=== PATIENT | female | born 2005 | race Caucasian/White ===

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

== ENCOUNTER 2024-01-14 20:02 | Emergency (ER) | payer OTHER, SELFPAY ==
[2024-01-14 20:04] VITALS: BP 143/96; PULSE 101; RESP 18; TEMP 36.8; O2SAT 100; BMI 18.8
--- NOTE | 2024-01-14 20:22 | ED_ITS ---
<Statement entered by Dl Schofield MD - 01/14/24 23:23> I was consulted by the DEBORAH, and we discussed the complexity of the problems being addressed. I approved the treatment and management plan for this patient's care in the emergency department, thus performing a substantive portion of the medical decision making. Patient's workup was largely nonactionable, formal chest x-ray read shows no acute findings however I disagree with this and think that there is an opacity in the right lower lobe for which she will be appropriately treated for pneumonia given her duration of symptoms with atypical coverage. Dl Schofield MD Discharge Plan Disposition Patient Disposition: Home, Self-Care Condition: Good Prescriptions Prescriptions: New doxycycline hyclate 100 mg capsule 100 mg PO BID 10 Days Qty: 20 0RF prednisone 50 mg tablet 50 mg PO DAILY 5 Days Qty: 5 0RF zcmhpdnxujpcmpr-ddgpdyxqo-UZ [Bromfed DM] 2-30-10 mg/5 mL syrup 5 ml PO Q4H PRN (Reason: cold symptoms) Qty: 118 0RF albuterol sulfate 90 mcg/actuation HFA aerosol inhaler 1 inh inhalation Q4H PRN (Reason: shortness of breath or wheezing) Qty: 6.7 0RF No Action amoxicillin 500 mg tablet 500 mg PO TID 10 Days Qty: 30 0RF methylprednisolone 4 mg Tablets,Dose Pack 4 mg PO DIRECTED 6 Days Qty: 21 0RF Rx Instructions: Take 1 pack as directed for 6 days cfobmbpwyjpvtbp-hfwhxvhxz-PC [Bromfed DM] 2-30-10 mg/5 mL Syrup 5 ml PO Q6H PRN (Reason: Cough) Qty: 240 0RF Referrals Follow up/Referrals: Carleen Xiong MD [Primary Care Provider] - See instructions Activity Restrictions/Add. Instructions Additional Instructions/Restrictions: Follow-up with your PCP in 1 week to assess your progress. Return to ER for any worsening signs or symptoms as needed. Clinical Impressions Clinical Impression: Community acquired pneumonia Qualifiers: Laterality: right Lung location: lower lobe of lung Qualified Code(s): J18.9 - Pneumonia, unspecified organism Instructions Patient Instructions: DI for Pneumonia -- Adult Discharge ED Provider: Dl Schofield General Adult [facility] General Chief complaint: Upper Respiratory Infection Stated complaint: Cough Time Seen by Provider: 01/14/24 20:22 History of Present Illness HPI narrative: Patient presents for 1 month of cough. Patient was seen in the [facility] at the mid December for an upper respiratory tract infection. She had a COVID swab that was negative but did lose sense of taste and smell. She got better from most constitutional symptoms but has had a productive cough since that time. She denies chest pain fever chills hemoptysis hematochezia melena nausea vomiting diarrhea. Related Data Previous Rx's Medication Instructions Recorded amoxicillin 500 mg tablet 500 mg PO TID 10 days #30 tabs 12/26/23 wdrhxcuoiexydbi-ayfenysizebavfz-RV 5 ml PO Q6H PRN Cough #240 mL 12/26/23 2 mg-30 mg-10 mg/5 mL oral syrup (Bromfed DM) methylprednisolone 4 mg tablets in 4 mg PO DIRECTED 6 days #21 tabs 12/26/23 a dose pack albuterol sulfate 90 mcg/actuation 1 inh inhalation Q4H PRN shortness 01/14/24 aerosol inhaler of breath or wheezing #6.7 grams toijgsunbuctbgn-onfquctpkybmftc-TM 5 ml PO Q4H PRN cold symptoms #118 01/14/24 2 mg-30 mg-10 mg/5 mL oral syrup mL (Bromfed DM) doxycycline hyclate 100 mg capsule 100 mg PO BID 10 days #20 caps 01/14/24 prednisone 50 mg tablet 50 mg PO DAILY 5 days #5 tabs 01/14/24 Allergies Allergy/AdvReac Type Severity Reaction Status Date / Time No Known Allergies Allergy Verified 12/26/23 11:07 [facility] Disclaimer: The information contained in this section may have been updated after the patient was seen, as this information can be updated by other users. Medical History (Updated 01/14/24 @ 21:50 by MARIYA Morton) Depression Anxiety History of gastroesophageal reflux (GERD) Migraine Social History (Updated 12/27/23 @ 09:48 by Benny Daniel APRN) Smoking Status: Never smoker alcohol intake: never current occupational status: employed Travel in the last 8 weeks: None ROS Obtained: Yes Systems reviewed as appropriate & no additional complaints except as documented Physical Exam General General appearance: alert and in no apparent distress Respiratory Respiratory exam: Present normal lung sounds bilaterally; Absent respiratory distress, wheezes or stridor Cardiovascular Cardiovascular exam: Present regular rate and normal rhythm Neurological Exam Neurological exam: Present alert and oriented X3 Medical Decision Making Medical Records Medical records reviewed: Yes I reviewed the patient's medical records. Danny Inquiry Pt receiving controlled substance: No Vital Signs: 01/14/24 20:04 01/14/24 20:55 01/14/24 20:55 Temperature 98.3 F Temperature Source Oral Pulse Rate 86 81 Pulse Rate [Left Brachial] 101 H Respiratory Rate 18 Blood Pressure Blood Pressure [Left Arm] 143/96 H Blood Pressure Mean [Left Arm] 111 02 Sat by Pulse Oximetry 100 Oxygen Delivery Method 01/14/24 21:00 01/14/24 22:01 Temperature 98.3 F Temperature Source Oral Pulse Rate 84 81 Pulse Rate [Left Brachial] Respiratory Rate 20 18 Blood Pressure 142/92 H 133/86 Blood Pressure [Left Arm] Blood Pressure Mean [Left Arm] 02 Sat by Pulse Oximetry 100 Oxygen Delivery Method Room Air Lab Data Lab results reviewed: Yes I reviewed the patient's lab results. Lab Results 01/14/24 20:25: VBG pH 7.32, VBG pCO2 52.1 H, VBG pO2 35.0, VBG HCO3 26.2, VBG Total CO2 27.8 H, VBG O2 Saturation 63.9, VBG Base Excess 0.1, VBG Lactic Acid 2.5 H 01/14/24 20:40: WBC 8.0, RBC 4.55, Hgb 13.7, Hct 40.0, MCV 87.9, MCH 30.2, MCHC 34.3, RDW 13.3, Plt Count 320, MPV 7.3 L, Neut % (Auto) 71.6, Lymph % (Auto) 22.4, Woodruff % (Auto) 4.0, Eos % (Auto) 1.1, Baso % (Auto) 1.0, Neut # (Auto) 5.7, Lymph # (Auto) 1.8, Woodruff # (Auto) 0.3, Eos # (Auto) 0.1, Baso # (Auto) 0.1, Sodium 140, Potassium 3.7, Chloride 104, Carbon Dioxide 29, Anion Gap 10.7, BUN 5 L, Creatinine 0.70, Estimated Creat Clear 111, Estimated GFR 108, Est GFR ( Amer) 130, Glucose 126 H, Calcium 9.6, Magnesium 1.9, Troponin I < 0.01, Serum HCG, Qual Negative 01/14/24 20:40 01/14/24 20:40 Orders (Tests/Meds): ED MEDICATIONS Discontinued Medications Generic Name Dose Route Start Last Admin Trade Name Joselyn PRN Reason Stop Dose Admin Acetaminophen 1,000 mg 01/14/24 20:23 01/14/24 20:57 Acetaminophen 1,000mg/100ml Vial IV 01/14/24 20:24 1,000 mg ONCE ONE Administration Albuterol/Ipratropium 3 ml 01/14/24 20:23 01/14/24 20:55 Ipratropium/Albuterol 3 Ml Neb IH 01/14/24 20:24 3 ml ONCE ONE Administration Dexamethasone Sodium Phosphate 10 mg 01/14/24 20:23 01/14/24 20:57 Dexamethasone 4mg/Ml 5ml Mdv IV 01/14/24 20:24 10 mg ONCE ONE Administration Doxycycline Hyclate 100 mg 01/14/24 21:50 Doxycycline Hycl 100 Mg Tablet PO 01/14/24 21:51 ONCE ONE Lactated Ringer's 1,000 mls @ 999 mls/hr 01/14/24 20:23 01/14/24 20:57 Lactated Ringer's 1000 Ml Bag IV 01/14/24 21:23 999 mls/hr .Q1H1M ONE Administration Ketorolac Tromethamine 15 mg 01/14/24 20:23 01/14/24 20:57 Ketorolac 30mg/Ml Vial IV 01/14/24 20:24 15 mg ONCE ONE Administration ORDERS Category Date Time Status XR chest 2V Stat Exams 01/14/24 20:44 Completed BMP [Basic Metabolic Panel] Stat Lab 01/14/24 20:40 Completed CBC w/Auto Diff [Complete Blood Count Auto Diff] Stat Lab 01/14/24 20:40 Completed Full Resp Panel w/COVID ([facility]) Routine Lab 01/14/24 20:57 Ordered HCG Qualitative, Serum Stat Lab 01/14/24 20:40 Completed Magnesium Stat Lab 01/14/24 20:40 Completed Trop I [Troponin I] Stat Lab 01/14/24 20:40 Completed Troponin I Q3H Lab 01/14/24 23:30 Ordered Troponin I Q3H Lab 01/15/24 02:30 Ordered VBG [Venous Blood Gas] Stat RT 01/14/24 20:25 Completed Medical Decision Narrative: In summary patient is a 1-year-old female who presents to the emergency department for evaluation of persistent cough. Patient is initially normotensive tachycardic upon arrival, afebrile. Zickel exam is unremarkable and nonfocal including normal breath sounds without any adventitious sounds normal heart sounds.. Differential diagnosis includes postviral cough versus atypical pneumonia versus bronchitis etc. Initial workup will be conducted with hematologic labs plain film chest x-ray respiratory swab. Initial interventions include Toradol Tylenol Decadron DuoNeb. Initial workup reviewed by me shows that her hematologic labs are nonactionable and her plain film chest x-ray suggestive of right lower lobe pneumonia. Upon repeat evaluation patient does report improvement in her constitutional symptoms. Given this appropriate for discharge with a prescription for doxycycline with first dose given here, steroids and inhaler and Bromfed Critical Care Critical Care Time Critical Care Time: No
--- NOTE | 2024-01-14 20:44 | XR_ITS ---
PROCEDURE INFORMATION: Exam: XR Chest Exam date and time: 01/14/2024 8:56 PM Age: 18 years old Clinical indication: Cough; Additional info: Cough shortness of breath TECHNIQUE: Imaging protocol: Radiologic exam of the chest. Views: 2 views. COMPARISON: No relevant prior studies available. FINDINGS: Lungs: Unremarkable. No consolidation. Pleural spaces: Unremarkable. No pleural effusion. No pneumothorax. Heart/Mediastinum: Unremarkable. No cardiomegaly. Bones/joints: Unremarkable. IMPRESSION: No acute findings.
[2024-01-14 20:49] LABS: Basophils # 0.1 K/mm3 (0-0.2); Eosinophils # 0.1 K/mm3 (0.0-0.4); Eosinophils % 1.1 % (0.1-12.0); Hemoglobin 13.7 g/dL (12.2-16.2); Lymphocytes # 1.8 K/mm3 (0.7-4.5); Lymphocytes % 22.4 % (10-50); Mean Corpuscular HGB Conc 34.3 g/dL (31.8-35.4); Mean Corpuscular Hemoglobin 30.2 pg (27.0-31.2); Mean Corpuscular Volume 87.9 fl (81-99); Mean Platelet Volume 7.3 fl (7.4-10.4); Monocytes # 0.3 K/mm3 (0.1-1.0); Neutrophils # 5.7 K/mm3 (1.8-7.8); Neutrophils % 71.6 % (37.0-80.0); Platelet Count 320 K/mm3 (142-424); Red Blood Count 4.55 M/mm3 (4.20-5.40); Red Cell Distribution Width 13.3 % (11.5-17.5)
[2024-01-14 20:52] LABS: Chloride 104 mmol/L (98-107); Potassium 3.7 mmoL/L (3.5-5.1); Sodium 140 mmol/L (136-145)
[2024-01-14 20:55] VITALS: PULSE 81; PULSE 86
[2024-01-14 20:55] LABS: Anion Gap 10.7 mEq/L (5-15); Blood Urea Nitrogen 5 mg/dl (7-17); Carbon Dioxide 29 mmol/L (22.0-30.0); Creatinine Clearance Estimated 111 mL/min (50-200); Estimated Glomerular Filt Rate 108 ml/min (>60); GFR (African American) 130 ML/MIN (>60); Magnesium 1.9 mg/dl (1.6-2.3)
[2024-01-14] MEDS: IPRATROPIUM/ALBUTEROL 3 ML NEB IH (20:55)
[2024-01-14 20:56] LABS: Calcium 9.6 mg/dl (8.4-10.2); Glucose 126 mg/dl (74-100)
[2024-01-14 20:57] LABS: HCG Qualitative, Serum Negative (Negative)
[2024-01-14] MEDS: ACETAMINOPHEN 1,000MG/100ML VIAL 1000 MG IV (20:57)
[2024-01-14] MEDS: LACTATED RINGERS 1000ML 1,000 ML 999 ML IV (20:57)
[2024-01-14] MEDS: KETOROLAC 30MG/ML VIAL 15 MG IV (20:57)
[2024-01-14] MEDS: DEXAMETHASONE 4MG/ML 5ML MDV 10 MG IV (20:57)
[2024-01-14 21:00] VITALS: BP 142/92; PULSE 84; RESP 20; O2SAT 100
[2024-01-14 21:08] LABS: VBG Base Excess 0.1 mmol/L (-2.4-2.3); VBG HCO3 26.2 mmol/L (23-30); VBG Oxygen Saturation 63.9 % (50-70); VBG PH 7.32 mmol/L (7.31-7.41); VBG Total CO2 27.8 mmol/L (23-27)
[2024-01-14 21:08] LABS: Troponin I < 0.01 ng/ml (0.00-0.034)
[2024-01-14 21:11] LABS: Lactate Venous 2.5 mmol/L (0.4-2.0); VBG PCO2 52.1 mmol/L (35-51)
--- NOTE | 2024-01-14 21:22 | PC.NURSE ---
Attending JOÃO notified of lactic 2.5 on VBG
[2024-01-14 21:30] VITALS: BP 131/80; PULSE 95; RESP 18; O2SAT 99
[2024-01-14 22:00] VITALS: BP 133/86; PULSE 83; RESP 16; O2SAT 99
[2024-01-14 22:01] VITALS: BP 133/86; PULSE 81; RESP 18; TEMP 36.8; O2SAT 99
[2024-01-14] MEDS: DOXYCYCLINE HYCL 100 MG TABLET PO (22:06)
[2024-01-14 22:18] LABS: Adenovirus,PCR Not Detected (NotDetected); Bordetella Pertussis Not Detected (NotDetected); Chlamydophila Pneumoniae, PCR Not Detected (NotDetected); Coronavirus 19, PCR Not Detected (NotDetected); Coronavirus 229E Not Detected (NotDetected); Coronavirus NL63 Not Detected (NotDetected); Coronavirus OC43 Not Detected (NotDetected); Coronovirus HKU1,PCR Not Detected (NotDetected); Human Metapneumovirus Not Detected (NotDetected); Influenza A, PCR Not Detected (NotDetected); Influenza AH1, 2009 Not Detected (NotDetected); Influenza AH1, PCR Not Detected (NotDetected); Influenza AH3,PCR Not Detected (NotDetected); Influenza B, PCR Not Detected (NotDetected); Mycoplasma Pneumoniae, PCR Not Detected (NotDetected); Parainfluenza 1, PCR Not Detected (NotDetected); Parainfluenza 2, PCR Not Detected (NotDetected); Parainfluenza 3, PCR Not Detected (NotDetected); Parainfluenza 4, PCR Not Detected (NotDetected); Respiratory Syncytial Virus Not Detected (NotDetected); Rhinovirus/Enterovirus Not Detected (NotDetected)
== END 2024-01-14 22:13 | disposition home or self-care (01) ==
PROVIDERS: Physician Assistant; Emergency Provider Emergency Medicine; PCP Family Medicine
DX: J18.9 Pneumonia, unspecified organism (principal); R05.8 Other specified cough
CPT/HCPCS: 71046; 80048; 82803; 83735; 84484; 84703; 85025; 87581; 87632; 87635; 87798; 96361; 96374; 96375; 99284; J0131; J1885; J7120; J7620

== ENCOUNTER 2024-01-15 12:53 | Emergency (ER) | payer OTHER, SELFPAY ==
--- NOTE | 2024-01-15 13:31 | PC.NURSE ---
INFORMED MD ABOUT PT COMPLAINTS OF INTERMITTENT GENERALIZED NUMBNESS AND TINGLING SINCE 9AM THIS MORNING.
[2024-01-15 13:57] VITALS: BP 122/92; PULSE 98; RESP 14; TEMP 37; O2SAT 100; BMI 18.8
--- NOTE | 2024-01-15 14:15 | ED_ITS ---
<Statement entered by Dl Schofield MD - 01/16/24 00:16> I was consulted by the DEBORAH, and we discussed the complexity of the problems being addressed. I approved the treatment and management plan for this patient's care in the emergency department, thus performing a substantive portion of the medical decision making. Dl Schofield MD Discharge Plan Disposition Patient Disposition: Home, Self-Care Condition: Good Prescriptions Prescriptions: No Action amoxicillin 500 mg tablet 500 mg PO TID 10 Days Qty: 30 0RF methylprednisolone 4 mg Tablets,Dose Pack 4 mg PO DIRECTED 6 Days Qty: 21 0RF Rx Instructions: Take 1 pack as directed for 6 days vqxzzyuzguamlgq-cltwvahwi-VI [Bromfed DM] 2-30-10 mg/5 mL Syrup 5 ml PO Q6H PRN (Reason: Cough) Qty: 240 0RF doxycycline hyclate 100 mg capsule 100 mg PO BID 10 Days Qty: 20 0RF prednisone 50 mg tablet 50 mg PO DAILY 5 Days Qty: 5 0RF fkdqknzrfyhmvuf-yjakqjtly-UT [Bromfed DM] 2-30-10 mg/5 mL syrup 5 ml PO Q4H PRN (Reason: cold symptoms) Qty: 118 0RF albuterol sulfate 90 mcg/actuation HFA aerosol inhaler 1 inh inhalation Q4H PRN (Reason: shortness of breath or wheezing) Qty: 6.7 0RF Referrals Follow up/Referrals: Carleen Xiong MD [Primary Care Provider] - See instructions Activity Restrictions/Add. Instructions Additional Instructions/Restrictions: Follow-up with your PCP within 1 week. Return to ER for any worsening signs or symptoms as needed Clinical Impressions Clinical Impression: Paresthesia, Hyperthyroidism Discharge ED Provider: Dl Schofield General Adult HPI <MARIYA Morton - Last Filed: 01/15/24 18:18> General Chief complaint: Neuro Symptoms/Deficit Stated complaint: body numbness/tingling, cough, back pain Time Seen by Provider: 01/15/24 14:10 Mode of Arrival: Ambulatory Source of Information: Patient Limitations: No Limitations Description of Symptoms (Recalled from ER Triage Doc. by RN): pt c/o generalized numbness and tingling. pt reports that it is worse in her BLE. pt states her vision seems slightly fuzzy, however, she states it just seems to take her a little longer for her eyes to focus. pt states she woke up feeling this way at approximately 0900. pt reports her BLE feel heavy and at one point this am she felt as if her legs weren't there. pts NIH is 0 pt reports being seen her last night and dx with PNA. pt reports she has not started any of her medication yet. History of Present Illness HPI narrative: Patient presents for body wide paresthesias, bilateral lower extremity heaviness difficulty focusing. Patient was seen yesterday and treated for right lower lobe pneumonia with antibiotics and steroids. Patient had prescriptions called in which she has not started yet. Patient denies chest pain fever chills hemoptysis hematochezia melena nausea vomiting diarrhea. Related Data Previous Rx's Medication Instructions Recorded amoxicillin 500 mg tablet 500 mg PO TID 10 days #30 tabs 12/26/23 eshprpinjwfbmej-tsvpptwjhfidyiu-TR 5 ml PO Q6H PRN Cough #240 mL 12/26/23 2 mg-30 mg-10 mg/5 mL oral syrup (Bromfed DM) methylprednisolone 4 mg tablets in 4 mg PO DIRECTED 6 days #21 tabs 12/26/23 a dose pack albuterol sulfate 90 mcg/actuation 1 inh inhalation Q4H PRN shortness 01/14/24 aerosol inhaler of breath or wheezing #6.7 grams ctkghptapixalbh-qnrqbufeeakqfgj-WB 5 ml PO Q4H PRN cold symptoms #118 01/14/24 2 mg-30 mg-10 mg/5 mL oral syrup mL (Bromfed DM) doxycycline hyclate 100 mg capsule 100 mg PO BID 10 days #20 caps 01/14/24 prednisone 50 mg tablet 50 mg PO DAILY 5 days #5 tabs 01/14/24 Allergies Allergy/AdvReac Type Severity Reaction Status Date / Time No Known Allergies Allergy Verified 12/26/23 11:07 [facility] <MARIYA Morton - Last Filed: 01/15/24 18:18> [facility] Disclaimer: The information contained in this section may have been updated after the patient was seen, as this information can be updated by other users. Medical History (Updated 01/15/24 @ 18:18 by MARIYA Morton) Depression Anxiety History of gastroesophageal reflux (GERD) Migraine Social History (Updated 12/27/23 @ 09:48 by Benny Daniel APRN) Smoking Status: Never smoker alcohol intake: never current occupational status: employed Travel in the last 8 weeks: None <MARIYA Morton - Last Filed: 01/15/24 18:18> ROS Obtained: Yes Systems reviewed as appropriate & no additional complaints except as documented Physical Exam <MARIYA Morton - Last Filed: 01/15/24 18:18> General General appearance: alert and in no apparent distress Head Head exam: atraumatic and normal inspection Eye Eye exam: Present normal appearance, PERRL and EOMI ENT ENT exam: Present normal exam, normal oropharynx and mucous membranes moist Neck Neck exam: Present normal inspection and full ROM; Absent meningismus or lymphadenopathy Chest Chest inspection: Present normal inspection and symmetric chest wall rise Respiratory Respiratory exam: Present normal lung sounds bilaterally; Absent respiratory distress, wheezes, stridor or accessory muscle use Cardiovascular Cardiovascular exam: Present regular rate, normal rhythm and normal heart sounds Abdominal Exam Abdominal exam: Present soft and normal bowel sounds; Absent tenderness Extremities Exam Extremities exam: Present normal inspection and full ROM Back Exam Back exam: Present normal inspection and full ROM Neurological Exam Neurological exam: Present alert, oriented X3, CN II-XII intact, normal gait and reflexes normal; Absent motor sensory deficit Psychiatric Psychiatric exam: Present normal affect and normal mood Skin Skin exam: Present warm, dry and normal color Medical Decision Making <MARIYA Morton - Last Filed: 01/15/24 18:18> Medical Records Medical records reviewed: Yes I reviewed the patient's medical records. Danny Inquiry Pt receiving controlled substance: No Vital Signs: 01/15/24 13:57 01/15/24 18:36 Temperature 98.6 F 98.5 F Temperature Source Oral Oral Pulse Rate 71 Pulse Rate [Left] 98 H Respiratory Rate 14 16 Blood Pressure 135/71 Blood Pressure [Right Arm] 122/92 H Blood Pressure Mean [Right Arm] 102 Blood Pressure Source [Right Arm] Automatic Cuff Blood Pressure Position [Right Arm] Sitting 02 Sat by Pulse Oximetry 100 Oxygen Delivery Method Room Air Room Air Lab Data Lab results reviewed: Yes I reviewed the patient's lab results. Lab Results 01/15/24 13:49: WBC 11.4 D, RBC 4.69, Hgb 14.4, Hct 41.9, MCV 89.4, MCH 30.7, MCHC 34.4, RDW 13.1, Plt Count 368, MPV 7.8, Neut % (Auto) 88.3 H, Lymph % (Auto) 6.2 L, Calloway % (Auto) 5.3, Eos % (Auto) 0.0 L, Baso % (Auto) 0.2, Neut # (Auto) 10.1 H, Lymph # (Auto) 0.7, Calloway # (Auto) 0.6, Eos # (Auto) 0.0, Baso # (Auto) 0.0, Total Counted 100, Neutrophils % (Manual) 91 H, Lymphocytes % (Manual) 8 L, Monocytes % (Manual) 1 L, Platelet Estimate Normal, RBC Morphology Normal, Sodium 139, Potassium 4.4, Chloride 103, Carbon Dioxide 28, Anion Gap 12.4, BUN 6 L, Creatinine 0.70, Estimated Creat Clear 111, Estimated GFR 108, Est GFR ( Amer) 130, Glucose 125 H, Calcium 10.1, Magnesium 2.0, TSH 0.30 L, Thyroxine (T4) 7.2 01/15/24 13:49 01/15/24 13:49 Orders (Tests/Meds): ED MEDICATIONS Discontinued Medications Generic Name Dose Route Start Last Admin Trade Name Joselyn PRN Reason Stop Dose Admin Acetaminophen 1,000 mg 01/15/24 14:15 01/15/24 14:31 Acetaminophen 1,000mg/100ml Vial IV 01/15/24 14:16 1,000 mg ONCE ONE Administration Diphenhydramine HCl 50 mg 01/15/24 15:39 01/15/24 15:50 Diphenhydramine 25mg Capsule PO 01/15/24 15:40 50 mg ONCE ONE Administration Lactated Ringer's 1,000 mls @ 999 mls/hr 01/15/24 14:15 01/15/24 14:30 Lactated Ringer's 1000 Ml Bag IV 01/15/24 15:15 999 mls/hr .Q1H1M ONE Administration Ketorolac Tromethamine 15 mg 01/15/24 14:15 01/15/24 14:31 Ketorolac 30mg/Ml Vial IV 01/15/24 14:16 15 mg ONCE ONE Administration ORDERS Category Date Time Status CT head/brain wo con Stat Cat Scan 01/15/24 16:04 Completed BMP [Basic Metabolic Panel] Stat Lab 01/15/24 13:49 Completed CBC w/Auto Diff [Complete Blood Count Auto Diff] Stat Lab 01/15/24 13:49 Completed Magnesium Stat Lab 01/15/24 13:49 Completed T4 (Thyroxine) Stat Lab 01/15/24 13:49 Completed TSH [Thyroid Stimulating Hormone] Stat Lab 01/15/24 13:49 Completed Triiodothyronine (T3) Total Stat Lab 01/15/24 13:49 Received Medical Decision Narrative: In summary patient is a 18-year-old female who presents to the emergency department for evaluation of paresthesia leg heaviness blurry vision. Patient is hemodynamically stable upon arrival, afebrile. Physical exam is unremarkable and nonfocal including Glascow coma score 15 with no focal neurologic deficits. Differential diagnosis includes electrolyte abnormalities, hypoglycemia, adverse medication reaction etc. Initial workup will be conducted with hematologic labs. Initial interventions include Toradol Tylenol crystalloid bolus. Initial workup reviewed by me and she has hyperthyroidism subclinically. Blood work and the remainder of her hematologic labs are nonactionable. CT scan of the head via my informal evaluation does not show any acute processes.. Upon repeat evaluation patient still has global paresthesias but no focal neurologic deficits. Given this Dr. Schofield and I had an interactive discussion with the patient regarding her workup and at this point no serious or life-threatening condition has been found likely reflects sequela of medication received. Patient is to follow-up closely with her PCP or return to ER for any worsening signs or symptoms. Patient verbalized understanding and agreement. <Dl Schofield MD - Last Filed: 01/16/24 00:12> Vital Signs: 01/15/24 13:57 01/15/24 18:36 Temperature 98.6 F 98.5 F Temperature Source Oral Oral Pulse Rate 71 Pulse Rate [Left] 98 H Respiratory Rate 14 16 Blood Pressure 135/71 Blood Pressure [Right Arm] 122/92 H Blood Pressure Mean [Right Arm] 102 Blood Pressure Source [Right Arm] Automatic Cuff Blood Pressure Position [Right Arm] Sitting 02 Sat by Pulse Oximetry 100 Oxygen Delivery Method Room Air Room Air Lab Data Lab Results 01/15/24 13:49: WBC 11.4 D, RBC 4.69, Hgb 14.4, Hct 41.9, MCV 89.4, MCH 30.7, MCHC 34.4, RDW 13.1, Plt Count 368, MPV 7.8, Neut % (Auto) 88.3 H, Lymph % (Auto) 6.2 L, Calloway % (Auto) 5.3, Eos % (Auto) 0.0 L, Baso % (Auto) 0.2, Neut # (Auto) 10.1 H, Lymph # (Auto) 0.7, Calloway # (Auto) 0.6, Eos # (Auto) 0.0, Baso # (Auto) 0.0, Total Counted 100, Neutrophils % (Manual) 91 H, Lymphocytes % (Manual) 8 L, Monocytes % (Manual) 1 L, Platelet Estimate Normal, RBC Morphology Normal, Sodium 139, Potassium 4.4, Chloride 103, Carbon Dioxide 28, Anion Gap 12.4, BUN 6 L, Creatinine 0.70, Estimated Creat Clear 111, Estimated GFR 108, Est GFR ( Amer) 130, Glucose 125 H, Calcium 10.1, Magnesium 2.0, TSH 0.30 L, Thyroxine (T4) 7.2 Orders (Tests/Meds): ED MEDICATIONS Discontinued Medications Generic Name Dose Route Start Last Admin Trade Name Freq PRN Reason Stop Dose Admin Acetaminophen 1,000 mg 01/15/24 14:15 01/15/24 14:31 Acetaminophen 1,000mg/100ml Vial IV 01/15/24 14:16 1,000 mg ONCE ONE Administration Diphenhydramine HCl 50 mg 01/15/24 15:39 01/15/24 15:50 Diphenhydramine 25mg Capsule PO 01/15/24 15:40 50 mg ONCE ONE Administration Lactated Ringer's 1,000 mls @ 999 mls/hr 01/15/24 14:15 01/15/24 14:30 Lactated Ringer's 1000 Ml Bag IV 01/15/24 15:15 999 mls/hr .Q1H1M ONE Administration Ketorolac Tromethamine 15 mg 01/15/24 14:15 01/15/24 14:31 Ketorolac 30mg/Ml Vial IV 01/15/24 14:16 15 mg ONCE ONE Administration ORDERS Category Date Time Status CT head/brain wo con Stat Cat Scan 01/15/24 16:04 Completed BMP [Basic Metabolic Panel] Stat Lab 01/15/24 13:49 Completed CBC w/Auto Diff [Complete Blood Count Auto Diff] Stat Lab 01/15/24 13:49 Completed Magnesium Stat Lab 01/15/24 13:49 Completed T4 (Thyroxine) Stat Lab 01/15/24 13:49 Completed TSH [Thyroid Stimulating Hormone] Stat Lab 01/15/24 13:49 Completed Triiodothyronine (T3) Total Stat Lab 01/15/24 13:49 Received Medical Decision Narrative: In summary patient is a 18-year-old female who presents to the emergency department for evaluation of paresthesia leg heaviness blurry vision. Patient is hemodynamically stable upon arrival, afebrile. Physical exam is unremarkable and nonfocal including Glascow coma score 15 with no focal neurologic deficits. Differential diagnosis includes electrolyte abnormalities, hypoglycemia, adverse medication reaction etc. Initial workup will be conducted with hematologic labs. Initial interventions include Toradol Tylenol crystalloid bolus. Initial workup reviewed by me and she has hyperthyroidism subclinically. Blood work and the remainder of her hematologic labs are nonactionable. CT scan of the head via my informal evaluation does not show any acute processes.. Upon repeat evaluation patient still has global paresthesias but no focal neurologic deficits. Given this Dr. Schofield and I had an interactive discussion with the patient regarding her workup and at this point no serious or life-threatening condition has been found likely reflects sequela of medication received. Patient is to follow-up closely with her PCP or return to ER for any worsening signs or symptoms. Patient verbalized understanding and agreement. Critical Care <MARIYA Morton - Last Filed: 01/15/24 18:18> Critical Care Time Critical Care Time: No
[2024-01-15 14:23] LABS: Chloride 103 mmol/L (98-107)
[2024-01-15 14:24] LABS: Potassium 4.4 mmoL/L (3.5-5.1); Sodium 139 mmol/L (136-145)
[2024-01-15 14:26] LABS: Blood Urea Nitrogen 6 mg/dl (7-17); Creatinine Clearance Estimated 111 mL/min (50-200); Estimated Glomerular Filt Rate 108 ml/min (>60); GFR (African American) 130 ML/MIN (>60)
[2024-01-15 14:27] LABS: Anion Gap 12.4 mEq/L (5-15); Calcium 10.1 mg/dl (8.4-10.2); Carbon Dioxide 28 mmol/L (22.0-30.0); Glucose 125 mg/dl (74-100)
[2024-01-15] MEDS: LACTATED RINGERS 1000ML 1,000 ML 999 ML IV (14:30)
[2024-01-15 14:31] LABS: Basophils % 0.2 % (0.1-2.0); Hematocrit 41.9 % (37.0-47.0); Hemoglobin 14.4 g/dL (12.2-16.2); Lymphocytes # 0.7 K/mm3 (0.7-4.5); Lymphocytes % 6.2 % (10-50); Mean Corpuscular HGB Conc 34.4 g/dL (31.8-35.4); Mean Corpuscular Hemoglobin 30.7 pg (27.0-31.2); Mean Corpuscular Volume 89.4 fl (81-99); Mean Platelet Volume 7.8 fl (7.4-10.4); Monocytes # 0.6 K/mm3 (0.1-1.0); Monocytes % 5.3 % (1.7-9.3); Neutrophils # 10.1 K/mm3 (1.8-7.8); Neutrophils % 88.3 % (37.0-80.0); Platelet Count 368 K/mm3 (142-424); Red Blood Count 4.69 M/mm3 (4.20-5.40); Red Cell Distribution Width 13.1 % (11.5-17.5); White Blood Count 11.4 K/mm3 (4.5-13.0)
[2024-01-15] MEDS: ACETAMINOPHEN 1,000MG/100ML VIAL 1000 MG IV (14:31)
[2024-01-15] MEDS: KETOROLAC 30MG/ML VIAL 15 MG IV (14:31)
[2024-01-15 14:36] LABS: MANUAL DIFFERENTIAL MANUAL DIFFERENTIAL (MANUAL DIFF)
[2024-01-15 14:55] LABS: Lymphocytes % 8 % (10-50); Monocytes % 1 % (2-9); Neutrophils % 91 % (42-76); Platelet Estimate Normal; RBC Morphology Normal; Total Cells Counted 100
[2024-01-15] MEDS: diphenhydrAMINE 25MG CAPSULE 50 MG PO (15:50)
--- NOTE | 2024-01-15 16:04 | CT_ITS ---
PROCEDURE INFORMATION: Exam: CT Head Without Contrast Exam date and time: 01/15/2024 4:34 PM Age: 18 years old Clinical indication: Other: Global paresthesia TECHNIQUE: Imaging protocol: Computed tomography of the head without contrast. Radiation optimization: All CT scans at this facility use at least one of these dose optimization techniques: automated exposure control; mA and/or kV adjustment per patient size (includes targeted exams where dose is matched to clinical indication); or iterative reconstruction. COMPARISON: No relevant prior studies available. FINDINGS: Brain: Normal. No hemorrhage. Unremarkable white matter. No mass effect. Cerebral ventricles: No ventriculomegaly. Paranasal sinuses: Visualized sinuses are unremarkable. No fluid levels. Mastoid air cells: Visualized mastoid air cells are well aerated. Bones: Unremarkable. No acute fracture. Soft tissues: Unremarkable. IMPRESSION: No acute intracranial abnormality.
[2024-01-15 16:41] LABS: T4 (Thyroxine) 7.2 ug/dl (5.53-11.0)
--- NOTE | 2024-01-15 17:42 | PC.NURSE ---
called interventional radiology tech to check status of ct scan, states that [facility] did not pick it up but we are sending it to [facility] now
[2024-01-15 18:36] VITALS: BP 135/71; PULSE 71; RESP 16; TEMP 36.9; O2SAT 97
[2024-01-17 08:19] LABS: Triiodothyronine (T3) Total 73 ng/dL (71-180)
== END 2024-01-15 18:39 | disposition home or self-care (01) ==
PROVIDERS: Physician Assistant; Emergency Provider Emergency Medicine; PCP Family Medicine
DX: E05.90 Thyrotoxicosis, unspecified without thyrotoxic crisis or storm (principal); R20.2 Paresthesia of skin
CPT/HCPCS: 70450; 80048; 83735; 84436; 84443; 84480; 85007; 85025; 85027; 96361; 96374; 96375; 99284; J0131; J1885; J7120

== ENCOUNTER 2024-02-07 13:47 | Outpatient (CLI) | payer OTHER, SELFPAY ==
--- NOTE | 2024-02-07 13:53 | US_ITS ---
FINAL REPORT TECHNIQUE: Limited sonographic images of the thyroid were obtained. CLINICAL HISTORY: HYPERTHYROIDISM/ FINDINGS: The right lobe of the thyroid measures 5.1 x 1.1 x 1.6 cm. There are tiny cystic structures measuring less than 3 mm. The left lobe of the thyroid measures 4.7 x 1.1 x 1.4 cm. No mass or nodule is identified. The isthmus measures 2 mm. No mass or nodule is identified. IMPRESSION: Tiny cystic structures in the right lobe of the thyroid consistent with TI-RADS category 1. No follow-up is recommended. Reviewed, Interpreted and Dictated by Anthony Schultz MD Transcribed by Lay Wakefield Authenticated and [facility]
--- NOTE | 2024-02-07 13:54 | US_ITS ---
PROCEDURE: US PELVIC CLINICAL INDICATION: HEAVY MENSTRUAL BLEEDING COMPARISON: No exams were available for comparison FINDINGS: Transabdominal sonographic images of the pelvis were obtained. UTERUS: 7.6 cm x 5.5 cmx 3.9 cm anteverted with a combined endometrial thickness of 6mm. On the transverse view, the uterus appears to have an arcuate appearance. LEFT OVARY: 2.9 cmx1.6 cmx1.9cm with a volume of 4.6ml. There are several small follicles within the left ovary. RIGHT OVARY: 3.5 cmx 2.5 cmx2.3cm with a volume of 10.8ml. There are multiple small follicles in the right ovary. Both ovaries are seen and appear normal. Doppler flow to both ovaries are seen. There is no fluid in the cul-de-sac. IMPRESSION: 1. Anteverted uterus normal in shape and size. The endometrium is normal. 2. On the transverse view, the uterus has an arcuate appearance. MRI might better delineate the uterine shape and architecture. 3. Both ovaries are seen and contain several follicles. Polycystic ovaries cannot be ruled out based on this ultrasound. 4. No fluid in the cul-de-sac. Dictated by: Colt Diggs MD 02/08/2024 11:01 Colt Diggs MD in [place] 02/08/2024 11:01
== END 2024-02-07 23:59 | disposition home or self-care (01) ==
LOC: RAD 13:47
PROVIDERS: PCP Nurse Practitioner; Visit Provider Nurse Practitioner
DX: N92.0 Excessive and frequent menstruation with regular cycle (principal); E05.90 Thyrotoxicosis, unspecified without thyrotoxic crisis or storm
CPT/HCPCS: 76536; 76856

== ENCOUNTER 2024-03-17 18:19 | Emergency (ER) | payer OTHER, SELFPAY ==
[2024-03-17 19:45] VITALS: BP 133/89; PULSE 75; RESP 20; TEMP 36.6; O2SAT 98; BMI 18.9
[2024-03-17 20:02] LABS: UTC Pregnancy Test, Urine Negative (Negative)
--- NOTE | 2024-03-17 20:12 | EXP.UTC ---
Discharge Plan Disposition Patient Disposition: Home, Self-Care Condition: Good Prescriptions Prescriptions: New ondansetron 4 mg tablet,disintegrating 4 mg PO Q8H PRN (Reason: nausea and vomiting) Qty: 10 0RF No Action levonorgestrel-ethinyl estrad [Falmina (28)] 0.1-20 mg-mcg tablet 1 tab PO DAILY Referrals Follow up/Referrals: Valerie Pepper APRN [Primary Care Provider] - See instructions Activity Restrictions/Add. Instructions Additional Instructions/Restrictions: Drink extra fluids with and between meals. If you have difficulty drinking, try very small amounts of water or suck on ice chips. ? Avoid fruit juices, as these do not replace minerals and can actually increase diarrhea. ? Children and adults can use sports drinks to replenish electrolytes. Younger children and infants should use products formulated for children, like oral rehydration solutions. ? Eat food in small amounts and let your stomach recover. ? Get lots of rest. You may feel tired or weak. ? No greasy or fried foods for the next 24-48 hours BRAT diet Bananas Rice Apples and Turner ? Make sure to drink plenty of liquids ? Return if needed ? Straight to ER if any life threatening symptoms ? Zofran as prescribed ? You was given an outpatient order for diarrhea panel, please collect specimen and bring back to outpatient lab then call back to the [facility] or follow up with family doctor for results ? Follow up with family doctor in the next 48-72 hours if no improvement or any worsening of symptoms Clinical Impressions Clinical Impression: Nausea vomiting and diarrhea Stand Alone Forms Stand Alone Forms: Work/School Release Instructions Patient Instructions: Nausea and Vomiting-Adult, Diarrhea Print Language Print Language: Cymraes Discharge ED Provider: Yanet Gibbs [facility] [place] HPI General Stated complaint: vomiting,stuffy nose,diarrhea Mode of Arrival: Ambulatory Source of Information: Patient Limitations: No Limitations Time Seen by Provider: 03/17/24 20:12 Description of Symptoms (Recalled from Triage Doc. by RN): PATIENT C/O VOMITING AND HEADACHE HEENT Symptoms (Recalled from RN notes): Yes Resp Symptoms (Recalled from RN notes): No Skin Symptoms (Recalled from RN notes): No MS Symptoms (Recalled from RN notes): No Functional Status (Recalled from RN notes): WNL History of Present Illness Provider Complaint: Patient states that after lunch today she started having vomiting and diarrhea States she has had diarrhea on and off for a couple days but worse after lunch today so this evening she came in to get checked thinks she may have a stomach bug Related Data Home Medications ?Medication ?Instructions ?Recorded ?Confirmed levonorgestrel-ethinyl estradiol 1 tab PO DAILY 03/17/24 03/17/24 0.1 mg-20 mcg tablet (Falmina (28)) Previous Rx's ?Medication ?Instructions ?Recorded ondansetron 4 mg disintegrating 4 mg PO Q8H PRN nausea and 03/17/24 tablet vomiting #10 tabs Allergies Allergy/AdvReac Type Severity Reaction Status Date / Time No Known Allergies Allergy Verified 02/25/24 14:06 Worker's Comp Is this a Worker's Comp case?: No [facility] Disclaimer: The information contained in this section may have been updated after the patient was seen, as this information can be updated by other users. Medical History (Updated 03/17/24 @ 20:17 by Yanet Gibbs APRN) PCOS (polycystic ovarian syndrome) Depression Anxiety History of gastroesophageal reflux (GERD) Migraine Surgical History (Updated 02/25/24 @ 14:12 by Heena Matute MA) No significant past surgical history Social History Smoking Status: Never smoker alcohol intake: never current occupational status: employed Travel in the last 8 weeks: None ROS Obtained: Yes All systems reviewed & no additional complaints except as documented and Yes Systems reviewed as appropriate & no additional complaints except as documented Constitutional Constitutional: Reports system reviewed and no additional complaints, except as documented, Reports as per HPI, Denies fever(s) and Reports headache(s) ENT Ears, Nose, Mouth, and Throat: Reports system reviewed and no additional complaints, except as documented, Reports as per HPI, Reports headache(s), Reports nasal congestion and Reports nasal discharge Cardiovascular Cardiovascular: Reports system reviewed and no additional complaints, except as documented and Reports as per HPI Respiratory Respiratory: Reports system reviewed and no additional complaints, except as documented and Reports as per HPI Gastrointestinal Gastrointestingal: Reports system reviewed and no additional complaints, except as documented, as per HPI, diarrhea, nausea and vomiting Neurologic Neurologic: Reports headache(s) Physical Exam General General appearance: alert and in no apparent distress ENT ENT exam: Present mucous membranes moist Respiratory Respiratory exam: Present normal lung sounds bilaterally; Absent respiratory distress or wheezes Cardiovascular Cardiovascular exam: Present regular rate, normal rhythm and normal heart sounds Abdominal Exam Abdominal exam: Present soft and normal bowel sounds; Absent distention or tenderness Neurological Exam Neurological exam: Present alert, oriented X3 and normal gait Medical Decision Making Danny Inquiry Pt receiving controlled substance: No Danny was queried for this patient: No Vital Signs: 03/17/24 19:45 Temperature 97.9 F Temperature Source Oral Pulse Rate [Left Brachial] 75 Respiratory Rate 20 Blood Pressure [Left Arm] 133/89 Blood Pressure Mean [Left Arm] 103 Blood Pressure Source [Left Arm] Automatic Cuff Blood Pressure Position [Left Arm] Sitting 02 Sat by Pulse Oximetry 98 Oxygen Delivery Method Room Air Lab Data Lab results reviewed: Yes I reviewed the patient's lab results. Lab Results 03/17/24 20:00: [facility] Clinic Negative
[2024-03-17 20:19] VITALS: BP 133/89; PULSE 75; RESP 20; TEMP 36.6; O2SAT 98
== END 2024-03-17 20:28 | disposition home or self-care (01) ==
PROVIDERS: Emergency Provider Nurse Practitioner; PCP Nurse Practitioner
DX: R11.2 Nausea with vomiting, unspecified (principal); R19.7 Diarrhea, unspecified
CPT/HCPCS: 81025; 99212; 99214; G0463

== ENCOUNTER 2024-03-25 18:43 | Emergency (ER) | payer OTHER, SELFPAY ==
[2024-03-25 19:34] LABS: UTC Strep Screen (Rapid) Negative (Negative)
[2024-03-25 19:38] VITALS: BP 143/95; PULSE 77; RESP 18; TEMP 37.1; O2SAT 100; BMI 19.5
--- NOTE | 2024-03-25 19:45 | ED_ITS ---
Discharge Plan Disposition Patient Disposition: Home, Self-Care Condition: Good Prescriptions Prescriptions: New azithromycin [Zithromax] 250 mg tablet 250 mg PO UD DOSE PK Qty: 6 0RF Rx Instructions: Take two (2) tablets today, then one (1) tablet days #2 thru #5 methylprednisolone 4 mg Tablets,Dose Pack 4 mg PO DIRECTED 6 Days Qty: 21 0RF Rx Instructions: Take 1 pack as directed for 6 days uucwwzjdpbqfegi-[id number]-XQ [Bromfed DM] 2-30-10 mg/5 mL Syrup 5 ml PO Q6H PRN (Reason: Cough) Qty: 240 0RF No Action levonorgestrel-ethinyl estrad [Falmina (28)] 0.1-20 mg-mcg tablet 1 tab PO DAILY ondansetron 4 mg tablet,disintegrating 4 mg PO Q8H PRN (Reason: nausea and vomiting) Qty: 10 0RF Referrals Follow up/Referrals: Maddie Kelly MD [Primary Care Provider] - See instructions Activity Restrictions/Add. Instructions Additional Instructions/Restrictions: Drink plenty of fluids. Take tylenol or ibuprofen for pain or fever. Take the medications as directed. Follow up with your regular doctor. GO TO THE ER FOR ANY WORSENING SYMPTOMS Clinical Impressions Clinical Impression: Acute bronchitis, Sinusitis, Acute viral syndrome Stand Alone Forms Stand Alone Forms: Work/School Release Print Language Print Language: Malagasy Discharge ED Provider: Benny Daniel [facility] [place] H[place] General Stated complaint: congestion,SOA,sore throat,headache Mode of Arrival: Ambulatory Source of Information: Patient Limitations: No Limitations Time Seen by Provider: 03/25/24 19:31 Description of Symptoms (Recalled from Triage Doc. by RN): Reports headache, eye pain, sob and sore throat. HEENT Symptoms (Recalled from RN notes): Yes Resp Symptoms (Recalled from RN notes): No Skin Symptoms (Recalled from RN notes): No MS Symptoms (Recalled from RN notes): No Functional Status (Recalled from RN notes): wnl Related Data Home Medications ?Medication ?Instructions ?Recorded ?Confirmed levonorgestrel-ethinyl estradiol 1 tab PO DAILY 03/17/24 03/17/24 0.1 mg-20 mcg tablet (Falmina (28)) Previous Rx's ?Medication ?Instructions ?Recorded ondansetron 4 mg disintegrating 4 mg PO Q8H PRN nausea and 03/17/24 tablet vomiting #10 tabs azithromycin 250 mg tablet 250 mg PO UD DOSE PK #6 tabs 03/25/24 (Zithromax) pushzlpckyxgehv-yxpdlrjzkcecpuw-AH 5 ml PO Q6H PRN Cough #240 mL 03/25/24 2 mg-30 mg-10 mg/5 mL oral syrup (Bromfed DM) methylprednisolone 4 mg tablets in 4 mg PO DIRECTED 6 days #21 tabs 03/25/24 a dose pack Allergies Allergy/AdvReac Type Severity Reaction Status Date / Time No Known Allergies Allergy Verified 02/25/24 14:06 Worker's Comp Is this a Worker's Comp case?: No [facility] Disclaimer: The information contained in this section may have been updated after the patient was seen, as this information can be updated by other users. Medical History (Updated 03/25/24 @ 20:07 by Benny Daniel APRN) PCOS (polycystic ovarian syndrome) Depression Anxiety History of gastroesophageal reflux (GERD) Migraine Surgical History (Updated 02/25/24 @ 14:12 by Heena Matute MA) No significant past surgical history Social History Smoking Status: Never smoker alcohol intake: never current occupational status: employed Travel in the last 8 weeks: None ROS Obtained: Yes All systems reviewed & no additional complaints except as documented Constitutional Constitutional: Reports chills and Reports fever(s) Eyes Eyes: Denies eye discharge ENT Ears, Nose, Mouth, and Throat: Reports as per HPI Cardiovascular Cardiovascular: Denies chest pain Respiratory Respiratory: Denies chest congestion and Reports cough Gastrointestinal Gastrointestingal: Reports nausea; Denies abdominal pain, constipation, cr amping, diarrhea or vomiting Musculoskeletal Musculoskeletal: Denies arthralgias Integumentary/Breasts Skin/Breast: Denies rash Neurologic Neurologic: Denies paresthesias Physical Exam General General appearance: alert and in no apparent distress Head Head exam: atraumatic, normocephalic and normal inspection Eye Eye exam: Present normal appearance, PERRL and EOMI ENT ENT exam: Present mucous membranes moist and normal external ear exam Expanded ENT Exam TM/Canal exam: Bilateral TM: erythema and bulging Nose exam: Absent sinus tenderness Mouth exam: Present normal external inspection; Absent drooling Teeth exam: Present normal inspection Throat exam: Present tonsillar erythema, tonsillomegaly and tonsillar exudate Neck Neck exam: Present normal inspection, full ROM and trachea midline; Absent tenderness, meningismus or lymphadenopathy Chest Chest inspection: Present normal inspection and symmetric chest wall rise; Absent tenderness Respiratory Respiratory exam: Present normal lung sounds bilaterally; Absent respiratory distress, wheezes, stridor or accessory muscle use Cardiovascular Cardiovascular exam: Present regular rate and normal rhythm; Absent systolic murmur or diastolic murmur Abdominal Exam Abdominal exam: Present soft and normal bowel sounds; Absent distention, tenderness, guarding, rebound or rigidity Extremities Exam Extremities exam: Present normal inspection and normal capillary refill; Absent calf tenderness Back Exam Back exam: Present normal inspection and full ROM; Absent tenderness, CVA tenderness (R) or CVA tenderness (L) Neurological Exam Neurological exam: Present alert, oriented X3 and CN II-XII intact Psychiatric Psychiatric exam: Present normal affect and normal mood Skin Skin exam: Present warm, dry, intact and normal color Medical Decision Making Medical Records Medical records reviewed: No I reviewed the patient's medical records. Screening: Per USPSTF and CDC recommendations, given the prevalence of disease in our region, it is our hospital?s policy to screen for HIV and viral Hepatitis for all patients aged 18 and over and those with ongoing risk factors. Danny Inquiry Pt receiving controlled substance: No Vital Signs: 03/25/24 19:38 Temperature 98.7 F Temperature Source Oral Pulse Rate [Radial] 77 Respiratory Rate 18 Blood Pressure [Right Arm] 143/95 H Blood Pressure Mean [Right Arm] 111 Blood Pressure Source [Right Arm] Automatic Cuff Blood Pressure Position [Right Arm] Sitting 02 Sat by Pulse Oximetry 100 Oxygen Delivery Method Room Air Lab Data Lab results reviewed: Yes I reviewed the patient's lab results. Lab Results 03/25/24 19:33: Strep Scn Rapid Clinic Negative Orders (Tests/Meds): ORDERS Category Date Time Status Strep Screen Confirmation Stat Micro 03/25/24 19:33 Received
[2024-03-25 20:12] VITALS: BP 143/95; PULSE 77; RESP 18; TEMP 37.1; O2SAT 100
== END 2024-03-25 20:13 | disposition home or self-care (01) ==
PROVIDERS: Emergency Provider Nurse Practitioner Family; PCP Family Medicine
DX: J20.9 Acute bronchitis, unspecified (principal); J01.90 Acute sinusitis, unspecified; R51.9 Headache, unspecified; R07.0 Pain in throat; B34.9 Viral infection, unspecified
CPT/HCPCS: 87635; 87880; 99212; 99214; G0463

== ENCOUNTER 2024-04-27 17:06 | Emergency (ER) | payer OTHER, SELFPAY ==
--- NOTE | 2024-04-27 17:22 | ED_ITS ---
Discharge Plan Disposition Patient Disposition: Home, Self-Care Condition: Good Prescriptions Prescriptions: New azithromycin [Zithromax] 250 mg tablet 250 mg PO UD DOSE PK Qty: 6 0RF Rx Instructions: Take two (2) tablets today, then one (1) tablet days #2 thru #5 methylprednisolone 4 mg Tablets,Dose Pack 4 mg PO DIRECTED 6 Days Qty: 21 0RF Rx Instructions: Take 1 pack as directed for 6 days oglvfttwwwyyttw-ywgmyidxl-XS [Bromfed DM] 2-30-10 mg/5 mL Syrup 5 ml PO Q6H PRN (Reason: Cough) Qty: 240 0RF No Action levonorgestrel-ethinyl estrad [Falmina (28)] 0.1-20 mg-mcg tablet 1 tab PO DAILY ondansetron 4 mg tablet,disintegrating 4 mg PO Q8H PRN (Reason: nausea and vomiting) Qty: 10 0RF azithromycin [Zithromax] 250 mg tablet 250 mg PO UD DOSE PK Qty: 6 0RF Rx Instructions: Take two (2) tablets today, then one (1) tablet days #2 thru #5 methylprednisolone 4 mg Tablets,Dose Pack 4 mg PO DIRECTED 6 Days Qty: 21 0RF Rx Instructions: Take 1 pack as directed for 6 days ntahjxgyzkrdusx-vjfyztymc-HV [Bromfed DM] 2-30-10 mg/5 mL Syrup 5 ml PO Q6H PRN (Reason: Cough) Qty: 240 0RF Referrals Follow up/Referrals: Maddie Kelly MD [Primary Care Provider] - See instructions Activity Restrictions/Add. Instructions Additional Instructions/Restrictions: Drink plenty of fluids. Take tylenol or ibuprofen for pain or fever. Take the medications as directed. Follow up with your regular doctor. GO TO THE ER FOR ANY WORSENING SYMPTOMS Clinical Impressions Clinical Impression: Acute bronchitis, Acute viral syndrome Stand Alone Forms Stand Alone Forms: Work/School Release Instructions Patient Instructions: Acute Bronchitis, DI for Acute Bronchitis Print Language Print Language: Occitan Discharge ED Provider: Benny Daniel [facility] – [place] HPI General Stated complaint: cough,burning chest,sore throat,burning in abdomin Time Seen by Provider: 04/27/24 17:22 History of Present Illness Provider Complaint: She states that for the past 3 days she has had chest congestion, productive cough, and chest burning when she coughs. She also states that she has a history of hyperthyroidism and she feels like she has in the past when her thyroid hormones were very high. Related Data Home Medications ?Medication ?Instructions ?Recorded ?Confirmed levonorgestrel-ethinyl estradiol 1 tab PO DAILY 03/17/24 03/17/24 0.1 mg-20 mcg tablet (Falmina (28)) Previous Rx's ?Medication ?Instructions ?Recorded ondansetron 4 mg disintegrating 4 mg PO Q8H PRN nausea and 03/17/24 tablet vomiting #10 tabs azithromycin 250 mg tablet 250 mg PO UD DOSE PK #6 tabs 03/25/24 (Zithromax) mnvevlpjuoariku-jwttytxfocwaziv-SG 5 ml PO Q6H PRN Cough #240 mL 03/25/24 2 mg-30 mg-10 mg/5 mL oral syrup (Bromfed DM) methylprednisolone 4 mg tablets in 4 mg PO DIRECTED 6 days #21 tabs 03/25/24 a dose pack azithromycin 250 mg tablet 250 mg PO UD DOSE PK #6 tabs 04/27/24 (Zithromax) rlpavmjklkrjysh-pvjyyfcblmyjrgi-BY 5 ml PO Q6H PRN Cough #240 mL 04/27/24 2 mg-30 mg-10 mg/5 mL oral syrup (Bromfed DM) methylprednisolone 4 mg tablets in 4 mg PO DIRECTED 6 days #21 tabs 04/27/24 a dose pack Allergies Allergy/AdvReac Type Severity Reaction Status Date / Time No Known Allergies Allergy Verified 02/25/24 14:06 [facility] Disclaimer: The information contained in this section may have been updated after the patient was seen, as this information can be updated by other users. Medical History (Updated 04/27/24 @ 18:19 by Benny Daniel APRN) PCOS (polycystic ovarian syndrome) Depression Anxiety History of gastroesophageal reflux (GERD) Migraine Surgical History (Updated 02/25/24 @ 14:12 by Heena Matute MA) No significant past surgical history Social History Smoking Status: Never smoker alcohol intake: never current occupational status: employed Travel in the last 8 weeks: None ROS Obtained: Yes All systems reviewed & no additional complaints except as documented Constitutional Constitutional: Denies chills and Denies fever(s) Eyes Eyes: Denies eye discharge ENT Ears, Nose, Mouth, and Throat: Denies dizziness, Denies otalgia and Denies sore throat Cardiovascular Cardiovascular: Denies chest pain Respiratory Respiratory: Denies shortness of breath, Reports chest congestion, Reports cough, Denies stridor and Denies wheezing Gastrointestinal Gastrointestingal: Denies nausea or vomiting Musculoskeletal Musculoskeletal: Reports system reviewed and no additional complaints, except as documented and Denies arthralgias Integumentary/Breasts Skin/Breast: Denies rash Neurologic Neurologic: Denies dizziness and Denies paresthesias Allergic/Immunologic Allergic/Immunologic: Denies wheezing Physical Exam General General appearance: alert and in no apparent distress Head Head exam: atraumatic, normocephalic and normal inspection Eye Eye exam: Present normal appearance, PERRL and EOMI ENT ENT exam: Present normal exam, normal oropharynx, mucous membranes moist, TM's normal bilaterally and normal external ear exam Neck Neck exam: Present normal inspection, full ROM and trachea midline; Absent meningismus or lymphadenopathy Chest Chest inspection: Present normal inspection and symmetric chest wall rise; Absent tenderness Respiratory Respiratory exam: Present normal lung sounds bilaterally; Absent respiratory distress Cardiovascular Cardiovascular exam: Present regular rate and normal rhythm; Absent JVD Abdominal Exam Abdominal exam: Present soft and normal bowel sounds; Absent distention, tenderness or guarding Extremities Exam Extremities exam: Present normal inspection, full ROM and normal capillary refill; Absent calf tenderness Back Exam Back exam: Present normal inspection; Absent tenderness Neurological Exam Neurological exam: Present alert and oriented X3 Psychiatric Psychiatric exam: Present normal affect and normal mood Skin Skin exam: Present warm, dry, intact and normal color Lymphatic Lymphatic Findings: no adenopathy Medical Decision Making Medical Records Medical records reviewed: No I reviewed the patient's medical records. Screening: Per USPSTF and CDC recommendations, given the prevalence of disease in our region, it is our hospital?s policy to screen for HIV and viral Hepatitis for all patients aged 18 and over and those with ongoing risk factors. Danny Inquiry Pt receiving controlled substance: No Lab Data Lab results reviewed: Yes I reviewed the patient's lab results. 04/27/24 17:40
[2024-04-27 17:23] VITALS: BP 130/91; PULSE 93; RESP 20; TEMP 36.8; O2SAT 99; BMI 18.8
[2024-04-27 18:09] LABS: Basophils % 0.7 % (0.1-2.0); Eosinophils # 0.1 K/mm3 (0.0-0.4); Eosinophils % 1.4 % (0.1-12.0); Hematocrit 38.3 % (37.0-47.0); Hemoglobin 13.6 g/dL (12.2-16.2); Lymphocytes # 1.5 K/mm3 (0.7-4.5); Lymphocytes % 25.4 % (10-50); Mean Corpuscular HGB Conc 35.4 g/dL (31.8-35.4); Mean Corpuscular Hemoglobin 29.6 pg (27.0-31.2); Mean Corpuscular Volume 83.8 fl (81-99); Monocytes # 0.4 K/mm3 (0.1-1.0); Monocytes % 6.1 % (1.7-9.3); Neutrophils # 3.8 K/mm3 (1.8-7.8); Neutrophils % 66.4 % (37.0-80.0); Platelet Count 268 K/mm3 (142-424); Red Blood Count 4.57 M/mm3 (4.20-5.40); Red Cell Distribution Width 13.3 % (11.5-17.5); White Blood Count 5.8 K/mm3 (4.5-13.0)
[2024-04-27 18:49] LABS: Thyroid Stimulating Hormone 0.55 uIU/mL (0.465-4.68)
[2024-04-27 19:02] VITALS: BP 130/91; PULSE 93; RESP 20; TEMP 36.8
[2024-04-27 19:27] LABS: Coronavirus 19, PCR Not Detected (NotDetected); Influenza A, PCR Not Detected (NotDetected); Influenza B, PCR Not Detected (NotDetected)
== END 2024-04-27 19:04 | disposition home or self-care (01) ==
PROVIDERS: Emergency Provider Nurse Practitioner Family; PCP Family Medicine
DX: J20.9 Acute bronchitis, unspecified (principal); B34.9 Viral infection, unspecified; R05.9 Cough, unspecified; R07.0 Pain in throat; R09.89 Other specified symptoms and signs involving the circulatory and respiratory systems
CPT/HCPCS: 84439; 84443; 85025; 87636; 99212; G0381

== ENCOUNTER 2024-04-28 18:10 | Emergency (ER) | payer OTHER, SELFPAY ==
[2024-04-28 18:42] VITALS: BP 141/93; PULSE 77; RESP 18; TEMP 36.9; O2SAT 100; BMI 18.8
[2024-04-28 19:30] VITALS: BP 115/75; PULSE 88; O2SAT 100
--- NOTE | 2024-04-28 19:33 | ED_ITS ---
Discharge Plan Disposition Patient Disposition: Home, Self-Care Chief Complaint: Headache Prescriptions Prescriptions: No Action levonorgestrel-ethinyl estrad [Falmina (28)] 0.1-20 mg-mcg tablet 1 tab PO DAILY ondansetron 4 mg tablet,disintegrating 4 mg PO Q8H PRN (Reason: nausea and vomiting) Qty: 10 0RF azithromycin [Zithromax] 250 mg tablet 250 mg PO UD DOSE PK Qty: 6 0RF Rx Instructions: Take two (2) tablets today, then one (1) tablet days #2 thru #5 methylprednisolone 4 mg Tablets,Dose Pack 4 mg PO DIRECTED 6 Days Qty: 21 0RF Rx Instructions: Take 1 pack as directed for 6 days gsesbuccjdxqwkh-ghzfpigtu-PN [Bromfed DM] 2-30-10 mg/5 mL Syrup 5 ml PO Q6H PRN (Reason: Cough) Qty: 240 0RF azithromycin [Zithromax] 250 mg tablet 250 mg PO UD DOSE PK Qty: 6 0RF Rx Instructions: Take two (2) tablets today, then one (1) tablet days #2 thru #5 methylprednisolone 4 mg Tablets,Dose Pack 4 mg PO DIRECTED 6 Days Qty: 21 0RF Rx Instructions: Take 1 pack as directed for 6 days bblsegxubshfzvg-xwczrqsee-AP [Bromfed DM] 2-30-10 mg/5 mL Syrup 5 ml PO Q6H PRN (Reason: Cough) Qty: 240 0RF Referrals Follow up/Referrals: Maddie Kelly MD [Primary Care Provider] - See instructions Activity Restrictions/Add. Instructions Additional Instructions/Restrictions: Call your family doctor to establish care for this visit to the emergency department and schedule follow-up within 48 hours to ensure improvement. If you have any worsening of your condition or any other concerning signs or symptoms, return to the emergency department or your primary care doctor for further evaluation. Clinical Impressions Clinical Impression: Migraine Qualifiers: Migraine type: unspecified Status migrainosus presence: with status migrainosus Intractability: not intractable Qualified Code(s): G43.901 - Migraine, unspecified, not intractable, with status migrainosus Print Language Print Language: Togolese Discharge ED Provider: Austen Pulido General Adult [facility] General Chief complaint: Headache Stated complaint: burning feeling, body feels heavy, dizzy Time Seen by Provider: 04/28/24 18:41 Mode of Arrival: Ambulatory Source of Information: Patient Limitations: No Limitations Description of Symptoms (Recalled from ER Triage Doc. by RN): pt states about an hour ago she was driving when she suddenly became very hot and dizzy. pt also c/o her limbs feeling heavy, her hearing is off, N/V, and a migraine. pt states she has a hx of migraines. pt states that the LIMA is 7/10 and a dull aching pain. pt reports she feels like she is on fire from the inside out. pt reports being dx with bronchitis last night in the [facility]. History of Present Illness HPI narrative: Please note that above description of symptoms, in this electronic medical record under categorization of recalled from ER triage doctor by RN are reflective of an initial nursing assessment, however, is not reflective of my full history and physical exam that was personally taken and clarified. Consequentially, this preceding description of symptoms, which may include the patient's categorized chief complaint in the EMR, do not reflect my personal clinical impression, and the ultimate description of history of present illness and patient stated complaints should be deferred to this section of the note. Unless stated otherwise or congruent with this section of the note, additional signs, symptoms, or incongruence should be interpreted as inaccurate with my clinical impression. Related Data Home Medications ?Medication ?Instructions ?Recorded ?Confirmed levonorgestrel-ethinyl estradiol 1 tab PO DAILY 03/17/24 03/17/24 0.1 mg-20 mcg tablet (Falmina (28)) Previous Rx's ?Medication ?Instructions ?Recorded ondansetron 4 mg disintegrating 4 mg PO Q8H PRN nausea and 03/17/24 tablet vomiting #10 tabs azithromycin 250 mg tablet 250 mg PO UD DOSE PK #6 tabs 03/25/24 (Zithromax) ppjqcgoytgrsqep-vqakvzsmysejpsy-PM 5 ml PO Q6H PRN Cough #240 mL 03/25/24 2 mg-30 mg-10 mg/5 mL oral syrup (Bromfed DM) methylprednisolone 4 mg tablets in 4 mg PO DIRECTED 6 days #21 tabs 03/25/24 a dose pack azithromycin 250 mg tablet 250 mg PO UD DOSE PK #6 tabs 04/27/24 (Zithromax) slcmmszmhyumfjt-pwilgepurwrhosq-BZ 5 ml PO Q6H PRN Cough #240 mL 04/27/24 2 mg-30 mg-10 mg/5 mL oral syrup (Bromfed DM) methylprednisolone 4 mg tablets in 4 mg PO DIRECTED 6 days #21 tabs 04/27/24 a dose pack Allergies Allergy/AdvReac Type Severity Reaction Status Date / Time No Known Allergies Allergy Verified 04/28/24 18:53 PFSH PFS Disclaimer: The information contained in this section may have been updated after the patient was seen, as this information can be updated by other users. Medical History (Updated 04/28/24 @ 21:05 by Austen Pulido MD) PCOS (polycystic ovarian syndrome) Depression Anxiety History of gastroesophageal reflux (GERD) Migraine Surgical History (Updated 02/25/24 @ 14:12 by Heena Matute MA) No significant past surgical history Social History Smoking Status: Never smoker alcohol intake: never current occupational status: employed Travel in the last 8 weeks: None ROS Obtained: Yes All systems reviewed & no additional complaints except as documented Physical Exam General General appearance: alert and anxious Head Head exam: atraumatic and normocephalic Eye Eye exam: Present normal appearance, PERRL and EOMI Neck Neck exam: Present normal inspection, full ROM and trachea midline Respiratory Respiratory exam: Absent respiratory distress, wheezes, stridor, accessory muscle use or prolonged expiratory phase Cardiovascular Cardiovascular exam: Present other (Pulses equal symmetric in upper and lower extremities) Abdominal Exam Abdominal exam: Present soft; Absent distention, tenderness or pulsatile mass Extremities Exam Extremities exam: Absent edema Neurological Exam Neurological exam: Present alert, oriented X3 and CN II-XII intact; Absent motor sensory deficit Skin Skin exam: Present warm and dry; Absent diaphoresis or erythema Medical Decision Making Medical Records Medical records reviewed: Yes I reviewed the patient's medical records. Screening: Per USPSTF and CDC recommendations, given the prevalence of disease in our region, it is our hospital?s policy to screen for HIV and viral Hepatitis for all patients aged 18 and over and those with ongoing risk factors. Danny Inquiry Pt receiving controlled substance: No Danny was queried for this patient: No Vital Signs: 04/28/24 18:42 04/28/24 19:30 04/28/24 20:00 Temperature 98.5 F Temperature Source Oral Pulse Rate 88 74 Pulse Rate [Left] 77 Respiratory Rate 18 16 Blood Pressure 115/75 112/77 Blood Pressure [Right Arm] 141/93 H Blood Pressure Mean 88 87 Blood Pressure Mean [Right Arm] 109 Blood Pressure Source [Right Arm] Automatic Cuff Blood Pressure Position [Right Arm] Sitting 02 Sat by Pulse Oximetry 100 100 Oxygen Delivery Method Room Air Room Air 04/28/24 20:30 Temperature Temperature Source Pulse Rate 68 Pulse Rate [Left] Respiratory Rate 16 Blood Pressure 101/64 L Blood Pressure [Right Arm] Blood Pressure Mean 76 Blood Pressure Mean [Right Arm] Blood Pressure Source [Right Arm] Blood Pressure Position [Right Arm] 02 Sat by Pulse Oximetry Oxygen Delivery Method Lab Data Lab Results 04/28/24 18:45: WBC 5.1, RBC 4.74, Hgb 13.8, Hct 40.4, MCV 85.2, MCH 29.1, MCHC 34.2, RDW 13.1, Plt Count 268, MPV 7.3 L, Neut % (Auto) 61.4, Lymph % (Auto) 28.2, [place] % (Auto) 6.0, Eos % (Auto) 3.3, Baso % (Auto) 1.1, Neut # (Auto) 3.1, Lymph # (Auto) 1.4, [place] # (Auto) 0.3, Eos # (Auto) 0.2, Baso # (Auto) 0.1, Sodium 139, Potassium 3.5, Chloride 107, Carbon Dioxide 27, Anion Gap 8.5, BUN 5 L, Creatinine 0.80, Estimated Creat Clear 97, Estimated GFR 92, Est GFR ( Amer) 112, Glucose 81, Calcium 8.9, Total Bilirubin 0.5, AST 30, ALT 21, Alkaline Phosphatase 55, Total Protein 7.2, Albumin 4.3, Globulin 2.9, Albumin/Globulin Ratio 1.5, HCG, Quant < 2 04/28/24 18:45 04/28/24 18:45 Orders (Tests/Meds): ED MEDICATIONS Discontinued Medications Generic Name Dose Route Start Last Admin Trade Name Freq PRN Reason Stop Dose Admin Acetaminophen 1,000 mg 04/28/24 19:35 04/28/24 19:43 Acetaminophen 500mg Tab PO 04/28/24 19:36 1,000 mg ONCE ONE Administration Diphenhydramine HCl 25 mg 04/28/24 19:35 04/28/24 19:42 Diphenhydramine 50mg/Ml Vial IV 04/28/24 19:36 25 mg ONCE ONE Administration Ketorolac Tromethamine 15 mg 04/28/24 19:35 04/28/24 19:43 Ketorolac 30mg/Ml Vial IV 04/28/24 19:36 15 mg ONCE ONE Administration Prochlorperazine Edisylate 10 mg 04/28/24 19:35 04/28/24 19:42 Prochlorperazine 10mg/2ml Vial IV 04/28/24 19:36 10 mg ONCE ONE Administration ORDERS Category Date Time Status CBC w/Auto Diff [Complete Blood Count Auto Diff] Stat Lab 04/28/24 18:45 Completed CMP [Comprehensive Metabolic Panel] Stat Lab 04/28/24 18:45 Completed HCG,Quantitative Stat Lab 04/28/24 18:45 Completed HIV (1&2) Antibody Rapid Stat Lab 04/28/24 18:45 Received Hep C Ab with Reflex to RNA Stat Lab 04/28/24 18:45 Received Medical Decision Narrative: 18-year-old female history of anxiety, migraines presenting with what sounds like anxiety/panic attack. Patient states that she was driving. Out of nowhere, she felt lightheaded, nauseated, generally unwell. States that she did not have any chest pain shortness of breath, syncope, or any other concerns. She states that all of her bones feel really heavy. Also states that all of the sounds around her run together like on TV. She is also stating that she has hyperalgesia and that she feels that touch sensation is more intense. All of this in the setting of having a migraine. Patient states this feels different than her migraines and her panic attacks, but may be a combination of both. I feel this is likely the case. The symptoms are still present on arrival. History obtained the patient. Patient is neurologically intact including cranial nerve, cerebellar, motor and sensory. Cardiopulmonary exam within normal limits and normal. Abdomen soft, nontender, nondistended. Patient placed on electronic device monitor initial blood pressure 143/93, pulse rate 77, oxygen saturation 100% on continuous pulse oximetry. Differential includes panic attack, anxiety, arrhythmia, metabolic abnormality, , among others. Patient was given migraine cocktail. Independent interpretation of workup demonstrates nonactionable CBC or chemistry. Negative . On reevaluation, patient states she feeling much better. I feel this is likely overlap of migraine headache and panic attack. Because patient at baseline without signs or symptoms of clinical decompensation, deemed appropriate for discharge. Results were relayed to patient who voiced understanding and were agreeable to outpatient management and follow up. I discussed my clinical impression with patient and answered all questions. At this time, the evidence for any other entities in the differential is insufficient to warrant any further testing or ED observation. This was explained as well. Advisory was given that persistent or worsening symptoms require further evaluation. I confirmed the understanding of this discussion. Gate Manager disclaimer Much of this encounter note is an electronic lithographic stripper spoken language to printed text. Electronic lithographic stripper of the spoken language may permit errors. Although I have reviewed the note, some errors may still exist. Critical Care Critical Care Time Critical Care Time: No
[2024-04-28] MEDS: PROCHLORPERAZINE 10MG/2ML VIAL 10 MG IV (19:42)
[2024-04-28] MEDS: diphenhydrAMINE 50MG/ML VIAL 25 MG IV (19:42)
[2024-04-28] MEDS: ACETAMINOPHEN 500MG TAB 1000 MG PO (19:43)
[2024-04-28] MEDS: KETOROLAC 30MG/ML VIAL 15 MG IV (19:43)
[2024-04-28 19:51] LABS: Basophils # 0.1 K/mm3 (0-0.2); Basophils % 1.1 % (0.1-2.0); Eosinophils # 0.2 K/mm3 (0.0-0.4); Eosinophils % 3.3 % (0.1-12.0); Hematocrit 40.4 % (37.0-47.0); Hemoglobin 13.8 g/dL (12.2-16.2); Lymphocytes # 1.4 K/mm3 (0.7-4.5); Lymphocytes % 28.2 % (10-50); Mean Corpuscular HGB Conc 34.2 g/dL (31.8-35.4); Mean Corpuscular Hemoglobin 29.1 pg (27.0-31.2); Mean Corpuscular Volume 85.2 fl (81-99); Mean Platelet Volume 7.3 fl (7.4-10.4); Monocytes # 0.3 K/mm3 (0.1-1.0); Neutrophils # 3.1 K/mm3 (1.8-7.8); Neutrophils % 61.4 % (37.0-80.0); Platelet Count 268 K/mm3 (142-424); Red Blood Count 4.74 M/mm3 (4.20-5.40); Red Cell Distribution Width 13.1 % (11.5-17.5); White Blood Count 5.1 K/mm3 (4.5-13.0)
[2024-04-28 20:00] VITALS: BP 112/77; PULSE 74; RESP 16
[2024-04-28 20:02] LABS: Alanine Aminotransferase 21 U/L (12-78); Albumin Level 4.3 g/dl (3.5-5.0); Albumin/Globulin Ratio 1.5 (1.1-1.8); Alkaline Phosphatase 55 U/L (38-126); Anion Gap 8.5 mEq/L (5-15); Aspartate Amino Transferase 30 U/L (14-36); Bilirubin,Total 0.5 mg/dl (0.2-1.3); Blood Urea Nitrogen 5 mg/dl (7-17); Calcium 8.9 mg/dl (8.4-10.2); Carbon Dioxide 27 mmol/L (22.0-30.0); Chloride 107 mmol/L (98-107); Creatinine Clearance Estimated 97 mL/min (50-200); Estimated Glomerular Filt Rate 92 ml/min (>60); GFR (African American) 112 ML/MIN (>60); Globulin 2.9 g/dL (1.3-3.2); Glucose 81 mg/dl (74-100); Potassium 3.5 mmoL/L (3.5-5.1); Sodium 139 mmol/L (136-145); Total Protein,Serum 7.2 g/dl (6.3-8.2)
[2024-04-28 20:25] LABS: HCG,Quantitative < 2 mIU/ml (0-5.42)
[2024-04-28 20:30] VITALS: BP 101/64; PULSE 68; RESP 16
[2024-04-28 21:05] VITALS: BP 110/74; PULSE 72; RESP 16; TEMP 36.6; O2SAT 99
[2024-04-28 21:05] LABS: HIV (1&2) Antibody Rapid NONREACTIVE (NONREACTIVE)
[2024-04-30 09:20] LABS: HCV Ab Non Reactive (Non Reactive)
== END 2024-04-28 21:12 | disposition home or self-care (01) ==
PROVIDERS: Emergency Provider Emergency Medicine; PCP Family Medicine
DX: G43.909 Migraine, unspecified, not intractable, without status migrainosus (principal); R42 Dizziness and giddiness; R11.2 Nausea with vomiting, unspecified; R23.2 Flushing; R29.898 Other symptoms and signs involving the musculoskeletal system
CPT/HCPCS: 80053; 84702; 85025; 86803; 87389; 96374; 96375; 99283; J0780; J1200; J1885

== ENCOUNTER 2024-05-03 12:54 | Emergency (ER) | payer OTHER, SELFPAY ==
[2024-05-03 13:50] VITALS: BP 129/90; PULSE 79; RESP 20; TEMP 36.8; O2SAT 98; BMI 19.5
--- NOTE | 2024-05-03 14:30 | ED_ITS ---
Discharge Plan Disposition Patient Disposition: Home, Self-Care Condition: Good Prescriptions Prescriptions: New guaifenesin [Mucinex] 600 mg tablet extended release 12hr 600 - 1,200 mg PO BID PRN (Reason: cough) Qty: 20 0RF No Action levonorgestrel-ethinyl estrad [Falmina (28)] 0.1-20 mg-mcg tablet 1 tab PO DAILY vbuwtzfuymqaldr-sczwqelmp-RD 2-30-10 mg/5 mL syrup 5 ml PO Q6HP PRN (Reason: Cough) Patient Comments: TAKE 5 ML BY MOUTH EVERY 6 HOURS NEEDED FOR COUGH escitalopram oxalate 10 mg tablet 10 mg PO DAILY Referrals Follow up/Referrals: Warner Vasquez [Primary Care Provider] - See instructions Activity Restrictions/Add. Instructions Additional Instructions/Restrictions: *Monitor Temp, Over the counter Motrin or Tylenol as directed/as needed Tylenol every 4 hours and Motrin every 6 hours (as long as your family doctor has told you that you can take it) for fever or pain. and straight to ER if unable to lower temp less than 101.0 after medication given *Warm salt water gargles may help to soothe the throat *Throat Lozenges? *Warm fluids like tea with honey may help to soothe the throat? *Sleep elevated *Humidifier/Vaporizer Your throat swab was sent for culture. Those results are typically sent to your primary care. Be sure to follow up in 2-3 days with your family doctor/primary care physician if no improvement so they can review those result and treat if necessary. If you don?t have a primary care doctor, I recommend you get one but in the mean time, you will have to return to a walk in clinic Follow up IMMEDIATELY for new or worsening symptoms or no Noticeable improvement over the next 48-72 hours. 911 for difficulty breathing or swallowing You were tested for today for ?Upper Respirator Panel with COVID19 your test result should be back in the next 24hours, you may check your results on the [facility] Clinical Impressions Clinical Impression: Viral upper respiratory infection Instructions Patient Instructions: Sore Throat, Cough, DI for Nasal Congestion Print Language Print Language: Beninese Discharge ED Provider: Yanet Gibbs [facility] HPI General Stated complaint: cough Mode of Arrival: Ambulatory Source of Information: Patient Limitations: No Limitations Time Seen by Provider: 05/03/24 14:30 Description of Symptoms (Recalled from Triage Doc. by RN): PATIENT C/O SORE THROAT, CHEST CONGESTION, MUSCLE PAIN AND CONGESTION X 1 WEEK HEENT Symptoms (Recalled from RN notes): Yes Resp Symptoms (Recalled from RN notes): Yes Skin Symptoms (Recalled from RN notes): No MS Symptoms (Recalled from RN notes): No Functional Status (Recalled from RN notes): WNL History of Present Illness Provider Complaint: Patient states that she has been sick for over a week States that she has been having cough, chest congestion, sore throat and was dx with Bronchitis States she has finished medication but no relief States she is now having sinus pain and pressure, still having cough and chest congestion and sore from coughing so much Related Data Home Medications ?Medication ?Instructions ?Recorded ?Confirmed wreuscqnptvcwat-tmiwuxxfanjdahi-OI 5 ml PO Q6HP PRN Cough 05/03/24 05/03/24 2 mg-30 mg-10 mg/5 mL oral syrup escitalopram oxalate 10 mg tablet 10 mg PO DAILY 05/03/24 05/03/24 levonorgestrel-ethinyl estradiol 1 tab PO DAILY 05/03/24 05/03/24 0.1 mg-20 mcg tablet (Falmina (28)) Previous Rx's ?Medication ?Instructions ?Recorded guaifenesin 600 mg tablet, 600 - 1,200 mg (1 - 2 x 600 mg) PO 05/03/24 extended release 12 hr (Mucinex) BID PRN cough #20 tabs Allergies Allergy/AdvReac Type Severity Reaction Status Date / Time No Known Allergies Allergy Verified 04/28/24 18:53 Worker's Comp Is this a Worker's Comp case?: No [facility] Disclaimer: The information contained in this section may have been updated after the patient was seen, as this information can be updated by other users. Medical History (Updated 05/03/24 @ 15:02 by Yanet Gibbs APRN) PCOS (polycystic ovarian syndrome) Depression Anxiety History of gastroesophageal reflux (GERD) Migraine Surgical History (Updated 02/25/24 @ 14:12 by Heena Matute MA) No significant past surgical history Social History Smoking Status: Never smoker alcohol intake: never current occupational status: employed Travel in the last 8 weeks: None ROS Obtained: Yes All systems reviewed & no additional complaints except as documented and Yes Systems reviewed as appropriate & no additional complaints except as documented Constitutional Constitutional: Reports system reviewed and no additional complaints, except as documented, Reports as per HPI, Reports body ache and Reports headache(s) ENT Ears, Nose, Mouth, and Throat: Reports system reviewed and no additional complaints, except as documented, Reports as per HPI, Reports headache(s), Reports sinus pain, Reports sinus pressure and Reports sore throat Cardiovascular Cardiovascular: Reports system reviewed and no additional complaints, except as documented and Reports as per HPI Respiratory Respiratory: Reports system reviewed and no additional complaints, except as documented, Reports as per HPI, Denies shortness of breath, Reports chest congestion and Reports cough Gastrointestinal Gastrointestingal: Reports system reviewed and no additional complaints, except as documented and as per HPI Neurologic Neurologic: Reports headache(s) Physical Exam General General appearance: alert and in no apparent distress ENT ENT exam: Present mucous membranes moist Expanded ENT Exam Nose exam: Present sinus tenderness Throat exam: Present other (pharyngeal erythema noted with PND) Respiratory Respiratory exam: Present normal lung sounds bilaterally; Absent respiratory distress or wheezes Cardiovascular Cardiovascular exam: Present regular rate, normal rhythm and normal heart sounds Abdominal Exam Abdominal exam: Present soft and normal bowel sounds; Absent distention or tend erness Neurological Exam Neurological exam: Present alert, oriented X3 and normal gait Medical Decision Making Medical Records Screening: Per USPSTF and CDC recommendations, given the prevalence of disease in our region, it is our hospital?s policy to screen for HIV and viral Hepatitis for all patients aged 18 and over and those with ongoing risk factors. Danny Inquiry Pt receiving controlled substance: No Danny was queried for this patient: No Vital Signs: 05/03/24 13:50 Temperature 98.2 F Temperature Source Oral Pulse Rate [Left Brachial] 79 Respiratory Rate 20 Blood Pressure [Left Arm] 129/90 Blood Pressure Mean [Left Arm] 103 Blood Pressure Source [Left Arm] Automatic Cuff Blood Pressure Position [Left Arm] Sitting 02 Sat by Pulse Oximetry 98 Oxygen Delivery Method Room Air Lab Data Lab results reviewed: Yes I reviewed the patient's lab results. Medical Decision Narrative: Discussed CXR and patient declined Patient reports that sinus pain and pressure has got worse since she was seen 1 week ago will do URP
[2024-05-03 14:57] LABS: UTC Strep Screen (Rapid) Negative (Negative)
[2024-05-03 15:04] VITALS: BP 129/90; PULSE 79; RESP 20; TEMP 36.8; O2SAT 98
[2024-05-03 15:12] LABS: Adenovirus,PCR Not Detected (NotDetected); Bordetella Pertussis Not Detected (NotDetected); Chlamydophila Pneumoniae, PCR Not Detected (NotDetected); Coronavirus 19, PCR Not Detected (NotDetected); Coronavirus 229E Not Detected (NotDetected); Coronavirus NL63 Not Detected (NotDetected); Coronavirus OC43 Not Detected (NotDetected); Coronovirus HKU1,PCR Not Detected (NotDetected); Human Metapneumovirus Not Detected (NotDetected); Influenza A, PCR Not Detected (NotDetected); Influenza AH1, 2009 Not Detected (NotDetected); Influenza AH1, PCR Not Detected (NotDetected); Influenza AH3,PCR Not Detected (NotDetected); Influenza B, PCR Not Detected (NotDetected); Mycoplasma Pneumoniae, PCR Not Detected (NotDetected); Parainfluenza 1, PCR Not Detected (NotDetected); Parainfluenza 2, PCR Not Detected (NotDetected); Parainfluenza 3, PCR Not Detected (NotDetected); Parainfluenza 4, PCR Not Detected (NotDetected); Respiratory Syncytial Virus Not Detected (NotDetected); Rhinovirus/Enterovirus Not Detected (NotDetected)
== END 2024-05-03 15:08 | disposition home or self-care (01) ==
PROVIDERS: Emergency Provider Nurse Practitioner; PCP Pediatrics
DX: J06.9 Acute upper respiratory infection, unspecified (principal); J02.9 Acute pharyngitis, unspecified; R09.89 Other specified symptoms and signs involving the circulatory and respiratory systems; M79.10 Myalgia, unspecified site; R09.81 Nasal congestion; R05.9 Cough, unspecified
CPT/HCPCS: 87265; 87486; 87581; 87632; 87635; 87880; 99212; G0381

== ENCOUNTER 2024-05-29 12:02 | Emergency (ER) | payer OTHER, SELFPAY ==
[2024-05-29 12:10] VITALS: BP 139/90; PULSE 92; RESP 18; TEMP 36.8; O2SAT 99; BMI 18.8
[2024-05-29 12:35] LABS: UTC Pregnancy Test, Urine Positive (Negative)
--- NOTE | 2024-05-29 12:48 | EXP.UTC ---
Discharge Plan Disposition Patient Disposition: Home, Self-Care Condition: Good Prescriptions Prescriptions: New PNV 119-iron fum-folic acid 29 mg iron- 1 mg tablet 1 tab PO DAILY 30 Days Qty: 30 11RF promethazine 25 mg tablet 25 mg PO TID PRN (Reason: nausea and vomiting) Qty: 20 0RF Referrals Follow up/Referrals: Warner Vasquez [Primary Care Provider] - See instructions Activity Restrictions/Add. Instructions Additional Instructions/Restrictions: Drink plenty of fluids. Don't take ibuprofen. Take the vitamins as directed. The promethazine is for if you have severe nausea. It will make you drowsy, so don't drive or operate heavy machinery after taking it. Follow up with your regular doctor. Follow up with your hogshead dumper. GO TO THE ER FOR ANY WORSENING SYMPTOMS Clinical Impressions Clinical Impression: Instructions Patient Instructions: Diet Print Language Print Language: Spanish Discharge ED Provider: Benny Daniel [facility] [place] [place] General Stated complaint: blood test Mode of Arrival: Ambulatory Source of Information: Patient Limitations: No Limitations Time Seen by Provider: 05/29/24 12:48 Description of Symptoms (Recalled from Triage Doc. by RN): PATIENT REQUESTING TEST HEENT Symptoms (Recalled from RN notes): No Resp Symptoms (Recalled from RN notes): No Skin Symptoms (Recalled from RN notes): No MS Symptoms (Recalled from RN notes): No Functional Status (Recalled from RN notes): WNL Related Data Previous Rx's ?Medication ?Instructions ?Recorded vitamins no.119-iron 1 tab PO DAILY 30 days #30 tabs 05/29/24 fumarate 29 mg-folic acid 1 mg tablet promethazine 25 mg tablet 25 mg PO TID PRN nausea and 05/29/24 vomiting #20 tabs Allergies Allergy/AdvReac Type Severity Reaction Status Date / Time No Known Allergies Allergy Verified 05/14/24 14:42 Worker's Comp Is this a Worker's Comp case?: No [facility] Disclaimer: The information contained in this section may have been updated after the patient was seen, as this information can be updated by other users. Medical History (Updated 05/29/24 @ 13:01 by Benny Daniel APRN) Abnormal uterine bleeding PCOS (polycystic ovarian syndrome) Depression Anxiety History of gastroesophageal reflux (GERD) Migraine Surgical History No significant past surgical history Social History Smoking Status: Never smoker alcohol intake: never current occupational status: employed ROS Obtained: Yes All systems reviewed & no additional complaints except as documented Constitutional Constitutional: Denies chills and Denies fever(s) Eyes Eyes: Denies eye discharge ENT Ears, Nose, Mouth, and Throat: Denies dizziness, Denies otalgia and Denies sore throat Cardiovascular Cardiovascular: Denies chest pain Respiratory Respiratory: Denies shortness of breath, Denies chest congestion, Denies cough, Denies stridor and Denies wheezing Gastrointestinal Gastrointestingal: Denies nausea or vomiting Musculoskeletal Musculoskeletal: Reports system reviewed and no additional complaints, except as documented and Denies arthralgias Integumentary/Breasts Skin/Breast: Denies rash Neurologic Neurologic: Denies dizziness and Denies paresthesias Allergic/Immunologic Allergic/Immunologic: Denies wheezing Physical Exam General General appearance: alert and in no apparent distress Head Head exam: atraumatic, normocephalic and normal inspection Eye Eye exam: Present normal appearance, PERRL and EOMI ENT ENT exam: Present normal exam, normal oropharynx, mucous membranes moist, TM's normal bilaterally and normal external ear exam Neck Neck exam: Present normal inspection, full ROM and trachea midline; Absent meningismus or lymphadenopathy Chest Chest inspection: Present normal inspection and symmetric chest wall rise; Absent tenderness Respiratory Respiratory exam: Present normal lung sounds bilaterally; Absent respiratory distress Cardiovascular Cardiovascular exam: Present regular rate and normal rhythm; Absent JVD Abdominal Exam Abdominal exam: Present soft and normal bowel sounds; Absent distention, tenderness or guarding Extremities Exam Extremities exam: Present normal inspection, full ROM and normal capillary refill; Absent calf tenderness Back Exam Back exam: Present normal inspection; Absent tenderness Neurological Exam Neurological exam: Present alert and oriented X3 Psychiatric Psychiatric exam: Present normal affect and normal mood Skin Skin exam: Present warm, dry, intact and normal color Lymphatic Lymphatic Findings: no adenopathy Medical Decision Making Medical Records Medical records reviewed: No I reviewed the patient's medical records. Screening: Per USPSTF and CDC recommendations, given the prevalence of disease in our region, it is our hospital?s policy to screen for HIV and viral Hepatitis for all patients aged 18 and over and those with ongoing risk factors. Danny Inquiry Pt receiving controlled substance: No Vital Signs: 05/29/24 12:10 Temperature 98.2 F Temperature Source Oral Pulse Rate [Left Brachial] 92 H Respiratory Rate 18 Blood Pressure [Left Arm] 139/90 Blood Pressure Mean [Left Arm] 106 Blood Pressure Source [Left Arm] Automatic Cuff Blood Pressure Position [Left Arm] Sitting 02 Sat by Pulse Oximetry 99 Oxygen Delivery Method Room Air Lab Data Lab results reviewed: Yes I reviewed the patient's lab results. Lab Results 05/29/24 12:22: [facility] Clinic Positive
[2024-05-29 13:16] VITALS: BP 139/90; PULSE 92; RESP 18; TEMP 36.8; O2SAT 99
[2024-05-29 14:27] LABS: HCG,Quantitative 24 mIU/ml (0-5.42)
== END 2024-05-29 13:24 | disposition home or self-care (01) ==
PROVIDERS: Emergency Provider Nurse Practitioner Family; PCP Pediatrics
DX: Z34.90 Encounter for supervision of normal pregnancy, unspecified, unspecified trimester (principal)
CPT/HCPCS: 81025; 84702; 99213; G0381

== ENCOUNTER 2024-06-02 10:44 | Outpatient (CLI) | payer OTHER, SELFPAY ==
[2024-06-02 12:14] LABS: HCG,Quantitative 359 mIU/ml (0-5.42)
[2024-06-03 13:13] LABS: Progesterone 14.4 ng/mL (.)
== END 2024-06-02 23:59 | disposition home or self-care (01) ==
LOC: LAB 10:45
PROVIDERS: PCP Family Medicine; Visit Provider Obstetrics & Gynecology
DX: Z34.90 Encounter for supervision of normal pregnancy, unspecified, unspecified trimester (principal)
CPT/HCPCS: 36415; 84144; 84702

== ENCOUNTER 2024-06-06 14:55 | Emergency (ER) | payer OTHER, SELFPAY ==
[2024-06-06 14:56] VITALS: BP 158/88; PULSE 115; RESP 18; TEMP 36.4; O2SAT 100; BMI 18.8
--- NOTE | 2024-06-06 15:10 | PC.NURSE ---
Dr. Watson and this RN at bedside for exam and u/s
--- NOTE | 2024-06-06 15:16 | US_ITS ---
PROCEDURE INFORMATION: Exam: US , Transvaginal Exam date and time: 06/06/2024 4:21 PM Age: 19 years old Clinical indication: complicated by abdominal or pelvic pain; Lower; First trimester (<14 weeks 0 days); Gestational age or lmp: 4w5d; ; Additional info: Abd cramping, +preg; Confrimaton and location? TECHNIQUE: Imaging protocol: Real-time transvaginal obstetrical ultrasound of the maternal pelvis with image documentation. Transvaginal imaging was used for better evaluation of the fetus, adnexa, and/or cervix. COMPARISON: US PELVIC 02/07/2024 2:04 PM FINDINGS: Gestation: There is a tiny intrauterine gestational sac without pole identified. BIOMETRY: Gestational age (AUA): 4 w 5 d Estimated due date (AUA): 02/08/2025 Mean sac diameter: 0.26 cm. MATERNAL: Right ovary/adnexa: Right ovary measures 3.27 cm x 2.87 cm x 1.38 cm. Right ovarian volume is 6.78 mL. Left ovary/adnexa: Left ovary measures 1.83 cm x 1.74 cm x 4.99 cm. Left ovarian volume is 8.32 mL. There is a left ovarian corpus luteum measuring 1.5 cm. There is normal arterial and venous flow to the right ovary. There is normal arterial and venous flow to the left ovary. IMPRESSION: Tiny intrauterine gestational sac correlating with a four week five day gestation. No pole identified possibly related to early stage gestation.
--- NOTE | 2024-06-06 15:18 | HMH.EDGENADL ---
Discharge Plan Disposition Patient Disposition: Home, Self-Care Prescriptions Prescriptions: New progesterone micronized 200 mg capsule 200 mg vaginal HS 14 Days Qty: 14 0RF No Action PNV 119-iron fum-folic acid 29 mg iron- 1 mg tablet 1 tab PO DAILY 30 Days Qty: 30 11RF promethazine 25 mg tablet 25 mg PO TID PRN (Reason: nausea and vomiting) Qty: 20 0RF Referrals Follow up/Referrals: Selina Yoder, [Staff Physician] - See instructions Maddie Kelly MD [Primary Care Provider] - See instructions Activity Restrictions/Add. Instructions Additional Instructions/Restrictions: Right now you have a of unknown location there was a small cystic structure in your uterus which may be indicative of an early intrauterine around 4 weeks. No evidence of an emergent medical condition. However we cannot rule out ectopic at the moment. Please call Dr. Yoder's office and tell them that she would like to see you on Sunday. In the meantime please take your vaginal progesterone as prescribed. Clinical Impressions Clinical Impression: Abdominal cramping complicating , , location unknown Print Language Print Language: Monegasque Discharge ED Provider: Gregory Quintana General Adult HPI General Chief complaint: OB/Uterine Contractions Stated complaint: avinash 8 weeks , abd pain Time Seen by Provider: 06/06/24 15:05 Mode of Arrival: Ambulatory Source of Information: Patient Limitations: No Limitations Description of Symptoms (Recalled from ER Triage Doc. by RN): Patient reports being approx 8 weeks . States that she began to have severe cramping last night. Reports that it is now just a crampy feeling. Denies any bleeding or spotting. History of Present Illness HPI narrative: Patient is a 19-year-old female 8 weeks by dates presenting today with abdominal cramping for the last 24 to 48 hours. No vaginal bleeding. She has had 2 miscarriages in the past both in the first trimester in the past. She has been diagnosed with PCOS. Denies any loss of fluid she currently is having constant cramping. Denies any hematuria or urinary symptoms but has had mild increase in vaginal discharge. Also has been constipated. No history of ectopic . Related Data Previous Rx's ?Medication ?Instructions ?Recorded vitamins no.119-iron 1 tab PO DAILY 30 days #30 tabs 11/21/24 fumarate 29 mg-folic acid 1 mg tablet promethazine 25 mg tablet 25 mg PO TID PRN nausea and 05/29/24 vomiting #20 tabs progesterone micronized 200 mg 200 mg vaginal HS 14 days #14 caps 06/06/24 capsule Allergies Allergy/AdvReac Type Severity Reaction Status Date / Time No Known Allergies Allergy Verified 05/14/24 14:42 [facility] Disclaimer: The information contained in this section may have been updated after the patient was seen, as this information can be updated by other users. Medical History (Updated 06/06/24 @ 15:18 by Estevan Watson MD) Abnormal uterine bleeding PCOS (polycystic ovarian syndrome) Depression Anxiety History of gastroesophageal reflux (GERD) Migraine Surgical History No significant past surgical history Social History (Updated 05/29/24 @ 21:10 by Benny Daniel APRN) Smoking Status: Never smoker alcohol intake: never current occupational status: employed ROS Obtained: Yes All systems reviewed & no additional complaints except as documented Physical Exam General General appearance: alert and in no apparent distress Respiratory Respiratory exam: Present normal lung sounds bilaterally Cardiovascular Cardiovascular exam: Present tachycardia Abdominal Exam Abdominal exam: Present soft and tenderness (With the palpation tenderness palpation in the lower quadrants and suprapubic region) Neurological Exam Neurological exam: Present alert and oriented X3 Medical Decision Making Medical Records Screening: Per USPSTF and CDC recommendations, given the prevalence of disease in our region, it is our hospital?s policy to screen for HIV and viral Hepatitis for all patients aged 18 and over and those with ongoing risk factors. Danny Inquiry Pt receiving controlled substance: No Vital Signs: 06/06/24 14:56 06/06/24 17:08 Temperature 97.6 F 97.6 F Temperature Source Oral Oral Pulse Rate 92 H Pulse Rate [Radial] 115 H Respiratory Rate 18 19 Blood Pressure 143/93 H Blood Pressure [Right Arm] 158/88 H Blood Pressure Mean [Right Arm] 111 Blood Pressure Source Automatic Cuff Blood Pressure Source [Right Arm] Automatic Cuff Blood Pressure Position [Right Arm] Sitting 02 Sat by Pulse Oximetry 100 Oxygen Delivery Method Room Air Room Air Lab Data Lab results reviewed: Yes I reviewed the patient's lab results. Lab Results 06/06/24 15:03: Urine Color Yellow, Urine Appearance Clear, Urine pH 7.0, Ur Specific Terrell 1.015, Urine Protein Negative, Urine Glucose (UA) Negative, Urine Ketones Negative, Urine Blood Negative, Urine Nitrate Negative, Urine Bilirubin Negative, Urine Urobilinogen 1.0, Ur Leukocyte Esterase 1+ A, Urine RBC 5-10, Urine WBC 20-50, Ur Squamous Epith Cells 50-100, Urine Bacteria 3+ 06/06/24 15:05: WBC 7.1, RBC 5.13, Hgb 15.1, Hct 43.9, MCV 85.6, MCH 29.3, MCHC 34.3, RDW 13.8, Plt Count 332, MPV 7.0 L, Neut % (Auto) 70.1, Lymph % (Auto) 22.3, Prowers % (Auto) 6.1, Eos % (Auto) 0.6, Baso % (Auto) 0.9, Neut # (Auto) 5.0, Lymph # (Auto) 1.6, Prowers # (Auto) 0.4, Eos # (Auto) 0.1, Baso # (Auto) 0.1, Sodium 138, Potassium 3.6, Chloride 106, Carbon Dioxide 23, Anion Gap 12.6, BUN 5 L, Creatinine 0.60, Estimated Creat Clear 129, Estimated GFR 127, Est GFR ( Amer) 154, Glucose 85, Calcium 9.3, Total Bilirubin 0.6, AST 32, ALT 20, Alkaline Phosphatase 71, Total Protein 8.0, Albumin 4.8, Globulin 3.2, Albumin/Globulin Ratio 1.5, HCG, Quant 2134 H 06/06/24 15:25: Blood Type A Negative, Antibody Screen Negative 06/06/24 15:05 06/06/24 15:05 Orders (Tests/Meds): ED MEDICATIONS Generic Name Dose Route Start Last Admin Trade Name Freq PRN Reason Stop Dose Admin Sodium Chloride 10 ml 06/06/24 16:56 Sodium Chloride 0.9% 10ml Flush Syringe IV 07/06/24 16:55 NEEDED PRN Maintain IV Site Discontinued Medications Generic Name Dose Route Start Last Admin Trade Name Freq PRN Reason Stop Dose Admin Lactated Ringer's 1,000 mls @ 999 mls/hr 06/06/24 15:30 06/06/24 15:26 Lactated Ringer's 1000 Ml Bag IV 06/06/24 16:30 999 mls/hr .Q1H1M RICO Administration ORDERS Category Date Time Status Type and Screen Stat BBK 06/06/24 15:25 Completed POCUS Point of Care (ER Only) Stat Exams 06/06/24 15:10 Completed Beta HCG, Quant [HCG,Quantitative] Stat Lab 06/06/24 15:05 Completed CBC w/Auto Diff [Complete Blood Count Auto Diff] Stat Lab 06/06/24 15:05 Completed CMP [Comprehensive Metabolic Panel] Stat Lab 06/06/24 15:05 Completed Progesterone Stat Lab 06/06/24 15:05 Received UA [Urinalysis and Microscopic] Stat Lab 06/06/24 15:03 Completed Urine Culture Stat Micro 06/06/24 15:03 Received US OB transvaginal Stat Ultrasound 06/06/24 15:16 Completed Medical Decision Narrative: 19-year-old female with positive test G3, P0 at 8 weeks by dates presents today with above history and physical. She also states that she has negative Rh and has had to receive RhoGAM in the past. No trauma no vaginal bleeding that she is aware of. Bedside ultrasound could not confirm IUP ectopic remains on the differential in addition to abnormal etc. Abdominal exam is relatively benign but she is mildly tachycardic. Will obtain blood work including quantitative beta-hCG and formal transvaginal ultrasound for further evaluation and management. Reassessment 5:10 PM clinically patient appears very well serial abdominal exams are benign and heart rate has improved. Numerous squames on her urinalysis which likely is contaminated. She has no signs or symptoms of urinary tract infection. Will not treat for asymptomatic bacteria or urinary tract infection at this point. She has close outpatient follow-up with [facility]. She had a quantitative beta-hCG of 2100 which is appropriately rising may be inside account representative of a normal intrauterine transvaginal ultrasound however shows a small sac in the uterus that if gestational sac would be measuring about 4 weeks which is different than what her dates are. Additionally there is no yolk sac or gestational sac. There is a small amount of free fluid around the right ovary but no other evidence of ectopic . At this point's of unknown location cannot definitively rule out ectopic and cannot definitively rule in intrauterine either. I spoke with Dr. Yoder and explained these things to her and she agrees with this plan. She will follow-up close outpatient to get a beta-hCG as well as a repeat ultrasound. Patient is aware of this plan and agreeable. I did send a progesterone level per Dr. Yoder's request and prescribed vaginal progesterone capsules for her to take nightly until she is seen by Dr. Yoder. Return precautions including severe abdominal pain vaginal bleeding syncope etc. were explained to the patient and she was discharged in stable condition. There is no evidence of bleeding I discussed whether not we should give RhoGAM and Dr. Yoder and I agreed not to give RhoGAM at the moment. Procedures Miscellaneous Procedure Procedure Performed: Limited OB ultrasound Indication: Abdominal cramping in the setting of positive test Identified structures: Uterus bilateral adnexa and pouch of Rick Findings: Uterus: No definitive IUP Right adnexa: No free fluid Left adnexa: No free fluid Cul de sac: No free fluid Impression: Cannot rule in definitive IUP no definitive evidence of intra-abdominal free fluid Images were saved to permanent archive The study was technically adequate CPT Transabdominal: 15627-23 This study was performed by me, and I personally interpreted all images/videos. Based on my clinical judgement, these images were adequate and did not necessitate further imaging. Critical Care Critical Care Time Critical Care Time: No
[2024-06-06] MEDS: LACTATED RINGERS 1000ML 1,000 ML 999 ML IV (15:26)
[2024-06-06 15:34] LABS: Microscopic, Urine URINE MICROSCOPIC (MICROSCOPIC)
[2024-06-06 15:35] LABS: Basophils # 0.1 K/mm3 (0-0.2); Basophils % 0.9 % (0.1-2.0); Eosinophils # 0.1 K/mm3 (0.0-0.4); Eosinophils % 0.6 % (0.1-12.0); Hematocrit 43.9 % (37.0-47.0); Hemoglobin 15.1 g/dL (12.2-16.2); Lymphocytes # 1.6 K/mm3 (0.7-4.5); Lymphocytes % 22.3 % (10-50); Mean Corpuscular HGB Conc 34.3 g/dL (31.8-35.4); Mean Corpuscular Hemoglobin 29.3 pg (27.0-31.2); Mean Corpuscular Volume 85.6 fl (81-99); Monocytes # 0.4 K/mm3 (0.1-1.0); Monocytes % 6.1 % (1.7-9.3); Neutrophils % 70.1 % (37.0-80.0); Platelet Count 332 K/mm3 (142-424); Red Blood Count 5.13 M/mm3 (4.20-5.40); Red Cell Distribution Width 13.8 % (11.5-17.5); White Blood Count 7.1 K/mm3 (4.5-13.0)
[2024-06-06 15:37] LABS: Albumin Level 4.8 g/dl (3.5-5.0); Chloride 106 mmol/L (98-107); Sodium 138 mmol/L (136-145)
[2024-06-06 15:38] LABS: Potassium 3.6 mmoL/L (3.5-5.1)
[2024-06-06 15:38] LABS: Appearance,Urine CLEAR (Clear); Bilirubin,Urine Negative (Negative); Blood, Urine Negative (Negative); Color,Urine YELLOW (Yellow); Glucose,Urine (UA) Negative (Negative); Ketones,Urine Negative (Negative); Leukocyte Esterase,Urine 1+ (Negative); Nitrate,Urine Negative (Negative); Protein,Urine Negative (Negative); Specific Gravity, Urine 1.015 (1.005-1.030)
[2024-06-06 15:40] LABS: Alanine Aminotransferase 20 U/L (12-78); Albumin/Globulin Ratio 1.5 (1.1-1.8); Alkaline Phosphatase 71 U/L (38-126); Anion Gap 12.6 mEq/L (5-15); Aspartate Amino Transferase 32 U/L (14-36); Bilirubin,Total 0.6 mg/dl (0.2-1.3); Blood Urea Nitrogen 5 mg/dl (7-17); Carbon Dioxide 23 mmol/L (22.0-30.0); Creatinine Clearance Estimated 129 mL/min (50-200); Estimated Glomerular Filt Rate 127 ml/min (>60); GFR (African American) 154 ML/MIN (>60); Globulin 3.2 g/dL (1.3-3.2)
[2024-06-06 15:41] LABS: Calcium 9.3 mg/dl (8.4-10.2); Glucose 85 mg/dl (74-100)
[2024-06-06 15:50] LABS: Bacteria,Urine 3+ /lpf; Squamous Epithelial Cell,Urine 50-100 #/hpf (0-5); WBC,Urine 20-50 #/hpf (0-3)
[2024-06-06 15:57] LABS: HCG,Quantitative 2134 mIU/ml (0-5.42)
[2024-06-06 17:08] VITALS: BP 143/93; PULSE 92; RESP 19; TEMP 36.4; O2SAT 100
== END 2024-06-06 17:25 | disposition home or self-care (01) ==
PROVIDERS: Student in an Organized Health Care Education/Training Program; Emergency Provider Student in an Organized Health Care Education/Training Program; PCP Family Medicine
DX: O36.80X0 Pregnancy with inconclusive fetal viability, not applicable or unspecified (principal); O26.899 Other specified pregnancy related conditions, unspecified trimester; K59.00 Constipation, unspecified; R10.9 Unspecified abdominal pain; Z3A.08 8 weeks gestation of pregnancy
CPT/HCPCS: 76817; 80053; 81001; 84144; 84702; 85025; 86850; 87086; 96360; 99283; J7120

== ENCOUNTER 2024-06-10 09:25 | Outpatient (CLI) | payer OTHER, SELFPAY ==
[2024-06-10 11:16] LABS: HCG,Quantitative 8245 mIU/ml (0-5.42)
== END 2024-06-10 23:59 | disposition home or self-care (01) ==
PROVIDERS: PCP Family Medicine; Visit Provider Obstetrics & Gynecology
DX: Z34.90 Encounter for supervision of normal pregnancy, unspecified, unspecified trimester (principal)
CPT/HCPCS: 36415; 84702; 87086

== ENCOUNTER 2024-06-12 17:29 | Emergency (ER) | payer OTHER, SELFPAY ==
[2024-06-12 17:30] VITALS: BP 130/86; PULSE 104; RESP 20; TEMP 36.7; O2SAT 99; BMI 18.8
--- NOTE | 2024-06-12 18:03 | ED_ITS ---
<Statement entered by Estevan Watson MD - 06/12/24 23:13> I was consulted by the DEBORAH, and we discussed the complexity of the problems being addressed. I approved the treatment and management plan for this patient's care in the emergency department, thus performing a substantive portion of the medical decision making. Estevan Watson MD, RAH, FACEP Discharge Plan Disposition Patient Disposition: Home, Self-Care Condition: Good Prescriptions Prescriptions: New cephalexin 500 mg capsule 500 mg PO BID 7 Days Qty: 14 0RF No Action PNV 119-iron fum-folic acid 29 mg iron- 1 mg tablet 1 tab PO DAILY 30 Days Qty: 30 11RF promethazine 25 mg tablet 25 mg PO TID PRN (Reason: nausea and vomiting) Qty: 20 0RF progesterone micronized 200 mg capsule 200 mg vaginal HS 14 Days Qty: 14 0RF Referrals Follow up/Referrals: Maddie Kelly MD [Primary Care Provider] - See instructions Activity Restrictions/Add. Instructions Additional Instructions/Restrictions: As we discussed you need to follow-up within 48 hours with your PERSONAL COUNSELOR. I have sent a prescription for Keflex to your pharmacy. Return for any worsening signs or symptoms as needed. Clinical Impressions Clinical Impression: Vaginal bleeding during Urinary tract infection Qualifiers: Hematuria presence: without hematuria Print Language Print Language: Sinhala Discharge ED Provider: Estevan Watson General Adult HPI General Chief complaint: Vaginal Bleeding Stated complaint: 5 wks , spotting- bright red Time Seen by Provider: 06/12/24 18:02 History of Present Illness HPI narrative: Patient presents for evaluation of abdominal cramping and spotting. Patient is approximately 5 weeks . She was evaluated this weekend for cramping but there was an intrauterine noted but no heartbeat was found no definitive yolk sac was seen. Patient has been cramping for the last 24 hours and today noted spotting with wiping. She denies any fever chills hemoptysis hematochezia melena nausea vomit diarrhea. Patient is Rh- and has not yet received RhoGAM. Related Data Previous Rx's ?Medication ?Instructions ?Recorded vitamins no.119-iron 1 tab PO DAILY 30 days #30 tabs 05/29/24 fumarate 29 mg-folic acid 1 mg tablet promethazine 25 mg tablet 25 mg PO TID PRN nausea and 05/29/24 vomiting #20 tabs progesterone micronized 200 mg 200 mg vaginal HS 14 days #14 caps 06/06/24 capsule cephalexin 500 mg capsule 500 mg PO BID 7 days #14 caps 06/12/24 Allergies Allergy/AdvReac Type Severity Reaction Status Date / Time No Known Allergies Allergy Verified 06/10/24 08:29 [facility] Disclaimer: The information contained in this section may have been updated after the patient was seen, as this information can be updated by other users. Medical History Abnormal uterine bleeding PCOS (polycystic ovarian syndrome) Depression Anxiety History of gastroesophageal reflux (GERD) Migraine Surgical History No significant past surgical history Social History Smoking Status: Current every day smoker alcohol intake: never current occupational status: employed Travel in the last 8 weeks: None ROS Obtained: Yes Systems reviewed as appropriate & no additional complaints except as documented Physical Exam General General appearance: alert and in no apparent distress Respiratory Respiratory exam: Present normal lung sounds bilaterally Cardiovascular Cardiovascular exam: Present regular rate Neurological Exam Neurological exam: Present alert Medical Decision Making Medical Records Medical records reviewed: Yes I reviewed the patient's medical records. Screening: Per USPSTF and CDC recommendations, given the prevalence of disease in our region, it is our hospital?s policy to screen for HIV and viral Hepatitis for all patients aged 18 and over and those with ongoing risk factors. Danny Inquiry Pt receiving controlled substance: No Vital Signs: 06/12/24 17:30 Temperature 98.0 F Temperature Source Oral Pulse Rate [Left Radial] 104 H Respiratory Rate 20 Blood Pressure [Right Arm] 130/86 Blood Pressure Mean [Right Arm] 100 02 Sat by Pulse Oximetry 99 Oxygen Delivery Method Room Air Lab Data Lab results reviewed: Yes I reviewed the patient's lab results. Lab Results 06/12/24 18:50: Urine Color Yellow, Urine Appearance Clear, Urine pH 6.0, Ur Specific Tillar 1.010, Urine Protein Negative, Urine Glucose (UA) Negative, Urine Ketones Negative, Urine Blood 3+ A, Urine Nitrate Negative, Urine Bilirubin Negative, Urine Urobilinogen 0.2, Ur Leukocyte Esterase Trace, Urine RBC 10-20, Urine WBC 3-5, Ur Squamous Epith Cells 5-10, Urine Bacteria Trace, Urine Mucus Trace Orders (Tests/Meds): ED MEDICATIONS Discontinued Medications Generic Name Dose Route Start Last Admin Trade Name Joselyn PRN Reason Stop Dose Admin Rho Immune Globulin 300 mcg 06/12/24 18:50 06/12/24 19:39 Rho(D) Immune Globulin 1,500 Unit (300mcg) Syringe IM 06/12/24 18:51 300 mcg ONCE ONE Administration ORDERS Category Date Time Status HCG,Quantitative Stat Lab 06/12/24 19:21 Received UA [Urinalysis and Microscopic] Stat Lab 06/12/24 18:50 Completed US OB transvaginal Stat Ultrasound 06/12/24 18:22 Taken Medical Decision Narrative: In summary patient is a 19-year-old female who is 5 weeks and who presents to the emergency department for evaluation of abdominal cramping and sp otting. Patient is hemodynamically stable upon arrival, febrile. Physical exam is remarkable for mild abdominal discomfort in the suprapubic area without rebound or guarding or rigidity. Normal bowel sounds.. Differential diagnosis includes threatened versus UTI etc. Initial workup will be conducted with quantitative hCG urinalysis transvaginal ultrasound. Initial interventions were considered but are deferred until workup is complete. Initial workup reviewed by me as patient has questionable urinary tract infection given the bacteria and her transvaginal ultrasound shows a intrauterine with yolk sac and gestational sac clearly.. Given this patient is appropriate for discharge with follow-up with her PERSONAL COUNSELOR within 48 hours, prescription for Keflex with first dose given here. Critical Care Critical Care Time Critical Care Time: No
--- NOTE | 2024-06-12 18:22 | US_ITS ---
PROCEDURE INFORMATION: Exam: US , Transvaginal and US Duplex Artery and Vein, Ovaries, Complete Exam date and time: 06/12/2024 8:04 PM Age: 19 years old Clinical indication: complicated by abdominal or pelvic pain; Other: Cramping and bleeding; Gestational age or lmp: 5w5d; ; Additional info: Abdominal cramping and spotting. LABS AND CLINICAL REPORTS: Last menstrual period start date: 04/07/2024 Gestational age (Established): 9 w 3 d Estimated due date (Established): 01/12/2025 TECHNIQUE: Imaging protocol: Real-time transvaginal obstetrical ultrasound of the maternal pelvis and a first trimester with image documentation. Transvaginal imaging was used for better evaluation of the fetus, adnexa, and/or cervix. Real-time duplex ultrasound scan of the arterial and venous flow of the ovaries with B-mode, color Doppler flow and spectral waveform analysis, Complete Duplex. Duplex exam was performed to evaluate for torsion and other vascular conditions. COMPARISON: US OB TRANSVAGINAL 06/06/2024 4:21 PM FINDINGS: GESTATION: Gestation: Single intrauterine gestational sac containing yolk sac without visualization of pole. Embryonic/ heart rate: NA Extra-embryonic membranes/Placenta: Not evaluated due to early gestation. Amniotic fluid: Not evaluated due to early gestation. BIOMETRY: Gestational age (AUA): 5 w 5 d Estimated due date (AUA): 02/07/2025 Mean sac diameter: 1.06 cm. MATERNAL: Right ovary/adnexa: Right ovary measures 3.84 cm x 1.37 cm x 1.42 cm. Right ovarian volume is 3.91 mL. Left ovary/adnexa: Left ovary measures 4.54 cm x 1.3 cm x 2.12 cm. Left ovarian volume is 6.55 mL. Intraperitoneal space: No free fluid in the pelvis. IMPRESSION: 1. Single early intrauterine gestation containing yolk sac without pole as described. 2. Recommend short interval followup in 11-14 days. COMMENT: Recommendations For Followup If No Viable Intrauterine : Gestational Sac With Yolk Sac: Followup sonogram after 11 days. NO embryo WITH heartbeat on follow up sonogram is suggestive failed .
[2024-06-12] MEDS: RHO(D) IMMUNE GLOBULIN 1,500 UNIT (300MCG) SYRINGE 300 MCG IM (19:39)
--- NOTE | 2024-06-12 20:08 | PC.NURSE ---
RAD taking pt for US at this time
[2024-06-12 20:14] LABS: Microscopic, Urine URINE MICROSCOPIC (MICROSCOPIC)
--- NOTE | 2024-06-12 20:15 | PC.NURSE ---
pt to radiology
[2024-06-12 20:39] LABS: Appearance,Urine CLEAR (Clear); Bilirubin,Urine Negative (Negative); Blood, Urine 3+ (Negative); Color,Urine YELLOW (Yellow); Glucose,Urine (UA) Negative (Negative); Ketones,Urine Negative (Negative); Leukocyte Esterase,Urine TRACE (Negative); Nitrate,Urine Negative (Negative); Protein,Urine Negative (Negative); Urobilinogen,Urine 0.2 EU/dl (0.2)
--- NOTE | 2024-06-12 21:05 | PC.NURSE ---
lab called per HCG results still not received
[2024-06-12 21:07] LABS: Bacteria,Urine Trace /lpf; Mucus,Urine Trace /lpf
[2024-06-12 21:30] VITALS: BP 126/87; PULSE 90; RESP 20; TEMP 37.1; O2SAT 97
[2024-06-12 21:32] LABS: HCG,Quantitative 12894 mIU/ml (0-5.42)
== END 2024-06-12 21:34 | disposition home or self-care (01) ==
PROVIDERS: Physician Assistant; Emergency Provider Student in an Organized Health Care Education/Training Program; PCP Family Medicine
DX: O46.90 Antepartum hemorrhage, unspecified, unspecified trimester (principal); N39.0 Urinary tract infection, site not specified
CPT/HCPCS: 76817; 81001; 84702; 96372; 99283; J2790

== ENCOUNTER 2024-06-17 10:33 | Outpatient (CLI) | payer OTHER, SELFPAY ==
--- NOTE | 2024-06-17 10:33 | US_ITS ---
PROCEDURE: US OB <= 14 WEEKS FETUS CLINICAL INDICATION: Viability and confirmation of COMPARISON: No exams were available for comparison FINDINGS: Transvaginal sonographic images of the pelvis were obtained. Her last menstrual period is unknown. An intrauterine gestational sac is present with a pole with a crown-rump length of 0.46cm This correlates to a gestational age of 6weeks 2days. EHTEL will be 02/08/2025 heart tones are present with an FHR of 115bpm. Yolk sac is noted. The yolk sac measures 3.4mm. The right ovary is seen and appears normal. The left ovary is seen and appears normal. There is no fluid in the cul-de-sac. IMPRESSION: 1. Viable fetus within the uterine cavity currently 6 weeks 2 days based on this ultrasound. There is a small subchorionic hemorrhage. 2. ETHEL will be 02/08/2025 based on this ultrasound. 3. Both ovaries are seen and appear normal. 4. No fluid in the cul-de-sac. Dictated by: Colt Diggs MD 06/17/2024 11:37 Colt Diggs MD in OV 06/17/2024 11:37
== END 2024-06-17 23:59 | disposition home or self-care (01) ==
LOC: RAD 10:33
PROVIDERS: PCP Family Medicine; Visit Provider Obstetrics & Gynecology
DX: O36.80X0 Pregnancy with inconclusive fetal viability, not applicable or unspecified (principal)
CPT/HCPCS: 76801

== ENCOUNTER 2024-07-01 16:03 | Emergency (ER) | payer OTHER, SELFPAY ==
[2024-07-01 16:29] VITALS: BP 131/96; PULSE 89; RESP 16; TEMP 36.6; O2SAT 99; BMI 19.3
[2024-07-01 16:30] VITALS: BP 135/84; PULSE 87; O2SAT 100
[2024-07-01 16:32] LABS: Microscopic, Urine URINE MICROSCOPIC (MICROSCOPIC)
[2024-07-01 16:35] LABS: White Blood Count 9.5 K/mm3 (4.5-13.0)
[2024-07-01 16:36] LABS: Hematocrit 39.3 % (37.0-47.0); Hemoglobin 13.8 g/dL (12.2-16.2); Mean Corpuscular HGB Conc 35.1 g/dL (31.8-35.4); Mean Corpuscular Hemoglobin 29.3 pg (27.0-31.2); Mean Corpuscular Volume 83.4 fl (81-99); Mean Platelet Volume 9.3 fl (7.4-10.4); Neutrophils % 79.8 % (37.0-80.0); Platelet Count 286 K/mm3 (142-424); Red Blood Count 4.71 M/mm3 (4.20-5.40); Red Cell Distribution Width 12.8 % (11.5-17.5)
[2024-07-01 16:37] LABS: Basophils % 0.3 % (0.1-2.0); Eosinophils % 0.1 % (0.1-12.0); Lymphocytes # 1.4 K/mm3 (0.7-4.5); Lymphocytes % 14.2 % (10-50); Monocytes # 0.5 K/mm3 (0.1-1.0); Monocytes % 5.4 % (1.7-9.3); Neutrophils # 7.6 K/mm3 (1.8-7.8)
[2024-07-01 16:47] LABS: Bacteria,Urine 1+ /lpf; RBC,Urine Occasional #/hpf (0-3)
[2024-07-01 16:53] LABS: Alanine Aminotransferase 17 U/L (12-78); Albumin Level 4.4 g/dl (3.5-5.0); Albumin/Globulin Ratio 1.6 (1.1-1.8); Aspartate Amino Transferase 26 U/L (14-36); Blood Urea Nitrogen 4 mg/dl (7-17); Carbon Dioxide 23 mmol/L (22.0-30.0); Chloride 102 mmol/L (98-107); Creatinine Clearance Estimated 132 mL/min (50-200); Estimated Glomerular Filt Rate 127 ml/min (>60); GFR (African American) 154 ML/MIN (>60); Globulin 2.7 g/dL (1.3-3.2); Sodium 136 mmol/L (136-145); Total Protein,Serum 7.1 g/dl (6.3-8.2)
[2024-07-01 16:55] LABS: Alkaline Phosphatase 58 U/L (38-126); Bilirubin,Total 0.5 mg/dl (0.2-1.3); Calcium 9.4 mg/dl (8.4-10.2); Glucose 88 mg/dl (74-100)
[2024-07-01 17:00] VITALS: BP 124/83; PULSE 72; O2SAT 96
--- NOTE | 2024-07-01 17:03 | ED_ITS ---
Discharge Plan Disposition Patient Disposition: Home, Self-Care Condition: Good Prescriptions Prescriptions: New cefdinir 300 mg capsule 300 mg PO BID 5 Days Qty: 10 0RF No Action PNV 119-iron fum-folic acid 29 mg iron- 1 mg tablet 1 tab PO DAILY 30 Days Qty: 30 11RF promethazine 25 mg tablet 25 mg PO TID PRN (Reason: nausea and vomiting) Qty: 20 0RF progesterone micronized 200 mg capsule 200 mg vaginal HS 14 Days Qty: 14 0RF cephalexin 500 mg capsule 500 mg PO BID 7 Days Qty: 14 0RF Referrals Follow up/Referrals: Maddie Kelly MD [Primary Care Provider] - See instructions Activity Restrictions/Add. Instructions Additional Instructions/Restrictions: You were evaluated in the emergency department today. At this time, ultrasound and labs are reassuring, but heavy bleeding can be a sign of early miscarriage. I recommend pelvic rest, including avoiding tampons, douching, or any vaginal penetration until you have seen gynecology. Make sure you stay hydrated. Return to the emergency department for new or worsening symptoms such as sudden severe pain, significant worsening of bleeding, or other concerns. 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 Take Tylenol at home as needed for pain. Clinical Impressions Clinical Impression: Asymptomatic bacteriuria, Vaginal bleeding during Stand Alone Forms Stand Alone Forms: Work/School Release Instructions Patient Instructions: DI for Vaginal Bleeding During Print Language Print Language: Setswana Discharge ED Provider: Anita Katz General Adult HPI General Chief complaint: OB/Uterine Contractions Stated complaint: cramping, bleeding 8 weeks 2 days preg Time Seen by Provider: 07/01/24 16:24 Mode of Arrival: Ambulatory Source of Information: Patient Limitations: No Limitations Description of Symptoms (Recalled from ER Triage Doc. by RN): pt states she is 8w 2d . She states she has been dx by Dr. Hermosillo with a subchorionic hemorhage, with this she has minimal vaginal spotting. pt states she woke up with am with vaginal pressure, slightly heavier bright red vaginal bleeding leaving drops in the toilet, lower abd cramping (6/10), and shakiness. pt reports she has a hx of PCOS and is Rh negative. this is the pts 3rd , no living children. she reports the previous pregnancies were early on spontaneous miscarriages. No surgical intervention required. History of Present Illness HPI narrative: This patient is a 19-year-old with 2 prior miscarriages presenting to the emergency department for evaluation with concern for increase in vaginal bleeding and cramping. She notes that she was seen here in the emergency department for cramping and spotting in the setting of 06/12/2024 and since then has had intermittent cramping and spotting, which was not outside of what she expected given that she was diagnosed with a subchorionic hemorrhage. For the last couple days, bleeding is been heavier, more bright red, and she has passed some clots. She notes that she is having cramping now that feels like a normal period. Of note, blood type is Rh- and she did receive RhoGAM about 3 weeks ago when she was here. No other concerns noted at this time. Related Data Previous Rx's ?Medication ?Instructions ?Recorded vitamins no.119-iron 1 tab PO DAILY 30 days #30 tabs 05/29/24 fumarate 29 mg-folic acid 1 mg tablet promethazine 25 mg tablet 25 mg PO TID PRN nausea and 05/29/24 vomiting #20 tabs progesterone micronized 200 mg 200 mg vaginal HS 14 days #14 caps 06/06/24 capsule cephalexin 500 mg capsule 500 mg PO BID 7 days #14 caps 06/12/24 cefdinir 300 mg capsule 300 mg PO BID 5 days #10 caps 07/01/24 Allergies Allergy/AdvReac Type Severity Reaction Status Date / Time No Known Allergies Allergy Verified 06/10/24 08:29 [facility] Disclaimer: The information contained in this section may have been updated after the patient was seen, as this information can be updated by other users. Medical History Abnormal uterine bleeding PCOS (polycystic ovarian syndrome) Depression Anxiety History of gastroesophageal reflux (GERD) Migraine Surgical History No significant past surgical history Social History Smoking Status: Never smoker alcohol intake: never current occupational status: employed Travel in the last 8 weeks: None Have you lived/traveled outside US in past 30 days?: No Contact w/someone who lives/traveled outside US past 30 days?: No Exposure to someone with infectious disease in past 14 days?: No Do you have a fever (greater than 100.4 F or 38 C)?: No Have you tested positive for COVID-19: No Exposed to someone with COVID-19 in past 14 days?: No Do you have a sore throat?: No Do you have a cough?: No Do you have any weakness?: No Do you have any diarrhea?: No Are you experiencing any unusual bleeding?: Yes Do you have any muscle aches/pain?: No Do you have any abdominal pain?: No Are you experiencing loss of taste or smell?: No ROS Obtained: Yes All systems reviewed & no additional complaints except as documented Physical Exam General General appearance: alert and in no apparent distress Head Head exam: atraumatic and normocephalic Eye Eye exam: Present normal appearance, PERRL and EOMI ENT ENT exam: Present normal exam, normal oropharynx, mucous membranes moist and normal external ear exam Neck Neck exam: Present normal inspection, full ROM and trachea midline; Absent tenderness Chest Chest inspection: Present normal inspection and symmetric chest wall rise; Absent tenderness Respiratory Respiratory exam: Present normal lung sounds bilaterally; Absent respiratory distress, wheezes, stridor or accessory muscle use Cardiovascular Cardiovascular exam: Present regular rate and normal rhythm Abdominal Exam Abdominal exam: Present soft; Absent distention, tenderness or guarding Extremities Exam Extremities exam: Present normal inspection, full ROM and normal capillary refill; Absent tenderness or edema Back Exam Back exam: Present normal inspection and full ROM; Absent tenderness Neurological Exam Neurological exam: Present alert, oriented X3, CN II-XII intact and normal gait; Absent motor sensory deficit Psychiatric Psychiatric exam: Present normal affect and normal mood Skin Skin exam: Present warm and dry Medical Decision Making Medical Records Medical records reviewed: Yes I reviewed the patient's medical records. Screening: Per USPSTF and CDC recommendations, given the prevalence of disease in our region, it is our hospital?s policy to screen for HIV and viral Hepatitis for all patients aged 18 and over and those with ongoing risk factors. Danny Inquiry Pt receiving controlled substance: No Vital Signs: 07/01/24 16:29 07/01/24 16:30 07/01/24 17:00 Temperature 97.9 F Temperature Source Oral Pulse Rate 87 72 Pulse Rate [Left] 89 Respiratory Rate 16 Blood Pressure 135/84 124/83 Blood Pressure [Right Arm] 131/96 H Blood Pressure Mean [Right Arm] 107 Blood Pressure Source [Right Arm] Automatic Cuff Blood Pressure Position [Right Arm] Sitting 02 Sat by Pulse Oximetry 99 100 96 Oxygen Delivery Method Room Air Room Air Room Air 07/01/24 17:31 07/01/24 17:42 Temperature 98 F Temperature Source Pulse Rate 72 72 Pulse Rate [Left] Respiratory Rate 16 Blood Pressure 113/76 113/76 Blood Pressure [Right Arm] Blood Pressure Mean [Right Arm] Blood Pressure Source [Right Arm] Blood Pressure Position [Right Arm] 02 Sat by Pulse Oximetry 100 Oxygen Delivery Method Room Air Lab Data Lab results reviewed: Yes I reviewed the patient's lab results. Lab Results 07/01/24 16:20: Urine Color Yellow, Urine Appearance Clear, Urine pH 6.0, Ur Specific [place] >= 1.030, Urine Protein Negative, Urine Glucose (UA) Negative, Urine Ketones Negative, Urine Blood 1+ A, Urine Nitrate Negative, Urine Bilirubin Negative, Urine Urobilinogen 0.2, Ur Leukocyte Esterase Negative, Urine RBC Occasional, Urine WBC 5-10, Ur Squamous Epith Cells 3-5, Urine Bacteria 1+ 07/01/24 16:27: WBC 9.5, RBC 4.71, Hgb 13.8, Hct 39.3, MCV 83.4, MCH 29.3, MCHC 35.1, RDW 12.8, Plt Count 286, MPV 9.3, Neut % (Auto) 79.8, Lymph % (Auto) 14.2, [place] % (Auto) 5.4, Eos % (Auto) 0.1, Baso % (Auto) 0.3, Neut # (Auto) 7.6, Lymph # (Auto) 1.4, [place] # (Auto) 0.5, Eos # (Auto) 0.0, Baso # (Auto) 0.0, Sodium 136, Chloride 102, Carbon Dioxide 23, BUN 4 L, Creatinine 0.60, Estimated Creat Clear 132, Estimated GFR 127, Est GFR ( Amer) 154, Glucose 88, Calcium 9.4, Total Bilirubin 0.5, AST 26, ALT 17, Alkaline Phosphatase 58, Total Protein 7.1, Albumin 4.4, Globulin 2.7, Albumin/Globulin Ratio 1.6 07/01/24 16:27 07/01/24 16:27 Orders (Tests/Meds): ED MEDICATIONS Discontinued Medications Generic Name Dose Route Start Last Admin Trade Name Joselyn PRN Reason Stop Dose Admin Cefdinir 300 mg 07/01/24 17:31 07/01/24 17:40 Cefdinir 300mg Capsule PO 07/01/24 17:32 300 mg ONCE ONE Administration Rho Immune Globulin 300 mcg 07/01/24 16:25 07/01/24 17:29 Rho(D) Immune Globulin 1,500 Unit (300mcg) Syringe IM 07/01/24 16:26 300 mcg ONCE ONE Administration ORDERS Category Date Time Status POCUS Point of Care (ER Only) Stat Exams 07/01/24 16:43 Ordered CBC w/Auto Diff [Complete Blood Count Auto Diff] Stat Lab 07/01/24 16:27 Completed CMP [Comprehensive Metabolic Panel] Stat Lab 07/01/24 16:27 Results HCG,Quantitative Stat Lab 07/01/24 16:27 Results UA [Urinalysis and Microscopic] Stat Lab 07/01/24 16:20 Completed Medical Decision Narrative: In summary, this patient is a 19-year-old presenting to the Emergency Department for evaluation of pelvic cramping and vaginal bleeding in the setting of . Differential diagnoses considered include but are not limited to , missed , spontaneous , subchorionic hemorrhage, cervical insufficiency. Ruling out the most morbid conditions drove assessment. 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 I reviewed patient's past medical records and noted prior ED evaluation 06/12/2024 with ultrasound confirming IUP and no ectopic . I also reviewed prior OB note. She plans for follow-up 07/07/2024.. I reviewed medical records and noted that the blood type is Rh-. On exam, the patient is lying in bed in no acute distress with normal vitals and a benign abdominal exam. She is in no significant pain. She received RhoGAM about 3 weeks ago, and given that it has been 3 weeks with an increase in bleeding and cramping concerning for a possible threatened miscarriage, I did administer another dose per up-to-date recommendations. Labs included CBC, CMP, urinalysis. She does have bacteria in her urine again concerning for asymptomatic bacteriuria, so I did treat with cefdinir. CBC and CMP are reassuring. I did do a bedside pelvic ultrasound which demonstrates a viable intrauterine with a heart rate of 167 bpm. On reassessment, patient is resting comfortably. At this time, feel that she is appropriate for discharge home with instructions for supportive management, pelvic rest, and close follow-up with OB. All questions were answered at time of discharge and she was given prescription for cefdinir for bacteria in urine. Strict return precautions were given prior to discharge. Procedures Limited Ultrasound Findings:: Limited OB ultrasound Indication: Vaginal bleeding in the setting of Identified structures: [-Uterus -Left adnexa -Right adnexa -Pouch of Rick] Findings: Uterus: Definitive IUP FHR: 167 Right adnexa: Normal Left adnexa: Normal Cul de sac: Free fluid absent Impression: -IUP: Present - heart rate: 167 -Ectopic : Absent -Free fluid: Absent Images were saved to permanent archive The study was technically adequate CPT Transabdominal: 45557-47 This study was performed by me, and I personally interpreted all images/videos. Based on my clinical judgement, these images were adequate and did not necessitate further imaging. Critical Care Critical Care Time Critical Care Time: No
[2024-07-01 17:08] LABS: Potassium 3.5 mmoL/L (3.5-5.1)
[2024-07-01 17:10] LABS: Appearance,Urine CLEAR (Clear); Bilirubin,Urine Negative (Negative); Blood, Urine 1+ (Negative); Color,Urine YELLOW (Yellow); Glucose,Urine (UA) Negative (Negative); Ketones,Urine Negative (Negative); Leukocyte Esterase,Urine Negative (Negative); Nitrate,Urine Negative (Negative); Protein,Urine Negative (Negative); Specific Gravity, Urine >= 1.030 (1.005-1.030); Urobilinogen,Urine 0.2 EU/dl (0.2)
[2024-07-01 17:22] LABS: Anion Gap 14.5 mEq/L (5-15)
[2024-07-01] MEDS: RHO(D) IMMUNE GLOBULIN 1,500 UNIT (300MCG) SYRINGE 300 MCG IM (17:29)
[2024-07-01 17:31] VITALS: BP 113/76; PULSE 72; O2SAT 100
[2024-07-01] MEDS: CEFDINIR 300MG CAPSULE 300 MG PO (17:40)
[2024-07-01 17:42] VITALS: BP 113/76; PULSE 72; RESP 16; TEMP 36.6
[2024-07-01 19:09] LABS: HCG,Quantitative 113450 mIU/ml (0-5.42)
[2024-07-04 21:14] LABS: Neisseria gonorrhoeae, NAA Negative (Negative)
== END 2024-07-01 17:49 | disposition home or self-care (01) ==
PROVIDERS: Emergency Provider Emergency Medicine; PCP Family Medicine
DX: O46.90 Antepartum hemorrhage, unspecified, unspecified trimester (principal); R82.71 Bacteriuria
CPT/HCPCS: 80053; 81001; 84702; 85025; 87491; 87591; 96374; 99283; J2790

== ENCOUNTER 2024-07-04 14:16 | Emergency (ER) | payer OTHER, SELFPAY ==
[2024-07-04 14:17] VITALS: BP 120/86; PULSE 88; RESP 16; TEMP 36.8; O2SAT 100; BMI 19.3
[2024-07-04 15:33] LABS: Albumin Level 4.7 g/dl (3.5-5.0); Chloride 99 mmol/L (98-107); Sodium 132 mmol/L (136-145)
[2024-07-04] MEDS: ONDANSETRON 4MG/2ML VIAL 4 MG IV (15:33)
[2024-07-04] MEDS: FAMOTIDINE 20MG/2ML VIAL 20 MG IV (15:33)
[2024-07-04] MEDS: LACTATED RINGERS 1000ML 1,000 ML 999 ML IV (15:34)
[2024-07-04 15:35] LABS: Basophils % 0.3 % (0.1-2.0); Hematocrit 41.6 % (37.0-47.0); Hemoglobin 15.1 g/dL (12.2-16.2); Lymphocytes # 0.8 K/mm3 (0.7-4.5); Lymphocytes % 6.8 % (10-50); Mean Corpuscular HGB Conc 36.3 g/dL (31.8-35.4); Mean Corpuscular Hemoglobin 30.4 pg (27.0-31.2); Mean Corpuscular Volume 83.9 fl (81-99); Mean Platelet Volume 9.7 fl (7.4-10.4); Monocytes # 0.4 K/mm3 (0.1-1.0); Monocytes % 3.1 % (1.7-9.3); Neutrophils # 10.6 K/mm3 (1.8-7.8); Neutrophils % 89.5 % (37.0-80.0); Platelet Count 293 K/mm3 (142-424); Red Blood Count 4.96 M/mm3 (4.20-5.40); Red Cell Distribution Width 12.7 % (11.5-17.5); White Blood Count 11.8 K/mm3 (4.5-13.0)
[2024-07-04 15:36] LABS: Alanine Aminotransferase 21 U/L (12-78); Albumin/Globulin Ratio 1.6 (1.1-1.8); Alkaline Phosphatase 60 U/L (38-126); Aspartate Amino Transferase 37 U/L (14-36); Blood Urea Nitrogen 9 mg/dl (7-17); Carbon Dioxide 21 mmol/L (22.0-30.0); Creatinine Clearance Estimated 113 mL/min (50-200); Estimated Glomerular Filt Rate 107 ml/min (>60); GFR (African American) 129 ML/MIN (>60); Globulin 2.9 g/dL (1.3-3.2); Total Protein,Serum 7.6 g/dl (6.3-8.2)
[2024-07-04 15:37] LABS: Calcium 9.7 mg/dl (8.4-10.2); Glucose 75 mg/dl (74-100)
[2024-07-04 15:38] LABS: MANUAL DIFFERENTIAL MANUAL DIFFERENTIAL (MANUAL DIFF)
--- NOTE | 2024-07-04 15:52 | HMH.EDGENADL ---
Discharge Plan Disposition Patient Disposition: Home, Self-Care Condition: Good Prescriptions Prescriptions: New ondansetron 4 mg tablet,disintegrating 4 mg PO Q8H PRN (Reason: nausea and vomiting) 4 Days Qty: 12 0RF No Action PNV 119-iron fum-folic acid 29 mg iron- 1 mg tablet 1 tab PO DAILY 30 Days Qty: 30 11RF promethazine 25 mg tablet 25 mg PO TID PRN (Reason: nausea and vomiting) Qty: 20 0RF progesterone micronized 200 mg capsule 200 mg vaginal HS 14 Days Qty: 14 0RF cephalexin 500 mg capsule 500 mg PO BID 7 Days Qty: 14 0RF cefdinir 300 mg capsule 300 mg PO BID 5 Days Qty: 10 0RF Referrals Follow up/Referrals: Maddie Kelly MD [Primary Care Provider] - See instructions Activity Restrictions/Add. Instructions Additional Instructions/Restrictions: You were evaluated in the emergency department today. 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 Return to the emergency department for new or worsening symptoms. Clinical Impressions Clinical Impression: Nausea and vomiting during Stand Alone Forms Stand Alone Forms: Work/School Release Instructions Patient Instructions: DI for Hyperemesis Gravidarum, DI for -- Discomforts and Remedies, DI for Nausea -- Adult Print Language Print Language: Latvian Discharge ED Provider: Anita Katz General Adult HPI General Chief complaint: Nausea/Vomiting/Diarrhea Stated complaint: 8 wks. antepartum, vomiting, poss dehydration Time Seen by Provider: 07/04/24 15:01 Mode of Arrival: Ambulatory Source of Information: Patient Limitations: No Limitations Description of Symptoms (Recalled from ER Triage Doc. by RN): pt presents to ED with c/o nausea, vomitting. symptoms began . pt is 8 weeks . 3 pregnancies, two miscarriages. History of Present Illness HPI narrative: This patient is a 19-year-old with 2 prior miscarriages who is currently 8 weeks presenting to the emergency department for evaluation with concern for intractable nausea and vomiting. She is not been able to keep down Phenergan that she was prescribed at home for nausea and vomiting. She also has not been able to keep down her vitamins. This is been going on for several days. She states she cannot even keep down water. She denies any other concerns. Related Data Previous Rx's ?Medication ?Instructions ?Recorded vitamins no.119-iron 1 tab PO DAILY 30 days #30 tabs 05/29/24 fumarate 29 mg-folic acid 1 mg tablet promethazine 25 mg tablet 25 mg PO TID PRN nausea and 05/29/24 vomiting #20 tabs progesterone micronized 200 mg 200 mg vaginal HS 14 days #14 caps 06/06/24 capsule cephalexin 500 mg capsule 500 mg PO BID 7 days #14 caps 06/12/24 cefdinir 300 mg capsule 300 mg PO BID 5 days #10 caps 07/01/24 ondansetron 4 mg disintegrating 4 mg PO Q8H PRN nausea and 07/04/24 tablet vomiting 4 days #12 tabs Allergies Allergy/AdvReac Type Severity Reaction Status Date / Time No Known Allergies Allergy Verified 06/10/24 08:29 [facility] Disclaimer: The information contained in this section may have been updated after the patient was seen, as this information can be updated by other users. Medical History Abnormal uterine bleeding PCOS (polycystic ovarian syndrome) Depression Anxiety History of gastroesophageal reflux (GERD) Migraine Surgical History No significant past surgical history Social History Smoking Status: Never smoker alcohol intake: never current occupational status: employed Travel in the last 8 weeks: None Have you lived/traveled outside US in past 30 days?: No Contact w/someone who lives/traveled outside US past 30 days?: No Exposure to someone with infectious disease in past 14 days?: No Do you have a fever (greater than 100.4 F or 38 C)?: No Have you tested positive for COVID-19: No Exposed to someone with COVID-19 in past 14 days?: No Do you have a sore throat?: No Do you have a cough?: No Do you have any weakness?: No Do you have any diarrhea?: No Are you experiencing any unusual bleeding?: No Do you have any muscle aches/pain?: No Do you have any abdominal pain?: No Are you experiencing loss of taste or smell?: No ROS Obtained: Yes All systems reviewed & no additional complaints except as documented Physical Exam General General appearance: alert and in no apparent distress Head Head exam: atraumatic and normocephalic Eye Eye exam: Present normal appearance, PERRL and EOMI ENT ENT exam: Present normal exam, normal oropharynx, mucous membranes moist and normal external ear exam Neck Neck exam: Present normal inspection, full ROM and trachea midline; Absent tenderness Chest Chest inspection: Present normal inspection and symmetric chest wall rise; Absent tenderness Respiratory Respiratory exam: Present normal lung sounds bilaterally; Absent respiratory distress, wheezes, stridor or accessory muscle use Cardiovascular Cardiovascular exam: Present regular rate and normal rhythm Abdominal Exam Abdominal exam: Present soft; Absent distention, tenderness or guarding Extremities Exam Extremities exam: Present normal inspection, full ROM and normal capillary refill; Absent tenderness or edema Back Exam Back exam: Present normal inspection and full ROM; Absent tenderness Neurological Exam Neurological exam: Present alert, oriented X3, CN II-XII intact and normal gait; Absent motor sensory deficit Psychiatric Psychiatric exam: Present normal affect and normal mood Skin Skin exam: Present warm and dry Medical Decision Making Medical Records Medical records reviewed: Yes I reviewed the patient's medical records. Screening: Per USPSTF and CDC recommendations, given the prevalence of disease in our region, it is our hospital?s policy to screen for HIV and viral Hepatitis for all patients aged 18 and over and those with ongoing risk factors. Danny Inquiry Pt receiving controlled substance: No Vital Signs: 07/04/24 14:17 07/04/24 17:53 Temperature 98.2 F 98.2 F Temperature Source Oral Oral Pulse Rate 84 Pulse Rate [Left Radial] 88 Respiratory Rate 16 18 Blood Pressure 106/76 L Blood Pressure [Right Arm] 120/86 Blood Pressure Mean [Right Arm] 97 02 Sat by Pulse Oximetry 100 Oxygen Delivery Method Room Air Room Air Lab Data Lab results reviewed: Yes I reviewed the patient's lab results. Lab Results 07/04/24 15:18: WBC 11.8, RBC 4.96, Hgb 15.1, Hct 41.6, MCV 83.9, MCH 30.4, MCHC 36.3 H, RDW 12.7, Plt Count 293, MPV 9.7, Neut % (Auto) 89.5 H, Lymph % (Auto) 6.8 L, [place] % (Auto) 3.1, Eos % (Auto) 0.0 L, Baso % (Auto) 0.3, Neut # (Auto) 10.6 H, Lymph # (Auto) 0.8, [place] # (Auto) 0.4, Eos # (Auto) 0.0, Baso # (Auto) 0.0, Total Counted 100, Neutrophils % (Manual) 89 H, Lymphocytes % (Manual) 6 L, Monocytes % (Manual) 5, Platelet Estimate Normal, RBC Morphology Normal, Sodium 132 L, Potassium 4.0, Chloride 99, Carbon Dioxide 21 L, Anion Gap 16.0 H, BUN 9 D, Creatinine 0.70, Estimated Creat Clear 113, Estimated GFR 107, Est GFR ( Amer) 129, Glucose 75, Calcium 9.7, Total Bilirubin 1.0, AST 37 H D, ALT 21, Alkaline Phosphatase 60, Total Protein 7.6, Albumin 4.7, Globulin 2.9, Albumin/Globulin Ratio 1.6 07/04/24 17:00: Urine Color Yellow, Urine Appearance Sl cloudy, Urine pH 5.5, Ur Specific [place] >= 1.030, Urine Protein Negative, Urine Glucose (UA) Negative, Urine Ketones 3+, Urine Blood Trace-i, Urine Nitrate Negative, Urine Bilirubin Negative, Urine Urobilinogen 1.0, Ur Leukocyte Esterase 1+ A, Urine RBC 5-10, Urine WBC 20-50, Ur Squamous Epith Cells 10-20, Urine Bacteria 3+ 07/04/24 15:18 07/04/24 15:18 Orders (Tests/Meds): ED MEDICATIONS Discontinued Medications Generic Name Dose Route Start Last Admin Trade Name Freq PRN Reason Stop Dose Admin Famotidine 20 mg 07/04/24 15:23 07/04/24 15:33 Famotidine 20mg/2ml Vial IV 07/04/24 15:24 20 mg ONCE ONE Administration Lactated Ringer's 1,000 mls @ 999 mls/hr 07/04/24 15:22 07/04/24 15:34 Lactated Ringer's 1000 Ml Bag IV 07/04/24 16:22 999 mls/hr .Q1H1M ONE Administration Ondansetron HCl 4 mg 07/04/24 15:22 07/04/24 15:33 Ondansetron 4mg/2ml Vial IV 07/04/24 15:23 4 mg ONCE ONE Administration Sodium Chloride 8 ml 07/04/24 15:23 Sodium Chloride 0.9% 10ml Vial IV 08/03/24 15:22 NEEDED PRN dilute pepcid ORDERS Category Date Time Status Complete Blood Count Auto Diff Stat Lab 07/04/24 15:18 Completed Comprehensive Metabolic Panel Stat Lab 07/04/24 15:18 Completed UA [Urinalysis and Microscopic] Stat Lab 07/04/24 17:00 Completed Urine Culture Stat Micro 07/04/24 17:00 Received Medical Decision Narrative: In summary, this patient is a 19-year-old presenting to the Emergency Department for evaluation of nausea and vomiting in the setting of . Differential diagnoses considered include but are not limited to hyperemesis gravidarum, dehydration, electrolyte derangements. Ruling out the most morbid conditions drove assessment. 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 I reviewed patient's past medical records and noted prior ED evaluation 06/12/2024 with ultrasound confirming IUP and no ectopic . I also evaluated the patient here 07/01/24 for vaginal bleeding in the setting of with reassuring workup at that time. She plans for follow-up 07/07/2024.. I reviewed medical records and noted that the blood type is Rh-. On exam, the patient is sitting upright in no acute distress. She is nontoxic-appearing with benign abdominal exam. Vitals are reassuring on cardiac telemetry. Workup included CBC, CMP, urinalysis. Patient was given a bolus of IV fluids as well as IV Zofran and Pepcid. Will assess for symptomatic improvement and ability to tolerate oral intake. On reassessment, the patient is resting comfortably and is able to tolerate oral intake. Labs are reassuring with the exception of very mildly elevated AST, mild hyponatremia in the setting of volume depletion, mildly low CO2 and mildly elevated anion gap.. Urine is grossly contaminated with skin cells. She is still on antibiotics for asymptomatic bacteriuria. Overall at this time I feel the patient is appropriate for discharge home with prescription for Zofran ODT and instructions for oral hydration and close follow-up with primary care and gynecology. Strict return precautions were given Critical Care Critical Care Time Critical Care Time: No
[2024-07-04 17:07] LABS: Microscopic, Urine URINE MICROSCOPIC (MICROSCOPIC)
[2024-07-04 17:11] LABS: Lymphocytes % 6 % (10-50); Monocytes % 5 % (2-9); Neutrophils % 89 % (42-76); Platelet Estimate Normal; RBC Morphology Normal; Total Cells Counted 100
[2024-07-04 17:31] LABS: Appearance,Urine SL CLOUDY (Clear); Bilirubin,Urine Negative (Negative); Blood, Urine TRACE-I (Negative); Color,Urine YELLOW (Yellow); Glucose,Urine (UA) Negative (Negative); Ketones,Urine 3+ (Negative); Leukocyte Esterase,Urine 1+ (Negative); Nitrate,Urine Negative (Negative); PH,Urine 5.5 (5.0-8.5); Protein,Urine Negative (Negative); Specific Gravity, Urine >= 1.030 (1.005-1.030)
[2024-07-04 17:47] LABS: Bacteria,Urine 3+ /lpf; WBC,Urine 20-50 #/hpf (0-3)
[2024-07-04 17:53] VITALS: BP 106/76; PULSE 84; RESP 18; TEMP 36.8; O2SAT 96
== END 2024-07-04 17:54 | disposition home or self-care (01) ==
PROVIDERS: Emergency Provider Emergency Medicine; PCP Family Medicine
DX: O21.9 Vomiting of pregnancy, unspecified (principal); Z3A.08 8 weeks gestation of pregnancy
CPT/HCPCS: 80053; 81001; 85007; 85025; 85027; 87086; 96361; 96374; 96375; 99283; J2405; J7120; S0028

== ENCOUNTER 2024-07-07 16:22 | Outpatient (CLI) | payer OTHER, SELFPAY ==
[2024-07-09 04:13] LABS: Neisseria gonorrhoeae, NAA Negative (Negative)
== END 2024-07-07 23:59 | disposition home or self-care (01) ==
LOC: LAB.DROPOF 16:23
PROVIDERS: PCP Obstetrics & Gynecology; Visit Provider Obstetrics & Gynecology
DX: Z34.81 Encounter for supervision of other normal pregnancy, first trimester (principal); Z3A.09 9 weeks gestation of pregnancy
CPT/HCPCS: 87086; 87491; 87591

== ENCOUNTER 2024-07-22 14:52 | Outpatient (CLI) | payer OTHER, SELFPAY ==
[2024-07-22 15:36] LABS: Basophils % 0.4 % (0.1-2.0); Eosinophils % 0.4 % (0.1-12.0); Hematocrit 41.3 % (37.0-47.0); Hemoglobin 14.9 g/dL (12.2-16.2); Lymphocytes # 1.4 K/mm3 (0.7-4.5); Lymphocytes % 18.5 % (10-50); Mean Corpuscular HGB Conc 36.1 g/dL (31.8-35.4); Mean Corpuscular Hemoglobin 30.8 pg (27.0-31.2); Mean Corpuscular Volume 85.3 fl (81-99); Mean Platelet Volume 9.5 fl (7.4-10.4); Monocytes # 0.5 K/mm3 (0.1-1.0); Monocytes % 6.5 % (1.7-9.3); Neutrophils # 5.7 K/mm3 (1.8-7.8); Neutrophils % 73.9 % (37.0-80.0); Platelet Count 311 K/mm3 (142-424); Red Blood Count 4.84 M/mm3 (4.20-5.40); Red Cell Distribution Width 13.2 % (11.5-17.5); White Blood Count 7.8 K/mm3 (4.5-13.0)
[2024-07-22 17:01] LABS: HIV Combo NEGATIVE (Negative)
[2024-07-23 05:12] LABS: Hepatitis B Surface Antigen Negative (Negative)
[2024-07-23 06:32] LABS: Rubella Antibodies, IgG 1.75 index (Immune >0.99)
[2024-07-24 06:56] LABS: RPR W/RFX Titers Nonreactive (Nonreactive)
== END 2024-07-22 23:59 | disposition home or self-care (01) ==
LOC: LAB 14:54
PROVIDERS: PCP Family Medicine; Visit Provider Obstetrics & Gynecology
DX: Z34.81 Encounter for supervision of other normal pregnancy, first trimester (principal)
CPT/HCPCS: 36415; 85025; 86592; 86762; 86850; 86870; 87340; 87389

== ENCOUNTER 2024-08-18 21:00 | Emergency (ER) | payer OTHER, SELFPAY ==
[2024-08-18 21:12] VITALS: BP 139/98; PULSE 97; RESP 18; TEMP 36.7; O2SAT 100; BMI 18.0
[2024-08-18 21:49] LABS: Microscopic, Urine URINE MICROSCOPIC (MICROSCOPIC)
[2024-08-18 21:51] LABS: Basophils % 0.2 % (0.1-2.0); Eosinophils % 0.2 % (0.1-12.0); Hematocrit 39.3 % (37.0-47.0); Lymphocytes # 1.4 K/mm3 (0.7-4.5); Lymphocytes % 16.5 % (10-50); Mean Corpuscular HGB Conc 35.6 g/dL (31.8-35.4); Mean Corpuscular Hemoglobin 30.8 pg (27.0-31.2); Mean Corpuscular Volume 86.6 fl (81-99); Mean Platelet Volume 10.1 fl (7.4-10.4); Monocytes # 0.6 K/mm3 (0.1-1.0); Monocytes % 6.5 % (1.7-9.3); Neutrophils # 6.6 K/mm3 (1.8-7.8); Neutrophils % 76.4 % (37.0-80.0); Platelet Count 265 K/mm3 (142-424); Red Blood Count 4.54 M/mm3 (4.20-5.40); Red Cell Distribution Width 13.1 % (11.5-17.5); White Blood Count 8.6 K/mm3 (4.5-13.0)
[2024-08-18 22:00] VITALS: BP 114/72; PULSE 72; O2SAT 99
[2024-08-18 22:04] LABS: Chloride 101 mmol/L (98-107); Potassium 3.5 mmoL/L (3.5-5.1); Sodium 135 mmol/L (136-145)
[2024-08-18 22:07] LABS: Anion Gap 14.5 mEq/L (5-15); Blood Urea Nitrogen 5 mg/dl (7-17); Calcium 9.2 mg/dl (8.4-10.2); Carbon Dioxide 23 mmol/L (22.0-30.0); Creatinine Clearance Estimated 123 mL/min (50-200); Estimated Glomerular Filt Rate 127 ml/min (>60); GFR (African American) 154 ML/MIN (>60); Glucose 87 mg/dl (74-100)
[2024-08-18 22:21] LABS: Appearance,Urine CLEAR (Clear); Bilirubin,Urine Negative (Negative); Blood, Urine Negative (Negative); Color,Urine YELLOW (Yellow); Glucose,Urine (UA) Negative (Negative); Ketones,Urine Negative (Negative); Leukocyte Esterase,Urine Negative (Negative); Nitrate,Urine Negative (Negative); Protein,Urine Negative (Negative); Urobilinogen,Urine 0.2 EU/dl (0.2)
[2024-08-18 22:30] VITALS: BP 118/74; PULSE 87; O2SAT 95
--- NOTE | 2024-08-18 22:45 | PC.NURSE ---
called extractor plant operator to page surgery for consent to ultrasound on this pt.
--- NOTE | 2024-08-18 22:47 | US_ITS ---
PROCEDURE INFORMATION: Exam: US Abdomen, Limited; Right Upper Quadrant Exam date and time: 08/18/2024 11:17 PM Age: 19 years old Clinical indication: Abdominal pain; Epigastric; ; Additional info: 15 weeks , epigastric ruq pain TECHNIQUE: Imaging protocol: Real time ultrasound of the abdomen with image documentation. Limited exam focused on the right upper quadrant. COMPARISON: No relevant prior studies available. FINDINGS: Liver: Normal echotexture. No significant intrahepatic biliary ductal dilation. Gallbladder: Contracted gallbladder with small dependent echogenic foci. Apparent increased wall thickness without pericholecystic fluid. Biliary ducts: The common duct measures approximately 2.3 mm. Pancreas: Obscured by bowel gas. Right kidney: Measures 9.4 cm and demonstrates normal echotexture, normal renal cortical thickness without nephrolithiasis or hydronephrosis. Other findings: No evidence of ascites. IMPRESSION: 1. Contracted gallbladder with gallstones without evidence of acute cholecystitis. 2. Unremarkable liver. 3. Normal RIGHT kidney without hydronephrosis.
--- NOTE | 2024-08-18 22:47 | PC.NURSE ---
ultrasound called in
--- NOTE | 2024-08-18 22:47 | PC.NURSE ---
Called lab to switch the BMP to a CMP per Dr. Schofield
[2024-08-18 22:53] LABS: Bacteria,Urine Trace /lpf
[2024-08-18 22:53] LABS: Albumin Level 4.7 g/dl (3.5-5.0); Chloride 102 mmol/L (98-107)
[2024-08-18 22:54] LABS: Potassium 3.5 mmoL/L (3.5-5.1); Sodium 135 mmol/L (136-145)
[2024-08-18 22:56] LABS: Alanine Aminotransferase 23 U/L (12-78); Anion Gap 16.5 mEq/L (5-15); Aspartate Amino Transferase 38 U/L (14-36); Blood Urea Nitrogen 5 mg/dl (7-17); Carbon Dioxide 20 mmol/L (22.0-30.0); Creatinine Clearance Estimated 123 mL/min (50-200); Estimated Glomerular Filt Rate 127 ml/min (>60); GFR (African American) 154 ML/MIN (>60)
[2024-08-18 22:57] LABS: Albumin/Globulin Ratio 1.5 (1.1-1.8); Alkaline Phosphatase 52 U/L (38-126); Bilirubin,Total 0.4 mg/dl (0.2-1.3); Calcium 9.1 mg/dl (8.4-10.2); Globulin 3.2 g/dL (1.3-3.2); Glucose 86 mg/dl (74-100); Lipase 115 U/L (23-300); Total Protein,Serum 7.9 g/dl (6.3-8.2)
--- NOTE | 2024-08-18 22:59 | HMH.EDGENADL ---
Discharge Plan Disposition Chief Complaint: Abdominal Pain Prescriptions Prescriptions: No Action ondansetron 4 mg tablet,disintegrating 4 mg PO Q8H PRN (Reason: nausea and vomiting) Qty: 30 0RF doxylamine-pyridoxine (vit B6) [Diclegis] 10-10 mg tablet,delayed release (DR/EC) 1 tab PO BID Qty: 60 0RF PNV 119-iron fum-folic acid 29 mg iron- 1 mg tablet 1 tab PO DAILY 30 Days Qty: 30 11RF progesterone micronized 200 mg capsule 200 mg vaginal HS 14 Days Qty: 14 0RF Referrals Follow up/Referrals: Maddie Kelly MD [Primary Care Provider] - See instructions Clinical Impressions Clinical Impression: Epigastric abdominal pain during Instructions Patient Instructions: DI for Acute Abdominal Pain Print Language Print Language: [place] Discharge ED Provider: Dl Schofield General Adult HPI General Chief complaint: Abdominal Pain Stated complaint: 15 wks , abd pain, SOA Time Seen by Provider: 08/18/24 22:23 Mode of Arrival: Ambulatory Source of Information: Patient Limitations: No Limitations Description of Symptoms (Recalled from ER Triage Doc. by RN): Pt states she is 15 weeks , and has two episodes of passing clots but no other vaginal bleeding. Pt is now having sharp pains to her mid abdomen History of Present Illness HPI narrative: Patient is a 19-year-old female EGA 15 and 1 who presents emergency department for evaluation of abdominal pain. History obtained by patient at bedside. Over the course of the evening she has had periumbilical and epigastric abdominal pain that has become concerning to her. She has a history of constipation however has taken some laxatives with some effect. No blood in her stool. No right lower quadrant abdominal pain. Due to persistent symptoms she presents here for continued evaluation. Related Data Previous Rx's ?Medication ?Instructions ?Recorded vitamins no.119-iron 1 tab PO DAILY 30 days #30 tabs 05/29/24 fumarate 29 mg-folic acid 1 mg tablet progesterone micronized 200 mg 200 mg vaginal HS 14 days #14 caps 06/06/24 capsule ondansetron 4 mg disintegrating 4 mg PO Q8H PRN nausea and 07/24/24 tablet vomiting #30 tabs doxylamine 10 mg-pyridoxine (vit 1 tab PO BID #60 tabs 07/25/24 B6) 10 mg tablet,delayed release (Diclegis) Allergies Allergy/AdvReac Type Severity Reaction Status Date / Time No Known Allergies Allergy Verified 08/07/24 10:56 [facility] Disclaimer: The information contained in this section may have been updated after the patient was seen, as this information can be updated by other users. Medical History Screening for genetic disease carrier status [employer] carrier screen 07/24/24 negative for 4 conditions tested - CF, Fragile X, SMA and DMD Abnormal uterine bleeding PCOS (polycystic ovarian syndrome) Depression Anxiety History of gastroesophageal reflux (GERD) Migraine Surgical History No significant past surgical history Social History Smoking Status: Never smoker alcohol intake: never current occupational status: employed Travel in the last 8 weeks: None Have you lived/traveled outside US in past 30 days?: No Contact w/someone who lives/traveled outside US past 30 days?: No Exposure to someone with infectious disease in past 14 days?: No Do you have a fever (greater than 100.4 F or 38 C)?: No Have you tested positive for COVID-19: No Exposed to someone with COVID-19 in past 14 days?: No Do you have a sore throat?: No Do you have a cough?: No Do you have any weakness?: No Do you have any diarrhea?: No Are you experiencing any unusual bleeding?: No Do you have any muscle aches/pain?: No Do you have any abdominal pain?: Yes Are you experiencing loss of taste or smell?: No ROS Obtained: Yes Systems reviewed as appropriate & no additional complaints except as documented Physical Exam General General appearance: alert and in no apparent distress Head Head exam: atraumatic and normocephalic Eye Eye exam: Present PERRL ENT ENT exam: Present mucous membranes moist Neck Neck exam: Present normal inspection Chest Chest inspection: Present normal inspection and symmetric chest wall rise Respiratory Respiratory exam: Present normal lung sounds bilaterally; Absent respiratory distress Cardiovascular Cardiovascular exam: Present regular rate and normal rhythm Abdominal Exam Abdominal exam: Present soft and tenderness (Mild, epigastric and right upper quadrant. No tenderness in the bilateral lower quadrants.); Absent rebound or rigidity Extremities Exam Extremities exam: Present normal inspection Neurological Exam Neurological exam: Present alert Psychiatric Psychiatric exam: Present normal affect Skin Skin exam: Present warm and dry Medical Decision Making Medical Records Screening: Per USPSTF and CDC recommendations, given the prevalence of disease in our region, it is our hospital?s policy to screen for HIV and viral Hepatitis for all patients aged 18 and over and those with ongoing risk factors. Danny Inquiry Pt receiving controlled substance: No Vital Signs: 08/18/24 21:12 08/18/24 22:00 08/18/24 22:30 Temperature 98.0 F Temperature Source Oral Pulse Rate 72 87 Pulse Rate [Right] 97 H Respiratory Rate 18 Blood Pressure 114/72 118/74 Blood Pressure [Right Arm] 139/98 H Blood Pressure Mean [Right Arm] 111 Blood Pressure Source [Right Arm] Automatic Cuff 02 Sat by Pulse Oximetry 100 99 95 Oxygen Delivery Method Room Air Room Air Lab Data Lab Results 08/18/24 21:30: WBC 8.6, RBC 4.54, Hgb 14.0, Hct 39.3, MCV 86.6, MCH 30.8, MCHC 35.6 H, RDW 13.1, Plt Count 265, MPV 10.1, Neut % (Auto) 76.4, Lymph % (Auto) 16.5, [place] % (Auto) 6.5, Eos % (Auto) 0.2, Baso % (Auto) 0.2, Neut # (Auto) 6.6, Lymph # (Auto) 1.4, [place] # (Auto) 0.6, Eos # (Auto) 0.0, Baso # (Auto) 0.0, Sodium 135 L 08/18/24 21:30: Sodium 135 L, Potassium 3.5 08/18/24 21:30: Potassium 3.5, Chloride 101 08/18/24 21:30: Chloride 102, Carbon Dioxide 23 08/18/24 21:30: Carbon Dioxide 20 L, Anion Gap 14.5 08/18/24 21:30: Anion Gap 16.5 H, BUN 5 L 08/18/24 21:30: BUN 5 L, Creatinine 0.60 08/18/24 21:30: Creatinine 0.60, Estimated Creat Clear 123 08/18/24 21:30: Estimated Creat Clear 123, Estimated GFR 127 08/18/24 21:30: Estimated GFR 127, Est GFR ( Amer) 154 08/18/24 21:30: Est GFR ( Amer) 154, Glucose 87 08/18/24 21:30: Glucose 86, Calcium 9.2 08/18/24 21:30: Calcium 9.1, Total Bilirubin 0.4, AST 38 H, ALT 23, Alkaline Phosphatase 52, Total Protein 7.9, Albumin 4.7, Globulin 3.2, Albumin/Globulin Ratio 1.5, Lipase 115 08/18/24 21:44: Urine Color Yellow, Urine Appearance Clear, Urine pH 6.0, Ur Specific [place] 1.010, Urine Protein Negative, Urine Glucose (UA) Negative, Urine Ketones Negative, Urine Blood Negative, Urine Nitrate Negative, Urine Bilirubin Negative, Urine Urobilinogen 0.2, Ur Leukocyte Esterase Negative, Urine RBC None, Urine WBC 3-5, Ur Squamous Epith Cells 3-5, Urine Bacteria Trace 08/18/24 21:30 08/18/24 21:30 Orders (Tests/Meds): ORDERS Category Date Time Status POCUS Point of Care (ER Only) Stat Exams 08/18/24 22:29 Ordered US RUQ [US abdomen limited] Stat Exams 08/18/24 22:47 Ordered BMP [Basic Metabolic Panel] Stat Lab 08/18/24 21:30 Completed CBC w/Auto Diff [Complete Blood Count Auto Diff] Stat Lab 08/18/24 21:30 Completed CMP [Comprehensive Metabolic Panel] Stat Lab 08/18/24 21:30 Completed Lipase Stat Lab 08/18/24 21:30 Completed Urinalysis-Acute [Urinalysis and Microscopic] Stat Lab 08/18/24 21:44 Completed Medical Decision Narrative: In summary patient is 19-year-old female with past medical history described above who presents emergency department for evaluation of abdominal pain. Patient is hemodynamically stable nontoxic-appearing upon arrival, afebrile. Differential diagnosis includes pancreatitis, hepatobiliary pathology, referred pain from urinary tract infection or referred pain from physiologic , among others. Patient has documented intrauterine previously and has no vaginal bleeding therefore formal imaging is not necessary at this time. Workup will be conducted with hematologic labs, urinalysis. Initial inventions include Tylenol. [id number] ultrasound at bedside shows viable intrauterine and borderline thickened gallbladder for which I discussed the case with Dr. Ruelas guardikendall management and given that it will change management consultant formal ultrasound will be ordered at this time. CBC and CMP nonactionable, no significant elevation in lipase. Urinalysis interpreted by me and not consistent with infection. Formal right upper quadrant ultrasound pending at time of transition of care to the oncoming physician, Dr. Gaona. Critical Care Critical Care Time Critical Care Time: No
[2024-08-18 23:00] VITALS: BP 113/71; PULSE 75; O2SAT 99
[2024-08-18] MEDS: ACETAMINOPHEN 325MG TAB 650 MG PO (23:11)
--- NOTE | 2024-08-18 23:26 | PC.NURSE ---
PT TO US VIA WHEELCHAIR AT THIS TIME
--- NOTE | 2024-08-18 23:46 | PC.NURSE ---
PT BACK FROM US VIA WHEELCHAIR,, PLACED BACK ON MONITOR, CALL LIGHT WITHIN REACH
[2024-08-19 00:43] VITALS: BP 113/71; PULSE 69; RESP 18; TEMP 36.1; O2SAT 98
== END 2024-08-19 00:44 | disposition home or self-care (01) ==
PROVIDERS: Emergency Provider Emergency Medicine; PCP Family Medicine
DX: O26.899 Other specified pregnancy related conditions, unspecified trimester (principal); R10.13 Epigastric pain; Z3A.15 15 weeks gestation of pregnancy
CPT/HCPCS: 76705; 80048; 80053; 81001; 83690; 85025; 99283

== ENCOUNTER 2024-08-23 16:16 | Emergency (ER) | payer OTHER, SELFPAY ==
[2024-08-23 16:22] VITALS: BP 138/95; PULSE 119; RESP 18; TEMP 36.4; O2SAT 98; BMI 18.0
[2024-08-23 16:45] VITALS: BP 118/87; PULSE 90; O2SAT 100
--- NOTE | 2024-08-23 16:47 | PC.NURSE ---
pt c/o RUQ and epigasteric pain that is 4/10 and sharp in nature. pt reports this has been ongoing over a week. pt is 16wks , a pt of . This is the pts 3rd , no living children. pt has struggled with HG this entire . pt c/o N/V without relief from zofran/phenergran. per pts records she was dx with cholelithiasis here on 08/18. was consulted with the hope her symptoms could be managed and surgical intervention could wait until after .
[2024-08-23 17:01] VITALS: BP 139/89; PULSE 87; O2SAT 99
[2024-08-23 17:16] LABS: Basophils % 0.2 % (0.1-2.0); Hematocrit 37.8 % (37.0-47.0); Hemoglobin 13.8 g/dL (12.2-16.2); Lymphocytes # 0.9 K/mm3 (0.7-4.5); Lymphocytes % 10.4 % (10-50); Mean Corpuscular HGB Conc 36.5 g/dL (31.8-35.4); Mean Corpuscular Hemoglobin 31.4 pg (27.0-31.2); Mean Corpuscular Volume 85.9 fl (81-99); Mean Platelet Volume 9.6 fl (7.4-10.4); Monocytes # 0.4 K/mm3 (0.1-1.0); Monocytes % 3.9 % (1.7-9.3); Neutrophils # 7.7 K/mm3 (1.8-7.8); Neutrophils % 85.2 % (37.0-80.0); Platelet Count 256 K/mm3 (142-424); Red Cell Distribution Width 13.2 % (11.5-17.5)
[2024-08-23] MEDS: LACTATED RINGERS 1000ML 1,000 ML 999 ML IV (17:16)
--- NOTE | 2024-08-23 17:32 | PC.NURSE ---
pt is crying complaining of chest burning in the center. Pt asking for her fluids to be stopped due to she thinks this is the cause of the burning, fluids stopped and Teresa PA aware
[2024-08-23 17:35] LABS: Alanine Aminotransferase 25 U/L (12-78); Albumin Level 4.6 g/dl (3.5-5.0); Albumin/Globulin Ratio 1.6 (1.1-1.8); Alkaline Phosphatase 56 U/L (38-126); Anion Gap 17.7 mEq/L (5-15); Aspartate Amino Transferase 27 U/L (14-36); Bilirubin,Total 0.9 mg/dl (0.2-1.3); Blood Urea Nitrogen 5 mg/dl (7-17); Calcium 9.4 mg/dl (8.4-10.2); Carbon Dioxide 23 mmol/L (22.0-30.0); Chloride 98 mmol/L (98-107); Creatinine Clearance Estimated 123 mL/min (50-200); Estimated Glomerular Filt Rate 127 ml/min (>60); GFR (African American) 154 ML/MIN (>60); Globulin 2.9 g/dL (1.3-3.2); Glucose 82 mg/dl (74-100); Potassium 3.7 mmoL/L (3.5-5.1); Sodium 135 mmol/L (136-145); Total Protein,Serum 7.5 g/dl (6.3-8.2)
[2024-08-23] MEDS: ALUMINUM/MAGNESIUM/SIMETHICONE 30ML UDC 30 ML PO (17:37)
[2024-08-23] MEDS: ONDANSETRON 4MG ODT 4 MG SL (17:39)
[2024-08-23 17:50] LABS: Microscopic, Urine URINE MICROSCOPIC (MICROSCOPIC)
[2024-08-23 17:51] LABS: Appearance,Urine CLEAR (Clear); Blood, Urine 2+ (Negative); Color,Urine YELLOW (Yellow); Glucose,Urine (UA) Negative (Negative); Ketones,Urine 3+ (Negative); Leukocyte Esterase,Urine 2+ (Negative); Nitrate,Urine Negative (Negative); Protein,Urine Negative (Negative)
[2024-08-23 17:54] LABS: Bilirubin,Urine 1+ (Negative)
--- NOTE | 2024-08-23 18:03 | ED_ITS ---
<Statement entered by Alix Arora MD - 08/23/24 22:12> I was consulted by the DEBORAH, and we discussed the complexity of problems being addressed. I approved the treatment and management plan for this patient's care in the emergency department, thus performing a substantive portion of the medical decision making. Alix Arora MD Discharge Plan Disposition Patient Disposition: Home, Self-Care Condition: Good Prescriptions Prescriptions: New pantoprazole [Protonix] 40 mg tablet,delayed release (DR/EC) 40 mg PO DAILY Qty: 30 0RF No Action ondansetron 4 mg tablet,disintegrating 4 mg PO Q8H PRN (Reason: nausea and vomiting) Qty: 30 0RF doxylamine-pyridoxine (vit B6) [Diclegis] 10-10 mg tablet,delayed release (DR/EC) 1 tab PO BID Qty: 60 0RF PNV 119-iron fum-folic acid 29 mg iron- 1 mg tablet 1 tab PO DAILY 30 Days Qty: 30 11RF progesterone micronized 200 mg capsule 200 mg vaginal HS 14 Days Qty: 14 0RF Referrals Follow up/Referrals: Maddie Kelly MD [Primary Care Provider] - See instructions Chey Bingham DO [Staff Physician] - See instructions Activity Restrictions/Add. Instructions Additional Instructions/Restrictions: Increase fluid intake. Take your medications as prescribed. Please follow-up with OB next week. If your condition worsens, please go to ED Clinical Impressions Clinical Impression: Nausea & vomiting Qualifiers: Vomiting type: unspecified Qualified Code(s): R11.2 - Nausea with vomiting, unspecified Abdominal pain Qualifiers: Abdominal location: left upper quadrant Qualified Code(s): R10.12 - Left upper quadrant pain Instructions Patient Instructions: DI for Diarrhea and Traveler's Diarrhea -- Adult, DI for Diarrhea and Traveler's Diarrhea -- Child, DI for Nausea -- Adult, DI for Nausea -- Child Print Language Print Language: [place] Discharge ED Provider: Alix Arora General Adult HPI General Chief complaint: Nausea/Vomiting/Diarrhea Stated complaint: vomiting,poor appitite Time Seen by Provider: 08/23/24 16:45 Mode of Arrival: Ambulatory Source of Information: Patient Limitations: No Limitations Description of Symptoms (Recalled from ER Triage Doc. by RN): Patient presents ambulatory to triage with her significant other. States that she is 16 weeks . States she was recently diagnosed with a gallstone. States she has been having nausea and vomiting for the last three days. States she is unable to eat. States she called her OB who instructed her to come to the ED. States she has an appointment on the . Patient states she had hyperemesis prior to the diagnosis. No other complications with this so far. Denies fevers. Denies diarrhea. History of Present Illness HPI narrative: Patient is a 19-year-old female who presents to the ED for complaints of epigastric abdominal pain, right upper quadrant abdominal pain, nausea, vomiting. Patient is currently 16 weeks , is established with OB, denies any complications of . Patient states she was recently diagnosed with cholelithiasis and her symptoms are persistent, patient states she is currently unable to keep food or fluids down. Patient follows with OB at [facility]. Related Data Previous Rx's ?Medication ?Instructions ?Recorded vitamins no.119-iron 1 tab PO DAILY 30 days #30 tabs 05/29/24 fumarate 29 mg-folic acid 1 mg tablet progesterone micronized 200 mg 200 mg vaginal HS 14 days #14 caps 06/06/24 capsule ondansetron 4 mg disintegrating 4 mg PO Q8H PRN nausea and 07/24/24 tablet vomiting #30 tabs doxylamine 10 mg-pyridoxine (vit 1 tab PO BID #60 tabs 07/25/24 B6) 10 mg tablet,delayed release (Diclegis) pantoprazole 40 mg tablet,delayed 40 mg PO DAILY #30 tabs 08/23/24 release (Protonix) Allergies Allergy/AdvReac Type Severity Reaction Status Date / Time No Known Allergies Allergy Verified 08/23/24 17:12 [facility] Disclaimer: The information contained in this section may have been updated after the patient was seen, as this information can be updated by other users. Medical History Screening for genetic disease carrier status Horizon carrier screen 07/24/24 negative for 4 conditions tested - CF, Fragile X, SMA and DMD Abnormal uterine bleeding PCOS (polycystic ovarian syndrome) Depression Anxiety History of gastroesophageal reflux (GERD) Migraine Surgical History No significant past surgical history Social History Smoking Status: Never smoker alcohol intake: never current occupational status: employed Travel in the last 8 weeks: None Have you lived/traveled outside US in past 30 days?: No Contact w/someone who lives/traveled outside US past 30 days?: No Exposure to someone with infectious disease in past 14 days?: No Do you have a fever (greater than 100.4 F or 38 C)?: No Have you tested positive for COVID-19: No Exposed to someone with COVID-19 in past 14 days?: No Do you have a sore throat?: No Do you have a cough?: No Do you have any weakness?: Yes Do you have any diarrhea?: No Are you experiencing any unusual bleeding?: No Do you have any muscle aches/pain?: No Do you have any abdominal pain?: No Are you experiencing loss of taste or smell?: No ROS Obtained: Yes Systems reviewed as appropriate & no additional complaints except as documented Physical Exam General General appearance: alert and in no apparent distress Head Head exam: atraumatic and normocephalic Eye Eye exam: Present normal appearance and PERRL ENT ENT exam: Present normal exam Neck Neck exam: Present normal inspection Chest Chest inspection: Present normal inspection and symmetric chest wall rise; Absent tenderness Respiratory Respiratory exam: Present normal lung sounds bilaterally Cardiovascular Cardiovascular exam: Present regular rate Abdominal Exam Abdominal exam: Present soft, tenderness (Epigastric and right upper quadrant) and normal bowel sounds Extremities Exam Extremities exam: Present normal inspection and full ROM Back Exam Back exam: Present normal inspection and full ROM Neurological Exam Neurological exam: Present alert and oriented X3 Psychiatric Psychiatric exam: Present normal affect and normal mood Skin Skin exam: Present warm and dry Medical Decision Making Medical Records Screening: Per USPSTF and CDC recommendations, given the prevalence of disease in our region, it is our hospital?s policy to screen for HIV and viral Hepatitis for all patients aged 18 and over and those with ongoing risk factors. Danny Inquiry Pt receiving controlled substance: No Danny was queried for this patient: No Vital Signs: 08/23/24 16:22 08/23/24 16:45 08/23/24 17:01 Temperature 97.6 F Temperature Source Oral Pulse Rate 90 87 Pulse Rate [Radial] 119 H Respiratory Rate 18 Blood Pressure 118/87 139/89 Blood Pressure [R ARm] 138/95 H Blood Pressure Mean [R ARm] 109 Blood Pressure Source [R ARm] Automatic Cuff 02 Sat by Pulse Oximetry 98 100 99 Oxygen Delivery Method Room Air Room Air Room Air 08/23/24 18:30 08/23/24 19:00 08/23/24 19:50 Temperature 98 F Temperature Source Pulse Rate 70 66 86 Pulse Rate [Radial] Respiratory Rate 18 Blood Pressure 116/76 112/75 122/84 Blood Pressure [R ARm] Blood Pressure Mean [R ARm] Blood Pressure Source [R ARm] 02 Sat by Pulse Oximetry 100 100 Oxygen Delivery Method Room Air Room Air Room Air Lab Data Lab Results 08/23/24 17:05: WBC 9.0, RBC 4.40, Hgb 13.8, Hct 37.8, MCV 85.9, MCH 31.4 H, M CHC 36.5 H, RDW 13.2, Plt Count 256, MPV 9.6, Neut % (Auto) 85.2 H, Lymph % (Auto) 10.4, [place] % (Auto) 3.9, Eos % (Auto) 0.0 L, Baso % (Auto) 0.2, Neut # (Auto) 7.7, Lymph # (Auto) 0.9, [place] # (Auto) 0.4, Eos # (Auto) 0.0, Baso # (Auto) 0.0, Sodium 135 L, Potassium 3.7, Chloride 98, Carbon Dioxide 23, Anion Gap 17.7 H, BUN 5 L, Creatinine 0.60, Estimated Creat Clear 123, Estimated GFR 127, Est GFR ( Amer) 154, Glucose 82, Calcium 9.4, Total Bilirubin 0.9, AST 27, ALT 25, Alkaline Phosphatase 56, Total Protein 7.5, Albumin 4.6, Globulin 2.9, Albumin/Globulin Ratio 1.6 08/23/24 17:45: Urine Color Yellow, Urine Appearance Clear, Urine pH 6.0, Ur Specific [place] 1.020, Urine Protein Negative, Urine Glucose (UA) Negative, Urine Ketones 3+, Urine Blood 2+ A, Urine Nitrate Negative, Urine Bilirubin 1+ A , Urine Urobilinogen 1.0, Ur Leukocyte Esterase 2+ A, Urine RBC 5-10, Urine WBC 10-20, Ur Squamous Epith Cells 10-20, Urine Bacteria 1+, Urine Mucus Trace 08/23/24 17:05 08/23/24 17:05 Orders (Tests/Meds): ED MEDICATIONS Discontinued Medications Generic Name Dose Route Start Last Admin Trade Name Freq PRN Reason Stop Dose Admin Al Hydrox/Mg Hydrox/Simethicone 30 ml 08/23/24 17:32 08/23/24 17:37 Aluminum/Magnesium/Simethicone 30ml Udc PO 08/23/24 17:33 30 ml ONCE ONE Administration Lactated Ringer's 500 mls @ 999 mls/hr 08/23/24 16:51 08/23/24 17:14 Lactated Ringer's 1000 Ml Bag IV 08/23/24 17:21 Not Given .Q31M ONE Lactated Ringer's 1,000 mls @ 999 mls/hr 08/23/24 17:14 08/23/24 17:16 Lactated Ringer's 1000 Ml Bag IV 08/23/24 18:14 999 mls/hr .Q1H1M ONE Administration Ondansetron HCl 4 mg 08/23/24 17:38 08/23/24 17:39 Ondansetron 4mg Odt SL 08/23/24 17:39 4 mg ONCE ONE Administration Pantoprazole Sodium 40 mg 08/23/24 18:38 08/23/24 18:43 Pantoprazole 40mg Vial IV 08/23/24 18:39 40 mg ONCE ONE Administration Promethazine HCl 12.5 mg 08/23/24 18:38 08/23/24 18:43 Promethazine Hcl 25mg/Ml 1ml Vial IV 08/23/24 18:39 12.5 mg ONCE ONE Administration Sodium Chloride 25 ml 08/23/24 18:38 08/23/24 18:43 Sodium Chloride 0.9% 25ml Bag IV 08/23/24 18:39 25 ml ONCE ONE Administration Sodium Chloride 10 ml 08/23/24 18:38 Sodium Chloride 0.9% 10ml Vial IV 09/22/24 18:37 NEEDED PRN dilute protonix ORDERS Category Date Time Status CBC w/Auto Diff [Complete Blood Count Auto Diff] Stat Lab 08/23/24 17:05 Completed CMP [Comprehensive Metabolic Panel] Stat Lab 08/23/24 17:05 Completed Urinalysis and Microscopic Stat Lab 08/23/24 17:45 Completed Urine Culture Stat Micro 08/23/24 17:45 Received Medical Decision Narrative: In summary, patient is a 19-year-old female PMHx recent diagnosis of cholelithiasis and is currently 16 weeks who presents to the ED for epigastric and right upper quadrant, abdominal pain, nausea and vomiting. Patient states she has been taking Zofran and Phenergan at home. Patient states she is unable to keep anything down. Reports that her pain is the same type of pain as when she was originally diagnosed with cholelithiasis. Patient states she is already established with OB, has already had her initial ultrasound, denies any complications from . Upon initial exam, patient is alert, oriented and cooperative. Patient is hemodynamically stable. Physical exam remarkable for tenderness in the right upper quadrant, abdomen is soft. Patient denies fever, chills, body aches, headache, visual disturbances, shortness of breath, dysuria, vaginal bleeding. Differential diagnosis includes gastritis, cholelithiasis, viral illness, infectious process, among others. Initial workup will be conducted with hematologic labs, imaging. Initial inventions include IV fluids and Zofran. Records reviewed, abdominal ultrasound from 08/18/2024 remarkable for contracted gallbladder with gallstones without evidence of acute cholecystitis, unremarkable liver enzymes. Initial workup reviewed by me. Hematologic labs remarkable for CBC unremarkable for any leukocytosis, stable H&H. CMP remarkable for sodium 135, appears to be baseline. Normal AST and ALT. Upon repeat evaluation, patient had an acceptable resolution of symptoms. They were ambulatory in the ED. Able to tolerate p.o. Patient is appropriate for discharge at this time. I had a discussion with OB on-call, she recommends starting patient on Protonix, advises that she would like to see the patient in the office next week, if patient gets worse she needs to go to ED for cholecystectomy. I discussed medications with patient, we discussed following up with OB next week, advised her to follow-up with ED. Critical Care Critical Care Time Critical Care Time: No
[2024-08-23 18:14] LABS: Bacteria,Urine 1+ /lpf; Mucus,Urine Trace /lpf
[2024-08-23 18:30] VITALS: BP 116/76; PULSE 70; O2SAT 100
--- NOTE | 2024-08-23 18:31 | PC.NURSE ---
pt was given a cup of ice no other needs at this time and i re hooked pt back up to vitals machine
[2024-08-23] MEDS: PROMETHAZINE HCL 25MG/ML 1ML VIAL 12.5 MG IV (18:43)
[2024-08-23] MEDS: PANTOPRAZOLE 40MG VIAL 40 MG IV (18:43)
[2024-08-23] MEDS: SODIUM CHLORIDE 0.9% 25ML BAG 25 ML IV (18:43)
[2024-08-23 19:00] VITALS: BP 112/75; PULSE 66; O2SAT 100
--- NOTE | 2024-08-23 19:20 | PC.NURSE ---
Placed pressure infuser on IV.
[2024-08-23 19:50] VITALS: BP 122/84; PULSE 86; RESP 18; TEMP 36.6; O2SAT 99
== END 2024-08-23 19:51 | disposition home or self-care (01) ==
PROVIDERS: Nurse Practitioner; Emergency Provider Student in an Organized Health Care Education/Training Program; PCP Family Medicine
DX: R10.11 Right upper quadrant pain (principal); R10.13 Epigastric pain; R11.2 Nausea with vomiting, unspecified; R63.8 Other symptoms and signs concerning food and fluid intake
CPT/HCPCS: 80053; 81001; 85025; 87086; 96361; 96374; 96375; 99283; J2550; J7120; Q0162

== ENCOUNTER 2024-09-24 13:09 | Outpatient (CLI) | payer OTHER, SELFPAY ==
--- NOTE | 2024-09-24 13:09 | US_ITS ---
PROCEDURE: US OB /MATERNAL DETAIL CLINICAL INDICATION: 20 week Anatomy Scan-US OB Complete COMPARISON: US US OB <= 14 WEEKS FETUS from 06/17/2024 FINDINGS: Transabdominal sonographic images of the pelvis were obtained. From her established due date she is 20 weeks 3 days. Single viable intrauterine gestation. Breech position. Placenta: Anteriorplacenta grade 1. There is some increased vascularity anterior to the placenta and suggest follow-up on this at her next exam. There is an average amount of fluid. The cervix appears satisfactory. Closed and measuring 1.97 cm-2.52 cm in length transabdominally. Transvaginally the cervix measures 3.13-3.48 cm Complete survey performed and was unremarkable on the submitted images as in PACS. No discrete anomalies identified on survey imaging by technologist. Active fetus. Three-vessel cord with satisfactory umbilical cord insertion. 4- chamber heart noted. S[place], aortic arch, LVOT, RVOT, three-vessel view appear normal. Survey of brain & ventricles Unremarkable. Cerebellum, thalamus, choroid plexus, cisterna magna appear normal. Face and neck survey unremarkable. Profile, nasion, lips and nose appeared normal. Diaphragm and chest views unremarkable. Abdomen: Both kidneys noted and unremarkable. Stomach and bladder noted and satisfactory. Spine: Not visualized today due to position. Both arms and legs noted. Amniotic Fluid: Adequate. MVP 4.15 cm Measurements: Average ultrasound age 20weeks 1day. Estimated due date by ultrasound age 0802/10/2025. Estimated weight 337g BPD = 19weeks 6days HC = 20weeks 0 days AC = 20weeks 4days FL = 20weeks 0 days Growth Percentile= 31 Heart Rate = 140bpm Cerebellum = 19weeks 1day Humerus = 20weeks 2days HC/AC is 1.14 FL/BPD is 0.69 FL/AC is 0.21 IMPRESSION: 1. Viable fetus in the breech presentation with an anterior placenta grade 1. 2. The fluid is within normal limits with an MVP 4.15 cm. 3. The cervix appeared shorter on transabdominal ultrasound but is normal in length when seen transvaginally. 4. Anatomical scan appears normal. 5. The spine was not visualized today due to position and suggest the patient return in 2-3 weeks for repeat views. 6. Suggest follow-up on the increased vascularity anterior to the placenta as well. 7. biometry is consistent with the dates. Dictated by: Colt Diggs MD 09/24/2024 14:46 Colt Diggs MD in [place] 09/24/2024 14:49
== END 2024-09-24 23:59 | disposition home or self-care (01) ==
LOC: RAD 13:09
PROVIDERS: PCP Family Medicine; Visit Provider Obstetrics & Gynecology
DX: Z36.3 Encounter for antenatal screening for malformations (principal); E05.90 Thyrotoxicosis, unspecified without thyrotoxic crisis or storm; Z3A.20 20 weeks gestation of pregnancy
CPT/HCPCS: 76811

== ENCOUNTER 2024-10-16 12:44 | Outpatient (CLI) | payer OTHER, SELFPAY ==
--- NOTE | 2024-10-16 12:57 | US_ITS ---
PROCEDURE: US OB FOLLOW UP CLINICAL INDICATION: repeat anatomy, spinal views/vascularity COMPARISON: US US ABDOMEN LIMITED from 08/18/2024 US US OB /MATERNAL DETAIL from 09/24/2024 FINDINGS: Transabdominal sonographic images of the pelvis were obtained. The following parameters are obtained: From her established due date she is 23weeks 4days Viable fetus in the breech presentation with an anterior placenta grade 1. There continues to be a vascular area anterior and underlying the placenta. The cervix measures 2.77 cm heart rate: 136bpm bpm. BPD: 22weeks 6days HC: 23week 0 days s AC: 23weeks 4days FL: 23weeks 4days HC/AC: 1.11 FL/BPD: 0.76 FL/AC: 0.22 Growth percentile: 36 Amniotic fluid: MVP 6.83 cm No obvious anomalies evident. profile seen, stomach, bladder, kidneys, three-vessel cord, four chamber heart appear normal. spine: Cervical, thoracic and lower spine appear normal. IMPRESSION: 1. Viable fetus in the breech presentation with an anterior placenta grade 1. There continues to be a vascular area anterior and underlying the placenta. Suggest a maternal medicine consult to look at this. 2. The fluid is within normal limits with an MVP 6.83 cm. 3. There has been good interval growth with the fetus currently 36 percentile. 4. Good views of spine were seen today and appear normal. 5. The rest of the limited anatomical scan appears normal. Dictated by: Colt Diggs MD 10/16/2024 14:17 Colt Diggs MD in [place] 10/16/2024 14:17
== END 2024-10-16 23:59 | disposition home or self-care (01) ==
LOC: RAD 12:44
PROVIDERS: PCP Family Medicine; Visit Provider Obstetrics & Gynecology
DX: Z36.3 Encounter for antenatal screening for malformations (principal); Z3A.23 23 weeks gestation of pregnancy
CPT/HCPCS: 76816

== ENCOUNTER 2024-11-03 10:56 | Outpatient (CLI) | payer OTHER, SELFPAY ==
[2024-11-03 11:02] VITALS: BMI 18.4
[2024-11-03 11:13] LABS: Microscopic, Urine URINE MICROSCOPIC (MICROSCOPIC)
[2024-11-03 11:25] VITALS: BP 128/78; PULSE 88; RESP 17; TEMP 36.6; O2SAT 100; BMI 18.4
[2024-11-03 11:34] LABS: Appearance,Urine CLEAR (Clear); Bilirubin,Urine Negative (Negative); Blood, Urine Negative (Negative); Color,Urine YELLOW (Yellow); Glucose,Urine (UA) Negative (Negative); Ketones,Urine Negative (Negative); Leukocyte Esterase,Urine 2+ (Negative); Nitrate,Urine Negative (Negative); Protein,Urine Negative (Negative); Specific Gravity, Urine 1.015 (1.005-1.030)
--- NOTE | 2024-11-03 12:06 | US_ITS ---
PROCEDURE: US OB TRANSVAGINAL CLINICAL INDICATION: spotting, IUP @ 26 07/15 COMPARISON: US US OB TRANSVAGINAL from 06/06/2024 US US OB TRANSVAGINAL from 06/12/2024 US US OB <= 14 WEEKS FETUS from 06/17/2024 US US OB /MATERNAL DETAIL from 09/24/2024 US US OB FOLLOW UP from 10/16/2024 FINDINGS: Transabdominal sonographic images of the uterus were obtained. From her established due date she is 26weeks 1day. The following parameters are obtained: Viable Fetus in the cephalic presentation with an anterior placenta grade 1. At the fundus of the uterus posterior to the placenta there appears to be an area of fluid. It is not clear whether this is a placental Castañeda or an abruption. There is no flow in this area. It appears to be fluid-filled and not a clot. Possible placental Castañeda. The cervix measures 2.4 cm transvaginally. There is no funneling. Measurements: heart Rate = 146bpm Limited anatomical scan appears normal. Amniotic fluid: Appears normal, MVP 4.52 cm No obvious anomalies evident.Kidneys, profile, bladder, stomach, four-chamber heart, three-vessel cord appear normal. IMPRESSION: 1. Viable fetus in the cephalic presentation with an anterior placenta grade 1. Posterior to the placenta there is a fluid-filled area without flow that could be a placental Castañeda. It seems to be on the marginal edge of the anterior placenta at the fundus. 2. The fluid is within normal limits with an MVP 4.52 cm. 3. The cervix is measured transvaginally and measures 2.4 cm in length. There is no funneling. 4. Limited anatomical scan appears normal. Dictated by: Colt Diggs MD 11/03/2024 14:11 Colt Diggs MD in [place] 11/03/2024 14:11
[2024-11-03 12:10] LABS: Bacteria,Urine Trace /lpf; Squamous Epithelial Cell,Urine 20-50 #/hpf (0-5)
[2024-11-03] MEDS: BETAMETHASONE ACET/PHOS 6MG/ML 5ML MDV 12 MG IM (13:01)
[2024-11-03] MEDS: LACTATED RINGERS 1000ML 1,000 ML 999 ML IV (13:01)
--- NOTE | 2024-11-03 13:45 | EXP.ACUTE.PN ---
Subjective *Date: 11/03/24 *Time: 13:45 Interval history: She is a 19-year-old 1 para 0 at 26 weeks gestational age. She has been having some abdominal cramping that goes into her back and for the last 4 days had some vaginal spotting. On arrival here she was found to have her cervix 50% and 2 cm dilated. Ultrasound shows a slightly shortened cervix at 2.3 cm transvaginally. No contractions on the monitor. Medical Exam Vital signs and Labs for Last 24 Hours: Vital Signs Temp Pulse Resp BP Pulse Ox O2 Del Method 11/03/24 11:25 97.9 F 88 17 128/78 100 Room Air Intake and Output 11/03/24 11/03/24 11/03/24 03:59 11:59 19:59 Other: Weight 118 lb Laboratory Results - last 24 hr 11/03/24 11:02: Urine Color Yellow, Urine Appearance Clear, Urine pH 7.0, Ur Specific [place] 1.015, Urine Protein Negative, Urine Glucose (UA) Negative, Urine Ketones Negative, Urine Blood Negative, Urine Nitrate Negative, Urine Bilirubin Negative, Urine Urobilinogen 1.0, Ur Leukocyte Esterase 2+ A, Urine RBC None, Urine WBC 5-10, Ur Squamous Epith Cells 20-50, Urine Bacteria Trace I & O for Labs for Last 24 Hours: Intake & Output 11/01/24 11/02/24 11/03/24 11/04/24 11:59 11:59 11:59 11:59 Weight 118 lb Head: Present atraumatic and normocephalic Neck: Present normal inspection Respiratory: Present normal respiratory effort; Absent accessory muscle use Assessment and Plan *Assessment and plan (1) labor in second trimester without delivery: Status: Acute Category: Medical Code(s): O60.02 - labor without delivery, second trimester Plan 1. She was given a fluid bolus and she feels a little better. Vaginal examination revealed her cervix to be 2 cm dilated and 50% effaced. 2. Ultrasound showed a slightly foreshortened cervix measuring 2.3 cm transvaginally. 3. She did receive her first dose of steroids and will receive a second dose tomorrow. 4. She will go home on bedrest and now that she knows what contractions feel like she will return if she has any further episodes of regular contractions.
== END 2024-11-03 14:42 | disposition home or self-care (01) ==
LOC: OBOUT 10:57 → OB 10:57
PROVIDERS: Nurse Practitioner Obstetrics & Gynecology; PCP Family Medicine; Visit Provider Obstetrics & Gynecology
DX: O26.852 Spotting complicating pregnancy, second trimester (principal); Z3A.26 26 weeks gestation of pregnancy; O60.02 Preterm labor without delivery, second trimester
CPT/HCPCS: 76817; 81001; 87086; G0463; J0702; J7120

== ENCOUNTER 2024-11-04 12:28 | Outpatient (CLI) | payer OTHER, SELFPAY ==
[2024-11-04 13:00] VITALS: BP 117/76; PULSE 85; RESP 18; TEMP 37.2; O2SAT 99; BMI 18.5
[2024-11-04] MEDS: BETAMETHASONE ACET/PHOS 6MG/ML 5ML MDV 12 MG IM (13:27)
[2024-11-04 14:07] VITALS: BMI 18.5
[2024-11-04 14:30] LABS: Fetal Fibronectin (Rapid) Positive (Negative)
== END 2024-11-04 15:00 | disposition home or self-care (01) ==
LOC: OBOUT 12:29 → OB 12:30
PROVIDERS: PCP Family Medicine; Visit Provider Nurse Practitioner Obstetrics & Gynecology
DX: O60.02 Preterm labor without delivery, second trimester (principal); Z3A.26 26 weeks gestation of pregnancy
CPT/HCPCS: 82731; G0463; J0702

== ENCOUNTER 2024-11-04 22:06 | Observation (INO) | payer OTHER, SELFPAY ==
[2024-11-04 20:54] VITALS: BP 157/89; PULSE 120; RESP 18; O2SAT 100; BMI 19.0
[2024-11-04 23:01] LABS: Basophils % 0.1 % (0.1-2.0); Hematocrit 36.8 % (37.0-47.0); Hemoglobin 12.8 g/dL (12.2-16.2); Lymphocytes # 0.5 K/mm3 (0.7-4.5); Lymphocytes % 3.2 % (10-50); Mean Corpuscular HGB Conc 34.8 g/dL (31.8-35.4); Mean Corpuscular Hemoglobin 31.4 pg (27.0-31.2); Mean Corpuscular Volume 90.2 fl (81-99); Mean Platelet Volume 9.6 fl (7.4-10.4); Monocytes # 0.4 K/mm3 (0.1-1.0); Monocytes % 2.1 % (1.7-9.3); Neutrophils # 15.3 K/mm3 (1.8-7.8); Neutrophils % 93.9 % (37.0-80.0); Nucleated Red Blood Cells # 0 10^3/uL; Nucleated Red Blood Cells % 0 %; Platelet Count 263 K/mm3 (142-424); Red Blood Count 4.08 M/mm3 (4.20-5.40); Red Cell Distribution Width 12.5 % (11.5-17.5); Red Cell Distribution Width-SD 41.1 fL; White Blood Count 16.3 K/mm3 (4.5-13.0)
[2024-11-04 23:03] LABS: MANUAL DIFFERENTIAL MANUAL DIFFERENTIAL (MANUAL DIFF)
[2024-11-04 23:11] LABS: Alanine Aminotransferase 27 U/L (12-78); Albumin Level 4.3 g/dl (3.5-5.0); Albumin/Globulin Ratio 1.3 (1.1-1.8); Alkaline Phosphatase 80 U/L (38-126); Anion Gap 13.5 mEq/L (5-15); Aspartate Amino Transferase 31 U/L (14-36); Bilirubin,Total 0.5 mg/dl (0.2-1.3); Calcium 9.4 mg/dl (8.4-10.2); Carbon Dioxide 21 mmol/L (22.0-30.0); Chloride 104 mmol/L (98-107); Creatinine Clearance Estimated 190 mL/min (50-200); Estimated Glomerular Filt Rate 203 ml/min (>60); GFR (African American) 246 ML/MIN (>60); Globulin 3.3 g/dL (1.3-3.2); Glucose 168 mg/dl (74-100); Potassium 3.5 mmoL/L (3.5-5.1); Sodium 135 mmol/L (136-145); Total Protein,Serum 7.6 g/dl (6.3-8.2)
[2024-11-04 23:17] LABS: Blood Urea Nitrogen < 2 mg/dl (7-17)
[2024-11-04 23:21] LABS: Lymphocytes % 4 % (10-50); Monocytes % 3 % (2-9); Neutrophils % 93 % (42-76); Total Cells Counted 100
[2024-11-04] MEDS: MVI, ADULT NO.1 WITH VIT K 10 ML, THIAMINE HCL 100 MG, MAGNESIUM SULFATE 2 GM in LACTAT... 250 ML IV (23:55)
[2024-11-04] MEDS: CYCLOBENZAPRINE 10MG TABLET 5 MG PO (23:57)
[2024-11-05] MEDS: LACTATED RINGERS 1000ML 1,000 ML 75 ML IV (04:54)
--- NOTE | 2024-11-05 09:28 | EXP.HPDC ---
General Admission date:: 11/04/24 Discharge date: 11/05/24 *Admission Date: 11/04/24 *Chief complaint: contractions *History of present illness: Ms Roxanne Ng is a 19 yo at 26w3d who presented to [facility] L[facility]D with complaint of increased contractions. She went to L&D on 11/03/24 for abdominal cramping that went into her back x 4 days and some vaginal spotting. On 11/03 her cervix was 50% and 2 cm dilated. Ultrasound demonstrated a slightly shortened cervix at 2.3 cm transvaginally. No contractions on the monitor. She was given first dose of Celestone. She returned on 11/04 for second dose of Celestone and FFN. FFN was positive. No contractions on the monitor. She then returned last night for increased contractions and was monitored overnight. No contractions on the monitor. [facility] Disclaimer: The information contained in this section may have been updated after the patient was seen, as this information can be updated by other users. Medical History (Updated 11/05/24 @ 09:27 by Chey Bingham DO) uterine contractions in second trimester, antepartum Rh negative state in antepartum period Screening for genetic disease carrier status Abnormal uterine bleeding PCOS (polycystic ovarian syndrome) Depression Anxiety History of gastroesophageal reflux (GERD) Migraine Surgical History S/P laparoscopic cholecystectomy No significant past surgical history Family History Other No significant family history Social History Smoking Status: Never smoker alcohol intake: never current occupational status: unemployed Travel in the last 8 weeks?: None Have you lived/traveled outside US in past 30 days?: No Contact w/someone who lives/traveled outside US past 30 days?: No Exposure to someone with infectious disease in past 14 days?: No Do you have a fever (greater than 100.4 F or 38 C)?: No Have you tested positive for COVID-19?: No Exposed to someone with COVID-19 in past 14 days?: No Do you have a sore throat?: No Do you have a cough?: No Do you have any weakness?: No Do you have any diarrhea?: No Are you experiencing any unusual bleeding?: No Do you have any muscle aches/pain?: No Do you have any abdominal pain?: No Are you experiencing loss of taste or smell?: No Other Medical History Have you received the Flu Vaccine for this season: No Have you received the Pneumonia Vaccine: No Review of Systems Review of Systems Review of systems:: pertinent systems reviewed and negative unless documented below *Genitourinary Comments: + contractions/cramping Exam Data for Last 24 hours Vital signs and Labs for Last 24 Hours: Pulse Resp BP Pulse Ox O2 Del Method 120 H 18 157/89 H 100 Room Air 11/04/24 20:54 11/04/24 20:54 11/04/24 20:54 11/04/24 20:54 11/04/24 20:54 Laboratory Results - last 24 hr 11/04/24 22:51: WBC 16.3 H, RBC 4.08 L, Hgb 12.8, Hct 36.8 L, MCV 90.2, MCH 31.4 H, MCHC 34.8, RDW 12.5, Plt Count 263, MPV 9.6, Neut % (Auto) 93.9 H, Lymph % (Auto) 3.2 L, [place] % (Auto) 2.1, Eos % (Auto) 0.0 L, Baso % (Auto) 0.1, Neut # (Auto) 15.3 H, Lymph # (Auto) 0.5 L, [place] # (Auto) 0.4, Eos # (Auto) 0.0, Baso # (Auto) 0.0, Total Counted 100, Neutrophils % (Manual) 93 H, Lymphocytes % (Manual) 4 L, Monocytes % (Manual) 3, Sodium 135 L, Potassium 3.5, Chloride 104, Carbon Dioxide 21 L, Anion Gap 13.5, BUN < 2 L, Creatinine 0.40 L, Estimated Creat Clear 190, Estimated GFR 203, Est GFR ( Amer) 246, Glucose 168 H, Calcium 9.4, Total Bilirubin 0.5, AST 31, ALT 27, Alkaline Phosphatase 80, Total Protein 7.6, Albumin 4.3, Globulin 3.3 H, Albumin/Globulin Ratio 1.3 I & O for Last 24 hours: Intake & Output 04/27/11/03/24 11/04/24 11/05/24 23:59 23:59 23:59 23:59 Weight 118 lb Constitutional Constitutional: no acute distress and cooperative *Routine HEENT Exam Head: Present normocephalic and atraumatic Eye: Absent conjunctivae pink ENT: Present mucous membranes moist *Routine Neck Exam Neck: Present full ROM *Routine Respiratory Exam Respiratory: Present CTA bilaterally and normal respiratory effort *Routine Cardiovascular Exam Cardiovascular: Present RRR *Routine Abdominal Exam Abdominal: Present soft (Gravid); Absent tenderness *Routine Rectal Exam Rectal:: deferred *Routine Genitalia Exam Genitalia:: deferred *Routine Extremities Exam Extremities: Present full ROM; Absent edema or calf tenderness *Routine Neurological Exam Neurological: Present alert, moving all extremities and normal speech Meds Home Medications and Allergies Home Medications ?Medication ?Instructions ?Recorded ?Confirmed ?Type vitamins no.119-iron 1 tab PO DAILY 30 days #30 tabs 05/29/24 10/22/24 Rx fumarate 29 mg-folic acid 1 mg tablet doxylamine 10 mg-pyridoxine (vit 1 tab PO BID #60 tabs 07/25/24 10/22/24 Rx B6) 10 mg tablet,delayed release (Diclegis) pantoprazole 40 mg tablet,delayed 40 mg PO DAILY #30 tabs 08/23/24 10/22/24 Rx release (Protonix) cyclobenzaprine 5 mg tablet mg PO 09/03/24 10/22/24 History ondansetron 4 mg disintegrating 4 mg PO Q8H PRN nausea and 09/24/24 10/22/24 Rx tablet vomiting #30 tabs progesterone micronized 200 mg 200 mg vaginal HS #30 caps 11/05/24 Rx capsule (Prometrium) New Prescriptions to Start Prescriptions: progesterone micronized [Prometrium] Chey Bingham Allergies Allergy/AdvReac Type Severity Reaction Status Date / Time No Known Allergies Allergy Verified 10/22/24 13:07 Hospital Course Hospital Course Hospital Course: Ms Roxanne Ng is a 19 yo at 26w3d who presented to [facility] L[facility]D with complaint of increased contractions. She went to L&D on 11/03/24 for abdominal cramping that went into her back x 4 days and some vaginal spotting. On 11/03 her cervix was 50% and 2 cm dilated. Ultrasound demonstrated a slightly shortened cervix at 2.3 cm transvaginally. No contractions on the monitor. She was given first dose of Celestone. She returned on 11/04 for second dose of Celestone and FFN. FFN was positive. No contractions on the monitor. She then returned last night for increased contractions and was monitored overnight. No contractions on the monitor. She was discharged home with prescription for vaginal prometrium and instructions to follow-up in the office in 2 days. She has an appointment with [facility] 11/12/24. Discussed labor precautions. Results Data Completed and Pending Labs on day of discharge: Labs from last 24 hours 11/04/24 22:51 WBC 16.3 H RBC 4.08 L Hgb 12.8 Hct 36.8 L MCV 90.2 MCH 31.4 H MCHC 34.8 RDW 12.5 Plt Count 263 MPV 9.6 Neut % (Auto) 93.9 H Lymph % (Auto) 3.2 L [place] % (Auto) 2.1 Eos % (Auto) 0.0 L Baso % (Auto) 0.1 Neut # (Auto) 15.3 H Lymph # (Auto) 0.5 L [place] # (Auto) 0.4 Eos # (Auto) 0.0 Baso # (Auto) 0.0 Total Counted 100 Neutrophils % (Manual) 93 H Lymphocytes % (Manual) 4 L Monocytes % (Manual) 3 Sodium 135 L Potassium 3.5 Chloride 104 Carbon Dioxide 21 L Anion Gap 13.5 BUN < 2 L Creatinine 0.40 L Estimated Creat Clear 190 Estimated GFR 203 Est GFR ( Amer) 246 Glucose 168 H Calcium 9.4 Total Bilirubin 0.5 AST 31 ALT 27 Alkaline Phosphatase 80 Total Protein 7.6 Albumin 4.3 Globulin 3.3 H Albumin/Globulin Ratio 1.3 Discharge Plan Disposition Patient Disposition: Home, Self-Care Condition: Good Follow up Plan Follow up with: Chey Bingham DO [Staff Physician] - 11/07/24 9:45 am Prescriptions/Medication Reconciliation: Continued doxylamine-pyridoxine (vit B6) [Diclegis] 10-10 mg tablet,delayed release (DR/EC) 1 tab PO BID Qty: 60 0RF cyclobenzaprine 5 mg tablet PO ondansetron 4 mg tablet,disintegrating 4 mg PO Q8H PRN (Reason: nausea and vomiting) Qty: 30 2RF PNV 119-iron fum-folic acid 29 mg iron- 1 mg tablet 1 tab PO DAILY 30 Days Qty: 30 11RF pantoprazole [Protonix] 40 mg tablet,delayed release (DR/EC) 40 mg PO DAILY Qty: 30 0RF progesterone micronized [Prometrium] 200 mg capsule 200 mg vaginal HS Qty: 30 1RF Rx Instructions: insert vaginally every night at bedtime Problem Reconciliation Problems Reviewed?: Yes Patient Discharge Instructions ACTIVITY: Limited activity DIET: continue same diet and regular diet Patient Instructions: [facility] Labor, Antepartum Care Print Language: Bahraini Providers Primary Care Provider: Maddie Kelly Admit Provider: Selina Yoder Attending Provider: Chey Bingham
== END 2024-11-05 09:55 | disposition home or self-care (01) ==
LOC: OBOUT 22:07 → OB 22:07
PROVIDERS: Admitting Provider Obstetrics & Gynecology; PCP Family Medicine; Visit Provider Obstetrics & Gynecology
DX: O26.852 Spotting complicating pregnancy, second trimester (principal); Z3A.26 26 weeks gestation of pregnancy
CPT/HCPCS: 80053; 85007; 85025; G0378; J3411; J7120

== ENCOUNTER 2024-11-15 19:37 | Outpatient (CLI) | payer OTHER, SELFPAY ==
[2024-11-15 19:45] VITALS: BMI 19.0
[2024-11-15 19:59] VITALS: BP 128/84; PULSE 104; RESP 18; TEMP 36.4; O2SAT 100; BMI 19.0
[2024-11-15 20:04] LABS: Microscopic, Urine URINE MICROSCOPIC (MICROSCOPIC)
[2024-11-15 20:06] LABS: Bilirubin,Urine Negative (Negative); Blood, Urine Negative (Negative); Color,Urine YELLOW (Yellow); Glucose,Urine (UA) Negative (Negative); Ketones,Urine Negative (Negative); Leukocyte Esterase,Urine 3+ (Negative); Nitrate,Urine Negative (Negative); Protein,Urine Negative (Negative); Specific Gravity, Urine <= 1.005 (1.005-1.030); Urobilinogen,Urine 0.2 EU/dl (0.2)
[2024-11-15 20:09] LABS: Appearance,Urine Slightly Cloudy (Clear)
[2024-11-15 20:19] LABS: Bacteria,Urine 1+ /lpf
== END 2024-11-15 22:20 | disposition home or self-care (01) ==
LOC: OBOUT 19:39 → OB 19:40
PROVIDERS: PCP Family Medicine; Visit Provider Obstetrics & Gynecology
DX: O26.892 Other specified pregnancy related conditions, second trimester (principal); M54.9 Dorsalgia, unspecified; Z3A.27 27 weeks gestation of pregnancy; O23.42 Unspecified infection of urinary tract in pregnancy, second trimester; N39.0 Urinary tract infection, site not specified
CPT/HCPCS: 81001; 87086; G0463

== ENCOUNTER 2024-11-19 09:18 | Outpatient (CLI) | payer OTHER, SELFPAY ==
[2024-11-19 11:01] LABS: Glucose 1 Hour 112 mg/dL (74-100)
[2024-11-19 11:32] LABS: Thyroid Stimulating Hormone 1.57 uIU/mL (0.465-4.68)
[2024-11-19 11:42] LABS: Basophils % 0.4 % (0.1-2.0); Eosinophils % 0.2 % (0.1-12.0); Hematocrit 35.4 % (37.0-47.0); Immature Granulocytes # 0.06 10^3uL; Immature Granulocytes % 0.5 %; Lymphocytes # 1.5 K/mm3 (0.7-4.5); Mean Corpuscular HGB Conc 33.9 g/dL (31.8-35.4); Mean Corpuscular Hemoglobin 30.7 pg (27.0-31.2); Mean Corpuscular Volume 90.5 fl (81-99); Mean Platelet Volume 9.7 fl (7.4-10.4); Monocytes # 0.5 K/mm3 (0.1-1.0); Monocytes % 4.7 % (1.7-9.3); Neutrophils # 8.8 K/mm3 (1.8-7.8); Neutrophils % 80.2 % (37.0-80.0); Nucleated Red Blood Cells # 0 10^3/uL; Nucleated Red Blood Cells % 0 %; Platelet Count 293 K/mm3 (142-424); Red Blood Count 3.91 M/mm3 (4.20-5.40); Red Cell Distribution Width 12.5 % (11.5-17.5); Red Cell Distribution Width-SD 40.9 fL; White Blood Count 10.9 K/mm3 (4.5-13.0)
[2024-11-19] MEDS: RHO(D) IMMUNE GLOBULIN 1,500 UNIT (300MCG) SYRINGE 300 MCG IM (11:44)
[2024-11-19 11:45] VITALS: BP 137/83; PULSE 96; RESP 18; O2SAT 99
[2024-11-19 16:27] LABS: RPR W/RFX Titers Nonreactive (Nonreactive)
== END 2024-11-19 11:45 | disposition home or self-care (01) ==
LOC: INF 09:18
PROVIDERS: PCP Family Medicine; Visit Provider Obstetrics & Gynecology
DX: O26.899 Other specified pregnancy related conditions, unspecified trimester (principal); Z67.91 Unspecified blood type, Rh negative
CPT/HCPCS: 36415; 82947; 84443; 85025; 86592; 96372; J2790

== ENCOUNTER 2024-12-02 14:48 | Outpatient (CLI) | payer OTHER, SELFPAY ==
[2024-12-02 15:00] VITALS: BP 132/92; PULSE 100; RESP 20; TEMP 36.9; O2SAT 100; BMI 19.3
[2024-12-05 13:25] LABS: Atopobium vaginae High - 2 Score (.); BVAB2 High - 2 Score (.); Candida albicans NAA Negative (Negative); Candida glabrata Negative (Negative); Chlamydia Trachomatis NAA Negative (Negative); HSV 1 NAA Negative (Negative); HSV 2 NAA Negative (Negative); Megasphaera 1 High - 2 Score (.); Neisseria gonorrhoeae NAA Negative (Negative); Trich vag NAA Negative (Negative)
== END 2024-12-02 17:04 | disposition home or self-care (01) ==
LOC: OBOUT 14:50 → OB 14:51
PROVIDERS: PCP Family Medicine; Visit Provider Obstetrics & Gynecology
DX: O26.893 Other specified pregnancy related conditions, third trimester (principal); O47.02 False labor before 37 completed weeks of gestation, second trimester; Z3A.29 29 weeks gestation of pregnancy; Z67.91 Unspecified blood type, Rh negative
CPT/HCPCS: 59025; 87491; 87529; 87591; 87661; 87798; 87801; G0463

== ENCOUNTER 2024-12-05 11:59 | Outpatient (CLI) | payer OTHER, SELFPAY ==
[2024-12-05 12:10] VITALS: BP 106/78; PULSE 92; RESP 16; TEMP 36.6; O2SAT 98; BMI 19.3
[2024-12-05 15:37] LABS: Microscopic, Urine URINE MICROSCOPIC (MICROSCOPIC)
[2024-12-05 15:40] LABS: Appearance,Urine CLOUDY (Clear); Bilirubin,Urine Negative (Negative); Blood, Urine Negative (Negative); Color,Urine YELLOW (Yellow); Glucose,Urine (UA) Negative (Negative); Ketones,Urine TRACE (Negative); Leukocyte Esterase,Urine 3+ (Negative); Nitrate,Urine Negative (Negative); Protein,Urine Negative (Negative)
[2024-12-05 15:56] LABS: Bacteria,Urine 2+ /lpf; Mucus,Urine Trace /lpf
== END 2024-12-05 12:53 | disposition home or self-care (01) ==
LOC: OBOUT 12:01 → OB 12:02
PROVIDERS: PCP Family Medicine; Visit Provider Obstetrics & Gynecology
DX: O26.893 Other specified pregnancy related conditions, third trimester (principal); O47.02 False labor before 37 completed weeks of gestation, second trimester; O23.43 Unspecified infection of urinary tract in pregnancy, third trimester; N39.0 Urinary tract infection, site not specified; Z3A.29 29 weeks gestation of pregnancy; Z67.91 Unspecified blood type, Rh negative
CPT/HCPCS: 59025; 81001; 87086; G0463

== ENCOUNTER 2024-12-19 12:42 | Outpatient (CLI) | payer OTHER, SELFPAY ==
--- OUTSIDE RECORDS SUMMARY | 2024-12-19 12:46 | XMS_ITS | Clinical Summary ---
Author Organization [facility] Address [address] [place] [address] Care Team Providers Care [employer] Supervisor Name Role Phone Jasmeet Kelly MD Primary Care Provider [phone] Allergies No known active allergies Medications Doxylamine-Pyr idoxine 10-10 MG tablet delayed-releas e Take by mouth. Activ e ondansetron (Zofran) 4 MG tablet Take 1 tablet (4 mg) by mouth every 8 hours as needed for nausea or vomiting. Active pantoprazole (Protonix) 40 MG EC tablet Take 1 tablet (40 mg) by mouth daily before breakfast. Do not crush, chew, or split. Active IRON-FOLIC ACID PO Take by mouth. Activ e acetaminophen (Tylenol) 325 MG tablet Take 2 tablets (650 mg) by mouth every 4 (four) hours as needed for pain or fever. Under [place] law, monthly prescriptions (30 days) can be refilled at 25 days and three-month prescriptions (90 days) at 80 days. Please contact the insurance company with questions if refills are denied. 100 tablet 5 Active cyclobenzaprin e (Flexeril) 5 MG tablet Take 1 tablet (5 mg) by mouth 3 (three) times a day as needed for muscle spasms. 30 tablet 5 Active naloxone (Narcan) 0.4 MG/ML injection Infuse 1 mL (0.4 mg) into a venous catheter as needed for respiratory depression. 1 mL 5 Active oxyCODONE (Roxicodone) 5 MG immediate release tablet Take 1 tablet (5 mg) by mouth every 4 (four) hours as needed for severe pain. 9 tablet Active Active Problems Estimated Date of Delivery Comme nts Yes 02/08/2025 Based on Patient Reported No known active problems Resolved Problems Problem Noted Date Diagnosed Date Resolved Date Cholelithiasis affecting pre gnancy in second trimester, antepartum 08/28/2024 08/29/2024 Social History Tobacco Use Types Packs/Day Years Used Date Smoking Tobacco: Never Assessed CAGE ASSESSMENT Answer Date Recorded Cage unable to access Not on file 08/28/2024 Cage max number of drinks Not on file 2024 Cage Beverages a week Not on file 08/28/2024 Have you ever felt you should CUT down on your d rinking? 0 08/28/2024 Have you been ANNOYED by people criticizing your drinking? 0 08/28/2024 Have you felt GUILTY about your drinking? 0 08/28/2024 Have you had a drink first t renu in the morning ([employer]) to steady your nerves or to get rid of a hangover? 0 08/28/2024 CAGE Questionnaire Score 0 025 Estimated Date of Delivery Comme nts Yes 02/08/2025 Based on Patient Reported Sex and Gender Information Value Date Recorded Sex Assigned at Not on file Legal Sex Female 8:53 AM EST Gender Identity Not on file Sexual Orientation Not on file Last Filed Vital Signs Vital Sign Reading Time Taken Comments Blood Pressure 114/76 08/29/2024 8:48 AM EST Pulse 61 08/29/2024 8:48 AM EST Temperature 36.5 C (97.7 F) 08/29/2024 8:48 AM EST Respiratory Rate 14 08/29/2024 8:48 AM EST Oxygen Saturation 98% 08/29/2024 8:48 AM EST Inhaled Oxygen Concentration - - Weight - - Height - - Body Mass Index - - Plan of Treatment Health Maintenance Due Date Last Done Comments [facility]-Depression Screening 2004 [facility]-HIV Screening 2004 [facility]-Hepatitis C Screening 2004 [facility]-Infant/Child/Adol SDOH Screenings 2004 HPV Vaccines (2 - 2-dose series) 07/09/2019 01/06/2019 [facility]- SDOH Screenings 2022 [facility]-Adult SDOH Screenings 2022 [id number] Vaccine (2 - season) 2024 02/19/2023 [facility]-Influenza Vaccine (Season Ended) 2025 05/26/2020 [facility]-DTaP,Tdap,and Td Vaccines (8 - Td or Tdap) 03/12/2034 03/12/2024, 09/10/2015, 06/01/2008, Additional history exists [facility]-Zoster Vaccines (1 of 2) 2054 06/01/2008, 09/08/2005 [facility]-Hepatitis B Vaccines Completed 005, 2004, 2004 [facility]-HIB Vaccines Completed 07/11/2005, 11/2004, 01/05/2005, Additional history exists [facility]-Hepatitis A Vaccines Completed 06/01/2008, 09/2005 [facility]-IPV Vaccines Completed 06/01/2008, 09/2005, 01/05/2005, Additional history exists [facility]-Varicella Vaccines Completed 06/01/2008, 2005 [facility]-Pneumococcal Vaccine: Pediatrics (0 to 5 Years) and At-Risk Patients (6 to 49 Years) Aged Out No longer eligible based on patient's age to complete this topic [facility]-RSV Vaccine: 60+ Years or (No Doses Required) Completed [facility]-Rotavirus Vaccines Aged Out No lo nger eligible based on patient's age to complete this topic Insurance Advance Directives * Full Code (Latest Code Status on File) Date Activated Date Inactivated Comments 08/28/2024 12:47 AM 08/29/2024 1:39 PM Question Answer Comments Patient has decision-making capacity? Yes Care Teams [employer] Supervisor Relationship Specialty Start Date End Date Jasmeet Kelly MD [address] [place] [address] [address] ERIKA Adame [id number] PCP - General 08/27/24
--- OUTSIDE RECORDS SUMMARY | 2024-12-19 12:46 | XMS_ITS | Clinical Summary ---
Author Organization [facility] Address [address] [place] [address] Phone Care Team Providers Care Oxygen Therapy Technician Name Role Phone Carleen Xiong MD Primary Care Provider [phone] Chey Landry MARKETING PROJECT COORDINATOR Unavailable [phone] Allergies Active Allergy Reactions Criticality Noted Date Comments Lactalbumin Hives High 05/16/2017 Medications SUMAtriptan (IMITREX) 50 mg Oral TabletIndications :Tired,Other migraine without status migrainosus, not intractable Take 1 Tablet by mouth as needed. 6 Tablet 5 3 Active omeprazole (PRILOSEC) 40 mg Oral Capsule, Delayed Release(E.C.)Brandi cations:Gastroeso phageal reflux disease with esophagitis, unspecified whether hemorrhage Take 1 Capsule by mouth daily. 90 Capsule 1 4 Active polyethylene glycol (GLYCOLAX) 17 gram/dose Oral PowderIndications :Constipation, unspecified constipation type Take 17 g by mouth daily. 510 g 2 4 Active escitalopram oxalate (LEXAPRO) 10 mg Oral TabletIndications :Generalized anxiety disorder,Mild episode of recurrent major depressive disorder Take 1 Tablet by mouth daily. 90 Tablet 1 4 Active Active Problems Problem Noted Date Diagnosed Date Allergic conjunctivitis and rhinitis, bilateral 02/25/2022 Patellar instability of left knee 01/19/2021 Knee strain, left, initial encounter 01/19/2021 Patellofemoral pain syndrome of left knee 2018 PTSD (post-traumatic stress disorder) 09/19/2016 Overview (09/19/2016): Dx at [facility] 09/18/16, treated Zoloft. Generalized anxiety disorder 09/19/2016 Overview (09/19/2016): Dx at [facility] 09/18/16, treated Zoloft. Mild single current episode of major depressive disorder 09/19/2016 Overview (09/19/2016): Dx at [facility] 09/18/16, treated Zoloft. Immunizations Immunization Administration Dates Next Due DTaP 06/01/2008, 6,04/12/2005,2004,2004 HPV 9 Valent 01/06/2019,10/12/2017 Hepatitis A, Unspecified Formulation 06/01/2008, 04/10/2006 Hepatitis B, Unspecified Formulation 01/05/2005, 2004,2004 HiB, Unspecified Formulation 07/11/2005, 04/12/2005,01/05/2005,2004 IPV 06/01/2008, 6,01/05/2005,2004 Influenza Vaccine Quadrivalent PF 05/26/2020 MMR 06/01/2008,09/08/2005 Meningococcal Conjugate 08/03/2020,09/10/2015 Tdap 09/10/2015 Varicella 06/01/2008,09/08/2005 Medical History Medical History Date Comments Anxiety Generalized anxiety disorder 09/19/2016 Dx at [facility] 09/18/16, treated Zoloft. Mild single current episode of major depressive disorder 09/19/2016 Dx at [facility] 09/18/16, crystal ated Zoloft. PTSD (post-traumatic stress disorder) 09/19/2016 Dx at [facility] 09/18/16, treated Zoloft. Family History Medical History Relation Name Comments Diabetes Brother Prostate Cancer Maternal Grandfather Breast Cancer Maternal Grandmother Diabetes Mother Migraines Mother Relation Name Status Comments Brother Maternal Grandfather Maternal Grandmother Mother Social History Tobacco Use Types Packs/Day Years Used Date Smoking Tobacco: Never Passive Smoke Exposure: Never Smokeless Tobacco: Never Tobacco Cessation:Counseling Given: Not Answered Alcohol Use Standard Drinks/Week Comments No 0 (1 standard drink = 0.6 oz pur e alcohol) Overall Financial Resource Strain (CARDIA) Answe r Date Recorded How hard is it for you to pa y for the very basics like food, housing, medical care, and heating? Not hard at all 06/30/2021 [facility] Occupat ional Health - Occupational Stress Questionnaire Answer Date Recorded Do you feel stress - tense, restless, nervous, or anxious, or unable to sleep at night because your mind is troubled all the time - these days? Not at all 06/30/2021 Exercise Vital Sign Answer Date Recorde d On average, how many days pe r week do you engage in moderate to strenuous exercise (like a brisk walk)? 7 days 06/30/2021 On average, how many minutes do you engage in exercise at this level? 30 min 06/30/2021 Hunger Vital Sign Answer Date Recorded Within the past 12 months, y ou worried that your food would run out before you got the money to buy more. Never true 06/30/20 21 Within the past 12 months, t he food you bought just didn't last and you didn't have money to get more. Never true 06/30/2021 PRAPARE - Transportation Answer Date Re corded In the past 12 months, has l ack of transportation kept you from medical appointments or from getting medications? No 06/09 In the past 12 months, has l ack of transportation kept you from meetings, work, or from getting things needed for daily living? No 06/30/2021 Comments No Sex and Gender Information Value Date Recorded Sex Assigned at Not on file Legal Sex Female 1:55 PM EST Gender Identity Not on file Sexual Orientation Not on file Obstetrics History Para Term AB IAB SAB Ectopic Multiple Livin g Live Births 0 0 0 0 0 0 0 0 0 0 0 Last Filed Vital Signs Vital Sign Reading Time Taken Comments Blood Pressure 154/78 05/25/2023 12:45 PM EST Pulse 100 05/25/2023 1:47 PM EST Temperature 36.7 C (98 F) 05/25/2023 1:00 PM EST Respiratory Rate 18 05/25/2023 12:38 PM EST Oxygen Saturation 98% 05/25/2023 12:38 PM EST Inhaled Oxygen Concentration - - Weight 54.4 kg (120 lb) 05/25/2023 12:38 PM EST Height 170.2 cm (5' 7 ) 05/25/2023 12:38 PM EST Body Mass Index 18.79 05/25/2023 12:38 PM EST Plan of Treatment Health Maintenance Due Date Last Done Comments Meningococcal B Vaccine (1 of 2 - Standard) 2020 COVID-19 Vaccine (2 - season) 2024 02/19/2023 Annual Wellness Exam 04/13/2024 04/13/2023 Influenza Vaccine (Season Ended) 2025 05/26/2020, 08/06/2017 (Declined), 03/30/2016 (Declined), Additional history exists DTaP/TDaP/Td (8 - Td or Tdap) 03/12/2034 03/12/2024, 09/10/2015, 06/01/2008, Additional history exists Hepatitis B Vaccine Completed 01/05/2005, 2004, 2004 HPV Completed 01/06/2019, 10/12/2017 Chlamydia Screening Discontinued 01/18/2023, 6 Pneumococcal Vaccine 0-49 Aged Out No longer eligible based on patient's age to complete this topic Goals Goal Patient Goal Type Associated Problems Recent Progress Patient-Stated? Author Maintain a healthy diet, exercise regularly and maintain an ideal body weight General No Yanet Salgado, RACHEL Procedures Procedure Name Priority Date/Time Associated Diagnosis Comments CHLAMYDIA/GC BY TMA Routine 01/18/2023 1:37 PM EDT Well female exam with routine gynecological exam from Last 3 Months or Most Recently Relevant to Health Maintenance Results * CHLAMYDIA/GC BY TMA (01/18/2023 1:37 PM EDT) Chlamydia trachomatis Not Detected Not Detected 01/19/2023 5:31 AM EDT PREFERRED LAB [place], [facility] Neisseria gonorrhoeae Not Detected Not Detected 01/19/2023 5:31 AM EDT [employer] Swab ENDOCERVICAL STRUCTURE / Unknown 01/18/2023 1:37 PM EDT 01/18/2023 1:37 PM EDT Narrative [employer] - 01/19/2023 5:31 AM EDT Testing methodology is breakdown mill operator mediated amplification (TMA) using the Aptima Combo 2 assay from [facility]. A negative result does not completely rule out a Chlamydia trachomatis or Neisseria gonorrhoeae infection due to potential inhibitors or levels present below the limit of detection by this assay. Results are dependent on proper collection and transport of specimen. This test is indicated for medical purposes only and should not be used for legal or forensic purposes. The performance characteristics of this assay were validated by the testing laboratory. This assay is FDA cleared to test the following specimens: clinician-collected endocervical, vaginal, male urethral swab specimens, rectal swabs, and throat/pharyngeal swabs; patient collected vaginal specimens within a clinic setting; Thin Prep Specimens in PreservCyt Solution; and first-stream, unpreserved male and female urine specimens. Detailed methodology is available upon request. us Digna Camarena MD MICROBIOLOGY - GENERAL OR DERABLES Final Result [employer] [address] [facility] , [address] [place] [id number] from Last 3 Months or Most Recently Relevant to Health Maintenance Insurance [facility] [id number] [place] [id number] [place] [id number] [facility] CHOICE PLUS [id number] * Guarantor: [employer] Account Type Relation to Patient Date of Phone Billing Address [employer] [facility] [address] Care Teams Oxygen Therapy Technician Relationship Specialty Start Date End Date Carleen Xiong MD [address] [place] [id number] PCP - General Family Medicine 09/10/15 Chey Landry APRN [address] [facility] [place] [id number] Nurse Practitioner 02/01/16
[2024-12-19 13:04] VITALS: BP 135/89; PULSE 82; RESP 17; TEMP 36.6; O2SAT 98; BMI 19.7
[2024-12-19] MEDS: ACETAMINOPHEN 325MG TAB 650 MG PO (13:29)
[2024-12-19] MEDS: FAMOTIDINE 20MG/2ML VIAL 20 MG IV (13:29)
[2024-12-19] MEDS: LACTATED RINGERS 1000ML 1,000 ML 999 ML IV (13:30)
[2024-12-19 15:45] LABS: Microscopic, Urine URINE MICROSCOPIC (MICROSCOPIC)
[2024-12-19 15:49] LABS: Appearance,Urine CLOUDY (Clear); Bilirubin,Urine Negative (Negative); Blood, Urine Negative (Negative); Color,Urine YELLOW (Yellow); Glucose,Urine (UA) Negative (Negative); Ketones,Urine Negative (Negative); Leukocyte Esterase,Urine 1+ (Negative); Nitrate,Urine Negative (Negative); Protein,Urine Negative (Negative); Specific Gravity, Urine <= 1.005 (1.005-1.030); Urobilinogen,Urine 0.2 EU/dl (0.2)
[2024-12-19 15:59] LABS: Bacteria,Urine 1+ /lpf
== END 2024-12-19 15:58 | disposition home or self-care (01) ==
LOC: OBOUT 12:44 → OB 12:45
PROVIDERS: PCP Family Medicine; Visit Provider Obstetrics & Gynecology
DX: O36.5930 Maternal care for other known or suspected poor fetal growth, third trimester, not applicable or unspecified (principal); Z3A.32 32 weeks gestation of pregnancy
CPT/HCPCS: 59025; 81001; 87086; 96360; G0463; J7120

== ENCOUNTER 2024-12-25 21:38 | Inpatient (IN) | payer OTHER, SELFPAY ==
--- OUTSIDE RECORDS SUMMARY | 2024-12-25 20:26 | XMS_ITS | Clinical Summary ---
Author Organization [facility] Address [address] [place] [address] Care Team Providers Care Shaker Out Name Role Phone Jasmeet Kelly MD Primary Care Provider [phone] Allergies No known active allergies Medications Doxylamine-Pyr [...] as needed for pain or fever. Under [place] law, monthly prescriptions (30 days) can be [...] drink first t renu in the morning ([employer]) to steady your nerves or to get [...] SDOH Screenings 2022 [facility]-Adult SDOH Screenings 2022 [id number] Vaccine (2 - season) 2024 02/19/2023 [facility]-Influenza [...] patient's age to complete [place] [id number] Advance Directives * Full Code (Latest Code Status on File) Date Activated Date Inactivated Comments 08/28/2024 12:47 AM 08/29/2024 1:39 PM Question Answer Comments Patient has decision-making capacity? Yes Care Teams Shaker Out Relationship Specialty Start Date End Date Jasmeet Kelly MD [address] [place] [address] [address] [place] [id number] PCP - General 08/27/24
[2024-12-25 20:32] VITALS: BMI 19.5
[2024-12-25 20:38] VITALS: BP 138/96; PULSE 70; RESP 18; TEMP 36.6; O2SAT 100; BMI 19.4
[2024-12-25 20:39] LABS: Microscopic, Urine URINE MICROSCOPIC (MICROSCOPIC)
[2024-12-25 20:42] LABS: Bilirubin,Urine Negative (Negative); Blood, Urine Negative (Negative); Color,Urine YELLOW (Yellow); Glucose,Urine (UA) Negative (Negative); Ketones,Urine Negative (Negative); Leukocyte Esterase,Urine 1+ (Negative); Nitrate,Urine Negative (Negative); Protein,Urine Negative (Negative)
[2024-12-25 20:48] LABS: Appearance,Urine Slightly Cloudy (Clear)
[2024-12-25 20:50] LABS: Fetal Membrane Rupture (Rapid) Positive (Negative)
[2024-12-25 21:05] LABS: Bacteria,Urine 2+ /lpf; Squamous Epithelial Cell,Urine 20-50 #/hpf (0-5); WBC,Urine 20-50 #/hpf (0-3)
--- NOTE | 2024-12-25 21:07 | PC.NURSE ---
Laboratory Results 12/25/24 20:30 Urine Color Yellow Urine Appearance Slightly cloudy Urine pH 6.0 Ur Specific [place] 1.010 Urine Protein Negative Urine Glucose (UA) Negative Urine Ketones Negative Urine Blood Negative Urine Nitrate Negative Urine Bilirubin Negative Urine Urobilinogen 1.0 Ur Leukocyte Esterase 1+ A Membrane Rupture Positive A
[2024-12-25 21:10] LABS: Yeast,Urine Occasional /lpf
--- NOTE | 2024-12-25 21:36 | EXP.HPDC ---
General Admission date:: 12/25/24 Discharge date: 12/25/24 *Admission Date: 12/25/24 *Chief complaint: back pain, pelvic pressure, leakage of fluid *History of present illness: Ms Roxanne Ng is a 19 yo at 33w4d who presents to [facility] L&D with complaint of leakage of fluid at 2015 tonight. She reports intense back pain and pelvic pressure with some contractions throughout the day today. She sat down this evening and felt increased pressure and leakage of fluid. Amnisure on L&D was positive. complicated by IUGR 6 %ile, AC 4 %ile, UA dopplers > 99%, contractions, and advanced cervical dilation in second trimester. She received Celestone 11/03 and 11/04. Baby is active. No vaginal bleeding. Cervical exam tonight /. [facility] Disclaimer: The information contained in this section may have been updated after the patient was seen, as this information can be updated by other users. Medical History (Updated 12/25/24 @ 21:58 by Chey Bingham DO) with 33 completed weeks gestation premature rupture of membranes (PPROM) with onset of labor within 24 hours of rupture in third trimester, antepartum Asymmetric IUGR affecting , antepartum Cervical abnormality in Underweight (BMI < 18.5) Vaginal bleeding during uterine contractions in second trimester, antepartum Rh negative state in antepartum period Screening for genetic disease carrier status Abnormal uterine bleeding PCOS (polycystic ovarian syndrome) Depression Anxiety History of gastroesophageal reflux (GERD) Migraine Surgical History S/P laparoscopic cholecystectomy No significant past surgical history Family History Other No significant family history Social History Smoking Status: Never smoker alcohol intake: never current occupational status: unemployed Travel in the last 8 weeks?: None Have you lived/traveled outside US in past 30 days?: No Contact w/someone who lives/traveled outside US past 30 days?: No Exposure to someone with infectious disease in past 14 days?: No Do you have a fever (greater than 100.4 F or 38 C)?: No Have you tested positive for COVID-19?: No Exposed to someone with COVID-19 in past 14 days?: No Do you have a sore throat?: No Do you have a cough?: No Do you have any weakness?: No Do you have any diarrhea?: No Are you experiencing any unusual bleeding?: No Do you have any muscle aches/pain?: No Do you have any abdominal pain?: No Are you experiencing loss of taste or smell?: No Other Medical History Have you received the Flu Vaccine for this season: No Have you received the Pneumonia Vaccine: No Review of Systems Review of Systems Review of systems:: pertinent systems reviewed and negative unless documented below *Genitourinary Comments: + contractions, pelvic pressure, leakage of fluid *Musculoskeletal Comments: + back pain Exam Data for Last 24 hours Vital signs and Labs for Last 24 Hours: Temp Pulse Resp BP Pulse Ox O2 Del Method 97.9 F 70 18 138/96 H 100 Room Air 12/25/24 20:38 12/25/24 20:38 12/25/24 20:38 12/25/24 20:38 12/25/24 20:38 12/25/24 20:38 Laboratory Results - last 24 hr 12/25/24 20:30: Urine Color Yellow, Urine Appearance Slightly cloudy, Urine pH 6.0, Ur Specific [place] 1.010, Urine Protein Negative, Urine Glucose (UA) Negative, Urine Ketones Negative, Urine Blood Negative, Urine Nitrate Negative, Urine Bilirubin Negative, Urine Urobilinogen 1.0, Ur Leukocyte Esterase 1+ A, Urine RBC 5-10, Urine WBC 20-50, Ur Squamous Epith Cells 20-50, Urine Bacteria 2+, Urine Yeast Occasional, Membrane Rupture Positive A I & O for Last 24 hours: Intake & Output 12/22/24 12/23/24 12/24/24 12/25/24 23:59 23:59 23:59 23:59 Weight 121 lb 0.011 oz Constitutional Constitutional: no acute distress and cooperative *Routine HEENT Exam Head: Present normocephalic and atraumatic Eye: Absent conjunctivae pink ENT: Present mucous membranes moist *Routine Neck Exam Neck: Present full ROM *Routine Respiratory Exam Respiratory: Present CTA bilaterally and normal respiratory effort *Routine Cardiovascular Exam Cardiovascular: Present RRR *Routine Abdominal Exam Abdominal: Present soft (Gravid); Absent tenderness *Routine Rectal Exam Rectal:: deferred *Routine Genitalia Exam Genitalia:: normal female *Routine Extremities Exam Extremities: Absent edema or calf tenderness *Routine Neurological Exam Neurological: Present alert, moving all extremities and normal speech Routine Psychiatric Exam Psychiatric: Present normal affect and cooperative Meds Home Medications and Allergies Home Medications ?Medication ?Instructions ?Recorded ?Confirmed ?Type vitamins no.119-iron 1 tab PO DAILY 30 days #30 tabs 05/29/24 12/22/24 Rx fumarate 29 mg-folic acid 1 mg tablet ondansetron HCl 8 mg tablet 8 mg PO Q12H 12/08/24 12/22/24 History New Prescriptions to Start Prescriptions: Allergies Allergy/AdvReac Type Severity Reaction Status Date / Time No Known Allergies Allergy Verified 12/22/24 13:04 Hospital Course Hospital Course Hospital Course: Ms Roxanne Ng is a 19 yo at 33w4d who presents to [facility] L&D with complaint of leakage of fluid at 2015 tonight. She reports intense back pain and pelvic pressure with some contractions throughout the day today. She sat down this evening and felt increased pressure and leakage of fluid. Amnisure on L&D was positive. complicated by IUGR 6 %ile, AC 4 %ile, elevated UA dopplers, contractions, and advanced cervical dilation in second trimester. She received Celestone 11/03 and 11/04. Baby is active. No vaginal bleeding. Cervical exam tonight 4/70/-1. She was given IV fluids, Azithromycin 1 gram PO x 1 dose, Ampicillin 2 grams, rescue dose of Celestone 12 mg and mag sulfate for neuroprotection. NST category 1, reactive, baseline 120 bpm, moderate variability, + accelerations, no decelerations. [place] q 2-[address] Leon [facility], who accepted transfer of care. Transfer to [facility]. Results Data Completed and Pending Labs on day of discharge: Labs from last 24 hours 12/25/24 20:30 Urine Color Yellow Urine Appearance Slightly cloudy Urine pH 6.0 Ur Specific [place] 1.010 Urine Protein Negative Urine Glucose (UA) Negative Urine Ketones Negative Urine Blood Negative Urine Nitrate Negative Urine Bilirubin Negative Urine Urobilinogen 1.0 Ur Leukocyte Esterase 1+ A Urine RBC 5-10 Urine WBC 20-50 Ur Squamous Epith Cells 20-50 Urine Bacteria 2+ Urine Yeast Occasional Membrane Rupture Positive A DS: Diagnosis Discharge Diagnosis (1) premature rupture of membranes (PPROM) with onset of labor within 24 hours of rupture in third trimester, antepartum: Status: Acute Code(s): O42.013 - premature rupture of membranes, onset of labor within 24 hours of rupture, third trimester (2) Asymmetric IUGR affecting , antepartum: Status: Acute Code(s): O36.5990 - Maternal care for other known or suspected poor growth, unspecified trimester, not applicable or unspecified (3) with 33 completed weeks gestation: Status: Acute Code(s): Z3A.33 - 33 weeks gestation of (4) Rh negative state in antepartum period: Status: Acute Code(s): O26.899 - Other specified related conditions, unspecified trimester; Z67.91 - Unspecified blood type, Rh negative Discharge Plan Disposition Patient Disposition: Xfer Short-Term Hosp Condition: Fair Discharge Order Discharge Orders: Discharge Order (Routine); Ordered 12/25/24 Ordered By: Chey Bingham Follow up Plan Prescriptions/Medication Reconciliation: Continued ondansetron HCl 8 mg tablet 8 mg PO Q12H PNV 119-iron fum-folic acid 29 mg iron- 1 mg tablet 1 tab PO DAILY 30 Days Qty: 30 11RF Problem Reconciliation Problems Reviewed?: Yes Patient Discharge Instructions Stand Alone Forms: Transfer Record Print Language: Malian Providers Primary Care Provider: Maddie Kelly Admit Provider: Chey Bingham Attending Provider: Chey Bingham
[2024-12-25] MEDS: BETAMETHASONE ACET/PHOS 6MG/ML 5ML MDV 12 MG IM (21:37)
[2024-12-25] MEDS: LACTATED RINGERS 1000ML 1,000 ML 125 ML IV (21:40)
[2024-12-25] MEDS: AMPICILLIN SODIUM 2 GM in 0.9 % SODIUM CHLORIDE 100 ML IV (21:41)
[2024-12-25] MEDS: AZITHROMYCIN 250MG TABLET 1000 MG PO (21:41)
[2024-12-25] MEDS: MAGNESIUM SULFATE IN WATER 4 GM/50 ML PIGGYBACK IV (22:06)
[2024-12-25] MEDS: MAGNESIUM SULFATE IN WATER 20 GM/500 ML IV.SOLN IV (22:26)
== END 2024-12-26 00:15 | disposition short-term general hospital (02) | DRG 833 ==
LOC: OBOUT 21:39 → OB 21:39
PROVIDERS: Admitting Provider Obstetrics & Gynecology; PCP Family Medicine; Visit Provider Obstetrics & Gynecology
DX: O42.013 Preterm premature rupture of membranes, onset of labor within 24 hours of rupture, third trimester (principal); O36.5930 Maternal care for other known or suspected poor fetal growth, third trimester, not applicable or unspecified; O26.893 Other specified pregnancy related conditions, third trimester; O99.283 Endocrine, nutritional and metabolic diseases complicating pregnancy, third trimester; E28.2 Polycystic ovarian syndrome; O99.343 Other mental disorders complicating pregnancy, third trimester; F32.A Depression, unspecified; F41.9 Anxiety disorder, unspecified; Z3A.33 33 weeks gestation of pregnancy; Z67.91 Unspecified blood type, Rh negative; Z90.49 Acquired absence of other specified parts of digestive tract; Z79.899 Other long term (current) drug therapy
CPT/HCPCS: 51702; 59025; 81001; 84112; 87086; 96360; 96361; 96372; G0463; J0290; J0702; J3475; J7120

== ENCOUNTER 2025-01-07 17:53 | Inpatient (IN) | payer OTHER, SELFPAY ==
--- OUTSIDE RECORDS SUMMARY | 2025-01-07 12:42 | XMS_ITS | Clinical Summary ---
Author Organization [facility] Address [address] [place] [address] Care Team Providers Care Nuclear Reactor Technician Name Role Phone Jasmeet Kelly MD Primary Care Provider [phone] Allergies No known active allergies Medications Doxylamine-Pyr [...] as needed for pain or fever. 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 Yes Care Teams Nuclear Reactor Technician Relationship Specialty Start Date End Date Jasmeet Kelly MD [address] [place] [address] [address] [place]ame [id number] PCP - General 08/27/24
--- OUTSIDE RECORDS SUMMARY | 2025-01-07 12:42 | XMS_ITS | Clinical Summary ---
Author Organization [facility] [place] [facility] Address [address] [place] [address] Phone Care Team Providers Care Grain Buyer Name Role Phone Carleen Xiong MD Primary Care Provider [phone] Chey Landry BRUSH FILLER HAND Unavailable [phone] Allergies Active Allergy Reactions Criticality Noted Date [...] disorder) 09/19/2016 Overview (09/19/2016): Dx at [facility] 09/18/16, treated Zoloft. Generalized anxiety disorder 09/19/2016 Overview (09/19/2016): Dx at [facility] 09/18/16, treated Zoloft. Mild single current episode of major depressive disorder 09/19/2016 Overview (09/19/2016): Dx at [facility] 09/18/16, treated Zoloft. Immunizations Immunization Administration Dates [...] Generalized anxiety disorder 09/19/2016 Dx at [facility] 09/18/16, treated Zoloft. Mild single current episode of major depressive disorder 09/19/2016 Dx at [facility] 09/18/16, crystal ated Zoloft. PTSD (post-traumatic stress disorder) 09/19/2016 Dx at [facility] 09/18/16, treated Zoloft. Family History Medical History [...] and heating? Not hard at all 06/30/2021 [facility] of Occupat ional Health - Occupational Stress [...] Detected 01/19/2023 5:31 AM EDT PREFERRED LAB [place], [facility] Neisseria gonorrhoeae Not Detected Not Detected 01/19/2023 5:31 AM EDT [employer] Swab ENDOCERVICAL STRUCTURE / Unknown 01/18/2023 1:37 PM EDT 01/18/2023 1:37 PM EDT Narrative [employer] - 01/19/2023 5:31 AM EDT Testing methodology is logistics manager mediated amplification (TMA) using the Aptima Combo 2 assay from [employer]. A negative result does not completely rule [...] MICROBIOLOGY - GENERAL OR DERABLES Final Result [employer] [address] [facility] , [address] [place] [id number] from Last 3 Months or Most Recently Relevant to Health Maintenance Insurance [facility] CHOICE PLUS [id number] [place] [id number] [place] [id number] [facility] CHOICE PLUS [id number] * Guarantor: [employer] Account Type Relation to Patient Date of Phone Billing Address Corporate [facility] [address] Care Teams Grain Buyer Relationship Specialty Start Date End Date Carleen Xiong MD [address] [place] [id number] PCP - General Family Medicine 09/10/15 Chey Landry APRN [address] [place] [id number] Nurse Practitioner 02/01/16
[2025-01-07 13:28] VITALS: BP 134/93; PULSE 103; RESP 19; TEMP 36.4; O2SAT 100; BMI 19.2
[2025-01-07] MEDS: LACTATED RINGERS 1000ML 1,000 ML 999 ML IV (14:26)
--- NOTE | 2025-01-07 17:00 | EXP.HP ---
History of Present Illness *Admission Date: 01/07/25 *Reason for visit:: labor *History of present illness: She is a 19-year-old 1 para 0 at 35 and 3 weeks gestational age. She was recently admitted at [facility] with labor. She was just discharged a couple of days ago. She spent 2 weeks in hospital. She arrives today having increasing contractions. She is also known to have a small for gestational age . She has been followed throughout the for this. She has had poor weight gain throughout the . [facility] Disclaimer: The information contained in this section may have been updated after the patient was seen, as this information can be updated by other users. Medical History contractions Paresthesia premature rupture of membranes (PPROM) with onset of labor within 24 hours of rupture in third trimester, antepartum Asymmetric IUGR affecting , antepartum Cervical abnormality in Underweight (BMI < 18.5) Vaginal bleeding during Rh negative state in antepartum period Screening for genetic disease carrier status Abnormal uterine bleeding PCOS (polycystic ovarian syndrome) Depression Anxiety History of gastroesophageal reflux (GERD) Migraine Surgical History S/P laparoscopic cholecystectomy No significant past surgical history Family History No significant family history Social History Smoking Status: Never smoker alcohol intake: never current occupational status: unemployed Travel in the last 8 weeks?: None Have you lived/traveled outside US in past 30 days?: No Contact w/someone who lives/traveled outside US past 30 days?: No Exposure to someone with infectious disease in past 14 days?: No Do you have a fever (greater than 100.4 F or 38 C)?: No Have you tested positive for COVID-19?: No Exposed to someone with COVID-19 in past 14 days?: No Do you have a sore throat?: No Do you have a cough?: No Do you have any weakness?: No Do you have any diarrhea?: No Are you experiencing any unusual bleeding?: No Do you have any muscle aches/pain?: No Do you have any abdominal pain?: No Are you experiencing loss of taste or smell?: No Other Medical History Have you received the Flu Vaccine for this season: No Have you received the Pneumonia Vaccine: No Review of Systems Review of Systems Review of systems:: pertinent systems reviewed and negative unless documented below Meds Home Medications and Allergies Home Medications ?Medication ?Instructions ?Recorded ?Confirmed ?Type vitamins no.119-iron 1 tab PO DAILY 30 days #30 tabs 05/29/24 01/05/25 Rx fumarate 29 mg-folic acid 1 mg tablet ondansetron HCl 8 mg tablet 8 mg PO Q12H 12/08/24 01/05/25 History New Prescriptions to Start Prescriptions: Allergies Allergy/AdvReac Type Severity Reaction Status Date / Time No Known Allergies Allergy Verified 01/05/25 13:37 Exam Data for Last 24 hours Vital signs and Labs for Last 24 Hours: Temp Pulse Resp BP Pulse Ox O2 Del Method 97.5 F L 103 H 19 134/93 H 100 Room Air 01/07/25 13:28 01/07/25 13:28 01/07/25 13:28 01/07/25 13:28 01/07/25 13:28 01/07/25 13:28 I & O for Last 24 hours: Intake & Output 01/05/25 01/06/25 01/07/25 01/08/25 11:59 11:59 11:59 11:59 Weight 119 lb Constitutional Constitutional: no acute distress *Routine HEENT Exam Head: Present normocephalic Eye: Present EOMI and PERRL ENT: Present mucous membranes moist *Routine Neck Exam Neck: Present supple; Absent lymphadenopathy *Routine Respiratory Exam Respiratory: Present CTA bilaterally *Routine Cardiovascular Exam Cardiovascular: Present RRR *Routine Abdominal Exam Abdominal: Present soft and normoactive bowel sounds; Absent tenderness *Routine Rectal Exam Rectal:: deferred *Routine Genitalia Exam Genitalia:: deferred *Routine Extremities Exam Extremities: Absent cyanosis, clubbing or edema *Routine Skin Exam Skin: Present warm; Absent rash *Routine Neurological Exam Neurological: Present alert and oriented X3 Assessment and Plan *Assessment and plan (1) contractions: Status: Acute Category: Medical Code(s): O47.00 - False labor before 37 completed weeks of gestation, unspecified trimester Plan 1. She has been having regular contractions every couple of minutes. When she first arrived she was quite uncomfortable with contractions. She has subsequently received IV fluids as well as 10 mg of nifedipine. Her contractions are still regular but they are not as strong as they were. 2. She was recently transferred from here to [facility] and was admitted there for 2 weeks. She was recently discharged. She has had 2 courses of steroids in the . 3. Her cervix is about 5 cm and 80% effaced. Station -2-3. Her membranes are intact. 4. Given the fact that she continues to contract fairly regularly we are going to admit her overnight. I am going to give her another dose of nifedipine to see if this helps her and if that fails to stop her contractions we may consider Brethine.
[2025-01-07] MEDS: TERBUTALINE SULFATE 1MG/ML VIAL 0.25 MG SUBCUT (17:01)
[2025-01-07] MEDS: ONDANSETRON 4MG/2ML VIAL 4 MG IV (18:07)
[2025-01-07] MEDS: ACETAMINOPHEN 325MG TAB 650 MG PO (18:12)
[2025-01-07 18:24] LABS: Hematocrit 36.4 % (37.0-47.0); Hemoglobin 12.1 g/dL (12.2-16.2); Immature Granulocytes % 0.5 %; Mean Corpuscular HGB Conc 33.2 g/dL (31.8-35.4); Mean Corpuscular Hemoglobin 28.1 pg (27.0-31.2); Mean Corpuscular Volume 84.7 fl (81-99); Nucleated Red Blood Cells % 0 %; Platelet Count 297 K/mm3 (142-424); Red Blood Count 4.30 M/mm3 (4.20-5.40); Red Cell Distribution Width-SD 40.1 fL; White Blood Count 15.1 K/mm3 (4.5-13.0)
[2025-01-07 19:00] LABS: Microscopic, Urine URINE MICROSCOPIC (MICROSCOPIC)
[2025-01-07 19:10] LABS: Bilirubin,Urine Negative (Negative); Color,Urine YELLOW (Yellow); Glucose,Urine (UA) Negative (Negative); Ketones,Urine TRACE (Negative); Leukocyte Esterase,Urine Negative (Negative); PH,Urine 6.0 (5.0-8.5); Protein,Urine Negative (Negative); Specific Gravity, Urine <= 1.005 (1.005-1.030); Urobilinogen,Urine 0.2 EU/dl (0.2)
[2025-01-07] MEDS: AMPICILLIN SODIUM 2 GM in 0.9 % SODIUM CHLORIDE 100 ML IV (19:25)
[2025-01-07] MEDS: LACTATED RINGERS 1000ML 1,000 ML 100 ML IV (19:25)
[2025-01-07 19:34] LABS: Bacteria,Urine 1+ /lpf; Mucus,Urine 1+ /lpf; RBC,Urine Occasional #/hpf (0-3)
[2025-01-07] MEDS: BUTORPHANOL TARTRATE 1 MG/ML VIAL IV (22:48)
[2025-01-08] MEDS: HYDROMORPHONE 2MG/ML SYRINGE 0.5 MG IV (00:29)
--- NOTE | 2025-01-08 02:00 | P.PNANES_ITS ---
[facility] Disclaimer: The information contained in this section may have been updated after the patient was seen, as this information can be updated by other users. Medical History contractions Paresthesia premature rupture of membranes (PPROM) with onset of labor within 24 hours of rupture in third trimester, antepartum Asymmetric IUGR affecting , antepartum Cervical abnormality in Underweight (BMI < 18.5) Vaginal bleeding during Rh negative state in antepartum period Screening for genetic disease carrier status Abnormal uterine bleeding PCOS (polycystic ovarian syndrome) Depression Anxiety History of gastroesophageal reflux (GERD) Migraine Surgical History S/P laparoscopic cholecystectomy No significant past surgical history Family History No significant family history Social History (Updated 01/07/25 @ 18:49 by Yoselyn Mitchell RN) Smoking Status: Never smoker alcohol intake: never substance use type: denies use current occupational status: unemployed Travel in the last 8 weeks?: None do you feel safe at home: Yes victim of physical abuse: No victim of emotional abuse: No victim of sexual abuse: No [facility] Anesthesia Checklist Patient Identification Patient Identification: Arm Band Structural Data Admitted From: Inpatient Planned Operative Procedure/s: Labor Epidural Consent for Planned Operative Procedure(s) Verified: Yes Verified Documents: History and Physical Additional verifications Anesthesia Reactions: No Neurological Assessment Level of Consciousness: Awake, Alert and Appropriate Anesthesia Plan Anesthesia Risk discussed: Yes Anesthesia Plan: Verified ASA Class: II Anesthesia Type: Epidural
--- NOTE | 2025-01-08 02:06 | EXP.LABOR.NO ---
Labor Note Subjective: Date: 01/08/25 Time: 02:06 irregular contractions Objective: NST:: Reactive Contractions:: every 2-3 minutes Cervical Dilation:: 9-10 Effacement:: 100% Station: +1 Membranes: artificially ruptured Fetus: Monitoring?: Yes monitoring type:: External Assessment: Labor progressing?: Yes Cephalopelvic disproportion?: No Plan: Anesthesia for epidural?: Yes Continue to labor down?: Yes Plan for ?: No Continue to monitor?: Yes Start pushing?: No Comment:: She had a prolonged 4-minute deceleration to the 90s. On examination she is 9+ centimeters dilated with a small anterior lip. She had a bulging bag and I ruptured membranes. There is clear fluid. heart rate has recovered and nonstress test is reactive. She has an epidural. We will expect a vaginal delivery.
[2025-01-08] MEDS: OXYTOCIN/RINGERS LACTATE 30 UNITS/500 ML BAG 40 UNITS IV (02:30)
--- NOTE | 2025-01-08 02:39 | EXP.DN ---
Delivery Note Delivery Date:: 01/08/25 Delivery Time:: :26 Anesthesia Type: Epidural Was labor medically induced?: No Induction method: none Gestational age (weeks): 35 delivered prior to 39 weeks?: Yes Justification for early elective delivery:: Active Labor Infant Gender: Male at 1 minute: 8 at 5 minutes: 9 LAC or MLE?: LAC Delivery Procedure:: She is a 19-year-old 1 para 0 at 35+ weeks gestational age. She came in in active labor. She progressed to full dilation under labor epidural and delivered spontaneously a liveborn male child at 2:26 AM on the morning of January 08, 2025. On delivery of the head the anterior shoulder then easily delivered followed by the rest the 's body atraumatically. The baby was vigorous so we allowed the cord to continue to pulsate for approximately 1 minute. The cord was then doubly clamped and cut and the was handed off to nurses who assigned Apgars of 8 at 1 minute and 9 at 5 minutes. We then obtained cord blood. She received IV oxytocin and using gentle traction countertraction the fundus I was able to easily deliver the placenta intact 4 minutes after delivery. Had normal three-vessel cord. She had a small first-degree vaginal laceration that was repaired with a single [id number] 3-0 Vicryl Rapide suture. She had a small right labial tear that was repaired with a single 3-0 Vicryl suture. She has a negative blood. She is rubella immune and her group B streptococcus status is unknown. She did receive IV antibiotics while in labor. Her estimated blood loss was approximately 100 cc. Laceration:: vaginal and labial Placental Delivery Description: Spontaneous
[2025-01-08] MEDS: BENZOCAINE-MENTHOL SPRAY 56GM CAN TP (03:08)
[2025-01-08 04:10] VITALS: BP 118/86; PULSE 72; RESP 16; TEMP 36.7
[2025-01-08] MEDS: ONDANSETRON 4MG/2ML VIAL 4 MG IV (04:20)
[2025-01-08 07:28] LABS: RPR W/RFX Titers Nonreactive (Nonreactive)
[2025-01-08] MEDS: ACETAMINOPHEN 500MG TAB 1000 MG PO (10:35)
[2025-01-08 20:51] VITALS: BP 121/85; PULSE 81; RESP 18; TEMP 36.7; O2SAT 100
[2025-01-08] MEDS: SENNA 8.6MG TABLET 8.6 MG PO (21:42)
[2025-01-09 04:54] VITALS: BP 118/76; PULSE 78; RESP 15; TEMP 36.6; O2SAT 100
[2025-01-09 06:05] LABS: Hematocrit 31.3 % (37.0-47.0); Hemoglobin 10.3 g/dL (12.2-16.2)
[2025-01-09] MEDS: ACETAMINOPHEN 500MG TAB 1000 MG PO ×2 (06:18→14:56)
--- NOTE | 2025-01-09 07:50 | EXP.ACUTE.PN ---
Subjective *Date: 01/09/25 *Time: 07:50 Interval history: PPD # 1 s/p Feeling well. Pain controlled. Formula feeding. Lochia is appropriate. Voiding without difficulty and passing flatus. Tolerating regular diet. Denies fever/chills, chest pain and shortness of breath. No headaches, vision changes, lightheadedness/dizziness. No lower extremity swelling. Ambulating well ad zeyad. Medical Exam Vital signs and Labs for Last 24 Hours: Vital Signs Temp Pulse Resp BP Pulse Ox O2 Del Method 01/09/25 04:54 97.9 F 78 15 118/76 100 Room Air 01/08/25 20:51 98.1 F 81 18 121/85 100 Room Air Laboratory Results - last 24 hr 01/07/25 17:40: Antibody Identification Anti-D 01/09/25 05:20: Hgb 10.3 L, Hct 31.3 L I & O for Labs for Last 24 Hours: Intake & Output 01/06/25 01/07/25 01/08/25 01/09/25 23:59 23:59 23:59 23:59 Weight 119 lb Head: Present atraumatic and normocephalic ENT: Present normal exam Neck: Present normal inspection and full ROM Respiratory: Present CTA bilaterally and normal respiratory effort Cardiac: Present Reg Rate and Rhythm GI: Present soft; Absent distention or tenderness Rectal (female): Present deferred (female): Present deferred Extremities: Present normal inspection and full ROM; Absent edema or calf tenderness Neuro: Present alert, awake and moves all extremities Assessment and Plan *Assessment and plan (1) spontaneous labor with delivery: Problem Comment: delivery at 35w4d Status: Acute Qualifiers: Fetus number: single or unspecified fetus Qualified Code(s): O60.10X0 - labor with delivery, unspecified trimester, not applicable or unspecified Category: Medical Code(s): O60.10X0 - labor with delivery, unspecified trimester, not applicable or unspecified (2) Asymmetric IUGR affecting , antepartum: Status: Acute Category: Medical Code(s): O36.5990 - Maternal care for other known or suspected poor growth, unspecified trimester, not applicable or unspecified (3) Rh negative state in antepartum period: Status: Acute Category: Medical Code(s): O26.899 - Other specified related conditions, unspecified trimester; Z67.91 - Unspecified blood type, Rh negative (4) Acute blood loss anemia: Status: Acute Category: Medical Code(s): D62 - Acute posthemorrhagic anemia Plan Continue routine care Encouraged increased ambulation Baby ABO RH: A positive. Rhogam prior to discharge AM Hgb 10.3 Encouraged increased ambulation Plan d/c home PPD #2 or PPD #3
[2025-01-09] MEDS: IBUPROFEN 400 MG TABLET 800 MG PO (14:55)
[2025-01-09] MEDS: SENNA 8.6MG TABLET 8.6 MG PO (14:56)
[2025-01-09] MEDS: WITCH HAZEL 40 PADS/BOX 1 EACH TP (14:56)
[2025-01-09] MEDS: BENZOCAINE-MENTHOL SPRAY 56GM CAN TP (14:57)
[2025-01-09] MEDS: LANOLIN CREAM 40GM TP (15:40)
[2025-01-09] MEDS: PRENATAL MULTIVITAMIN W/IRON 1 EACH PO (17:57)
[2025-01-09] MEDS: RHO(D) IMMUNE GLOBULIN 1,500 UNIT (300MCG) SYRINGE 300 MCG IM (17:58)
[2025-01-09 20:10] VITALS: BP 122/81; PULSE 73; RESP 18; TEMP 36.8; O2SAT 100
[2025-01-10 04:45] VITALS: BP 120/69; PULSE 83; RESP 18; TEMP 36.4; O2SAT 100
[2025-01-10] MEDS: IBUPROFEN 400 MG TABLET 800 MG PO (04:52)
[2025-01-10] MEDS: ACETAMINOPHEN 500MG TAB 1000 MG PO (04:53)
[2025-01-10 08:50] VITALS: BP 134/86; PULSE 85; RESP 18; TEMP 36.6; O2SAT 99
--- NOTE | 2025-01-10 11:34 | EXP.DC.SUM ---
General Admission date:: 01/08/25 Discharge date: 01/10/25 Hospital Course Hospital Course Hospital Course: Ms Roxanne Ng is a 19-year-old at 35 and 3 weeks gestational age. She was recently admitted at [facility] with labor. She was just discharged a couple of days ago. She spent 2 weeks in hospital. She arrived having increasing contractions. She is also known to have a small for gestational age . She has been followed throughout the for this. She has had poor weight gain throughout the . Labor progressed spontaneously. Amniotomy was performed. GBS unknown. She received Ampicillin for prophylaxis. She had a normal spontaneous vaginal delivery on 01/08/25 at 0226. She delivered a live male baby, Iggylee, weighing 4 lb 9 oz. Apgars 8 (1 min), 9 (5 min). EBL 100 mL. She did well . Pain controlled. Breast and Formula feeding. Light lochia. Voiding without difficulty and passing flatus. Tolerating regular diet. Denies fever/chills, chest pain and shortness of breath. No headaches, dizziness/lightheadedness or vision changes. She admitted to feeling depressed and anxious. EPDS 16. She was started on Sertraline 25 mg PO daily. Vital signs stable, afebrile. Heart regular rate and rhythm. Lungs clear to auscultation. Abdomen soft, nontender. No lower extremity swelling. Ambulating well ad zeyad. Normal hospital course. She was discharged to home on PPD # 2 with instructions to follow-up in the office in 2 weeks or sooner if needed. Exam Data for Last 24 hours Vital signs and Labs for Last 24 Hours: Temp Pulse Resp BP Pulse Ox O2 Del Method 97.8 F 85 18 134/86 99 Room Air 01/10/25 08:50 01/10/25 08:50 01/10/25 08:50 01/10/25 08:50 01/10/25 08:50 01/10/25 08:50 Laboratory Results - last 24 hr 01/09/25 05:20: Screen Negative, Baby's Rh Status Positive I & O for Last 24 hours: Intake & Output 01/07/25 01/08/25 01/09/25 01/10/25 23:59 23:59 23:59 23:59 Weight 119 lb Microbiology Reports for the Last 24 Hours: Microbiology 01/07/25 18:01 Urine,Clean Catch Urine Culture - Final No growth. Results Data Completed and Pending Labs on day of discharge: Labs from last 24 hours 01/09/25 05:20 Screen Negative Baby's Rh Status Positive DS: Diagnosis Discharge Diagnosis (1) spontaneous labor with delivery: Status: Acute Code(s): O60.10X0 - labor with delivery, unspecified trimester, not applicable or unspecified Qualifiers: Fetus number: single or unspecified fetus Qualified Code(s): O60.10X0 - labor with delivery, unspecified trimester, not applicable or unspecified Problem details: delivery at 35w4d (2) Asymmetric IUGR affecting , antepartum: Status: Acute Code(s): O36.5990 - Maternal care for other known or suspected poor growth, unspecified trimester, not applicable or unspecified (3) Rh negative state in antepartum period: Status: Acute Code(s): O26.899 - Other specified related conditions, unspecified trimester; Z67.91 - Unspecified blood type, Rh negative (4) Acute blood loss anemia: Status: Acute Code(s): D62 - Acute posthemorrhagic anemia (5) depression: Status: Acute Code(s): F53.0 - depression Meds Home Medications and Allergies Home Medications ?Medication ?Instructions ?Recorded ?Confirmed ?Type vitamins no.119-iron 1 tab PO DAILY 30 days #30 tabs 05/29/24 01/08/25 Rx fumarate 29 mg-folic acid 1 mg tablet sertraline 25 mg tablet 25 mg PO DAILY #30 tabs 01/10/25 Rx New Prescriptions to Start Prescriptions: sertraline Chey Bingham Allergies Allergy/AdvReac Type Severity Reaction Status Date / Time No Known Allergies Allergy Verified 01/05/25 13:37 Discharge Plan Disposition Patient Disposition: Home, Self-Care Condition: Good Discharge Order Discharge Orders: Discharge Order (Routine); Ordered 01/10/25 Ordered By: Chey Bingham Follow up Plan Follow up with: Chey Bingham DO [Staff Physician, PROPERTY CLAIM REP] - 2 weeks Prescriptions/Medication Reconciliation: New sertraline 25 mg tablet 25 mg PO DAILY Qty: 30 1RF Continued PNV 119-iron fum-folic acid 29 mg iron- 1 mg tablet 1 tab PO DAILY 30 Days Qty: 30 11RF Problem Reconciliation Problems Reviewed?: Yes Patient Discharge Instructions ACTIVITY: Limited activity DIET: continue same diet and regular diet Additional Instructions: Discharge: 1. Take 800 mg Ibuprofen every 8 hours as needed for pain. You can also take 500-1000 mg of Tylenol in between doses, every 6-8 hours. 2. Nothing in the vagina for 6 weeks - no intercourse, douching or tampons. No tub baths/hot tubs or swimming pools 3. Reasons to return to L&D or call On-Call doctor - fever (greater than 100.4) - heavy vaginal bleeding (soaking through 1 pad in less than 2 hours) - vaginal discharge (malodorous and/or purulent) - severe headaches not resolved by medication or rest and leg tenderness/swelling 4. depression/blues - Normal to feel anxious/overwhelmed for first 2 weeks - Talk to your doctor if: severe anxiety, trouble bonding with baby, withdrawing from other family members, thoughts of harming yourself or others Chey Bingham DO [facility] [phone] Patient Instructions: Depression, Hemorrhage, DI for Labor and Delivery, Vaginal , DI for Pre-eclampsia, [facility] Post Discharge Instructions Print Language: [place] Verdean Providers Primary Care Provider: Maddie Kelly Admit Provider: Colt Diggs Attending Provider: Colt Diggs
[2025-01-12 12:37] LABS: POC Glucose,Bedside 43 (70-110)
[2025-01-12 12:37] LABS: POC Glucose,Bedside 43 (70-110)
== END 2025-01-10 12:35 | disposition home or self-care (01) | DRG 806 ==
LOC: OBOUT 17:54 → OB 17:54
PROVIDERS: Admitting Provider Nurse Practitioner Obstetrics & Gynecology; PCP Family Medicine; Visit Provider Nurse Practitioner Obstetrics & Gynecology
DX: O60.14X0 Preterm labor third trimester with preterm delivery third trimester, not applicable or unspecified (principal); D62 Acute posthemorrhagic anemia; Z37.0 Single live birth; O36.5930 Maternal care for other known or suspected poor fetal growth, third trimester, not applicable or unspecified; O26.893 Other specified pregnancy related conditions, third trimester; O99.284 Endocrine, nutritional and metabolic diseases complicating childbirth; E28.2 Polycystic ovarian syndrome; F41.9 Anxiety disorder, unspecified; K21.9 Gastro-esophageal reflux disease without esophagitis; O99.62 Diseases of the digestive system complicating childbirth; O70.0 First degree perineal laceration during delivery; O90.81 Anemia of the puerperium; O99.345 Other mental disorders complicating the puerperium; F53.0 Postpartum depression; Z67.11 Type A blood, Rh negative; Z3A.35 35 weeks gestation of pregnancy; Z90.49 Acquired absence of other specified parts of digestive tract; Z56.0 Unemployment, unspecified; Z79.899 Other long term (current) drug therapy; Z23 Encounter for immunization; Z86.59 Personal history of other mental and behavioral disorders
CPT/HCPCS: 36415; 59025; 81001; 82962; 85014; 85018; 85025; 85461; 86592; 86850; 86870; 87086; 94761; 96360; G0378; J0290; J0595; J1171; J2003; J2405; J2790; J2795; J3010; J3105; J7120

== ENCOUNTER 2025-02-25 17:06 | Emergency (ER) | payer OTHER, SELFPAY ==
--- OUTSIDE RECORDS SUMMARY | 2024-12-26 00:53 | XMS_ITS | Encounter Summary ---
Author Organization [facility] Address [address] [place] [id number] Care Team Providers Care Engineering Department Chair Name Role Phone Jasmeet Kelly MD Primary Care Provider [phone] Reason for Visit * Reason Comments Leaking Fluid * Auth/Cert (Routine) Specialty Diagnoses / Procedures Referred By Contac t Referred To Contact Diagnoses premature rupture of membranes (PPROM) with onset of labor within 24 hours of rupture in third trimester, antepartum Referral ID Status Reason Start Date Expiration Date Visits Re quested Visits Authorized [id number] 1 1 Encounter Details Date Type Department Care Team (Late st Contact Info) Description 12/26/2024 12:53 AM EDT - 01/04/2025 9:50 AM EDT Hospital Encounter [facility] [address] [place] [address] Bishop Bravo III, MD [address] [address] Hernandez Carolina MD [address] [address] Discharge Disposition: Home or Self Care Social History Tobacco Use Types Packs/Day Years Used Date Smoking Tobacco: Never Passive Smoke Exposure: Never Smokeless Tobacco: Never Tobacco Cessation:Counseling Given: No Alcohol Use Standard Drinks/Week Comments Not Currently 0 (1 standard drink = 0.6 oz pur e alcohol) [facility] Utilities Answer Date Recorded In the past 12 months has th e [employer], gas, oil, or water [employer] threatened to shut off services in your home? No 12/26/2024 AUDIT-C Answer Date Recorded Q1: How often do you have a drink containing alcohol? Never 12/26/2024 Q2: How many drinks containi ng alcohol do you have on a typical day when you are drinking? Patient does not drink Q3: How often do you have si x or more drinks on one occasion? Never 12/26/2024 Overall Financial Resource Strain (CARDIA) Answe r Date Recorded How hard is it for you to pa y for the very basics like food, housing, medical care, and heating? Not hard at all 12/26/2024 [facility] [place] [facility] Occupat ional Health - Occupational Stress Questionnaire Answer Date Recorded Do you feel stress - tense, restless, nervous, or anxious, or unable to sleep at night because your mind is troubled all the time - these days? Not at all 12/26/2024 Exercise Vital Sign Answer Date Recorde d On average, how many days pe r week do you engage in moderate to strenuous exercise (like a brisk walk)? 0 days 12/26/2024 On average, how many minutes do you engage in exercise at this level? 0 min 12/26/2024 Hunger Vital Sign Answer Date Recorded Within the past 12 months, y ou worried that your food would run out before you got the money to buy more. Never true 12/27/19 Within the past 12 months, t he food you bought just didn't last and you didn't have money to get more. Never true 12/26/2024 PRAPARE - Transportation Answer Date Re corded In the past 12 months, has l ack of transportation kept you from medical appointments or from getting medications? No 12/08 In the past 12 months, has l ack of transportation kept you from meetings, work, or from getting things needed for daily living? No 12/26/2024 Abuse Screen Answer Date Recorded Feels Unsafe at Home or Work/School no 12/26/2024 Feels Threatened by Someone no 12/08 Does Anyone Try to Keep You From Having Contact with Others or Doing Things Outside Your Home? no 12/26/2024 Physical Signs of Abuse Present no 12/26/2024 Housing Stability Answer Date Recorded Current Living Arrangements home 12/08 Potentially Unsafe Housing Conditions none 12/26/2024 Family and Community Support Answer Pan e Recorded If for any reason you need h elp with day-to-day activities such as bathing, preparing meals, shopping, managing finances, etc., do you get the help you need? I get all the help I need 12/26/2024 How often do you feel lonely or isolated from those around you? Never 12/26/2024 Employment Answer Date Recorded Do you want help finding or keeping work or a job? I do not need or want help 12/26/2024 Disabilities Answer Date Recorded Difficulty Concentrating, Remembering or Making Decisions no 12/26/2024 Difficulty Managing Errands Independently no 12/26/2024 Education Answer Date Recorded Do you want help with school or training? For example, starting or completing job training or getting a high school diploma, GED or equivalent No 12/26/2024 Preferred Language [place] 12/26/2024 PHQ-2 Answer Date Recorded Patient Health Questionnaire-2 Score 0 12/26/2024 Estimated Date of Delivery Comme nts Yes 02/08/2025 Date entered jake or to episode creation Sex and Gender Information Value Date Recorded Sex Assigned at Female 12/02/2024 10:18 AM EDT Legal Sex Female 10:48 AM EST Gender Identity Not on file Sexual Orientation Straight 12/02/2024 10 :18 AM EDT documented as of this encounter Last Filed Vital Signs Vital Sign Reading Time Taken Comments Blood Pressure 118/72 01/04/2025 8:21 AM EDT Pulse 63 01/04/2025 8:21 AM EDT Temperature 36.6 C (97.9 F) 01/04/2025 8:21 AM EDT Respiratory Rate 16 01/04/2025 8:21 AM EDT Oxygen Saturation 100% 01/04/2025 8:21 AM EDT Inhaled Oxygen Concentration - - Weight 55.3 kg (122 lb) 12/26/2024 1:43 AM EDT Height 167.6 cm (5' 6 ) 12/26/2024 1:43 AM EDT Body Mass Index 19.69 12/26/2024 1:43 AM EDT documented in this encounter Functional Status * Audit-C Score Answer Date of Assessment Author 0 12/26/2024 2:13 AM EDT Socorro Lucero RN * Question Answer Date of Assessment Author Q1: How often do you have a drink containing alcohol? Never 12/26/2024 2:13 AM EDT Socorro Lucero RN Q2: How many drinks containing alcohol do you have on a typical day when you are drinking? Patient does not drink 12/26/2024 2:13 AM EDT Socorro Lucero RN Q3: How often do you have six or more drinks on one occasion? Never 12/26/2024 2:13 AM EDT Socorro Lucero RN * Over the past 2 weeks, how often have you been bothered by any of the following problems? Question Answer Date of Assessment Author Patient Health Questionnaire -2 Score 0 12/26/2024 2:13 AM EDT Socorro Lucero RN * Question Answer Date of Assessment Author 1. Wish to be (Past 1 Month) No 025 1:45 AM RACHELT Socorro Lucero RN 2. Non-Specific Active Suici jefe Thoughts (Past 1 Month) No 12/26/2024 1:45 AM EDT Vicente Lucero RN * Calculated C-SSRS Risk Score (Lifetime/Recent) Answer Date of Assessment Author Moderate Risk 12/26/2024 1:45 AM Socorro Mendieta RN * [place] Suicide Severity Rating Scale (Screener/Recent Self-Report) Question Answer Date of Assessment Author 6. Suicidal Behavior (Lifetime) Yes 1:45 AM Socorro Mendieta RN 6. Suicidal Behavior (3 Months) No 5 1:45 AM EDT Socorro Lucero RN * Question Answer Date of Assessment Author Little interest or pleasure in doing things Not at all 12/26/2024 2:13 AM Socorro Mendieta RN Feeling down, depressed, or hopeless Not at all 12/26/2024 2:13 AM RACHELT Socorro Lucero RN documented as of this encounter Discharge Summaries * Hernandez Craolina MD - 01/04/2025 9:20 AM EDT Admission date: 12/26/2024 Discharge date: 01/04/25 Referring Provider: Chey Bingham DO Admission diagnosis: premature rupture of membranes (PPROM) with onset of labor within 24 hours of rupture in third trimester, antepartum [O42.013] premature rupture of membranes (PPROM) with onset of labor within 24 hours of rupture in third trimester, antepartum Discharge diagnosis: No PPROM Threatened POONAM - stable IUGR - Resolved Consultants: Hospital course: 19 yo was admitted on 12/26 at 33 5/7 weeks with presumed PPROM. She had a positive amnisure in [place], but had a normal DANIELLE and negative AmniSure here. She received rescueBMZ x2 on 12/25 and 12/26. She also had a concern of IUGR. Subsequent USN on 12/31 showed that her IUGR had resolved. While she was being worked up for her PPROM and IUGR which both were cleared as issues, she was found to be dilated to 5/60/-1. Given that she was pre 35 weeks, she remained in house management due to NICU concerns. On 01/04 she was now 35 weeks even. Her SVE was unchanged at 5/60/-1.She is cephalic position with a normal DANIELLE. She had no contractions, vaginal leaking or bleeding. She was given the option of staying here and delivering versus going back to [place]. She requestedto go back home. She says she lives 4 minutes from the hospital there. She was given education a reviewed labour guidelines and discharged in stable condition on 01/04. Vitals: 01/04/25 0821 BP: 118/72 Pulse: 63 Resp: 16 Temp: 97.9 ??F (36.6 ??C) SpO2: 100% GENERAL: Well-developed, well-nourished in no acute distress. ABD: Gravid NST: Reactive SVE: 5/60/-1 FHT's: 130s EXTREMITIES: No edema PSYCHIATRIC: Normal affect and mood. Discharge condition: stable Discharge diet Dietary Orders (From admission, onward) Start Ordered 12/26/24 013 Diet: Regular/House; Fluid Consistency: Thin (IDDSI 0) Diet Effective Now References: Diet Order Definitions Question Answer Comment Diets: Regular/House Fluid Consistency: Thin (IDDSI 0) 12/26/24 013 Additional Instructions: Call with fevers, vaginal leaking or bleeding. Consistent contractions. Medications: Discharge Medications Continue These Medications Instructions Start Date acetaminophen 325 MG tablet Commonly known as: TYLENOL 650 mg, Every 6 Hours PRN ondansetron 4 MG tablet Commonly known as: ZOFRAN 4 mg, Every 8 Hours PRN vitamin 27-0.8 27-0.8 MG tablet tablet Daily Stop These Medications metroNIDAZOLE 0.75 % vaginal gel Commonly known as: METROGEL Disposition: Follow up: Future Appointments Date Time Provider Department Center 01/07/2025 9:15 AM [facility] US 1 [facility] 01/07/2025 9:15 AM [facility] FOLLOW UP [facility] None 01/14/2025 9:45 AM [facility] US 1 [facility] 01/14/2025 9:45 AM [facility] FOLLOW UP [facility] None Hernandez Carolina MD documented in this encounter Discharge Instructions * Attachments The following attachments cannot be sent through Care Everywhere. * Early Labor (Pre-Term Labor): What to Know [id number] ([place]) documented in this encounter Medications at Time of Discharge acetaminophen (TYLENOL) 325 MG tablet Take 2 tablets by mouth Every 6 (Six) Hours As Needed. 08/28/2024 ondansetron (ZOFRAN) 4 MG tablet Take 1 tablet by mouth Every 8 (Eight) Hours As Needed. Vit-Fe Fumarate-FA ( vitamin 27-0.8) 27-0.8 MG tablet tablet Take by mouth Daily. documented as of this encounter Progress Notes * Peterson Medina MD - 01/04/2025 7:29 AM EDT Jerri Ham [id number] 2005 Referring physician: Chey Bingham DO Chief complaint: PPROM S/ No complaints. ROS neg for LIMA, CP, SOB, contractions, or leaking. . Good FM O/ 102/58, 66, 16, 98.6 Lungs: CTA Heart: RRR, no m,g,r Abd: soft, non-tend, +BS Fund: firm, non-tend Ext: no calf tend VE 5/60%/-1, no blood in vault FHT's: indication: PPROM, onset 2135, offset 2233, baseline 135, mod BTB variability, mult accels (15 X 15), no decels, occas contractions, Interpretation: reactive NST A/1)IUP 35 0/7 weeks- status reassuring. S/p BMZ 12/26 and 12/27 2)hx PPROM with pos amnisure in [place]. DANIELLE 15.0 yesterday, amnisure neg X2. Pt with poss labor as she is petty with slow cervical Change. VE last night 5cm. No significant contractions thru night 3)anemia 4)IUGR- resolved by latest US P/1)consider d/c home today. Will consult with Jerod Medina MD 01/04/2025 07:30 EDT * Hernandez Carolina MD - 01/03/2025 12:22 PM EDT [place] Jerri Ham : 2005 CSN: [id number] Referring physician: Chey Bingham DO Hospital Day: 9 CC: hospital follow-up for PPROM Antepartum Progress Note Subjective Jerri only complains of increased mucous discharge - some bloody. She denies feeling vaginal leaking and bleeding. Denies chest pain and SOA. +FM. Objective Min/max vitals past 24 hours: Temp Min: 97.8 ??F (36.6 ??C) Max: 98.3 ??F (36.8 ??C) BP Min: 106/68 Max: 126/87 Pulse Min: 61 Max: 87 Resp Min: 16 Max: 20 General: well developed; well nourished no acute distress mentation appropriate Heart: Regular rate Lungs: breathing is unlabored Abdomen: soft, non-tender; gravid uterus - none tender FHT's: reassuring and category 1 Cervix: was not checked. Contractions: none Assessment IUP at 34w6d Hx PPROM with positive amnisure at OSH. Negative amnisure here with DANIELLE of 15 Possible labour with cervical dilation Anemia Plan Stable. Will perform SVE tomorrow morning. If 6 cm or more will proceed with delivery. If unchanged and non-concerning for immanent delivery, will repeat DANIELLE and if normal will consider D/C home now that sheis after 35 weeks. Continue in-house management today. Hernandez Carolina MD 01/03/2025 12:22 EDT * Peterson Medina MD - 01/02/2025 7:44 AM EDT Jerri Ham [id number] 2005 Referring physician: Chey Bingham DO Chief complaint: PPROM S/ No complaints. ROS neg for LIMA, CP, SOB, contractions, or leaking. . Good FM O/ 102/58, 66, 16, 98.6 Lungs: CTA Heart: RRR, no m,g,r Abd: soft, non-tend, +BS Fund: firm, non-tend Ext: no calf tend FHT's: indication: PPROM, onset 2039, offset 2135, baseline 135-150, mod BTB variability, mult accels (15 X 15), no decels, occas contractions, Interpretation: reactive NST A/1)IUP 34 5/7 weeks- status reassuring. S/p BMZ 12/26 and 12/27 2)hx PPROM with pos amnisure in [place]. DANIELLE 15.0 yesterday, amnisure neg X2. Pt with poss labor as she is petty with slow cervical Change. VE last night 5cm. No significant contractions thru night 3)anemia 4)IUGR- resolved by latest US P/1)continue in house management Peterson Medina MD 01/02/2025 07:44 EDT * Mariel Ricci RD - 01/01/2025 1:16 PM EDT Clinical Nutrition Assessment Patient Name: Jerri Ham Date of : 2005 Date of Encounter: 01/01/25 13:16 EDT Admission date: 12/26/2024 Reason for Visit: LOS Assessment Nutrition Assessment Admission Diagnosis: premature rupture of membranes (PPROM) with onset of labor within 24 hours of rupture in third trimester, antepartum [O42.013] Problem List: premature rupture of membranes (PPROM) with onset of labor within 24 hours of rupture in third trimester, antepartum PMH: She has a past medical history of Anxiety and depression, Disease of thyroid gland (2023), GERD (gastroesophageal reflux disease), and PTSD (post- traumatic stress disorder). PSH: She has a past surgical history that includes Cholecystectomy (2024). Applicable Nutrition History: 3rd Trimester Education Education needed/requested: N/A Education provided: No Anthropometrics Height: Height: 167.6 cm (66 ) Last Filed Weight: Weight: 55.3 kg (122 lb) (12/26/24 0143) Method: Weight Method: Stated BMI: BMI (Calculated): 19.7 Pre- weight: N/A Pre- BMI: N/A Weight change: N/A Appropriate weight gain for current gestation: Insufficient data Subjective Reported/Observed/Food/Nutrition Related History: 01/01 Current Nutrition Prescription PO: Diet: Regular/House; Fluid Consistency: Thin (IDDSI 0) Adequate Intake: Insufficient data Assessment & Plan Nutrition Diagnosis Date: 01/01/25 Updated: Problem No nutrition diagnosis at this time Etiology N/A Signs/Symptoms N/A Status: New Goal: Nutrition to support treatment Nutrition Intervention Follow treatment progress, Care plan reviewed Monitoring/Evaluation: Per protocol, I&O, PO intake, Pertinent labs, Weight, Skin status, GI status Mariel Ricci RD Time Spent: 20 minutes * Peterson Medina MD - 01/01/2025 7:28 AM EDT Jerri Ham [id number] 2005 Referring physician: Chey Bingham DO Chief complaint: PPROM S/ No complaints. ROS neg for LIMA, CP, SOB, contractions, or leaking. . Good FM O/ 102/59, 63, 16, 97.9 Lungs: CTA Heart: RRR, no m,g,r Abd: soft, non-tend, +BS Fund: firm, non-tend Ext: no calf tend FHT's: indication: PPROM, onset 2051, offset 2151, baseline 135, mod BTB variability, mult accels (15 X 15), no decels, occas contractions, Interpretation: reactive NST A/1)IUP 34 4/7 weeks- status reassuring. S/p BMZ 12/26 and 12/27 2)hx PPROM with pos amnisure in [place]. DANIELLE 15.0 yesterday, amnisure neg X2. Pt with poss labor as she is petty with slow cervical Change. VE last night 5cm. No significant contractions thru night 3)anemia 4)IUGR- resolved by latest US P/1)continue in house management Peterson Medina MD 01/01/2025 07:28 EDT * Jayda Brunner MD - 12/31/2024 6:49 AM EDT Images from the original note were not included. Daily Progress Note Patient name: Jerri Ham Date of : 2005 Admission Date: 12/26/2024 Date of Service: 12/31/2024 Referring Provider: Chey Bingham DO Jerri Ham is a 19 y.o. at 34w3d admitted on 12/26/2024 for premature rupture of membranes (PPROM) with onset of labor within 24 hours of rupture in third trimester, antepartum Hospital day 5 Diagnoses: Patient Active Problem List Diagnosis * premature rupture of membranes (PPROM) with onset of labor within 24 hours of rupture in third trimester, antepartum [O42.013] IUGR (intrauterine growth retardation) affecting mother, third trimester, not applicable or unspecified fetus [O36.5930] [Z34.90] Placental abnormality, antepartum [O43.109] Irregular menses [N92.6] Chief Complaint: Chief Complaint Patient presents with Leaking Fluid Subjective: Jerri has no complaints today. She reports movement is normal. She denies any further leaking and denies vaginal bleeding or worsening contractions. She has no new concerns this morning. Objective: Vital signs: Temp: [97.9 ??F (36.6 ??C)-98.3 ??F (36.8 ??C)] 98.3 ??F (36.8 ??C) Heart Rate: [50-92] 51 Resp: [16-18] 16 BP: (111-131)/(66-84) 111/76 Abdomen: soft, nontender Uterus: gravid, nontender Extremities: nontender; no edema Non-Stress Test: Heart Rate Assessment Method: HR Assessment Method: external Beats/min: HR (beats/min): 115 Baseline: HR Baseline: normal range Variability: HR Variability: moderate (amplitude range 6 to 25 bpm) Accels: HR Accelerations: greater than/equal to 15 bpm, lasting at least 15 seconds Decels: HR Decelerations: absent Tracing Category: Uterine Assessment Method: Method: external tocotransducer Frequency (min): Contraction Frequency (Minutes): poor tracing Ctx Count in 10 min: Duration: Intensity: Contraction Intensity: no contractions Intensity by IUPC: Resting Tone: Uterine Resting Tone: soft by palpation Resting Tone by IUPC: [place] Units: Cervix: Exam by: Method: sterile vaginal exam performed (Dr. Gomez) Dilation: 4-5 Effacement: Cervical Effacement: 60 Station: -2 Medications: famotidine, 20 mg, Oral, BID AC sodium chloride, 10 mL, Intravenous, Q12H acetaminophen bisacodyl butorphanol AND naloxone calcium carbonate docusate sodium hydrOXYzine lidocaine PF 1% ondansetron ODT OR ondansetron sodium chloride sodium chloride Labs: Lab Results (last 24 hours) Procedure Component Value Units Date/Time Preeclampsia Panel [[id number]] (Abnormal) Collected: 12/30/24 1417 Specimen: Blood Updated: 12/30/24 1528 Alkaline Phosphatase 129 U/L ALT (SGPT) 15 U/L AST (SGOT) 19 U/L Creatinine 0.54 mg/dL Total Bilirubin 0.2 mg/dL LDH 165 U/L Uric Acid 3.8 mg/dL CBC (No Diff) [[id number]] (Abnormal) Collected: 12/30/24 1417 Specimen: Blood Updated: 12/30/24 1507 WBC 9.09 10*3/mm3 RBC 3.93 10*6/mm3 Hemoglobin 11.5 g/dL Hematocrit 34.6 % MCV 88.0 fL MCH 29.3 pg MCHC 33.2 g/dL RDW 13.0 % RDW-SD 42.0 fl MPV 9.9 fL Platelets 189 10*3/mm3 Lab Results Component Value Date HGB 11.5 (L) 12/30/2024 Assessment/Plan: Jerri is a 19 y.o. at 34w3d. 1. Labor: Diagnosed with PPROM with positive Amnsiure in [place], DANIELLE 18.4 on 12/28, Amnisure negative here, likely labor, SVE changed to 4-5/60/-2. No changes overnight. Continue expectant management. S/p BMZ 12/26 and 12/27. 2. FGR: AC 4%, EFW 6% on 12/17, UA Doppler normal on 12/28, likely repeat growth US today 3. Anemia: Hct 34.6, resolved 4. : NSTs bid; BPPs twice weekly, growth q 3-4 weeks. 5. Delivery plan: cephalic, for vaginal delivery. All questions were answered to the best of my ability. Jayda Brunner MD 12/31/2024 * Peterson Medina MD - 12/30/2024 7:13 AM EDT Jerri Ham [id number] 2005 Referring physician: Chey Bingham DO Chief complaint: PPROM S/ No complaints. ROS neg for LIMA, CP, SOB, contractions, or leaking. Spotted after Cervix exam. Good FM O/ 117/68, 55, 16, 97.9 Lungs: CTA Heart: RRR, no m,g,r Abd: soft, non-tend, +BS Fund: firm, non-tend Ext: no calf tend FHT's: indication: PPROM, onset 183, offset 194, baseline 130, mod BTB variability, mult accels (15 X 15), no decels, occas contractions, Interpretation: reactive NST A/1)IUP 34 2/7 weeks- status reassuring. S/p BMZ 12/26 and 12/27 2)hx PPROM with pos amnisure in [place]. DANIELLE 18.4 yesterday, amnisure neg X2. Pt with poss labor as she is petty with slow cervical Change. VE yesterday 5cm. No significant contractions thru night 3)anemia 4)IUGR P/1)continue in house management Peterson Medina MD 12/30/2024 07:13 EDT * Peterson Medina MD - 12/29/2024 7:48 AM EDT Jerri Ham [id number] 2005 Referring physician: Chey Bingham DO Chief complaint: PPROM S/ c/o pelvic pressure and contractions. ROS neg for LIMA, CP, SOB. Good FM O/ 118/73, 54, 14, 98.2 Lungs: CTA Heart: RRR, no m,g,r Abd: soft, non-tend, +BS Fund: firm, non-tend Ext: no calf tend VE 4-5/70-80%/-1, no blood in vault FHT's: indication: PPROM, onset 2227, offset 8, baseline 120-130, mod BTB variability, mult accels (15 X 15), no decels, occas contractions, Interpretation: reactive NST A/1)IUP 34 1/7 weeks- status reassuring. S/p BMZ 12/26 and 12/27 2)hx PPROM with pos amnisure in [place]. DANIELLE normal here, amnisure neg X2. Pt with poss labor as she is petty with slow cervical Change 3)anemia P/1)repeat PDC scan this am Peterson Medina MD 12/29/2024 07:48 EDT * Pepe Gomez DO - 12/28/2024 9:40 AM EDT Images from the original note were not included. Daily Progress Note Patient name: Jerri Ham Date of : 2005 Admission Date: 12/26/2024 Date of Service: 12/28/2024 Referring Provider: Chey Bingham DO Jerri Ham is a 19 y.o. at 34w0d admitted on 12/26/2024 for premature rupture of membranes (PPROM) with onset of labor within 24 hours of rupture in third trimester, antepartum Hospital day 2 Diagnoses: Patient Active Problem List Diagnosis * premature rupture of membranes (PPROM) with onset of labor within 24 hours of rupture in third trimester, antepartum [O42.013] IUGR (intrauterine growth retardation) affecting mother, third trimester, not applicable or unspecified fetus [O36.5930] [Z34.90] Placental abnormality, antepartum [O43.109] Irregular menses [N92.6] Chief Complaint: Chief Complaint Patient presents with Leaking Fluid Subjective: Jerri has no complaints today. Reports movement is normal Denies leakage of amniotic fluid. Denies vaginal bleeding Objective: Vital signs: Temp: [97.8 ??F (36.6 ??C)-98.4 ??F (36.9 ??C)] 97.8 ??F (36.6 ??C) Heart Rate: [58-93] 58 Resp: [16-20] 16 BP: (108-135)/(63-87) 110/69 Abdomen: soft, nontender Uterus: gravid, nontender Extremities: nontender; no edema Non-Stress Test: Heart Rate Assessment Method: HR Assessment Method: external Beats/min: HR (beats/min): 120 Baseline: HR Baseline: normal range Variability: HR Variability: moderate (amplitude range 6 to 25 bpm) Accels: HR Accelerations: greater than/equal to 15 bpm, lasting at least 15 seconds Decels: HR Decelerations: absent Tracing Category: -Indications IUGR, interpretation reactive, moderate variability, accelerations present 15 x 15, occasional very deceleration noted, onset 819 -943 no regular contractions noted Uterine Assessment Method: Method: external tocotransducer Frequency (min): Contraction Frequency (Minutes): x1 Ctx Count in 10 min: Duration: Intensity: Contraction Intensity: mild by palpation Intensity by IUPC: Resting Tone: Uterine Resting Tone: soft by palpation Resting Tone by IUPC: [place] Units: Cervix: Exam by: Method: sterile vaginal exam performed (Dr. Gomez) Dilation: Effacement: Cervical Effacement: 60 Station: Most recent ultrasound: 12/26/24 Medications: amoxicillin, 500 mg, Oral, Q8H famotidine, 20 mg, Intravenous, BID sodium chloride, 10 mL, Intravenous, Q12H acetaminophen bisacodyl butorphanol AND naloxone calcium carbonate docusate sodium hydrOXYzine lidocaine PF 1% ondansetron ODT OR ondansetron sodium chloride sodium chloride Labs: Lab Results (last 24 hours) Procedure Component Value Units Date/Time Protein / Creatinine Ratio, Urine - Urine, Clean Catch [[id number]] Collected: 12/28/24 0640 Specimen: Urine, Clean Catch Updated: 12/28/24 0649 Comprehensive Metabolic Panel [[id number]] (Abnormal) Collected: 12/28/24 0530 Specimen: Blood Updated: 12/28/24 0630 Glucose 96 mg/dL BUN 3.9 mg/dL Creatinine 0.57 mg/dL Sodium 137 mmol/L Potassium 4.2 mmol/L Chloride 108 mmol/L CO2 21.0 mmol/L Calcium 7.9 mg/dL Total Protein 5.3 g/dL Albumin 2.9 g/dL ALT (SGPT) 6 U/L AST (SGOT) 11 U/L Alkaline Phosphatase 108 U/L Total Bilirubin 0.2 mg/dL Globulin 2.4 gm/dL Comment: Calculated Result A/G Ratio 1.2 g/dL BUN/Creatinine Ratio 6.8 Anion Gap 8.0 mmol/L eGFR 133.6 mL/min/1.73 Narrative: GFR Categories in Chronic Kidney Disease (CKD) GFR Category GFR (mL/min/1.73) Interpretation G1 90 or greater Normal or high (1) G2 60-89 Mild decrease (1) G3a 45-59 Mild to moderate decrease G3b 30-44 Moderate to severe decrease G4 15-29 Severe decrease G5 14 or less Kidney failure (1)In the absence of evidence of kidney disease, neither GFR category G1 or G2 fulfill the criteriafor CKD. eGFR calculation 2020 CKD-EPI creatinine equation, which does not include race as a factor CBC (No Diff) [[id number]] (Abnormal) Collected: 12/28/24 0530 Specimen: Blood Updated: 12/28/24 0602 WBC 8.94 10*3/mm3 RBC 3.25 10*6/mm3 Hemoglobin 9.5 g/dL Hematocrit 29.3 % MCV 90.2 fL MCH 29.2 pg MCHC 32.4 g/dL RDW 13.3 % RDW-SD 43.8 fl MPV 9.5 fL Platelets 187 10*3/mm3 POC Amnisure [[id number]] (Normal) Collected: 12/27/24 1252 Specimen: Amniotic Fluid Updated: 12/27/24 1253 Amnisure Negative Lab Results Component Value Date HGB 9.5 (L) 12/28/2024 Assessment/Plan: Jerri is a 19 y.o. at 34w0d History of premature rupture membranes with positive AmniSure at outside hospital. DANIELLE normal 12 cmon 12/26/24 unchanged from prior DANIELLE. Sterile speculum negative for rupture membranes with mature x 2 negative 2. : IUGR with AC at the 4th percentile 3. : NSTs reactive with occasional variable deceleration, continue 3 times daily monitoring 4. Steroid complete 12/26 and 12/27/24 5. Hyponatremia corrected 6. Anemia of PLAN Continue inpatient management Intermittent monitoring Repeat [facility] ultrasound in a.m. All questions were answered to the best of my ability. Pepe Gomez DO 12/28/2024 * Pepe Gomez DO - 12/27/2024 11:15 AM EDT Daily Progress Note Patient name: Jerri Ham Date of : 2005 Admission Date: 12/26/2024 Date of Service: 12/27/2024 Referring Provider: DO Rohit Reedkizzy Ham is a 19 y.o. at 33w6d admitted on 12/26/2024 for premature rupture of membranes (PPROM) with onset of labor within 24 hours of rupture in third trimester, antepartum Hospital day 1 Diagnoses: Patient Active Problem List Diagnosis * premature rupture of membranes (PPROM) with onset of labor within 24 hours of rupture in third trimester, antepartum [O42.013] IUGR (intrauterine growth retardation) affecting mother, third trimester, not applicable or unspecified fetus [O36.5930] [Z34.90] Placental abnormality, antepartum [O43.109] Irregular menses [N92.6] Chief Complaint: Chief Complaint Patient presents with Leaking Fluid Subjective: Jerri has no complaints today. Reports movement is normal Denies leakage of amniotic fluid. Denies vaginal bleeding Objective: Vital signs: Temp: [96.8 ??F (36 ??C)-98.2 ??F (36.8 ??C)] 98.2 ??F (36.8 ??C) Heart Rate: [65-101] 81 Resp: [16-20] 18 BP: (108-138)/(66-94) 120/82 Abdomen: soft, nontender Uterus: gravid, nontender Extremities: nontender; no edema SCUDS in place Non-Stress Test: Heart Rate Assessment Method: HR Assessment Method: external Beats/min: HR (beats/min): 125 Baseline: HR Baseline: normal range Variability: HR Variability: moderate (amplitude range 6 to 25 bpm) Accels: HR Accelerations: absent Decels: HR Decelerations: absent Tracing Category: NST-indications presumed pre-PROM, interpretation reactive, moderate variability, accelerations present 15 x 15, no significant deceleration noted, onset 0832 endime 0912 no ctx Uterine Assessment Method: Method: external tocotransducer Frequency (min): Contraction Frequency (Minutes): 5 Ctx Count in 10 min: Duration: Intensity: Contraction Intensity: no contractions Intensity by IUPC: Resting Tone: Uterine Resting Tone: soft by palpation Resting Tone by IUPC: [place] Units: Cervix: Exam by: Method: sterile vaginal exam performed (Dr. Gomez) Dilation: Effacement: Cervical Effacement: 60 Station: Most recent ultrasound: 12/26/24 Medications: ampicillin, 2,000 mg, Intravenous, Q6H And [START ON 12/28/2024] amoxicillin, 500 mg, Oral, Q8H sodium chloride, 10 mL, Intravenous, Q12H acetaminophen bisacodyl butorphanol AND naloxone calcium carbonate calcium gluconate docusate sodium hydrOXYzine lidocaine PF 1% ondansetron ODT OR ondansetron sodium chloride sodium chloride Labs: Lab Results (last 24 hours) No results found for the last 24 hours. Lab Results Component Value Date HGB 11.7 (L) 12/26/2024 Assessment/Plan: Jerri is a 19 y.o. at 33w6d 2. : History of premature rupture membranes with positive AmniSure at outside hospital. DANIELLE normal therefore repeat exam performed . Sterile speculum: normal AmniSure . no pooling and negative ferning, and normal vaginal pH False positive results at outside hospital versus high leak 3. : nst reactve continue 3 times daily monitoring 4. IUGR with AC at the 4th percentile 5. corticosteroids complete 6. Mild hyponatremia noted on admission Plan Discontinue magnesium sulfate Normal saline at 50 cc an hour Increase activity Continue to monitor for evidence of rupture membranes Repeat labs in a.m. All questions were answered to the best of my ability. Pepe Gomez DO 12/27/2024 documented in this encounter H&P Notes * Bihsop Bravo III, MD - 12/26/2024 1:36 AM EDT Images from the original note were not included. [facility] Obstetric History and Physical Chief Complaint Patient presents with Leaking Fluid Subjective Patient is a 19 y.o. female currently at 33w5d, who presents with P PROM which was documented with AmniSure in [place], [place]. The patient reports rupture of membranes at 2100. She has been started on magnesium sulfate and received her first dose of betamethasone at 2100. She denies abdominal pain, fever/chills, dysuria, vaginal bleeding and is noting active movement. Her care is notable for IUGR. She is followed in [facility] with her last office visit and ultrasound being performed on 12/24. her previous obstetric/gynecological history is noncontributory. The following portions of the patients history were reviewed and updated as appropriate: current medications, allergies, past medical history, past surgical history, past family history, past social history, and problem list . Information: Maternal Labs Blood Type No results found for: ABO Rh Status No results found for: RH Antibody Screen No results found for: ABSCRN Gonnorhea No results found for: GCCX Chlamydia No results found for: CLAMYDCU RPR No results found for: RPR Syphilis Antibody No results found for: SYPHILIS Rubella No results found for: RUBELLAIGGIN Hepatitis B Surface Antigen No results found for: HEPBSAG HIV-1 Antibody No results found for: LABHIV1 Hepatitis C Antibody No results found for: HEPCAB Rapid Urin Drug Screen No results found for: AMPMETHU , BARBITSCNUR , LABBENZSCN , LABMETHSCN , LABOPIASCN , THCURSCR , COCAINEUR , AMPHETSCREEN , PROPOXSCN , BUPRENORSCNU , METAMPSCNUR , OXYCODONESCN , TRICYCLICSCN Group B Strep Culture No results found for: GBSANTIGEN External Results Outside Results - Transcribed From Office Records - See Scanned Records For Details Test Value Date Time ABO Rh Antibody Screen Varicella IgG Rubella Hgb 11.5 g/dL 12/24/24 0853 ^ 12.4 g/dL 08/28/24 0428 ^ 13.7 g/dL 08/27/24 2248 Hct 35.3 % 12/24/24 0853 ^ 34 % 08/28/24 0428 ^ 37.4 % 08/27/24 2248 HgB A1c 1h GTT 3h GTT Fasting 3h GTT 1 hour 3h GTT 2 hour 3h GTT 3 hour Gonorrhea (discrete) Chlamydia (discrete) RPR ^ Nonreactive 08/28/24 0055 Syphils cascade: TP-Ab (FTA) TP-Ab TP-Ab (EIA) TPPA HBsAg Herpes Simplex Virus PCR Herpes Simplex VIrus Culture HIV Hep C RNA Quant PCR Hep C Antibody AFP NIPT Cystic Fibrosis ([place]) Cystic Fibroisis Spinal Muscular atrophy Fragile X Group B Strep GBS Susceptibility to Clindamycin GBS Susceptibility to Erythromycin Fibronectin Genetic Testing, Maternal Blood Drug Screening Test Value Date Time Urine Drug Screen Amphetamine Screen Barbiturate Screen Benzodiazepine Screen Methadone Screen Phencyclidine Screen Opiates Screen THC Screen Cocaine Screen Propoxyphene Screen Buprenorphine Screen Methamphetamine Screen Oxycodone Screen Tricyclic Antidepressants Screen Legend ^: Historical Past OB History: OB History Para Term AB Living 3 0 0 0 2 0 SAB IAB Ectopic Molar Multiple Live Births 2 0 0 0 0 0 # Outcome Date GA Lbr [place]/2nd Weight Sex Type Anes PTL Lv 3 Current 2 SAB 2023 4w0d SAB 1 SAB 2022 5w0d SAB Past Medical History: Past Medical History: Diagnosis Date Anxiety and depression Disease of thyroid gland 2023 Hyperthyroid GERD (gastroesophageal reflux disease) PTSD (post-traumatic stress disorder) Past Surgical History Past Surgical History: Procedure Laterality Date CHOLECYSTECTOMY 2024 Family History: History reviewed. No pertinent family history. Social History: reports that she has never smoked. She has never been exposed to tobacco smoke. [place] never used smokeless tobacco. reports that she does not currently use alcohol. reports no history of drug use. Allergies: Patient has no known allergies. Current Medications: No current facility-administered medications on file prior to encounter. Current Outpatient Medications on File Prior to Encounter Medication Sig Dispense Refill ondansetron (ZOFRAN) 4 MG tablet Take 1 tablet by mouth Every 8 (Eight) Hours As Needed. Vit-Fe Fumarate-FA ( vitamin 27-0.8) 27-0.8 MG tablet tablet Take by mouth Daily. acetaminophen (TYLENOL) 325 MG tablet Take 2 tablets by mouth Every 6 (Six) Hours As Needed. metroNIDAZOLE (METROGEL) 0.75 % vaginal gel General ROS: A 12 point review of systems was performed and is negative except as per history of present illness. Objective Vital Signs Range for the last 24 hours Temperature: Temp: [98.1 ??F (36.7 ??C)] 98.1 ??F (36.7 ??C) Temp Source: Temp src: Oral BP: BP: (125)/(76) 125/76 Pulse: Heart Rate: [70] 70 Respirations: Resp: [16] 16 SPO2: O2 Amount (l/min): O2 Devices Weight: Weight: [55.3 kg (122 lb)] 55.3 kg (122 lb) Physical Examination: General appearance - alert, well appearing, and in no distress, oriented to person, place, and time, and normal appearing weight Mental status - alert, oriented to person, place, and time, normal mood, behavior, speech, dress, motor activity, and thought processes Eyes - pupils equal and reactive, extraocular eye movements intact, sclera anicteric Neck - supple, no significant adenopathy, thyroid exam: thyroid is normal in size without nodules or tenderness Chest - clear to auscultation, no wheezes, rales or rhonchi, symmetric air entry Heart - normal rate, regular rhythm, normal S1, S2, no murmurs, rubs, clicks or gallops Abdomen- Abdomen, Non-Tender uterine fundus. No epigastric pain on palpation. Pelvic -no genital lesions. Cervix: 3-4 cm / 70%/-2 station. Cephalic presentation. Neurological - alert, oriented, normal speech, no focal findings or movement disorder noted, DTR's normal and symmetric Extremities - no pedal edema noted Heart Rate Assessment Indication P PROM Start Time: 0059 end Time: 0140 NST Results: Reactive NST. heart rate baseline 115-125 bpm. Moderate variability with 15 x 15accelerations noted. No decelerations. Contractions are noted every 6 minutes. Laboratory Results: Lab Results Component Value Date ALKPHOS 141 (H) 12/24/2024 ALT 8 12/24/2024 AST 14 12/24/2024 CREATININE 0.66 12/24/2024 BILITOT 0.4 12/24/2024 LDH 147 12/24/2024 URICACID 4.0 12/24/2024 WBC Date Value Ref Range Status 12/24/2024 9.49 3.40 - 10.80 10*3/mm3 Final RBC Date Value Ref Range Status 12/24/2024 3.97 3.77 - 5.28 10*6/mm3 Final Hemoglobin Date Value Ref Range Status 12/24/2024 11.5 (L) 12.0 - 15.9 g/dL Final Hematocrit Date Value Ref Range Status 12/24/2024 35.3 34.0 - 46.6 % Final MCV Date Value Ref Range Status 12/24/2024 88.9 79.0 - 97.0 fL Final MCH Date Value Ref Range Status 12/24/2024 29.0 26.6 - 33.0 pg Final MCHC Date Value Ref Range Status 12/24/2024 32.6 31.5 - 35.7 g/dL Final RDW Date Value Ref Range Status 12/24/2024 12.1 (L) 12.3 - 15.4 % Final RDW-SD Date Value Ref Range Status 12/24/2024 39.3 37.0 - 54.0 fl Final MPV Date Value Ref Range Status 12/24/2024 9.9 6.0 - 12.0 fL Final Platelets Date Value Ref Range Status 12/24/2024 259 140 - 450 10*3/mm3 Final Neutrophil % Date Value Ref Range Status 12/24/2024 73.8 42.7 - 76.0 % Final Lymphocyte % Date Value Ref Range Status 12/24/2024 19.0 (L) 19.6 - 45.3 % Final Monocyte % Date Value Ref Range Status 12/24/2024 6.3 5.0 - 12.0 % Final Eosinophil % Date Value Ref Range Status 12/24/2024 0.2 (L) 0.3 - 6.2 % Final Basophil % Date Value Ref Range Status 12/24/2024 0.4 0.0 - 1.5 % Final Immature Grans % Date Value Ref Range Status 12/24/2024 0.3 0.0 - 0.5 % Final Neutrophils, Absolute Date Value Ref Range Status 12/24/2024 7.00 1.70 - 7.00 10*3/mm3 Final Lymphocytes, Absolute Date Value Ref Range Status 12/24/2024 1.80 0.70 - 3.10 10*3/mm3 Final Monocytes, Absolute Date Value Ref Range Status 12/24/2024 0.60 0.10 - 0.90 10*3/mm3 Final Eosinophils, Absolute Date Value Ref Range Status 12/24/2024 0.02 0.00 - 0.40 10*3/mm3 Final Basophils, Absolute Date Value Ref Range Status 12/24/2024 0.04 0.00 - 0.20 10*3/mm3 Final Immature Grans, Absolute Date Value Ref Range Status 12/24/2024 0.03 0.00 - 0.05 10*3/mm3 Final nRBC Date Value Ref Range Status 12/24/2024 0.0 0.0 - 0.2 /100 WBC Final Brief Urine Lab Results (Last result in the past 365 days) Color Clarity Blood Leuk Est Nitrite Protein CREAT Urine HCG 12/10/24 1509 Negative Radiology Review: Ultrasound performed 12/24 confirmed an anterior placenta with a normal amniotic fluid volume. BPP was equal to 8/8. Umbilical artery Dopplers were obtained confirming an S/D ratio =2.85. Amniotic fluid volume at that time was normal. The fetus was confirmed to be in cephalic presentation. Other Studies: CBC, preeclampsia profile, urinalysis with micro as needed., Type and screen, syphilis serologies. Assessment & Plan premature rupture of membranes (PPROM) with onset of labor within 24 hours of rupture in third trimester, antepartum Assessment: P PROM at 33+5 weeks gestation. Known IUGR. Recent ultrasound confirms normal Doppler studies. Plan: Admit. M consultation requested. Ampicillin/azithromycin for antibiotic prophylaxis. Betamethasone for lung maturity enhancement. Will continue magnesium sulfate for tocolysis until 24 hours after the second dose of her rescue steroids. Bedside ultrasound performed confirming cephalic presentation. Total time spent today with Jerri was 40 minutes (level 5). Of this time, > 50% was spent [id number] time coordinating care, answering her questions and counseling regarding P PROM and pathophysiology of her presenting problem along with plans for any diagnostic work-up and treatment. Bishop Bravo III, MD 12/26/2024 01:50 EDT documented in this encounter Nursing Notes * Sheri Lieberman RN - 01/04/2025 5:59 AM EDT Problem: Adult Inpatient Plan of Care Goal: Plan of Care Review Outcome: Progressing Goal: Patient-Specific Goal (Individualized) Outcome: Progressing Goal: Absence of Hospital-Acquired Illness or Injury Outcome: Progressing Intervention: Identify and Manage Fall Risk Recent Flowsheet Documentation Taken 01/04/2025 3327 by Sheri Lieberman, RN Safety Promotion/Fall Prevention: safety round/check completed Taken 01/04/2025 0331 by Sheri Lieberman, RN Safety Promotion/Fall Prevention: safety round/check completed Taken 01/04/2025 0134 by Sheri Lieberman RN Safety Promotion/Fall Prevention: safety round/check completed Taken 01/04/2025 0000 by Sheri Lieberman RN Safety Promotion/Fall Prevention: safety round/check completed Taken 01/03/20252234 by Sheri Lieberman RN Safety Promotion/Fall Prevention: safety round/check completed Taken 01/03/20252134 by Sheri Lieberman RN Safety Promotion/Fall Prevention: safety round/check completed Taken 01/03/20252054 by Sheri Lieberman RN Safety Promotion/Fall Prevention: safety round/check completed Taken 01/03/2025 191 by Sheri Lieberman RN Safety Promotion/Fall Prevention: assistive device/personal items within reach clutter free environment maintained nonskid shoes/slippers when out of bed room organization consistent safety round/check completed Intervention: Prevent Skin Injury Recent Flowsheet Documentation Taken 01/03/20251917 by Sheri Lieberman RN Body Position: sitting up in bed position changed independently Intervention: Prevent and Manage VTE (Venous Thromboembolism) Risk Recent Flowsheet Documentation Taken 01/03/20251917 by Sheri Lieberman RN VTE Prevention/Management: SCDs (sequential compression devices) off Intervention: Prevent Infection Recent Flowsheet Documentation Taken 01/03/20251917 by Sheri Lieberman RN Infection Prevention: hand hygiene promoted rest/sleep promoted personal protective equipment utilized single patient room provided Goal: Optimal Comfort and Wellbeing Outcome: Progressing Intervention: Monitor Pain and Promote Comfort Recent Flowsheet Documentation Taken 01/03/20251917 by Sheri Lieberman RN Pain Management Interventions: pain management plan reviewed with patient/caregiver Intervention: Provide Person-Centered Care Recent Flowsheet Documentation Taken 01/04/2025 0134 by Sheri Lieberman RN Trust Relationship/Rapport: care explained Taken 01/04/2025 0000 by Sheri Lieberman RN Trust Relationship/Rapport: care explained choices provided questions answered Taken 01/03/20252234 by Sheri Lieberman RN Trust Relationship/Rapport: care explained Taken 01/03/20252134 by Sheri Lieberman RN Trust Relationship/Rapport: care explained Taken 01/03/20252054 by Sheri Lieberman RN Trust Relationship/Rapport: care explained questions answered Taken 01/03/20251917 by Sheri Lieberman RN Trust Relationship/Rapport: care explained choices provided emotional support provided empathic listening provided questions answered Goal: Readiness for Transition of Care Outcome: Progressing Problem: Labor Goal: Delayed Outcome: Progressing Intervention: Monitor and Manage Labor Recent Flowsheet Documentation Taken 01/03/20251917 by Sheri Lieberman RN Body Position: sitting up in bed position changed independently Problem: Pain Acute Goal: Optimal Pain Control and Function Outcome: Progressing Intervention: Optimize Psychosocial Wellbeing Recent Flowsheet Documentation Taken 01/03/20251917 by Sheri Lieberman RN Diversional Activities: smartphone television Intervention: Develop Pain Management Plan Recent Flowsheet Documentation Taken 01/03/20251917 by Sheri Lieberman RN Pain Management Interventions: pain management plan reviewed with patient/caregiver Problem: Hospitalized Patient Goal: Optimal Patient- Wellbeing Outcome: Progressing Intervention: Support Psychosocial Response Recent Flowsheet Documentation Taken 01/03/20251917 by Sheri Lieberman RN Family/Support System Care: involvement promoted Goal Outcome Evaluation: Plan of Care Reviewed With: patient Progress: improving * Sheri Lieberman RN - 01/03/2025 6:53 AM EDT Problem: Adult Inpatient Plan of Care Goal: Plan of Care Review Outcome: Progressing Goal: Patient-Specific Goal (Individualized) Outcome: Progressing Goal: Absence of Hospital-Acquired Illness or Injury Outcome: Progressing Intervention: Identify and Manage Fall Risk Recent Flowsheet Documentation Taken 01/03/2025 0631 by Sheri Lieberman RN Safety Promotion/Fall Prevention: safety round/check completed Taken 01/03/2025 0535 by Sheri Lieberman RN Safety Promotion/Fall Prevention: safety round/check completed Taken 01/03/2025 0343 by Sheri Lieberman RN Safety Promotion/Fall Prevention: safety round/check completed Taken 01/03/2025 0133 by Sheri Lieberman RN Safety Promotion/Fall Prevention: safety round/check completed Taken 01/02/2025 2341 by Sheri Lieberman RN Safety Promotion/Fall Prevention: safety round/check completed Taken 01/02/2025 2244 by Sheri Lieberman RN Safety Promotion/Fall Prevention: safety round/check completed Taken 01/02/2025 214 by Sheri Lieberman RN Safety Promotion/Fall Prevention: safety round/check completed Taken 01/02/20252003 by Sheri Lieberman RN Safety Promotion/Fall Prevention: assistive device/personal items within reach clutter free environment maintained nonskid shoes/slippers when out of bed room organization consistent safety round/check completed Intervention: Prevent Skin Injury Recent Flowsheet Documentation Taken 01/02/20252003 by Sheri Lieberman RN Body Position: sitting up in bed position changed independently Goal: Optimal Comfort and Wellbeing Outcome: Progressing Intervention: Provide Person-Centered Care Recent Flowsheet Documentation Taken 01/03/2025 0631 by Sheri Lieberman RN Trust Relationship/Rapport: care explained Taken 01/02/2025 2244 by Sheri Lieberman RN Trust Relationship/Rapport: care explained Taken 01/02/2025 2142 by Sheri Lieberman RN Trust Relationship/Rapport: care explained choices provided Taken 01/02/20252003 by Sheri Lieberman RN Trust Relationship/Rapport: care explained choices provided emotional support provided empathic listening provided questions answered Goal: Readiness for Transition of Care Outcome: Progressing Problem: Labor Goal: Delayed Outcome: Progressing Intervention: Monitor and Manage Labor Recent Flowsheet Documentation Taken 01/02/20252003 by Sheri Lieberman RN Body Position: sitting up in bed position changed independently Intervention: Monitor and Manage Pharmacologic Therapy Effects Recent Flowsheet Documentation Taken 01/02/20252003 by Sheri Lieberman RN Medication Review/Management: medications reviewed Problem: Pain Acute Goal: Optimal Pain Control and Function Outcome: Progressing Intervention: Prevent or Manage Pain Recent Flowsheet Documentation Taken 01/02/20252003 by Sheri Lieberman RN Medication Review/Management: medications reviewed Problem: Hospitalized Patient Goal: Optimal Patient- Wellbeing Outcome: Progressing Intervention: Support Psychosocial Response Recent Flowsheet Documentation Taken 01/02/20252003 by Sheri Lieberman RN Family/Support System Care: involvement promoted Goal Outcome Evaluation: Plan of Care Reviewed With: patient Progress: improving * Sheri Lieberman RN - 12/29/2024 5:29 AM EDT Problem: Adult Inpatient Plan of Care Goal: Plan of Care Review Outcome: Progressing Flowsheets (Taken 12/29/2024 0529) Progress: improving Plan of Care Reviewed With: patient Goal: Patient-Specific Goal (Individualized) Outcome: Progressing Goal: Absence of Hospital-Acquired Illness or Injury Outcome: Progressing Intervention: Identify and Manage Fall Risk Recent Flowsheet Documentation Taken 12/29/2024 0434 by Sheri Lieberman RN Safety Promotion/Fall Prevention: safety round/check completed Taken 12/29/2024 0303 by Sheri Lieberman RN Safety Promotion/Fall Prevention: safety round/check completed Taken 12/29/2024 0124 by Sheri Lieberman RN Safety Promotion/Fall Prevention: safety round/check completed Taken 12/29/2024 0036 by Sheri Lieberman RN Safety Promotion/Fall Prevention: safety round/check completed assistive device/personal items within reach clutter free environment maintained nonskid shoes/slippers when out of bed room organization consistent Intervention: Prevent Skin Injury Recent Flowsheet Documentation Taken 12/29/2024 0036 by Sheri Lieberman RN Body Position: side-lying left position changed independently Goal: Optimal Comfort and Wellbeing Outcome: Progressing Intervention: Provide Person-Centered Care Recent Flowsheet Documentation Taken 12/29/2024 0434 by Sheri Lieberman RN Trust Relationship/Rapport: care explained Goal: Readiness for Transition of Care Outcome: Progressing Problem: Labor Goal: Delayed Outcome: Progressing Intervention: Monitor and Manage Labor Recent Flowsheet Documentation Taken 12/29/2024 0036 by Sheri Lieberman RN Body Position: side-lying left position changed independently Problem: Pain Acute Goal: Optimal Pain Control and Function Outcome: Progressing Problem: Hospitalized Patient Goal: Optimal Patient- Wellbeing Outcome: Progressing Goal Outcome Evaluation: Plan of Care Reviewed With: patient Progress: improving documented in this encounter Plan of Treatment Not on file documented as of this encounter Procedures Procedure Name Priority Date/Time Associated Diagnosis Comments URINALYSIS W/ MICROSCOPIC IF INDICATED (NO CULTURE) Routine 01/04/2025 12:01 AM EDT URINALYSIS, MICROSCOPIC ONLY Routine 01/03/2025 9:05 PM EDT URINALYSIS W/ MICROSCOPIC IF INDICATED (NO CULTURE) Routine 01/03/2025 9:05 PM EDT URINALYSIS, MICROSCOPIC ONLY Routine 01/03/2025 2:40 PM EDT URINALYSIS W/ CULTURE IF INDICATED STAT 01/03/2025 2:40 PM EDT URINE CULTURE STAT 01/03/2025 2:40 PM EDT [facility] Routine 12/31/2024 7:35 AM EDT PRE-ECLAMPSIA PANEL STAT 12/30/2024 2 :17 PM EDT ANTIBODY IDENTIFICATION STAT 12/31/19 2:17 PM EDT CBC (NO DIFF) STAT 12/30/2024 2:17 PM EDT TYPE AND SCREEN STAT 12/30/2024 2:17 PM EDT [facility] Routine 12/29/2024 7:47 AM EDT POCT AMNISURE ROM TEST Routine 9:45 AM EDT PROTEIN / CREATININE RATIO, URINE Routine 12/28/2024 6:40 AM EDT CBC (NO DIFF) Routine 12/28/2024 5:30 AM EDT COMPREHENSIVE METABOLIC PANEL Routine 12/28/2024 5:30 AM EDT POCT AMNISURE ROM TEST Routine 12:52 PM EDT [facility] Routine 12/26/2024 7:45 AM EDT ABORH 2ND SPECIMEN VERIFICATION STAT 12/26/2024 5:02 AM EDT ANTIBODY IDENTIFICATION Routine 12/27/19 3:47 AM EDT CBC (NO DIFF) Routine 12/26/2024 3:47 AM EDT TYPE AND SCREEN Routine 12/26/2024 3:47 AM EDT TREPONEMA PALLIDUM AB W/REFLEX RPR Routine 12/26/2024 3:46 AM EDT URIC ACID Routine 12/26/2024 3:46 AM EDT LACTATE DEHYDROGENASE Routine 12/26/2024 3:46 AM EDT COMPREHENSIVE METABOLIC PANEL Routine 12/26/2024 3:46 AM EDT URINALYSIS W/ MICROSCOPIC IF INDICATED (NO CULTURE) STAT 12/26/2024 2:15 AM EDT PROTEIN / CREATININE RATIO, URINE Routine 12/26/2024 2:14 AM EDT documented in this encounter Results * Urinalysis With Microscopic If Indicated (No Culture) - Straight Cath (01/04/2025 12:01 AM EDT) Color, UA Yellow Yellow, Straw 01/04/2025 12:16 AM EDT [facility] Appearance, UA Clear Clear 01/04/2025 12:16 AM EDT [facility] pH, UA 6.5 5.0 - 8.0 01/04/2025 12:16 AM EDT [facility] Specific [place], UA 1.008 1.001 - 1.030 01/04/2025 12:16 AM EDT [facility] Glucose, UA Negative Negative 01/04/2025 12:16 AM EDT [facility] Ketones, UA Negative Negative 01/04/2025 12:16 AM EDT [facility] Bilirubin, UA Negative Negative 01/04/2025 12:16 AM EDT [facility] Blood, UA Negative Negative 01/04/2025 12:16 AM EDT [facility] Protein, UA Negative Negative 01/04/2025 12:16 AM EDT [facility] Leuk Esterase, UA Negative Negative 01/04/2025 12:16 AM EDT [facility] Nitrite, UA Negative Negative 01/04/2025 12:16 AM EDT [facility] Urobilinogen, UA 1.0 E.U./dL 0.2 - 1.0 E.U./dL 01/04/2025 12:16 AM EDT [facility] Urine (Straight Cath) Collection / Unknown 01/04/2025 12:01 AM EDT 01/04/2025 12:12 AM EDT Narrative [facility] - 01/04/2025 12:16 AM EDT Urine microscopic not indicated. us Peterson Medina MD URINE ORDERABLES Final Result [facility]
[address] [place] [address], * (ABNORMAL) Urinalysis, Microscopic Only - Urine, Clean Catch (01/03/2025 9:05 PM EDT) RBC, UA 3-5(A) None Seen, 0-2 /HPF 01/03/2025 9:29 PM EDT [facility] WBC, UA 21-50(A) None Seen, 0-2 /HPF 01/03/2025 9:29 PM EDT [facility] Bacteria, UA 3+(A) None Seen, Trace /HPF 01/03/2025 9:29 PM EDT [facility] Squamous Epithelial Cells, UA 21-30(A) None Seen, 0-2 /HPF 01/03/2025 9:29 PM EDT [facility] Hyaline Casts, UA 0-6 0 - 6 /LPF 01/03/2025 9:29 PM EDT [facility] Methodology Manual Light Microscopy 01/03/2025 9:29 PM EDT [facility] Urine Urine specimen obtained by clean catch procedure / Unknown Collection / Unknown 01/03/2025 9:05 PM EDT 01/03/2025 9:18 PM EDT Peterson Medina MD URINE ORDERABLES Final Result [facility]
[address] [place] [address], * (ABNORMAL) Urinalysis With Microscopic If Indicated (No Culture) - Urine, Clean Catch (01/03/2025 9:05 PM EDT) Color, UA Yellow Yellow, Straw 01/03/2025 9:29 PM EDT [facility] Appearance, UA Cloudy(A) Clear 01/03/2025 9:29 PM EDT [facility] pH, UA 5.5 5.0 - 8.0 01/03/2025 9:29 PM EDT [facility] Specific [place], UA 1.009 1.001 - 1.030 01/03/2025 9:29 PM EDT [facility] Glucose, UA Negative Negative 01/03/2025 9:29 PM EDT [facility] Ketones, UA Negative Negative 01/03/2025 9:29 PM EDT [facility] Bilirubin, UA Negative Negative 01/03/2025 9:29 PM EDT [facility] Blood, UA Small (1+)(A) Negative 01/03/2025 9:29 PM EDT [facility] Protein, UA Negative Negative 01/03/2025 9:29 PM EDT [facility] Leuk Esterase, UA Moderate (2+)(A) Negative 01/03/2025 9:29 PM EDT [facility] Nitrite, UA Negative Negative 01/03/2025 9:29 PM EDT [facility] Urobilinogen, UA 1.0 E.U./dL 0.2 - 1.0 E.U./dL 01/03/2025 9:29 PM EDT [facility] Urine Urine specimen obtained by clean catch procedure / Unknown Collection / Unknown 01/03/2025 9:05 PM EDT 01/03/2025 9:18 PM EDT Peterson Medina MD URINE ORDERABLES Final Result [facility]
[address] [place] [address], * Urine Culture - Urine, Urine, Clean Catch (01/03/2025 2:40 PM EDT) Urine Culture No growth ELAINE 01/04/2025 10:57 AM EDT [facility] Urine Urine specimen obtained by clean catch procedure / Unknown Collection / Unknown 01/03/2025 2:40 PM EDT 01/03/2025 3:08 PM EDT Hernandez Carolina MD MICROBIOLOGY - GENERAL ORDERAB LES Final Result [facility]
[address] [place] [address], * (ABNORMAL) Urinalysis, Microscopic Only - Urine, Clean Catch (01/03/2025 2:40 PM EDT) RBC, UA 0-2 None Seen, 0-2 /HPF 01/03/2025 3:38 PM EDT [facility] WBC, UA Too Numerous to Count(A) None Seen, 0-2 /HPF 01/03/2025 3:38 PM EDT [facility] Bacteria, UA 3+(A) None Seen, Trace /HPF 01/03/2025 3:38 PM EDT [facility] Squamous Epithelial Cells, UA 21-30(A) None Seen, 0-2 /HPF 01/03/2025 3:38 PM EDT [facility] Transitional Epithelial Cells, UA 3-6(A) 0 - 2 /HPF 01/03/2025 3:38 PM EDT [facility] Hyaline Casts, UA 0-6 0 - 6 /LPF 01/03/2025 3:38 PM EDT [facility] WBC Clumps, UA Small/1+ None Seen /HPF 01/03/2025 3:38 PM EDT [facility] Methodology Manual Light Microscopy 01/03/2025 3:38 PM EDT [facility] Urine Urine specimen obtained by clean catch procedure / Unknown Collection / Unknown 01/03/2025 2:40 PM EDT 01/03/2025 3:08 PM EDT Hernandez Carolina MD URINE ORDERABLES Final Result [facility]
[address] [place] [address], * (ABNORMAL) Urinalysis With Culture If Indicated - Urine, Clean Catch (01/03/2025 2:40 PM EDT) Color, UA Yellow Yellow, Straw 01/03/2025 3:38 PM EDT [facility] Appearance, UA Cloudy(A) Clear 01/03/2025 3:38 PM EDT [facility] pH, UA 5.5 5.0 - 8.0 01/03/2025 3:38 PM EDT [facility] Specific [place], UA 1.023 1.001 - 1.030 01/03/2025 3:38 PM EDT [facility] Glucose, UA Negative Negative 01/03/2025 3:38 PM EDT [facility] Ketones, UA Trace(A) Negative 01/03/2025 3:38 PM EDT [facility] Bilirubin, UA Negative Negative 01/03/2025 3:38 PM EDT [facility] Blood, UA Trace(A) Negative 01/03/2025 3:38 PM EDT [facility] Protein, UA Trace(A) Negative 01/03/2025 3:38 PM EDT [facility] Leuk Esterase, UA Moderate (2+)(A) Negative 01/03/2025 3:38 PM EDT [facility] Nitrite, UA Negative Negative 01/03/2025 3:38 PM EDT [facility] Urobilinogen, UA 1.0 E.U./dL 0.2 - 1.0 E.U./dL 01/03/2025 3:38 PM EDT [facility] Urine Urine specimen obtained by clean catch procedure / Unknown Collection / Unknown 01/03/2025 2:40 PM EDT 01/03/2025 3:08 PM EDT Narrative [facility] - 01/03/2025 3:38 PM EDT In absence of clinical symptoms, the presence of pyuria, bacteria, and/or nitrites on the urinalysis result does not correlate with infection. Hernandez Carolina MD URINE ORDERABLES Final Result [facility]
[address] [place] [address], * [facility] (12/31/2024 7:35 AM EDT) Anatomical Region Laterality Modality Ultrasound 12/31/2024 7:20 AM EDT Narrative 12/31/2024 7:49 AM EDT PAT NAME: JERRI HAM MED REC#: [id number] DA: 2005 PAT GEND: F PAT TYPE: I EXAM PAN: [id number] REF PHYS [place] Comparison Studies The findings of this study are compared to the prior ultrasound study dated 12/29/24 Patient Status Inpatient Indication ======== PPROM, Hyperthyroid IUGR. Maternal Assessment Height 167 cm Height (ft) 5 ft Height (in) 6 in Weight 55 kg Weight (lb) 121 lb BMI 19.72 kg/m Method ======= Transabdominal ultrasound examination. View: Adequate view ========= Barba . Number of fetuses: 1 Dating ====== GA by prior assessment 34 w + 3 d ETHEL by prior assessment: 02/08/2025 Ultrasound examination on: 12/31/2024 GA by U/S based upon: AC, BPD, Femur, HC GA by U/S 32 w + 2 d ETHEL by U/S: 02/23/2025 Method of dating: Restore dating from previous exam Previous dating: based on stated ETHEL, selected on 12/17/2024 Agreed ETHEL of previous datin02/08/2025 Assigned: based on stated ETHEL, selected on 12/17/2024 Assigned GA 34 w + 3 d Assigned ETHEL: 02/08/2025 length 280 d Biometry Standard BPD 78.7 mm 31w 4d 1% Hadlock OFD 104.6 mm 34w 2d 48% Margarita HC 293.0 mm 32w 2d <1% Hadlock Cerebellum tr 38.7 mm 31w 3d 3% Hill AC 283.1 mm 32w 2d 7% Hadlock Femur 63.8 mm 33w 0d 10% Hadlock HC / AC 1.03 EFW 1,978 g 32w 1d 7% Hadlock EFW (lb) 4 lb EFW (oz) 6 oz EFW by: Hadlock ([id number]) Extended CM 4.6 mm 1% Nicolaides Head / Face / Neck Cephalic index 0.75 6% Nicolaides Extremities / Bony Struc FL / BPD 0.81 FL / HC 0.22 FL / AC 0.23 Other Structures FHR 126 bpm General Evaluation Cardiac activity present. FHR 126 bpm. movements present. Presentation cephalic. Placenta Placental site: anterior. Umbilical cord Cord vessels: 3 vessel cord. Amniotic fluid Amount of AF: normal. MVP 5.1 cm. DANIELLE 15.0 cm. Q1 5.1 cm, Q2 2.6 cm, Q3 2.7 cm, Q4 4.6 cm. Anatomy Cranium: Normal Cerebellum: Normal Cisterna magna: Normal Head / Neck Rt lateral ventricle: Normal Lt lateral ventricle: Normal 4-chamber view: Appears normal RVOT view: Normal LVOT view: Normal Heart / Thorax 3-vessel view: Normal 4-[id number] view: normal Cord insertion: Normal Stomach: Appears normal Kidneys: Appears normal Bladder: Appears normal Gender: male Wants to know gender: yes Doppler Arterial Umbilical A PI 0.92 63% Monica Umbilical A RI 0.58 47% Monica Umbilical A PS 30.46 cm/s <1% Ebbing Umbilical A ED 13.20 cm/s Umbilical A TAmax 19.19 cm/s <1% Ebbing Umbilical A MD 11.26 cm/s Umbilical A S / D 2.38 40% Monica Umbilical A HR 127 bpm Biophysical Profile 2: breathing movements 2: Gross body movements 2: tone 2: Amniotic fluid volume 8/8 Biophysical profile score Impression ========= Size consistent with dates. No anomalies were identified. Amniotic fluid volume is normal. Umbilical artery S/D ratio is normal. BPP 8/8 today. Patient counseled re movement. Recommendation Continue in hospital management. Coding ====== Description: 44860-75 Follow Up Ultrasound Description: 97971-93 BPP without NST Description: 86531-91 Doppler Umbilical Artery Project Architect: Shagufta Bravo RDMS Physician: Cyrus Templeton MD, FACOG Electronically signed by: Cyrus Templeton MD, FACOG at: 07:49 Procedure Note Rick Templeton MD - 12/31/2024 PAT NAME: JERRI HAM MED REC#: [id number] DA: 2005 PAT GEND: F PAT TYPE: I EXAM PAN: [id number] REF PHYS [place] Comparison Studies The findings of this study are compared to the prior ultrasound studydated 12/29/24 Patient Status Inpatient Indication ======== PPROM, Hyperthyroid IUGR. Maternal Assessment Noiumh183 cm Height (ft)5 ft Height (in)6 in [id number] kg Weight (lb)121 lb BMI19.72 kg/m Method ======= Transabdominal ultrasound examination. View: Adequate view ========= Barba . Number of fetuses: 1 Dating ====== GA by prior [id number] w + 3 d ETHEL by prior assessment:02/08/2025 Ultrasound examination on:12/31/2024 GA by U/S based upon:AC, BPD, Femur, HC GA by U/S32 w + 2 d ETHEL by U/S:02/23/2025 Method of dating:Restore dating from previous exam Previous dating:based on stated ETHEL, selected on 12/17/2024 Agreed ETHEL of previous datin02/08/2025 Assigned:based on stated ETHEL, selected on 12/17/2024 Assigned GA34 w + 3 d Assigned ETHEL:02/08/2025 [id number] d Biometry Standard BPD78.7 mm 31w 4d 1% Hadlock UYD313.6 mm 34w 2d 48% Margarita HC293.0 mm 32w 2d <1% Hadlock Cerebellum tr38.7 mm 31w 3d 3% Hill AC283.1 mm 32w 2d 7% Hadlock Femur63.8 mm 33w 0d 10% Hadlock HC / AC1.03 EFW1,978 g 32w 1d 7% Hadlock EFW (lb)4 lb EFW (oz)6 oz EFW by:Hadlock ([id number]) Extended CM4.6 mm 1% Nicolaides Head / Face / Neck Cephalic index0.75 6% Nicolaides Extremities / Bony Struc FL / BPD0.81 FL / HC0.22 FL / AC0.23 Other Structures [id number] bpm General Evaluation Cardiac activity present. FHR 126 bpm. movements present. Presentation cephalic. Placenta Placental site: anterior. Umbilical cord Cord vessels: 3 vessel cord. Amniotic fluid Amount of AF: normal. MVP 5.1 cm. DANIELLE 15.0 cm. Q1 5.1 cm,Q2 2.6 cm, Q3 2.7 cm, Q4 4.6 cm. Anatomy Cranium:Normal Cerebellum:Normal Cisterna magna:Normal Head / Neck Rt lateral ventricle:Normal Lt lateral ventricle:Normal 4-chamber view:Appears normal RVOT view:Normal LVOT view:Normal Heart / Thorax 3-vessel view:Normal [id number]-gornvql view:normal Cord insertion:Normal Stomach:Appears normal Kidneys:Appears normal Bladder:Appears normal Gender:male Wants to know gender:yes Doppler Arterial Umbilical A PI0.92 63% Monica Umbilical A RI0.58 47% Monica Umbilical A PS30.46 cm/s <1% Ebbing Umbilical A ED13.20 cm/s Umbilical A TAmax19.19 cm/s <1% Ebbing Umbilical A MD11.26 cm/s Umbilical A S / D2.38 40% Monica Umbilical A HR127 bpm Biophysical Profile 2: breathing movements 2: Gross body movements 2: tone 2: Amniotic fluid volume 8/8 Biophysical profile score Impression ========= Size consistent with dates. No anomalies were identified. Amniotic fluid volume is normal. Umbilical artery S/D ratio is normal. BPP 8/8 today. Patient counseled re movement. Recommendation Continue in hospital management. Coding ====== Description:88249-95 Follow Up Ultrasound Description:01246-67 BPP without NST Description:48221-85 Doppler Umbilical Artery Project Architect: Shagufta Bravo RDMS Physician: Cyrus Templeton MD, FACOG Electronically signed by: Cyrus Templeton MD, FACOG at: 07:49 Pepe Gomez DO IMG US ORDERABLES Final Res ult * Antibody Identification (12/30/2024 2:17 PM EDT) [facility] Residual RhIG Detected RESIDUAL RHIG DETECTED 12/30/2024 5:11 PM EDT [facility] Blood Venipuncture / Unknown 12/30/2024 2:17 PM EDT 12/30/2024 2:58 PM EDT Pepe Gomez DO BLOOD BANK TEST ORDERABLES Final Result [facility]
[address] [place] [address], [place] [phone] * (ABNORMAL) Preeclampsia Panel (12/30/2024 2:17 PM EDT) [facility] Alkaline Phosphatase 129(H) 39 - 117 U/L 12/30/2024 3:28 PM EDT [facility] ALT (SGPT) 15 1 - 33 U/L 12/30/2024 3:28 PM EDT [facility] AST (SGOT) 19 1 - 32 U/L 12/30/2024 3:28 PM EDT [facility] Creatinine 0.54(L) 0.57 - 1.00 mg/dL 12/30/2024 3:28 PM EDT [facility] Total Bilirubin 0.2 0.0 - 1.2 mg/dL 12/30/2024 3:28 PM EDT [facility] LDH 165 135 - 214 U/L 12/30/2024 3:28 PM EDT [facility] Uric Acid 3.8 2.4 - 5.7 mg/dL 12/30/2024 3:28 PM EDT [facility] Blood Venipuncture / Unknown 12/30/2024 2:17 PM EDT 12/30/2024 2:53 PM EDT Pepe Gomez DO LAB BLOOD ORDERABLES Final Result [facility]
[address] [place] [address], * (ABNORMAL) CBC (No Diff) (12/30/2024 2:17 PM EDT) WBC 9.09 3.40 - 10.80 10*3/mm3 12/30/2024 3:07 PM EDT [facility] RBC 3.93 3.77 - 5.28 10*6/mm3 12/30/2024 3:07 PM EDT [facility] Hemoglobin 11.5(L) 12.0 - 15.9 g/dL 12/30/2024 3:07 PM EDT [facility] Hematocrit 34.6 34.0 - 46.6 % 12/30/2024 3:07 PM EDT [facility] MCV 88.0 79.0 - 97.0 fL 12/30/2024 3:07 PM EDT [facility] MCH 29.3 26.6 - 33.0 pg 12/30/2024 3:07 PM EDT [facility] MCHC 33.2 31.5 - 35.7 g/dL 12/30/2024 3:07 PM EDT [facility] RDW 13.0 12.3 - 15.4 % 12/30/2024 3:07 PM EDT [facility] RDW-SD 42.0 37.0 - 54.0 fl 12/30/2024 3:07 PM EDT [facility] MPV 9.9 6.0 - 12.0 fL 12/30/2024 3:07 PM EDT [facility] Platelets 189 140 - 450 10*3/mm3 12/30/2024 3:07 PM EDT [facility] Blood Venipuncture / Unknown 12/30/2024 2:17 PM EDT 12/30/2024 2:53 PM EDT Pepe Gomez LAB BLOOD ORDERABLES Final Result Performing Organization Address City/[facility]/ZIP Co de Phone Number [facility]
[address] [place] [address], * Type & Screen (12/30/2024 2:17 PM EDT) ABO Type A 12/30/2024 3:39 PM EDT [facility] RH type Negative 12/30/2024 3:39 PM EDT [facility] Antibody Screen Positive 12/30/2024 3:39 PM EDT [facility] T&S Expiration Date 01/02/2025 11:59:59 PM 12/30/2024 3:39 PM EDT [facility] Blood Venipuncture / Unknown 12/30/2024 2:17 PM EDT 12/30/2024 2:58 PM EDT Pepe Gomez BLOOD BANK TEST ORDERABLES Edited Result - Final [facility]
[address] [place] [address], * [facility] (12/29/2024 7:47 AM EDT) Anatomical Region Laterality Modality Ultrasound 12/29/2024 7:29 AM EDT Narrative 12/29/2024 9:21 AM EDT PAT NAME: JERRI HAM MED REC#: [id number] DA: 2005 PAT GEND: F PAT TYPE: I EXAM PAN: [id number] REF PHYS [place] Comparison Studies The findings of this study are compared to the prior ultrasound study dated 12/26/24. Patient Status Inpatient Indication ======== PPROM, Hyperthyroid. Placental lakes. IUGR. Maternal Assessment Height 167 cm Height (ft) 5 ft Height (in) 6 in Weight 55 kg Weight (lb) 122 lb BMI 19.84 kg/m Method ======= Transabdominal ultrasound examination ========= Barba . Number of fetuses: 1 Dating ====== GA by prior assessment 34 w + 1 d ETHEL by prior assessment: 02/08/2025 Method of dating: Restore dating from previous exam Previous dating: based on stated ETHEL, selected on 12/17/2024 Agreed ETHEL of previous datin02/08/2025 Assigned: based on stated ETHEL, selected on 12/17/2024 Assigned GA 34 w + 1 d Assigned ETHEL: 02/08/2025 length 280 d General Evaluation Cardiac activity present. FHR 142 bpm. movements present. Presentation cephalic. Placenta Placental site: anterior. Amniotic fluid Amount of AF: normal. MVP 6.3 cm. DANIELLE 18.4 cm. Q1 4.0 cm, Q2 3.0 cm, Q3 6.3 cm, Q4 5.0 cm. Anatomy 4-chamber view: Normal Heart / Thorax 4-chamber view: patent foramen ovale Stomach: Normal Bladder: Normal Gender: male Wants to know gender: yes Biophysical Profile 2: breathing movements 2: Gross body movements 2: tone 2: Amniotic fluid volume 02/13 Biophysical profile score Interpretation: normal Doppler Arterial Umbilical A PI 0.92 62% Monica Umbilical A RI 0.59 51% Monica Umbilical A PS 36.85 cm/s 5% Ebbing Umbilical A ED 14.82 cm/s Umbilical A TAmax 23.91 cm/s 6% Ebbing Umbilical A MD 14.43 cm/s Umbilical A S / D 2.46 45% Monica Umbilical A HR 144 bpm Impression Jerri is currently inpatient secondary to IUGR, concern for PPROM, and labor. On today's exam, SIUP is noted in cephalic presentation. There is a normal amount of amniotic fluid. Placenta is anterior. Cervix appears to be effaced and dilated. BPP is 8/8. UA Dopplers are normal. Limited but normal appearing anatomy is visualized. Recommendation If any signs of progression of labor, recommend restarting antibiotics and augmenting patient. If any signs of true PPROM, recommend restarting antibiotics and augmenting patient. If any evidence of worsening maternal or status, recommend restarting antibiotics and delivering patient by whatever means is appropriate. Coding ======= Description: 66639-09 BPP without NST Description: 30579-85 Doppler Umbilical Artery Project Architect: Jolly Tuttle RDMS Physician: Sherlyn Jenkins MD Electronically signed by: Sherlyn Jenkins MD at: 09:21 Procedure Note Sherlyn Jenkins MD - 12/29/2024 PAT NAME: JERRI HAM MED REC#: [id number] DA: 2005 PAT GEND: F PAT TYPE: I EXAM PAN: [id number] REF PHYS [place] Comparison Studies The findings of this study are compared to the prior ultrasound studydated 12/26/24. Patient Status Inpatient Indication ======== PPROM, Hyperthyroid. Placental lakes. IUGR. Maternal Assessment [id number] cm Height (ft)5 ft Height (in)6 in Bszbdk72 kg Weight (lb)122 lb BMI19.84 kg/m Method ======= Transabdominal ultrasound examination ========= Barba . Number of fetuses: 1 Dating ====== GA by prior w + 1 d ETHEL by prior assessment:02/08/2025 Method of dating:Restore dating from previous exam Previous dating:based on stated ETHEL, selected on 12/17/2024 Agreed ETHEL of previous datin02/08/2025 Assigned:based on stated ETHEL, selected on 12/17/2024 Assigned GA34 w + 1 d Assigned ETHEL:02/08/2025 [id number] d General Evaluation Cardiac activity present. FHR 142 bpm. movements present. Presentation cephalic. Placenta Placental site: anterior. Amniotic fluid Amount of AF: normal. MVP 6.3 cm. DANIELLE 18.4 cm. Q1 4.0 cm,Q2 3.0 cm, Q3 6.3 cm, Q4 5.0 cm. Anatomy 4-chamber view:Normal Heart / Thorax 4-chamber view:patent foramen ovale Stomach:Normal Bladder:Normal Gender:male Wants to know gender:yes Biophysical Profile 2: breathing movements 2: Gross body movements 2: tone 2: Amniotic fluid volume 02/13 Biophysical profile score Interpretation: normal Doppler Arterial Umbilical A PI0.92 62% Monica Umbilical A RI0.59 51% Monica Umbilical A PS36.85 cm/s 5% [place] Umbilical A ED14.82 cm/s Umbilical A TAmax23.91 cm/s 6% [place] Umbilical A MD14.43 cm/s Umbilical A S / D2.46 45% Monica Umbilical A HR144 bpm Impression Jerri is currently inpatient secondary to IUGR, concern for PPROM, andpreterm labor. On today's exam, SIUP is noted in cephalic presentation. There is a normalamount of amniotic fluid. Placenta is anterior. Cervix appears to beeffaced and dilated. BPP is 8/8. UA Dopplers are normal. Limited but normal appearing anatomy is visualized. Recommendation If any signs of progression of labor, recommend restartingantibiotics and augmenting patient. If any signs of true PPROM, recommend restarting antibiotics andaugmenting patient. If any evidence of worsening maternal or status, recommendrestarting antibiotics and delivering patient by whatever means isappropriate. Coding ======= Description:71590-22 BPP without NST Description:16480-15 Doppler Umbilical Artery Project Architect: Jolly Tuttle RDMS Physician: Sherlyn Jenkins MD Electronically signed by: Sherlyn Jenkins MD at: 09:21 us Pepe Gomez DO IMG US ORDERABLES Final Res ult * POC Amnisure (12/28/2024 9:45 AM EDT) Pathologist [facility] Amnisure Negative Negative [facility] Amniotic Fluid 12/28/2024 9: 45 AM EDT us Pepe Gomez DO POINT OF CARE TEST ORDERABL ES Final Result [facility]
[address] [place] [address], * Protein / Creatinine Ratio, Urine - Urine, Clean Catch (12/28/2024 6:40 AM EDT) [facility] Protein/Creati nine Ratio, Urine 126.4 0.0 - 200.0 mg/G Crea 12/28/2024 1:06 PM EDT [facility] Creatinine, Urine 45.9 mg/dL 12/28/2024 1:06 PM EDT [facility] Total Protein, Urine 5.8 mg/dL 12/28/2024 1:06 PM EDT [facility] Urine Urine specimen obtained by clean catch procedure / Unknown Collection / Unknown 12/28/2024 6:40 AM EDT 12/28/2024 6:49 AM EDT us Pepe Gomez DO URINE ORDERABLES Final Resu lt [facility]
[address] [place] [address], * (ABNORMAL) CBC (No Diff) (12/28/2024 5:30 AM EDT) WBC 8.94 3.40 - 10.80 10*3/mm3 12/28/2024 6:02 AM EDT [facility] RBC 3.25(L) 3.77 - 5.28 10*6/mm3 12/28/2024 6:02 AM EDT [facility] Hemoglobin 9.5(L) 12.0 - 15.9 g/dL 12/28/2024 6:02 AM EDT [facility] Hematocrit 29.3(L) 34.0 - 46.6 % 12/28/2024 6:02 AM EDT [facility] MCV 90.2 79.0 - 97.0 fL 12/28/2024 6:02 AM EDT [facility] MCH 29.2 26.6 - 33.0 pg 12/28/2024 6:02 AM EDT [facility] MCHC 32.4 31.5 - 35.7 g/dL 12/28/2024 6:02 AM EDT [facility] RDW 13.3 12.3 - 15.4 % 12/28/2024 6:02 AM EDT [facility] RDW-SD 43.8 37.0 - 54.0 fl 12/28/2024 6:02 AM EDT [facility] MPV 9.5 6.0 - 12.0 fL 12/28/2024 6:02 AM EDT [facility] Platelets 187 140 - 450 10*3/mm3 12/28/2024 6:02 AM EDT [facility] Blood Venipuncture / Unknown 12/28/2024 5:30 AM EDT 12/28/2024 6:00 AM EDT Pepe Gomez DO LAB BLOOD ORDERABLES Final Result [facility]
[address] [place] [address], * (ABNORMAL) Comprehensive Metabolic Panel (12/28/2024 5:30 AM EDT) Glucose 96 65 - 99 mg/dL 12/28/2024 6:30 AM EDT [facility] BUN 3.9(L) 6.0 - 20.0 mg/dL 12/28/2024 6:30 AM EDT [facility] Creatinine 0.57 0.57 - 1.00 mg/dL 12/28/2024 6:30 AM EDT [facility] Sodium 137 136 - 145 mmol/L 12/28/2024 6:30 AM EDT [facility] Potassium 4.2 3.5 - 5.2 mmol/L 12/28/2024 6:30 AM EDT [facility] Chloride 108(H) 98 - 107 mmol/L 12/28/2024 6:30 AM EDT [facility] CO2 21.0(L) 22.0 - 29.0 mmol/L 12/28/2024 6:30 AM EDT [facility] Calcium 7.9(L) 8.6 - 10.5 mg/dL 12/28/2024 6:30 AM EDT [facility] Total Protein 5.3(L) 6.0 - 8.5 g/dL 12/28/2024 6:30 AM EDT [facility] Albumin 2.9(L) 3.5 - 5.2 g/dL 12/28/2024 6:30 AM EDT [facility] ALT (SGPT) 6 1 - 33 U/L 12/28/2024 6:30 AM EDT [facility] AST (SGOT) 11 1 - 32 U/L 12/28/2024 6:30 AM EDT [facility] Alkaline Phosphatase 108 39 - 117 U/L 12/28/2024 6:30 AM EDT [facility] Total Bilirubin 0.2 0.0 - 1.2 mg/dL 12/28/2024 6:30 AM EDT [facility] Globulin 2.4 gm/dL 12/28/2024 6:30 AM EDT [facility] Comment:Calculated Result A/G Ratio 1.2 g/dL 12/28/2024 6:30 AM EDT [facility] BUN/Creatinine Ratio 6.8(L) 7.0 - 25.0 12/28/2024 6:30 AM EDT [facility] Anion Gap 8.0 5.0 - 15.0 mmol/L 12/28/2024 6:30 AM EDT [facility] eGFR 133.6 >60.0 mL/min/1.7 3 12/28/2024 6:30 AM EDT [facility] Blood Venipuncture / Unknown 12/28/2024 5:30 AM EDT 12/28/2024 6:03 AM EDT [facility] - 12/28/2024 6:30 AM EDT GFR Categories in Chronic Kidney Disease (CKD) GFR Category GFR (mL/min/1.73) Interpretation G1 90 or greater Normal or high (1) G2 60-89 Mild decrease (1) G3a 45-59 Mild to moderate decrease G3b 30-44 Moderate to severe decrease G4 15-29 Severe decrease G5 14 or less Kidney failure (1)In the absence of evidence of kidney disease, neither GFR category G1 or G2 fulfill the criteria for CKD. eGFR calculation 2020 CKD-EPI creatinine equation, which does not include race as a factor us Pepe Gomez DO LAB BLOOD ORDERABLES Final Result [facility]
[address] [id number], * POC Amnisure (12/27/2024 12:52 PM EDT) Amnisure Negative Negative [facility] Amniotic Fluid 12/27/2024 12 :52 PM EDT Pepe Gomez DO POINT OF CARE TEST ORDERABL ES Final Result [facility]
[address] [place] [address], * [facility] (12/26/2024 7:45 AM EDT) Anatomical Region Laterality Modality Ultrasound 12/26/2024 7:42 AM EDT Narrative 12/26/2024 9:15 AM EDT PAT NAME: JERRI HAM MED REC#: [id number] DA: [id number] PAT GEND: F PAT TYPE: I EXAM PAN: [id number] REF PHYS [place] Comparison Studies The findings of this study are compared to the prior ultrasound study dated 12/24/24 Patient Status Inpatient-Portable Indication ======== PPROM, Hyperthyroid. Placental lakes. IUGR. Maternal Assessment Height 167 cm Height (ft) 5 ft Height (in) 6 in Weight 55 kg Weight (lb) 121 lb BMI 19.72 kg/m Method ======= Transabdominal ultrasound examination. View: Adequate view ========= Barba . Number of fetuses: 1 Dating ====== GA by prior assessment 33 w + 5 d ETHEL by prior assessment: 02/08/2025 Method of dating: Restore dating from previous exam Previous dating: based on stated ETHEL, selected on 12/17/2024 Agreed ETHEL of previous datin02/08/2025 Assigned: based on stated ETHEL, selected on 12/17/2024 Assigned GA 33 w + 5 d Assigned ETHEL: 02/08/2025 length 280 d General Evaluation Cardiac activity present. FHR 123 bpm. movements present. Presentation cephalic. Placenta Placental site: anterior. Umbilical cord Cord vessels: 3 vessel cord. Amniotic fluid Amount of AF: normal. MVP 4.2 cm. DANIELLE 12.8 cm. Q1 2.0 cm, Q2 3.7 cm, Q3 2.8 cm, Q4 4.2 cm. Anatomy 4-chamber view: Normal Heart / Thorax 4-chamber view: patent foramen ovale Stomach: Normal Bladder: Normal Abdomen Rt kidney: visualized Rt kidney: The AP diameter of the right renal pelvis measures 6.2 mm Lt kidney: visualized Lt kidney: The AP diameter of the left renal pelvis measures 6.2 mm Gender: male Wants to know gender: yes Biophysical Profile 2: breathing movements 2: Gross body movements 2: tone 2: Amniotic fluid volume 02/13 Biophysical profile score Doppler Arterial Umbilical A PI 1.11 88% Monica Umbilical A RI 0.68 85% Monica Umbilical A PS -36.82 cm/s Umbilical A ED -11.55 cm/s Umbilical A TAmax -23.11 cm/s Umbilical A MD -9.76 cm/s Umbilical A S / D 3.09 78% Monica Umbilical A HR 193 bpm Impression Cephalic Normal fluid BPP 8/8 Anterior placenta Coding ======= Description: 86227-29 BPP without NST Description: 70804-02 Doppler Umbilical Artery Project Architect: Shagufta Bravo RDMS Physician: Saritha Leon MD, FACOG Electronically signed by: Saritha Leon MD, FACOG at: 09:15 Procedure Note Saritha Leon MD - 12/26/2024 PAT NAME: JERRI HAM MED REC#: [id number] DA: 2005 PAT GEND: F PAT TYPE: I EXAM PAN: [id number] REF PHYS [place] Comparison Studies The findings of this study are compared to the prior ultrasound studydated 12/24/24 Patient Status Inpatient-Portable Indication ======== PPROM, Hyperthyroid. Placental lakes. IUGR. Maternal Assessment [id number] cm Height (ft)5 ft Height (in)6 in [id number] kg Weight (lb)121 lb BMI19.72 kg/m Method ======= Transabdominal ultrasound examination. View: Adequate view ========= [place]ba . Number of fetuses: 1 Dating ====== GA by prior [id number] w + 5 d ETHEL by prior assessment:02/08/2025 Method of dating:Restore dating from previous exam Previous dating:based on stated ETHEL, selected on 12/17/2024 Agreed ETHEL of previous datin02/08/2025 Assigned:based on stated ETHEL, selected on 12/17/2024 Assigned GA33 w + 5 d Assigned ETHEL:02/08/2025 [id number] d General Evaluation Cardiac activity present. FHR 123 bpm. movements present. Presentation cephalic. Placenta Placental site: anterior. Umbilical cord Cord vessels: 3 vessel cord. Amniotic fluid Amount of AF: normal. MVP 4.2 cm. DANIELLE 12.8 cm. Q1 2.0 cm,Q2 3.7 cm, Q3 2.8 cm, Q4 4.2 cm. Anatomy 4-chamber view:Normal Heart / Thorax 4-chamber view:patent foramen ovale Stomach:Normal Bladder:Normal Abdomen Rt kidney:visualized Rt kidney:The AP diameter of the right renal pelvis measures 6.2 mm Lt kidney:visualized Lt kidney:The AP diameter of the left renal pelvis measures 6.2 mm Gender:male Wants to know gender:yes Biophysical Profile 2: breathing movements 2: Gross body movements 2: tone 2: Amniotic fluid volume 02/13 Biophysical profile score Doppler Arterial Umbilical A PI1.11 88% Monica Umbilical A RI0.68 85% Monica Umbilical A PS-36.82 cm/s Umbilical A ED-11.55 cm/s Umbilical A TAmax-23.11 cm/s Umbilical A MD-9.76 cm/s Umbilical A S / D3.09 78% Monica Umbilical A HR193 bpm Impression Cephalic Normal fluid BPP 8/ Anterior placenta Coding ======= Description:77869-27 BPP without NST Description:87455-66 Doppler Umbilical Artery Project Architect: Shagufta Bravo RDMI Physician: Saritha Leon MD, FACOG Electronically signed by: Saritha Leon MD, FACOG at: 2009:15 Bishop Bravo III, MD [facility] US ORDERABLES Final Result * ABO RH Specimen Verification (12/26/2024 5:02 AM EDT) ABO Type A 12/26/2024 6:40 AM EDT [facility] RH type Negative 12/26/2024 6:40 AM EDT [facility] Blood Venipuncture / Unknown 12/26/2024 5:02 AM EDT 12/26/2024 5:42 AM EDT us Bishop Bravo III, MD BLOOD BANK TEST ORDERAB LES Final Result [facility]
[address] [place] [address], * Antibody Identification (12/26/2024 3:47 AM EDT) Pathologist [facility] Residual RhIG Detected RESIDUAL RHIG DETECTED 12/26/2024 6:26 AM EDT [facility] Blood Venipuncture / Unknown 12/26/2024 3:47 AM EDT 12/26/2024 4:23 AM EDT us Bishop Bravo III, MD BLOOD BANK TEST ORDERAB LES Final Result Performing Organization Address [facility] Co de Phone Number [facility]
[address] [place] [address], * Type & Screen (12/26/2024 3:47 AM EDT) Pathologist [facility] ABO Type A 12/26/2024 5:10 AM EDT [facility] RH type Negative 12/26/2024 5:10 AM EDT [facility] Antibody Screen Positive 12/26/2024 5:10 AM EDT [facility] T&S Expiration Date 12/29/2024 11:59:59 PM 12/26/2024 5:10 AM EDT [facility] Blood Venipuncture / Unknown 12/26/2024 3:47 AM EDT 12/26/2024 4:23 AM EDT us Bishop Bravo III, MD BLOOD BANK TEST ORDERAB LES Edited Result - Final Performing Organization Address City/[facility] Co de Phone Number [facility]
[address] [place] [address], * (ABNORMAL) CBC (No Diff) (12/26/2024 3:47 AM EDT) Pathologist [facility] WBC 10.22 3.40 - 10.80 10*3/mm3 12/26/2024 4:20 AM EDT [facility] RBC 4.00 3.77 - 5.28 10*6/mm3 12/26/2024 4:20 AM EDT [facility] Hemoglobin 11.7(L) 12.0 - 15.9 g/dL 12/26/2024 4:20 AM EDT [facility] Hematocrit 35.5 34.0 - 46.6 % 12/26/2024 4:20 AM EDT [facility] MCV 88.8 79.0 - 97.0 fL 12/26/2024 4:20 AM EDT [facility] MCH 29.3 26.6 - 33.0 pg 12/26/2024 4:20 AM EDT [facility] MCHC 33.0 31.5 - 35.7 g/dL 12/26/2024 4:20 AM EDT [facility] RDW 13.0 12.3 - 15.4 % 12/26/2024 4:20 AM EDT [facility] RDW-SD 42.1 37.0 - 54.0 fl 12/26/2024 4:20 AM EDT [facility] MPV 9.7 6.0 - 12.0 fL 12/26/2024 4:20 AM EDT [facility] Platelets 214 140 - 450 10*3/mm3 12/26/2024 4:20 AM EDT [facility] Blood Venipuncture / Unknown 12/26/2024 3:47 AM EDT 12/26/2024 4:06 AM EDT Bishop Bravo III, MD LAB BLOOD ORDERABLES Fi nal Result [facility]
[address] [place] [address], * (ABNORMAL) Comprehensive Metabolic Panel (12/26/2024 3:46 AM EDT) Glucose 133(H) 65 - 99 mg/dL 12/26/2024 4:44 AM EDT [facility] BUN 3.8(L) 6.0 - 20.0 mg/dL 12/26/2024 4:44 AM [facility] Creatinine 0.58 0.57 - 1.00 mg/dL 12/26/2024 4:44 AM [facility] Sodium 130(L) 136 - 145 mmol/L 12/26/2024 4:44 AM [facility] Potassium 3.7 3.5 - 5.2 mmol/L 12/26/2024 4:44 AM [facility] Comment:Slight hemolysis det ected by analyzer. Result may be falsely elevated. Chloride 100 98 - 107 mmol/L 12/26/2024 4:44 AM [facility] CO2 18.0(L) 22.0 - 29.0 mmol/L 12/26/2024 4:44 AM [facility] Calcium 7.9(L) 8.6 - 10.5 mg/dL 12/26/2024 4:44 AM [facility] Total Protein 6.7 6.0 - 8.5 g/dL 12/26/2024 4:44 AM [facility] Albumin 3.5 3.5 - 5.2 g/dL 12/26/2024 4:44 AM [facility] ALT (SGPT) 8 1 - 33 U/L 12/26/2024 4:44 AM [facility] AST (SGOT) 15 1 - 32 U/L 12/26/2024 4:44 AM [facility] Alkaline Phosphatase 151(H) 39 - 117 U/L 12/26/2024 4:44 AM [facility] Total Bilirubin 0.5 0.0 - 1.2 mg/dL 12/26/2024 4:44 AM [facility] Globulin 3.2 gm/dL 12/26/2024 4:44 AM [facility] Comment:Calculated Result A/G Ratio 1.1 g/dL 12/26/2024 4:44 AM [facility] BUN/Creatinine Ratio 6.6(L) 7.0 - 25.0 12/26/2024 4:44 AM EDT [facility] Anion Gap 12.0 5.0 - 15.0 mmol/L 12/26/2024 4:44 AM EDT [facility] eGFR 133.1 >60.0 mL/min/1.7 3 12/26/2024 4:44 AM EDT [facility] Blood Venipuncture / Unknown 12/26/2024 3:46 AM EDT 12/26/2024 4:06 AM EDT Narrative [facility] - 12/26/2024 4:44 AM EDT GFR Categories in Chronic Kidney Disease (CKD) GFR Category GFR (mL/min/1.73) Interpretation G1 90 or greater Normal or high (1) G2 60-89 Mild decrease (1) G3a 45-59 Mild to moderate decrease G3b 30-44 Moderate to severe decrease G4 15-29 Severe decrease G5 14 or less Kidney failure (1)In the absence of evidence of kidney disease, neither GFR category G1 or G2 fulfill the criteria for CKD. eGFR calculation 2020 CKD-EPI creatinine equation, which does not include race as a factor Bishop Bravo III, MD LAB BLOOD ORDERABLES Fi nal Result [facility]
[address] [place] [address], * Uric Acid (12/26/2024 3:46 AM EDT) Uric Acid 4.1 2.4 - 5.7 mg/dL 12/26/2024 4:44 AM EDT [facility] Comment:Falsely depressed re sults may occur on samples drawn from patients receiving N-Acetylcysteine (NAC) or Metamizole. Blood Venipuncture / Unknown 12/26/2024 3:46 AM EDT 12/26/2024 4:06 AM EDT us Bishop Bravo III, MD LAB BLOOD ORDERABLES Fi nal Result [facility]
[address] [place] [address], * Lactate Dehydrogenase (12/26/2024 3:46 AM EDT) [facility] LDH 180 135 - 214 U/L 12/26/2024 4:44 AM EDT [facility] Comment:Specimen hemolyzed. Results may be affected. Blood Venipuncture / Unknown 12/26/2024 3:46 AM EDT 12/26/2024 4:06 AM EDT us Bishop Bravo III, MD LAB BLOOD ORDERABLES Fi nal Result [facility]
[address] [place] [address], * Treponema pallidum AB w/Reflex RPR (12/26/2024 3:46 AM EDT) [facility] Treponemal AB Total Non-Reacti ve Non-React satinder 12/26/2024 9:32 AM EDT [facility] Blood Venipuncture / Unknown 12/26/2024 3:46 AM EDT 12/26/2024 4:06 AM EDT Narrative [facility] - 12/26/2024 9:32 AM EDT Reactive results will reflex RPR testing. us Bishop Bravo III, MD LAB BLOOD ORDERABLES Fi nal Result [facility]
[address] [place] [address], * (ABNORMAL) Urinalysis With Microscopic If Indicated (No Culture) - Indwelling Urethral Catheter (12/26/2024 2:15 AM EDT) [facility] Color, UA Yellow Yellow, Straw 12/26/2024 2:19 AM EDT [facility] Appearance, UA Clear Clear 12/26/2024 2:19 AM EDT [facility] pH, UA 7.5 5.0 - 8.0 12/26/2024 2:19 AM EDT [facility] Specific [place], UA 1.006 1.001 - 1.030 12/26/2024 2:19 AM EDT [facility] Glucose, UA Negative Negative 12/26/2024 2:19 AM EDT [facility] Ketones, UA Trace(A) Negative 12/26/2024 2:19 AM EDT [facility] Bilirubin, UA Negative Negative 12/26/2024 2:19 AM EDT [facility] Blood, UA Negative Negative 12/26/2024 2:19 AM EDT [facility] Protein, UA Negative Negative 12/26/2024 2:19 AM EDT [facility] Leuk Esterase, UA Negative Negative 12/26/2024 2:19 AM EDT [facility] Nitrite, UA Negative Negative 12/26/2024 2:19 AM EDT [facility] Urobilinogen, UA 1.0 E.U./dL 0.2 - 1.0 E.U./dL 12/26/2024 2:19 AM EDT [facility] Urine (Indwelling Urethral Catheter) 12/26/2024 2:15 AM EDT 12/26/2024 2:15 AM EDT Narrative [facility] - 12/26/2024 2:19 AM EDT Urine microscopic not indicated. us Bishop Bravo III, MD URINE ORDERABLES Final Result [facility]
[address] [place] [address], * (ABNORMAL) Protein / Creatinine Ratio, Urine - Urine, Clean Catch (12/26/2024 2:14 AM EDT) Protein/Creati nine Ratio, Urine 444.4(H) 0.0 - 200.0 mg/G Crea 12/26/2024 9:22 AM EDT [facility] Creatinine, Urine 10.8 mg/dL 12/26/2024 9:22 AM EDT [facility] Total Protein, Urine 4.8 mg/dL 12/26/2024 9:22 AM EDT [facility] Urine Urine specimen obtained by clean catch procedure / Unknown 12/26/2024 2:14 AM EDT 12/26/2024 2:14 AM EDT us Bishop Bravo III, MD URINE ORDERABLES Final Result [facility]
[address] [place] [address], documented in this encounter Visit Diagnoses Diagnosis premature rupture of membranes (PPROM) with onset of labor within 24 hours of rupture in third trimester, antepartum- Primary documented in this encounter Admitting Diagnoses Diagnosis premature rupture of membranes (PPROM) with onset of labor within 24 hours of rupture in third trimester, antepartum documented in this encounter Administered Medications Inactive Administered Medications - up to 3 most recent administrations Medication Order MAR Action Action Date Dose Rate Site acetaminophen (TYLENOL) tablet 1,000 mg 1,000 mg, Oral, Every 6 Hours PRN, Headache, Starting on Sun12/26/24 at 1421, If given for fever, use fever parameter: fever greater than 100.4 F Based on patient request - if ordered for moderate or severe pain, provider allows for administration of a medication prescribed for a lower pain scale. Do not exceed 4 grams of acetaminophen in a 24 hr period. Max dose of 2gm for AST/ALT greater than 120 units/L. If given for pain, use the following pain scale: Mild Pain = Pain Score of 1-3, CPOT 1-2 Moderate Pain = Pain Score of 4-6, CPOT 3-4 Severe Pain = Pain Score of 7-10, CPOT 5-8 Given 01/02/2025 1:11 PM EDT 1,000 mg Given 12/31/2024 9:55 PM EDT 1,000 mg Given 12/31/2024 2:17 AM EDT 1,000 mg acetaminophen (TYLENOL) tablet 650 mg 650 mg, Oral, Every 4 Hours PRN, Mild Pain, Headache, Starting on Sun12/26/24 at 0128, If given for fever, use fever parameter: fever greater than 100.4 F Based on patient request - if ordered for moderate or severe pain, provider allows for administration of a medication prescribed for a lower pain scale. Do not exceed 4 grams of acetaminophen in a 24 hr period. Max dose of 2gm for AST/ALT greater than 120 units/L. If given for pain, use the following pain scale: Mild Pain = Pain Score of 1-3, CPOT 1-2 Moderate Pain = Pain Score of 4-6, CPOT 3-4 Severe Pain = Pain Score of 7-10, CPOT 5-8 Given 12/26/2024 4:09 AM EDT 6 50 mg amoxicillin (AMOXIL) capsule 500 mg 500 mg, Oral, Every 8 Hours, First dose (after last modification) on Sun12/27/24 at 2200, For 5 days, Do not crush or chew the capsules or tablets. The drug may not work as designed if the capsule or tablet is crushed or chewed. Swallow whole., Indications: PPROMIndications:PPROM Given 12/30/2024 1:40 PM EDT 500 mg Given 12/30/2024 6:36 AM EDT 500 mg Given 12/29/2024 9:42 PM EDT 500 mg ampicillin 2000 mg IVPB in 100 mL NS (MBP) 2,000 mg, Intravenous, at 200 mL/hr, Administer over 30 Minutes, Every 6 Hours, First dose on Sun12/26/24 at 0230, For 48 hours, Activate vial before use., Indications: PPROMIndications:PPROM New Bag 12/27/2024 2:48 PM EDT 2,000 mg 200 mL/h r New Bag 12/27/2024 8:31 AM EDT 2,000 mg 200 mL/hr New Bag 12/27/2024 2:28 AM EDT 2,000 mg 200 mL/hr azithromycin (ZITHROMAX) tablet 1,000 mg 1,000 mg, Oral, Once, On Sun12/26/24 at 0230, For 1 dose, Do not administer concurrently with aluminum or magnesium antacids. Take with food if GI upset occurs., Indications: PPROMIndications:PPROM Given 12/26/2024 2:23 AM EDT 1,000 mg betamethasone acetate-betamethasone sodium phosphate (CELESTONE SOLUSPAN) injection 12 mg 12 mg, Intramuscular, Once, On Sun12/26/24 at 2100, For 1 dose, For IM injection only Given 12/26/2024 9:39 PM EDT 12 mg Left Anterior Thigh bisacodyl (DULCOLAX) suppository 10 mg 10 mg, Rectal, Daily PRN, Constipation, Starting on Sun12/26/24 at 0128, Hold for diarrhea [id number] ine (FIORICET, ESGIC) 50-325-40 MG per tablet 1 tablet 1 tablet, Oral, Once, On Sun12/26/24 at 1100, For 1 dose, Do not exceed 4g of acetaminophen in a 24 hour period. Maximum 6 tablets per 24 hours. Max dose of 2gm for AST/ALT greater than 120 units/L Given 12/26/2024 9:55 AM EDT 1 tablet butorphanol (STADOL) injection 1 mg 1 mg, Intravenous, Every 4 Hours PRN, Moderate Pain, Starting on Sun12/26/24 at 0132, Based on patient request - if ordered for moderate or severe pain, provider allows for administration of a medication prescribed for a lower pain scale. (NAA) If given for pain, use the following pain scale: Mild Pain = Pain Score of 1-3, CPOT 1-2 Moderate Pain = Pain Score of 4-6, CPOT 3-4 Severe Pain = Pain Score of 7-10, CPOT 5-8 Given 12/30/2024 4:40 PM EDT 1 mg Given 12/28/2024 11:29 PM EDT 1 mg Given 12/28/2024 6:33 PM EDT 1 mg calcium carbonate (TUMS) chewable tablet 500 mg (200 mg elemental) 2 tablet, Oral, Daily PRN, Indigestion, Heartburn, Starting on Sun12/26/24 at 0128, One tablet contains 200 mg elemental calcium. Take with food. docusate sodium (COLACE) capsule 100 mg 100 mg, Oral, 2 Times Daily PRN, Constipation, constipation, Starting on Sun12/26/24 at 0128, Swallow whole. Do not open, crush, or chew capsule. Given 01/02/2025 10:32 AM EDT 100 mg famotidine (PEPCID) injection 20 mg 20 mg, Intravenous, 2 Times Daily, First dose on Sun12/28/24 at 0945, Give IV push over 2 minutes. Given 12/28/2024 9:34 AM EDT 20 mg famotidine (PEPCID) tablet 20 mg 20 mg, Oral, 2 Times Daily Before Meals, First dose on Sun12/28/24 at 2100 Given 01/03/2025 6:34 PM EDT 20 mg Given 01/03/2025 6:31 AM EDT 20 mg Given 01/02/2025 5:05 PM EDT 20 mg hydrOXYzine (ATARAX) tablet 50 mg 50 mg, Oral, Nightly PRN, Sleep, Starting on Sun12/26/24 at 0132, Caution: Look alike/sound alike drug alert lactated ringers infusion 100 mL/hr, Intravenous, Continuous, Starting on Sun12/26/24 at 0230, For 2 days New Bag 12/27/2024 1:15 PM EDT 100 mL/hr 100 mL/hr Rate/Dose Verify 12/27/2024 11:33 AM EDT 100 mL/hr 100 mL /hr Rate/Dose Verify 12/27/2024 10:34 AM EDT 100 mL/hr 100 mL /hr lidocaine PF 1% (XYLOCAINE) injection 0.5 mL 0.5 mL, Intradermal, Once As Needed, IV Start, Starting on Sun12/26/24 at 0128, For 1 dose magnesium sulfate 20 GM/500ML infusion Starting on Sun12/26/24 at 0103, For 1 dose, Created by tarat override magnesium sulfate 20 GM/500ML infusion 1 g/hr (25 mL/hr), Intravenous, Continuous, Starting on Sun12/26/24 at 0230, For 48 hours Rate/Dose Verify 12/27/2024 1:15 PM EDT 1 g/hr 25 mL/hr Rate/Dose Verify 12/27/2024 11:33 AM EDT 1 g/hr 25 mL/ hr Rate/Dose Verify 12/27/2024 10:34 AM EDT 1 g/hr 25 mL/ hr naloxone (NARCAN) injection 0.4 mg 0.4 mg, Intravenous, Every 5 Minutes PRN, Respiratory Depression, Starting on Sun12/26/24 at 0132, If respiratory rate is less than 8 breaths/minute or patient is difficult to arouse stop any narcotics and contact physician. Administer slow IV push. Repeat as ordered until patient's respiratory rate is greater than 12 breaths/minute. ondansetron (ZOFRAN) injection 4 mg 4 mg, Intravenous, Every 8 Hours PRN, Nausea, Vomiting, Starting on Sun12/26/24 at 0128, If BOTH ondansetron (ZOFRAN) and promethazine (PHENERGAN) are ordered use ondansetron first and THEN promethazine IF ondansetron is ineffective. If both oral and IV ordered, offer oral first, unless NPO. Given 01/02/2025 10:32 AM EDT 4 mg Given 12/26/2024 2:55 AM EDT 4 mg ondansetron ODT (ZOFRAN-ODT) disintegrating tablet 8 mg 8 mg, Oral, Every 8 Hours PRN, Nausea, Vomiting, Starting on Sun12/26/24 at 0128, If BOTH ondansetron (ZOFRAN) and promethazine (PHENERGAN) are ordered use ondansetron first and THEN promethazine IF ondansetron is ineffective. If both oral and IV ordered, offer oral first, unless NPO. Place on tongue and allow to dissolve. sodium chloride 0.9 % flush 10 mL 10 mL, Intravenous, Every 12 Hours Scheduled, First dose on Sun12/26/24 at 0230 Given 01/03/2025 9:35 PM EDT 10 mL Given 01/02/2025 9:43 PM EDT 10 mL Given 01/02/2025 8:25 AM EDT 10 mL sodium chloride 0.9 % flush 10 mL 10 mL, Intravenous, As Needed, Line Care, Starting on Sun12/26/24 at 0128 Given 12/28/2024 6:33 PM EDT 10 mL sodium chloride 0.9 % infusion 40 mL 40 mL, Intravenous, at 100 mL/hr, As Needed, Line Care, Starting on Sun12/26/24 at 0128, Following administration of an IV intermittent medication, flush line with 40mL NS at 100mL/hr. sodium chloride 0.9 % infusion 50 mL/hr, Intravenous, Continuous, Starting on 12/27/25 at 1515, For 2 hours New Bag 12/27/2024 2:40 PM EDT 50 mL/hr 50 mL/hr Restarted 12/27/2024 10:34 AM EDT 50 mL/hr 50 mL/hr documented in this encounter Active and Recently Administered Medications Times are shown in EDT. Scheduled Medication Order 01/02/2025 01/03/2025 01/04/2025 famotidine (PEPCID) tablet 20 mg 20 mg, Oral, 2 Times Daily Before Meals, First dose on Sun12/28/24 at 2100 0825 (Given - Provider: Yemi Tran RN)1705 (Given - Provider: Yemi Tran RN) 0631 (Given - Provider: Sheri Lieberman, RN)1834 (Given - Provider: Edgardo Rizvi RN) 0634 (Not Given - Provider: Sheri Lieberman RN - Reason: Patient/family refused) sodium chloride 0.9 % flush 10 mL 10 mL, Intravenous, Every 12 Hours Scheduled, First dose on Sun12/26/24 at 0230 0825 (Given - Provider: Yemi Tran RN)2143 (Given - Provider: Sheri Lieberman, RN) 0900 (Due)2135 (Given - Provider: Sheri Lieberman, RN) 0900 (Due) PRN Medication Order 01/02/2025 01/03/2025 01/04/2025 acetaminophen (TYLENOL) tablet 1,000 mg 1,000 mg, Oral, Every 6 Hours PRN, Headache, Starting on Sun12/26/24 at 1421, If given for fever, use fever parameter: fever greater than 100.4 F Based on patient request - if ordered for moderate or severe pain, provider allows for administration of a medication prescribed for a lower pain scale. Do not exceed 4 grams of acetaminophen in a 24 hr period. Max dose of 2gm for AST/ALT greater than 120 units/L. If given for pain, use the following pain scale: Mild Pain = Pain Score of 1-3, CPOT 1-2 Moderate Pain = Pain Score of 4-6, CPOT 3-4 Severe Pain = Pain Score of 7-10, CPOT 5-8 1311 (Given - Provider: Yemi Tran RN) bisacodyl (DULCOLAX) suppository 10 mg 10 mg, Rectal, Daily PRN, Constipation, Starting on Sun12/26/24 at 0128, Hold for diarrhea butorphanol (STADOL) injection 1 mg(Linked Group 1) 1 mg, Intravenous, Every 4 Hours PRN, Moderate Pain, Starting on Sun12/26/24 at 0132, Based on patient request - if ordered for moderate or severe pain, provider allows for administration of a medication prescribed for a lower pain scale. (NAA) If given for pain, use the following pain scale: Mild Pain = Pain Score of 1-3, CPOT 1-2 Moderate Pain = Pain Score of 4-6, CPOT 3-4 Severe Pain = Pain Score of 7-10, CPOT 5-8 calcium carbonate (TUMS) chewable tablet 500 mg (200 mg elemental) 2 tablet, Oral, Daily PRN, Indigestion, Heartburn, Starting on Sun12/26/24 at 0128, One tablet contains 200 mg elemental calcium. Take with food. docusate sodium (COLACE) capsule 100 mg 100 mg, Oral, 2 Times Daily PRN, Constipation, constipation, Starting on Sun12/26/24 at 0128, Swallow whole. Do not open, crush, or chew capsule. 1032 (Given - Provider: Yemi Tran RN) hydrOXYzine (ATARAX) tablet 50 mg 50 mg, Oral, Nightly PRN, Sleep, Starting on Sun12/26/24 at 0132, Caution: Look alike/sound alike drug alert lidocaine PF 1% (XYLOCAINE) injection 0.5 mL 0.5 mL, Intradermal, Once As Needed, IV Start, Starting on Sun12/26/24 at 0128, For 1 dose naloxone (NARCAN) injection 0.4 mg(Linked Group 1) 0.4 mg, Intravenous, Every 5 Minutes PRN, Respiratory Depression, Starting on Sun12/26/24 at 0132, If respiratory rate is less than 8 breaths/minute or patient is difficult to arouse stop any narcotics and contact physician. Administer slow IV push. Repeat as ordered until patient's respiratory rate is greater than 12 breaths/minute. ondansetron (ZOFRAN) injection 4 mg(Linked Group 2) 4 mg, Intravenous, Every 8 Hours PRN, Nausea, Vomiting, Starting on Sun12/26/24 at 0128, If BOTH ondansetron (ZOFRAN) and promethazine (PHENERGAN) are ordered use ondansetron first and THEN promethazine IF ondansetron is ineffective. If both oral and IV ordered, offer oral first, unless NPO. 1032 (Given - Provider: Yemi Tran RN) ondansetron ODT (ZOFRAN-ODT) disintegrating tablet 8 mg(Linked Group 2) 8 mg, Oral, Every 8 Hours PRN, Nausea, Vomiting, Starting on Sun12/26/24 at 0128, If BOTH ondansetron (ZOFRAN) and promethazine (PHENERGAN) are ordered use ondansetron first and THEN promethazine IF ondansetron is ineffective. If both oral and IV ordered, offer oral first, unless NPO. Place on tongue and allow to dissolve. 1032 (Not Given: See Alt - Provider: Yemi Tran RN) sodium chloride 0.9 % flush 10 mL 10 mL, Intravenous, As Needed, Line Care, Starting on Sun12/26/24 at 0128 sodium chloride 0.9 % infusion 40 mL 40 mL, Intravenous, at 100 mL/hr, As Needed, Line Care, Starting on Sun12/26/24 at 0128, Following administration of an IV intermittent medication, flush line with 40mL NS at 100mL/hr. Linked Groups Order Group 1: butorphanol (STADOL) injection 1 mgJump to med 1 mg, Intravenous, Every 4 Hours PRN, Moderate Pain, Starting on Sun12/26/24 at 0132, Based on patient request - if ordered for moderate or severe pain, provider allows for administration of a medication prescribed for a lower pain scale. (NAA) If given for pain, use the following pain scale: Mild Pain = Pain Score of 1-3, CPOT 1-2 Moderate Pain = Pain Score of 4-6, CPOT 3-4 Severe Pain = Pain Score of 7-10, CPOT 5-8 And naloxone (NARCAN) injection 0.4 mgJump to med 0.4 mg, Intravenous, Every 5 Minutes PRN, Respiratory Depression, Starting on Sun12/26/24 at 0132, If respiratory rate is less than 8 breaths/minute or patient is difficult to arouse stop any narcotics and contact physician. Administer slow IV push. Repeat as ordered until patient's respiratory rate is greater than 12 breaths/minute. Group 2: ondansetron ODT (ZOFRAN-ODT) disintegrating tablet 8 mgJump to med 8 mg, Oral, Every 8 Hours PRN, Nausea, Vomiting, Starting on Sun12/26/24 at 0128, If BOTH ondansetron (ZOFRAN) and promethazine (PHENERGAN) are ordered use ondansetron first and THEN promethazine IF ondansetron is ineffective. If both oral and IV ordered, offer oral first, unless NPO. Place on tongue and allow to dissolve. Or ondansetron (ZOFRAN) injection 4 mgJump to med 4 mg, Intravenous, Every 8 Hours PRN, Nausea, Vomiting, Starting on Sun12/26/24 at 0128, If BOTH ondansetron (ZOFRAN) and promethazine (PHENERGAN) are ordered use ondansetron first and THEN promethazine IF ondansetron is ineffective. If both oral and IV ordered, offer oral first, unless NPO. documented in this encounter Care Teams Engineering Department Chair Relationship Specialty Start Date End Date Jasmeet Kelly MD [address] [place] [address] PCP - General Family Medicine 12/03/24 documented as of this encounter
[2025-02-25] VITALS (10 sets, daily range): BP systolic 117–148; BP diastolic 84–111; PULSE 62–111; RESP 10–18; TEMP 36.4–36.7; O2SAT 94–100; BMI 17.7
--- NOTE | 2025-02-25 17:09 | ECG_ITS ---
APPROVED REPORT Exam: Resting ECG HR:102 bpm ECG Measurements Heart Rate 102 AXES MS 137 P 78 QRSd 90 QRS 49 QT 335 T 42 QTc 394 Conclusion [place] tachycardia at [address] or T wave changes concerning for ischemia Electronically signed by : Tita Brown, 02/26/2025 00:15:25
--- NOTE | 2025-02-25 17:13 | XR_ITS ---
PROCEDURE INFORMATION: Exam: XR Chest Exam date and time: 02/25/2025 5:48 PM Age: 19 years old Clinical indication: Shortness of breath; Additional info: SOA teri TECHNIQUE: Imaging protocol: Radiologic exam of the chest. Views: 1 view. COMPARISON: CR Chest 01/14/2024 8:56 PM FINDINGS: Lungs: Unremarkable. No consolidation. Pleural spaces: Unremarkable. No pleural effusion. No pneumothorax. Heart/Mediastinum: Unremarkable. No cardiomegaly. Bones/joints: Unremarkable. IMPRESSION: No acute findings.
--- NOTE | 2025-02-25 17:14 | ED_ITS ---
<Statement entered by Tita Brown DO - 02/25/25 21:59> I was consulted by the DEBORAH, and we discussed the complexity of problems being addressed. I approve the treatment and management plan for this patient's care in the emergency department, thus performing a substantial portion of the medical decision making. Tita Brown DO Discharge Plan Disposition Patient Disposition: Home, Self-Care Condition: Good Prescriptions Prescriptions: No Action escitalopram oxalate 10 mg tablet 10 mg PO DAILY 30 Days Qty: 30 2RF Referrals Follow up/Referrals: Provider,Referral, MD [Referring, Medical] - See instructions Activity Restrictions/Add. Instructions Additional Instructions/Restrictions: Please return to the emergency department with any worsening signs or symptoms, please utilize ibuprofen Tylenol as needed for symptomatic relief, please follow-up with your PCP or family doctor in the upcoming days. Clinical Impressions Clinical Impression: Atypical chest pain, Costochondritis Instructions Patient Instructions: DI for Atypical Chest Pain, DI for Costochondritis Print Language Print Language: Georgian Discharge ED Provider: Tita Brown General Adult HPI General Chief complaint: Chest Pain Stated complaint: Chest Pain Time Seen by Provider: 02/25/25 17:08 Mode of Arrival: Ambulatory Source of Information: Patient Limitations: No Limitations History of Present Illness HPI narrative: 19-year-old female presents to the emergency department with right-sided chest pain, that is pleuritic in nature, worse with leaning forward , worse when taking a deep breath , this been going on since 3 to 3:30 PM today, no exertion, no worsening signs or symptoms, patient was just sitting there , when it hit her, she endorses shortness of breath with this, denies any recent fever or chills, no recent illness, no cough congestion, no recent vaccines, no recent upper respiratory illness, no true abdominal pain, has had prior cholecystectomy, no nausea no vomiting, no constipation no diarrhea no urinary symptomatology, no other acute symptomatology, patient is a non-smoker, denies any alcohol or drug use, other past medical history is consistent with MDD/LOIS, does have family history of heart disease , initial triage vitals are notable for tachycardia otherwise unremarkable. Patient has no recent travel, no lower extremity swelling, patient describes the pain currently a 7 out of 10, at maximal was a 10 out of 10, no trauma or injury per history. Please note that above description of symptoms, in this electronic medical record under categorization of recalled from ER triage doctor by RN are reflective of an initial nursing assessment, however, is not reflective of my full history and physical exam that was personally taken and clarified. Consequentially, this preceding description of symptoms, which may include the patient's categorized chief complaint in the EMR, do not reflect my personal clinical impression, and the ultimate description of history of present illness and patient stated complaints should be deferred to this section of the note. Unless stated otherwise or congruent with this section of the note, additional signs, symptoms, or incongruence should be interpreted as inaccurate with my clinical impression. Onset (ago): hour(s) Related Data Previous Rx's ?Medication ?Instructions ?Recorded escitalopram oxalate 10 mg tablet 10 mg PO DAILY 30 da ys #30 tabs 02/12/25 Allergies Allergy/AdvReac Type Severity Reaction Status Date / Time No Known Allergies Allergy Verified 02/25/25 17:17 [facility] Disclaimer: The information contained in this section may have been updated after the patient was seen, as this information can be updated by other users. Medical History depression Acute blood loss anemia spontaneous labor with delivery delivery at 35w4d contractions Paresthesia premature rupture of membranes (PPROM) with onset of labor within 24 hours of rupture in third trimester, antepartum Asymmetric IUGR affecting , antepartum Cervical abnormality in Underweight (BMI < 18.5) Vaginal bleeding during Rh negative state in antepartum period Screening for genetic disease carrier status Horizon carrier screen 07/24/24 negative for 4 conditions tested - CF, Fragile X, SMA and DMD Abnormal uterine bleeding PCOS (polycystic ovarian syndrome) Depression Anxiety History of gastroesophageal reflux (GERD) Migraine Surgical History S/P laparoscopic cholecystectomy 08/28/24 at Family History Other No significant family history Social History Smoking Status: Never smoker alcohol intake: never substance use type: denies use current occupational status: unemployed Travel in the last 8 weeks?: None do you feel safe at home: Yes victim of physical abuse: No victim of emotional abuse: No victim of sexual abuse: No Have you lived/traveled outside US in past 30 days?: No Contact w/someone who lives/traveled outside US past 30 days?: No Exposure to someone with infectious disease in past 14 days?: No Do you have a fever (greater than 100.4 F or 38 C)?: No Have you tested positive for COVID-19?: No Exposed to someone with COVID-19 in past 14 days?: No Do you have a sore throat?: No Do you have a cough?: No Do you have any weakness?: No Do you have any diarrhea?: No Are you experiencing any unusual bleeding?: No Do you have any muscle aches/pain?: No Do you have any abdominal pain?: No Are you experiencing loss of taste or smell?: No Other Medical History Have you received the Flu Vaccine for this season: No Have you received the Pneumonia Vaccine: No ROS Obtained: Yes All systems reviewed & no additional complaints except as documented Physical Exam General General appearance: alert and in no apparent distress Head Head exam: atraumatic and normocephalic Eye Eye exam: Present PERRL and EOMI ENT ENT exam: Present mucous membranes moist Neck Neck exam: Present normal inspection Chest Chest inspection: Present normal inspection, symmetric chest wall rise and tenderness Respiratory Respiratory exam: Present normal lung sounds bilaterally; Absent respiratory distress, wheezes or stridor Cardiovascular Cardiovascular exam: Present normal rhythm and tachycardia Abdominal Exam Abdominal exam: Present soft; Absent tenderness Extremities Exam Extremities exam: Present normal inspection Neurological Exam Neurological exam: Present alert and oriented X3 Psychiatric Psychiatric exam: Present normal affect Skin Skin exam: Present warm and dry Medical Decision Making Medical Records Medical records reviewed: Yes I reviewed the patient's medical records. Screening: Per USPSTF and CDC recommendations, given the prevalence of disease in our region, it is our hospital?s policy to screen for HIV and viral Hepatitis for all patients aged 18 and over and those with ongoing risk factors. Danny Inquiry Pt receiving controlled substance: Yes Danny was queried for this patient: No Reason not queried -: Emergent pt cond-no time Risks and benefits of using a controlled substance: were discussed with pt by me Vital Signs: 02/25/25 17:10 02/25/25 17:13 02/25/25 17:15 Temperature 97.6 F Temperature Source Tympanic Pulse Rate 111 H 93 H Pulse Rate [Right Brachial] 88 Respiratory Rate 17 18 Blood Pressure Blood Pressure [Right Arm] 148/111 H Blood Pressure Mean Blood Pressure Mean [Right Arm] 123 Blood Pressure Source [Right Arm] Automatic Cuff Blood Pressure Position [Right Arm] Sitting 02 Sat by Pulse Oximetry 100 100 96 Oxygen Delivery Method Room Air 02/25/25 17:30 02/25/25 17:30 02/25/25 17:57 Temperature Temperature Source Pulse Rate 82 99 H Pulse Rate [Right Brachial] Respiratory Rate 16 13 Blood Pressure 131/98 H 126/94 H Blood Pressure [Right Arm] Blood Pressure Mean 109 99 Blood Pressure Mean [Right Arm] Blood Pressure Source [Right Arm] Blood Pressure Position [Right Arm] 02 Sat by Pulse Oximetry 99 100 Oxygen Delivery Method 02/25/25 18:00 02/25/25 19:00 02/25/25 19:30 Temperature Temperature Source Pulse Rate 99 H 68 Pulse Rate [Right Brachial] Respiratory Rate 13 11 L 17 Blood Pressure 129/89 134/90 117/84 Blood Pressure [Right Arm] Blood Pressure Mean 102 Blood Pressure Mean [Right Arm] Blood Pressure Source [Right Arm] Blood Pressure Position [Right Arm] 02 Sat by Pulse Oximetry 100 100 Oxygen Delivery Method 02/25/25 20:00 Temperature Temperature Source Pulse Rate 62 Pulse Rate [Right Brachial] Respiratory Rate 10 L Blood Pressure 128/86 Blood Pressure [Right Arm] Blood Pressure Mean Blood Pressure Mean [Right Arm] Blood Pressure Source [Right Arm] Blood Pressure Position [Right Arm] 02 Sat by Pulse Oximetry 99 Oxygen Delivery Method Lab Data Lab results reviewed: Yes I reviewed the patient's lab results. Lab Results 02/25/25 17:09: WBC 4.7, RBC 4.96, Hgb 13.5, Hct 40.5, MCV 81.7, MCH 27.2, MCHC 33.3, RDW 12.5, Plt Count 236, MPV 9.1, Neut % (Auto) 64.0, Lymph % (Auto) 28.3, Dane % (Auto) 6.2, Eos % (Auto) 0.9, Baso % (Auto) 0.4, Neut # (Auto) 3.0, Lymph # (Auto) 1.3, Dane # (Auto) 0.3, Eos # (Auto) 0.0, Baso # (Auto) 0.0, PT 11.4, INR 1.03, D-Dimer 0.78 H, Sodium 140, Potassium 3.6, Chloride 105, Carbon Dioxide 25, Anion Gap 13.6, BUN 6 L, Creatinine 0.80, Estimated Creat Clear 88, Estimated GFR 91, Est GFR ( Amer) 111, Glucose 105 H, Calcium 9.3, Total Bilirubin 0.6, AST 31, ALT 25, Alkaline Phosphatase 77, Troponin I < 0.01, NT-Pro-B Natriuret Pep < 20.0, Total Protein 7.6, Albumin 4.7, Globulin 2.9, Albumin/Globulin Ratio 1.6, Lipase 78, Serum HCG, Qual Negative 02/25/25 19:45: Troponin I < 0.01 02/25/25 17:09 02/25/25 17:09 Orders (Tests/Meds): ED MEDICATIONS Generic Name Dose Route Start Last Admin Trade Name Freq PRN Reason Stop Dose Admin Sodium Chloride 10 ml 02/25/25 18:31 02/25/25 18:33 Sodium Chloride 0.9% 10ml Syr (Rad Only) IV 03/27/25 18:30 10 ml NEEDED PRN Administration Maintain IV Site Discontinued Medications Generic Name Dose Route Start Last Admin Trade Name Freq PRN Reason Stop Dose Admin Aspirin 325 mg 02/25/25 17:27 02/25/25 17:30 Aspirin 325mg Tablet PO 02/25/25 17:28 325 mg ONCE ONE Administration Iopamidol 75 ml 02/25/25 18:31 02/25/25 18:32 Iopamidol-370 (76%);100ml Bottle IV 02/25/25 18:32 75 ml ONCE ONE Administration Morphine Sulfate 2 mg 02/25/25 17:15 02/25/25 17:53 Morphine 4mg/Ml Syringe IV 02/25/25 17:16 Not Given ONCE ONE Ondansetron HCl 4 mg 02/25/25 17:15 02/25/25 17:48 Ondansetron 4mg/2ml Vial IV 02/25/25 17:16 4 mg ONCE ONE Administration Sodium Chloride 50 ml 02/25/25 18:31 02/25/25 18:32 0.9 % Sodium Chloride 50 Ml Vial IV 02/25/25 18:32 50 ml ONCE ONE Administration ORDERS Category Date Time Status CT angio chest PE protocol Stat Cat Scan 02/25/25 18:20 Completed XR chest portable Stat Exams 02/25/25 17:13 Completed Complete Blood Count Auto Diff Stat Lab 02/25/25 17:09 Completed Comprehensive Metabolic Panel Stat Lab 02/25/25 17:09 Completed D-Dimer Stat Lab 02/25/25 17:09 Completed HCG Qualitative, Serum Stat Lab 02/25/25 17:09 Completed Lipase Stat Lab 02/25/25 17:09 Completed NT Pro Brain Natriuretic Pep. Stat Lab 02/25/25 17:09 Completed PT INR [Prothrombin Time INR] Stat Lab 02/25/25 17:09 Completed Troponin I Q3H Lab 02/25/25 19:45 Completed Troponin I Q3H Lab 02/25/25 23:15 Ordered Troponin I Stat Lab 02/25/25 17:09 Completed Medical Decision Narrative: 19-year-old female presents the emergency department with right-sided chest pain, some radiation into her shoulder and back, that is pleuritic in nature, for the last 2 hours, differential diagnose include but not limited to, ACS, cardiac arrhythmia, electrolyte disturbance, costochondritis, anxiety type reaction, gastritis, GERD, panic attack, PE among others. I discussed patient case with attending physician Will obtain basic laboratory studies, CXR, EKG, D-dimer, hCG qualitative, lipase, proBNP, PT/INR, troponin, will give 325 mg p.o. aspirin for pain, 2 mg IV morphine and 4 mL of IV Zofran for pain and nausea. hCG qualitative negative CBC unremarkable CMP unremarkable, coags within normal limits. I was notified by nursing staff at approximately 5:52 PM, that the patient is refusing morphine administration, patient states I do not like the way it makes me feel. Will forego morphine and Zofran administration. Initial troponin is less than 0.01, proBNP within normal limits. D-dimer is minimally elevated at 0.78, will obtain CTA chest with and without contrast PE protocol Reexamination of the patient at approximately 6:15 PM, patient is resting comfortably in bed, says at this time chest pain is subsided only while at rest, worsened with certain movements. I reviewed the patient's CTA chest with and without contrast PE protocol, no pulmonary embolism, trace right pleural effusion. Repeat troponin is within normal limits at less than 0.01, thus ruling out ACS, discussed results with the patient at bedside, patient has pleuritic chest pain and point tenderness, most likely musculoskeletal versus costochondral cause of the patient's pain. Patient was given strict ED return precautions, recommend ibuprofen, no other anti-inflammatory medicines as needed for pain. Patient voiced understanding and agreed with the current treatment plan/discharge plan. Heart score of 0. Critical Care Critical Care Time Critical Care Time: No
--- OUTSIDE RECORDS SUMMARY | 2025-02-25 17:14 | XMS_ITS | Clinical Summary ---
Author Organization [facility] Address [address] [place] [address] Care Team Providers Care Drop Wire Operator Name Role Phone Jasmeet Kelly MD Primary Care Provider [phone] Allergies No known active allergies Medications Doxylamine-Pyr [...] as needed for pain or fever. 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 Yes Care Teams Drop Wire Operator Relationship Specialty Start Date End Date Jasmeet Kelly MD [address] [place] [address] #1 #1 ERIKA Adame [id number] PCP - General 08/27/24
--- OUTSIDE RECORDS SUMMARY | 2025-02-25 17:15 | XMS_ITS | Clinical Summary ---
Author Organization [facility] Address [address] [place] [address] Phone Care Team Providers Care Optimization Engineer Name Role Phone Carleen Xiong MD Primary Care Provider [phone] Chey Landry POUND KEEPER Unavailable [phone] Allergies Active Allergy Reactions Criticality Noted Date [...] disorder) 09/19/2016 Overview (09/19/2016): Dx at [facility] 09/18/16, treated Zoloft. Generalized anxiety disorder 09/19/2016 Overview (09/19/2016): Dx at [facility] 09/18/16, treated Zoloft. Mild single current episode of major depressive disorder 09/19/2016 Overview (09/19/2016): Dx at [facility] 09/18/16, treated Zoloft. Immunizations Immunization Administration Dates [...] Generalized anxiety disorder 09/19/2016 Dx at [facility] 09/18/16, treated Zoloft. Mild single current episode of major depressive disorder 09/19/2016 Dx at [facility] 09/18/16, crystal ated Zoloft. PTSD (post-traumatic stress disorder) 09/19/2016 Dx at [facility] 09/18/16, treated Zoloft. Family History Medical History [...] and heating? Not hard at all 06/30/2021 [facility] [place] [facility] Occupat ional Health - Occupational Stress [...] Annual Wellness Exam 04/13/2024 04/13/2023 Influenza Vaccine (#1) 2025 , 08/06/2017 (Declined), 03/30/2016 (Declined), Additional history exists [...] Detected 01/19/2023 5:31 AM EDT PREFERRED LAB [facility], [facility] Neisseria gonorrhoeae Not Detected Not Detected 01/19/2023 5:31 AM EDT [facility] ENDOCERVICAL STRUCTURE / Unknown 01/18/2023 1:37 PM EDT 01/18/2023 1:37 PM EDT Narrative [facility] - 01/19/2023 5:31 AM EDT Testing methodology is professional advisor mediated amplification (TMA) using the Aptima Combo 2 assay from [employer]. A negative result does not completely rule [...] MICROBIOLOGY - GENERAL OR DERABLES Final Result [facility] [address] [facility] , [address] [place] [id number] from Last 3 Months or Most Recently Relevant to Health Maintenance Insurance [facility] CHOICE [place] [id number] [place] [phone] [place] [address] [place] [phone] [facility] CHOICE PLUS [id number] * Guarantor: [employer] Account Type Relation to Patient Date of Phone Billing Address [facility] [address] Care Teams Optimization Engineer Relationship Specialty Start Date End Date Carleen Xiong MD [address] [place] [address] PCP - General Family Medicine 09/10/15 Chey Landry APRN [address] [place] [id number] Nurse Practitioner 02/01/16
--- OUTSIDE RECORDS SUMMARY | 2025-02-25 17:15 | XMS_ITS | Clinical Summary ---
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 08/28/2024 Active ondansetron (ZOFRAN) 4 MG tablet Take 1 tablet by mouth Every 8 (Eight) Hours As Needed. Active Vit-Fe Fumarate-FA ( vitamin 27-0.8) 27-0.8 MG tablet tablet Take by mouth Daily. Active Active Problems Problem Noted Date Diagnosed Date premature rupture of membranes (PPROM) with onset of labor within 24 hours of rupture in third trimester, antepartum 12/26/2024 IUGR (intrauterine growth re tardation) affecting mother, third trimester, not applicable or unspecified fetus 12/03/2024 Assessment & Plan (12/24/2024 8:30 AM EDT): Patient returns today for complicated by intrauterine growth restriction. Patient had an ultrasound performed in our office on 17 December demonstrating abdominal circumference at the 4th percentile and estimated weight at the 6 percentile. Patient reports is being right abdominal tenderness although it tends to radiate lower in her abdomen. She has an occasional headache with blurry vision. She reports no headache now. She notes good movement. Ultrasound today demonstrates a fetus that appears healthy. Amniotic fluid volume and umbilical artery Dopplers are normal. BPP is 8 out of 8. Patient's blood pressure is 116/85 in our office which is consistent with her other pressures that we have seen in this . Owing to her vague symptoms we will send preeclampsia panel and a CBC to assess for possible occult preeclampsia. Patient was counseled regarding signs and symptoms of preeclampsia and will contact her provider immediately if she notices symptoms. We would recommend continuing testing. We will rescan the patient again in 1 week's time to assess growth and wellbeing. Patient was counseled extensively regarding movement and will contact her provider immediately if she notices any decreased movement. Assessment & Plan (12/17/2024 8:50 AM EDT): Patient presents for follow-up growth ultrasound secondary to IUGR. Last ultrasound showed overall growth at the 8th percentile and AC at the 2nd percentile. Today's ultrasound shows overall growth at the 6 percentile and AC at the 4th percentile. Roughly 300 g of growth over the past 2 weeks. DANIELLE and BPP are normal. Umbilical artery Dopplers are stably elevated. We discussed continued twice weekly testing with weekly DANIELLE BPP, umbilical artery Dopplers here. We discussed that if growth, Dopplers, and testing remain stable plan would be for 37-week delivery. We discussed careful return precautions regarding decreased movement. Assessment & Plan (12/03/2024 9:02 AM EDT): There is considerable variability in the definition of what constitutes a growth-restricted fetus. Definitions have included estimated weight below the 3rd percentile, below the 5th percentile or below the 10th percentile for gestational age. Subnormal growth may be a consequence of error in dating criteria or result from chronic uteroplacental insufficiency, exposure to drugs or environmental agents, congenital infections or intrinsic genetic limitations of growth potential. Early or symmetric IUGR can suggest chromosomal abnormalities such as trisomies, triploidies or maternal uniparental disomy. Asymmetrical IUGR may result from nutritional compromise with sparing of head growth and be associated with tobacco abuse, chronic placental abnormalities such as abruption or as a harbinger of preeclampsia. Current recommendations by Copel and Isiahr for the management of growth restriction, (Obstet Gynecol November 2013) suggest for patients at term (37 0/7 weeks' gestation or more) that delivery be affected if the estimated weight is less than the 5th percentile, or oligohydramnios is present with an estimated weight of less than the 10th percentile, or with worsening testing results. Otherwise, delivery can be delayed as long as testing is reassuring with plans for elective delivery at 39 weeks' gestation. Induction of labor can be attempted depending on the indication for delivery. If the diagnosis of IUGR is (before 37 weeks' gestation), it is not possible to make absolute recommendations on timing unless other testing is reassuring based on the data from the Growth Restriction Intervention Trial (GRIT), a multinational prospective randomized study (Lancet 2004). It is suggested that growth be monitored every two weeks with consideration for delivery if no growth occurs over the course of 14 days. The patient should receive twice weekly nonstress testing with amniotic fluid volume assessment. Further, the literature would support weekly Doppler ultrasonography of the umbilical artery in the setting of intrauterine growth retardation with hospitalization for evidence of absent or reverse end-diastolic velocities. Delivery should also be considered for worsening testing (biophysical profile score less than 6/8 or nonreassuring heart rate tracing). When delivery before 32 weeks' gestation is imminent, consider intravenous magnesium sulfate administration for neuroprotection. 12/03/2024 Placental abnormality, antepartum 12/03/2024 Assessment & Plan (12/03/2024 9:08 AM EDT): Patient referred for complicated by placental abnormality noted on ultrasound performed at patient's OB office. Patient reports no other complications this she does note that she was examined in [place] and was noted to be 2 cm dilated and 50% effaced. Ultrasound today demonstrates a fetus with overall growth at the 7th percentile and abdominal circumference at the 1st percentile. Amniotic fluid volume is normal. Umbilical artery Dopplers are at upper limits of normal. BPP is 8 out of 8. Anterior placenta appears normal. I do not see a placental abnormality that concerns me but the fetus does demonstrate intrauterine growth restriction. We have recommended that the patient go to bed rest and increase nutrition. Patient reports that she does not smoke or vape. We would recommend twice weekly testing. We will perform BPP and Doppler in 1 week in diagnostic center and recommend that she have testing the second time of the week at her local OB office. Most likely will recommend delivery at 37 weeks gestation if no other complications arise. Patient was counseled extensively regarding signs and symptoms of labor and will contact her provider immediately if she notices signs or symptoms of labor. Additionally, patient was counseled regarding movement will contact her provider immediately if she notices decreased movement. Irregular menses 11/16/2023 Estimated Date of Delivery Comme nts Yes 02/08/2025 Date entered jake or to episode creation Encounters Date Type Department Care Team Description 12/26/2024 12:53 AM EDT - 01/04/2025 9:50 AM EDT Hospital Encounter [facility] ANTEPARTUM [address] [place] [address] Bishop Bravo III, MD O'Broin, Seamus, MD Discharge Disposition: Home or Self Care 12/26/2024 Travel 12/25/2024 Telephone [facility] [address] [phone] Rick Templeton MD Results (Pt calling for lab results.) 12/24/2024 8:55 AM EDT Lab [facility] [address] [place] [address] 12/24/2024 8:15 AM EDT Office Visit [facility] [address] [phone] Rick Templeton MD IUGR (intrauterine growth retardation) affecting mother, third trimester, not applicable or unspecified fetus (Primary Dx); , unspecified gestational age 0612/24/2024 7:56 AM EDT - 12/24/2024 11:59 PM EDT Hospital Encounter [facility] US PER DIAG CTR [address] [place] [address] Discharge Disposition: Home or Self Care 12/24/2024 Travel 12/17/2024 8:00 AM EDT Office Visit [facility] [address] [facility] [address] [place] [phone] Zain Gaona MD IUGR (intrauterine growth retardation) affecting mother, third trimester, not applicable or unspecified fetus (Primary Dx) 12/17/2024 7:31 AM EDT - 12/17/2024 11:59 PM EDT Hospital Encounter [facility] [address] [place] [phone] Sherlyn Jenkins MD 31 weeks gestation of ; IUGR (intrauterine growth retardation) affecting mother, third trimester, not applicable or unspecified fetus; Placental abnormality, antepartum Discharge Disposition: Home or Self Care 12/17/2024 Travel 12/10/2024 3:15 PM EDT Office Visit [facility] [address] [phone] Sherlyn Jenkins MD 31 weeks gestation of (Primary Dx); IUGR (intrauterine growth retardation) affecting mother, third trimester, not applicable or unspecified fetus; Placental abnormality, antepartum 12/10/2024 2:54 PM EDT - 12/10/2024 11:59 PM EDT Hospital Encounter [facility] [address] [place] [phone] Rick Templeton MD Placental abnormality, antepartum; , unspecified gestational age; IUGR (intrauterine growth retardation) affecting mother, third trimester, not applicable or unspecified fetus Discharge Disposition: Home or Self Care 12/10/2024 Travel 12/03/2024 8:30 AM EDT Office Visit [facility] [address] [phone] Rick Templeton MD Placental abnormality, antepartum (Primary Dx); , unspecified gestational age; IUGR (intrauterine growth retardation) affecting mother, third trimester, not applicable or unspecified fetus 12/03/2024 8:01 AM EDT - 12/03/2024 11:59 PM EDT Hospital Encounter [facility] PER DI[facility] [address] [place] [phone] Chey Bingham DO Placental abnormality in second trimester; , unspecified gestational age Discharge Disposition: Home or Self Care 12/03/2024 Travel from Last 3 Months Social History Tobacco Use Types Packs/Day Years Used Date Smoking Tobacco: Never Passive Smoke Exposure: Never Smokeless Tobacco: Never Tobacco Cessation:Counseling Given: No Alcohol Use Standard Drinks/Week Comments Not Currently 0 (1 standard drink = 0.6 oz pur e alcohol) [facility] Utilities Answer Date Recorded In the past 12 months has th e [employer], gas, oil, or water [email or web address] threatened to shut off services in your [...] and heating? Not hard at all 12/26/2024 [facility] [place] of Occupat ional Health - Occupational Stress [...] GED or equivalent No 12/26/2024 Preferred Language Prydeinig 12/26/2024 PHQ-2 Answer Date Recorded Patient Health Questionnaire-2 Score 0 12/26/2024 Estimated Date of Delivery Comme nts Yes 02/08/2025 Date entered jake or to episode creation Sex and Gender Information Value Date Recorded Sex Assigned at Female 12/02/2024 10:18 AM EDT Legal Sex Female 10:48 AM EST Gender Identity Not on file Sexual Orientation Straight 12/02/2024 10 :18 AM EDT Last Filed Vital Signs Vital Sign Reading [...] Mass Index 19.69 12/26/2024 1:43 AM EDT Plan of Treatment Health Maintenance Due Date Last Done Comments MENINGOCOCCAL B VACCINE (1 o f 2 - Standard) 2020 ANNUAL PHYSICAL 09/12/2023 HEPATITIS C SCREENING 09/12/2023 COVID-19 Vaccine (2 - 2023-2 5 season) 2024 02/19/2023 INFLUENZA VACCINE 04/08/2025 05/26/2020 TDAP/TD VACCINES (3 - Td or Tdap) 03/12/2034 03/12/2024, 09/10/2015 HPV VACCINES Completed 01/06/2019, 10/12/2017 MENINGOCOCCAL VACCINE Completed 08/03/2020 , 09/10/2015 Pneumococcal Vaccine 0-49 Aged Out No longer eligible based on patient's age to complete this topic RSV Vaccine - Adults (No Dos es Required) Completed Procedures Procedure Name Priority Date/Time Associated Diagnosis [...] URINE CULTURE STAT 01/03/2025 2:40 PM EDT [facility] Routine 12/31/2024 7:35 AM EDT ANTIBODY IDENTIFICATION STAT 12/30/2024 2:17 PM EDT TYPE AND SCREEN STAT 12/30/2024 2:17 PM EDT PRE-ECLAMPSIA PANEL STAT 12/30/2024 2 :17 PM EDT CBC (NO DIFF) STAT 12/30/2024 2:17 PM EDT [facility] Routine 12/29/2024 7:47 AM EDT POCT AMNISURE ROM TEST Routine 9:45 AM EDT PROTEIN / CREATININE RATIO, URINE Routine 12/28/2024 6:40 AM EDT CBC (NO DIFF) Routine 12/28/2024 5:30 AM EDT COMPREHENSIVE METABOLIC PANEL Routine 12/28/2024 5:30 AM EDT POCT AMNISURE ROM TEST Routine 12:52 PM EDT [facility] Routine 12/26/2024 7:45 AM EDT ABORH 2ND SPECIMEN VERIFICATION STAT 12/26/2024 5:02 AM EDT ANTIBODY IDENTIFICATION Routine 12/26/2024 3:47 AM EDT TYPE AND SCREEN Routine 12/26/2024 3:47 AM EDT CBC (NO DIFF) Routine 12/26/2024 3:47 AM EDT COMPREHENSIVE METABOLIC PANEL Routine 12/26/2024 3:46 AM EDT URIC ACID Routine 12/26/2024 3:46 AM EDT LACTATE DEHYDROGENASE Routine 12/26/2024 3:46 AM EDT TREPONEMA PALLIDUM AB W/REFLEX RPR Routine 12/26/2024 3:46 AM EDT URINALYSIS W/ MICROSCOPIC IF INDICATED (NO CULTURE) STAT 12/26/2024 2:15 AM EDT PROTEIN / CREATININE RATIO, URINE Routine 12/26/2024 2:14 AM EDT CBC AND DIFFERENTIAL Routine 12/24/2024 8:53 AM EDT IUGR (intrauterine growth retardation) affecting mother, third trimester, not applicable or unspecified fetus , unspecified gestational age CBC WITH AUTO DIFFERENTIAL Routine 12/24/2024 8:53 AM EDT IUGR (intrauterine growth retardation) affecting mother, third trimester, not applicable or unspecified fetus , unspecified gestational age PRE-ECLAMPSIA PANEL Routine 12/24/2024 8 :53 AM EDT IUGR (intrauterine growth retardation) affecting mother, third trimester, not applicable or unspecified fetus , unspecified gestational age [facility] Routine 12/24/2024 8:39 AM EDT IUGR (intrauterine growth retardation) affecting mother, third trimester, not applicable or unspecified fetus [facility] Routine 12/17/2024 8:17 AM EDT 31 weeks gestation of IUGR (intrauterine growth retardation) affecting mother, third trimester, not applicable or unspecified fetus Placental abnormality, antepartum [facility] Routine 12/10/2024 3:21 PM EDT Placental abnormality, antepartum , unspecified gestational age IUGR (intrauterine growth retardation) affecting mother, third trimester, not applicable or unspecified fetus POCT PROTEIN, URINE, QUALITATIVE, DIPSTICK Routine 12/10/2024 3:09 PM EDT 31 weeks gestation of [facility] Routine 12/03/2024 9:09 AM EDT Placental abnormality in second trimester , unspecified gestational age from Last 3 Months Results * Urinalysis With Microscopic If Indicated (No Culture) - Straight Cath (01/04/2025 12:01 AM EDT) Only the most recent of3 resultswithin the time period is included. Color, UA Yellow Yellow, Straw 01/04/2025 12:16 AM EDT [facility] Appearance, UA Clear Clear 01/04/2025 12:16 AM EDT [facility] pH, UA 6.5 5.0 - 8.0 01/04/2025 12:16 AM EDT [facility] Specific [place], UA 1.008 1.001 - 1.030 01/04/2025 12:16 AM EDT [facility] Glucose, UA Negative Negative 01/04/2025 12:16 AM EDT [facility] Ketones, UA Negative Negative 01/04/2025 12:16 AM EDT [facility] Bilirubin, UA Negative Negative 01/04/2025 12:16 AM EDT [facility] Blood, UA Negative Negative 01/04/2025 12:16 AM EDT [facility] Protein, UA Negative Negative 01/04/2025 12:16 AM EDT [facility] Leuk Esterase, UA Negative Negative 01/04/2025 12:16 AM EDT [facility] Nitrite, UA Negative Negative 01/04/2025 12:16 AM EDT [facility] Urobilinogen, UA 1.0 E.U./dL 0.2 - 1.0 E.U./dL 01/04/2025 12:16 AM EDT [facility] Urine (Straight Cath) Collection / Unknown 01/04/2025 12:01 AM EDT 01/04/2025 12:12 AM EDT Narrative [facility] - 01/04/2025 12:16 AM EDT Urine microscopic not indicated. us Peterson L High MD URINE ORDERABLES Final Result [facility]
[address] [place] [address], * (ABNORMAL) Urinalysis, Microscopic Only - Urine, Clean Catch (01/03/2025 9:05 PM EDT) Only the most recent of2 resultswithin the time period is included. RBC, UA 3-5(A) None Seen, 0-2 /HPF 01/03/2025 9:29 PM EDT [facility] WBC, UA 21-50(A) None Seen, 0-2 /HPF 01/03/2025 9:29 PM EDT [facility] Bacteria, UA 3+(A) None Seen, Trace /HPF 01/03/2025 9:29 PM EDT [facility] Squamous Epithelial Cells, UA 21-30(A) None Seen, 0-2 /HPF 01/03/2025 9:29 PM EDT [facility] Hyaline Casts, UA 0-6 0 - 6 /LPF 01/03/2025 9:29 PM EDT [facility] Methodology Manual Light Microscopy 01/03/2025 9:29 PM EDT [facility] Urine Urine specimen obtained by clean catch procedure / Unknown Collection / Unknown 01/03/2025 9:05 PM EDT 01/03/2025 9:18 PM EDT us Peterson Medina MD URINE ORDERABLES Final Result [facility]
[address] [place] [address], * (ABNORMAL) Urinalysis With Culture If Indicated - Urine, Clean Catch (01/03/2025 2:40 PM EDT) Color, UA Yellow Yellow, Straw 01/03/2025 3:38 PM EDT [facility] Appearance, UA Cloudy(A) Clear 01/03/2025 3:38 PM EDT [facility] pH, UA 5.5 5.0 - 8.0 01/03/2025 3:38 PM EDT [facility] Specific [place], UA 1.023 1.001 - 1.030 01/03/2025 3:38 PM EDT [facility] Glucose, UA Negative Negative 01/03/2025 3:38 PM EDT [facility] Ketones, UA Trace(A) Negative 01/03/2025 3:38 PM EDT [facility] Bilirubin, UA Negative Negative 01/03/2025 3:38 PM EDT [facility] Blood, UA Trace(A) Negative 01/03/2025 3:38 PM EDT [facility] Protein, UA Trace(A) Negative 01/03/2025 3:38 PM EDT [facility] Leuk Esterase, UA Moderate (2+)(A) Negative 01/03/2025 3:38 PM EDT [facility] Nitrite, UA Negative Negative 01/03/2025 3:38 PM EDT [facility] Urobilinogen, UA 1.0 E.U./dL 0.2 - 1.0 E.U./dL 01/03/2025 3:38 PM EDT [facility] Urine Urine specimen obtained by clean catch procedure / Unknown Collection / Unknown 01/03/2025 2:40 PM EDT 01/03/2025 3:08 PM EDT [facility] - 01/03/2025 3:38 PM EDT In absence of clinical symptoms, the presence of pyuria, bacteria, and/or nitrites on the urinalysis result does not correlate with infection. us Hernandez Carolina MD URINE ORDERABLES Final Result [facility]
[address] [place] [address], * Urine Culture - Urine, Urine, Clean Catch (01/03/2025 2:40 PM EDT) Urine Culture No growth ELAINE 01/04/2025 10:57 AM EDT [facility] Urine Urine specimen obtained by clean catch procedure / Unknown Collection / Unknown 01/03/2025 2:40 PM EDT 01/03/2025 3:08 PM EDT Hernandez Carolina MD MICROBIOLOGY - GENERAL ORDERAB LES Final Result [facility]
[address] [place] [address], * [facility] (12/31/2024 7:35 AM EDT) Only the most recent of7 resultswithin the time period is included. Anatomical Region Laterality Modality Ultrasound 12/31/2024 7:20 AM EDT Narrative 12/31/2024 7:49 AM EDT PAT NAME: JERRI HAM MED REC#: [id number] DA: 2005 PAT GEND: F PAT TYPE: I EXAM PAN: [id number] REF PHYS [place] Comparison Studies The [...] EFW (oz) 6 oz EFW by: Hadlock ([id number]) Extended CM 4.6 mm 1% Nicolaides Head [...] Normal Heart / Thorax 3-vessel view: Normal 4-kpxkel-ymjyugp view: normal Cord insertion: Normal Stomach: Appears [...] Amniotic fluid volume 02/13 Biophysical profile score Impression ========= Size consistent with dates. No anomalies were identified. Amniotic fluid volume is normal. Umbilical artery S/D ratio is normal. BPP 02/13 today. Patient counseled re movement. Recommendation Continue in hospital management. Coding ====== Description: 95442-94 Follow Up Ultrasound Description: 32840-12 BPP without NST Description: 51338-98 Doppler Umbilical Artery Full Stack Software Developer: Shagufta Bravo RDMS Physician: Cyrus Templeton MD, FACOG Electronically signed by: Cyrus Templeton MD, FACOG at: 07:49 Procedure Note Rick Templeton MD - 12/31/2024 PAT NAME: JERRI HAM MED REC#: [id number] DA: 2005 PAT GEND: F PAT TYPE: I EXAM PAN: [id number] REF PHYS [place] Comparison Studies The findings of this study are compared to the prior ultrasound studydated 12/29/24 Patient Status Inpatient Indication ======== PPROM, Hyperthyroid IUGR. Maternal Assessment [id number] cm Height (ft)5 ft Height (in)6 in Htortu55 kg Weight (lb)121 lb BMI19.72 kg/m Method ======= Transabdominal ultrasound examination. View: Adequate view ========= Barba . Number of fetuses: 1 Dating ====== GA by prior w + 3 d ETHEL by prior [...] GA34 w + 3 d Assigned ETHEL:02/08/2025 [id number] d Biometry Standard BPD78.7 mm 31w 4d 1% Hadlock LEA225.6 mm 34w 2d 48% Margarita HC293.0 mm 32w 2d <1% Hadlock Cerebellum tr38.7 mm 31w 3d 3% Hill AC283.1 mm 32w 2d 7% Hadlock Femur63.8 mm 33w 0d 10% Hadlock HC / AC1.03 EFW1,978 g 32w 1d 7% Hadlock EFW (lb)4 lb EFW (oz)6 oz EFW by:Hadlock (PCE-IE-PN-FL) Extended CM4.6 mm 1% Nicolaides Head / Face / Neck Cephalic index0.75 6% Nicolaides Extremities / Bony Struc FL / BPD0.81 FL / HC0.22 FL / AC0.23 Other Structures [id number] bpm General Evaluation Cardiac activity present. FHR [...] LVOT view:Normal Heart / Thorax 3-vessel view:Normal 4-vxmgic-cthilab view:normal Cord insertion:Normal Stomach:Appears normal Kidneys:Appears normal [...] Recommendation Continue in hospital management. Coding ====== Description:98622-98 Follow Up Ultrasound Description:31339-58 BPP without NST Description:92085-86 Doppler Umbilical Artery Full Stack Software Developer: Shagufta Bravo RDMS Physician: Cyrus Templeton MD, FACOG Electronically signed by: Cyrsu Templeton MD, FACOG at: 07:49 us Pepe Gomez DO [facility] [place]ABLES Final Res ult * (ABNORMAL) Preeclampsia Panel (12/30/2024 2:17 PM EDT) Only the most recent of2 resultswithin the time period is included. Alkaline Phosphatase 129(H) 39 - 117 U/L 12/30/2024 3:28 PM EDT [facility] ALT (SGPT) 15 1 - 33 U/L 12/30/2024 3:28 PM EDT [facility] AST (SGOT) 19 1 - 32 U/L 12/30/2024 3:28 PM EDT [facility] Creatinine 0.54(L) 0.57 - 1.00 mg/dL 12/30/2024 3:28 PM EDT [facility] Total Bilirubin 0.2 0.0 - 1.2 mg/dL 12/30/2024 3:28 PM EDT [facility] LDH 165 135 - 214 U/L 12/30/2024 3:28 PM EDT [facility] Uric Acid 3.8 2.4 - 5.7 mg/dL 12/30/2024 3:28 PM EDT [facility] Blood Venipuncture / Unknown 12/30/2024 2:17 PM EDT 12/30/2024 2:53 PM EDT Pepe Gomez LAB BLOOD ORDERABLES Final Result Performing Organization Address City/[facility]/ZIP Co de Phone Number [facility]
[address] [place] [address], [place] [phone] * Antibody Identification (12/30/2024 2:17 PM EDT) Only the most recent of2 resultswithin the time period is included. Residual RhIG Detected RESIDUAL RHIG DETECTED 12/30/2024 5:11 PM EDT [facility] Blood Venipuncture / Unknown 12/30/2024 2:17 PM EDT 12/30/2024 2:58 PM EDT Pepe Gomez BLOOD BANK TEST ORDERABLES Final Result [facility]
[address] [place] [address], [place] [phone] * (ABNORMAL) CBC (No Diff) (12/30/2024 2:17 PM EDT) Only the most recent of3 resultswithin the time period is included. WBC 9.09 3.40 - 10.80 10*3/mm3 12/30/2024 3:07 PM EDT [facility] [facility] RBC 3.93 3.77 - 5.28 10*6/mm3 12/30/2024 3:07 PM EDT [facility] Hemoglobin 11.5(L) 12.0 - 15.9 g/dL 12/30/2024 3:07 PM EDT [facility] Hematocrit 34.6 34.0 - 46.6 % 12/30/2024 3:07 PM EDT [facility] MCV 88.0 79.0 - 97.0 fL 12/30/2024 3:07 PM EDT [facility] MCH 29.3 26.6 - 33.0 pg 12/30/2024 3:07 PM EDT [facility] MCHC 33.2 31.5 - 35.7 g/dL 12/30/2024 3:07 PM EDT [facility] RDW 13.0 12.3 - 15.4 % 12/30/2024 3:07 PM EDT [facility] RDW-SD 42.0 37.0 - 54.0 fl 12/30/2024 3:07 PM EDT [facility] MPV 9.9 6.0 - 12.0 fL 12/30/2024 3:07 PM EDT [facility] Platelets 189 140 - 450 10*3/mm3 12/30/2024 3:07 PM EDT [facility] Blood Venipuncture / Unknown 12/30/2024 2:17 PM EDT 12/30/2024 2:53 PM EDT Pepe Gomez DO LAB BLOOD ORDERABLES Final Result [facility]
[address] [place] [address], * Type & Screen (12/30/2024 2:17 PM EDT) Only the most recent of2 resultswithin the time period is included. ABO Type A 12/30/2024 3:39 PM EDT [facility] RH type Negative 12/30/2024 3:39 PM EDT [facility] Antibody Screen Positive 12/30/2024 3:39 PM EDT [facility] T&S Expiration Date 01/02/2025 11:59:59 PM 12/30/2024 3:39 PM EDT [facility] Blood Venipuncture / Unknown 12/30/2024 2:17 PM EDT 12/30/2024 2:58 PM EDT us Pepe Gomez DO BLOOD BANK TEST ORDERABLES Edited Result - Final [facility]
[address] [place] [address], * POC Amnisure (12/28/2024 9:45 AM EDT) Only the most recent of2 resultswithin the time period is included. Pathologist [facility] Amnisure Negative Negative [facility] Amniotic Fluid 12/28/2024 9: 45 AM EDT us Pepe Gomez DO POINT OF CARE TEST ORDERABL ES Final Result Performing Organization Address City/[facility]/ZIP Co de Phone Number [facility]
[address] [place] [address], * Protein / Creatinine Ratio, Urine - Urine, Clean Catch (12/28/2024 6:40 AM EDT) Only the most recent of2 resultswithin the time period is included. Pathologist [facility] Protein/Creati nine Ratio, Urine 126.4 0.0 - 200.0 mg/G Crea 12/28/2024 1:06 PM EDT [facility] Creatinine, Urine 45.9 mg/dL 12/28/2024 1:06 PM EDT [facility] Total Protein, Urine 5.8 mg/dL 12/28/2024 1:06 PM EDT [facility] Urine Urine specimen obtained by clean catch procedure / Unknown Collection / Unknown 12/28/2024 6:40 AM EDT 12/28/2024 6:49 AM EDT us Pepe Gomez DO URINE ORDERABLES Final Resu lt [facility]
[address] [place] [address], * (ABNORMAL) Comprehensive Metabolic Panel (12/28/2024 5:30 AM EDT) Only the most recent of2 resultswithin the time period is included. [facility] Glucose 96 65 - 99 mg/dL 12/28/2024 6:30 AM EDT [facility] BUN 3.9(L) 6.0 - 20.0 mg/dL 12/28/2024 6:30 AM EDT [facility] Creatinine 0.57 0.57 - 1.00 mg/dL 12/28/2024 6:30 AM EDT [facility] Sodium 137 136 - 145 mmol/L 12/28/2024 6:30 AM EDT [facility] Potassium 4.2 3.5 - 5.2 mmol/L 12/28/2024 6:30 AM EDT [facility] Chloride 108(H) 98 - 107 mmol/L 12/28/2024 6:30 AM EDT [facility] CO2 21.0(L) 22.0 - 29.0 mmol/L 12/28/2024 6:30 AM EDT [facility] Calcium 7.9(L) 8.6 - 10.5 mg/dL 12/28/2024 6:30 AM [facility] Total Protein 5.3(L) 6.0 - 8.5 g/dL 12/28/2024 6:30 AM [facility] Albumin 2.9(L) 3.5 - 5.2 g/dL 12/28/2024 6:30 AM [facility] ALT (SGPT) 6 1 - 33 U/L 12/28/2024 6:30 AM T [facility] AST (SGOT) 11 1 - 32 U/L 12/28/2024 6:30 AM [facility] Alkaline Phosphatase 108 39 - 117 U/L 12/28/2024 6:30 AM [facility] Total Bilirubin 0.2 0.0 - 1.2 mg/dL 12/28/2024 6:30 AM [facility] Globulin 2.4 gm/dL 12/28/2024 6:30 AM [facility] Comment:Calculated Result A/G Ratio 1.2 g/dL 12/28/2024 6:30 AM [facility] BUN/Creatinine Ratio 6.8(L) 7.0 - 25.0 12/28/2024 6:30 AM [facility] Anion Gap 8.0 5.0 - 15.0 mmol/L 12/28/2024 6:30 AM [facility] eGFR 133.6 >60.0 mL/min/1.7 3 12/28/2024 6:30 AM [facility] Blood Venipuncture / Unknown 12/28/2024 5:30 AM EDT 12/28/2024 6:03 AM [facility] - 12/28/2024 6:30 AM EDT [...] does not include race as a factor Pepe Gomez DO LAB BLOOD ORDERABLES Final Result [facility]
[address] [place] [address], * ABO RH Specimen Verification (12/26/2024 5:02 AM EDT) ABO Type A 12/26/2024 6:40 AM EDT [facility]ORAT[facility] RH type Negative 12/26/2024 6:40 AM EDT [facility] Blood Venipuncture / Unknown 12/26/2024 5:02 AM EDT 12/26/2024 5:42 AM EDT Bishop Bravo III, MD BLOOD BANK TEST ORDERAB LES Final Result Performing Organization Address [facility] Co de Phone Number [facility]
[address] [place] [address], * Treponema pallidum AB w/Reflex RPR (12/26/2024 3:46 AM EDT) Treponemal AB Total Non-Reacti ve Non-React satinder 12/26/2024 9:32 AM EDT [facility] Blood Venipuncture / Unknown 12/26/2024 3:46 AM EDT 12/26/2024 4:06 AM EDT Narrative [facility] - 12/26/2024 9:32 AM EDT Reactive results will reflex RPR testing. us Bishop Bravo III, MD LAB BLOOD ORDERABLES Fi nal Result Performing Organization Address City/[facility]/ZIP Co de Phone Number [facility]
[address] [place] [address], * Uric Acid (12/26/2024 3:46 AM EDT) [facility] Uric Acid 4.1 2.4 - 5.7 mg/dL 12/26/2024 4:44 AM EDT [facility] Comment:Falsely depressed re sults may occur on samples drawn from patients receiving N-Acetylcysteine (NAC) or Metamizole. Blood Venipuncture / Unknown 12/26/2024 3:46 AM EDT 12/26/2024 4:06 AM EDT us Bishop Bravo III, MD LAB BLOOD ORDERABLES Fi nal Result Performing Organization Address [facility] Co de Phone Number [facility]
[address] [place] [address], * Lactate Dehydrogenase (12/26/2024 3:46 AM EDT) [facility] LDH 180 135 - 214 U/L 12/26/2024 4:44 AM EDT [facility] Comment:Specimen hemolyzed. Results may be affected. Blood Venipuncture / Unknown 12/26/2024 3:46 AM EDT 12/26/2024 4:06 AM EDT us Bishop Bravo III, MD LAB BLOOD ORDERABLES Fi nal Result Performing Organization Address City/[facility]/ZIP Co de Phone Number [facility]
[address] [place] [address], [place] [phone] * (ABNORMAL) CBC Auto Differential (12/24/2024 8:53 AM EDT) [facility] WBC 9.49 3.40 - 10.80 10*3/mm3 12/24/2024 12:25 PM EDT [facility] RBC 3.97 3.77 - 5.28 10*6/mm3 12/24/[facility]24 [facility] Hemoglobin 11.5(L) 12.0 - 15.9 g/dL 12/24/2024 12:25 PM T [facility] Hematocrit 35.3 34.0 - 46.6 % 12/24/2024 12:25 PM [facility] MCV 88.9 79.0 - 97.0 fL 12/24/2024 12:25 PM EDT [facility] MCH 29.0 26.6 - 33.0 pg 12/24/2024 12:25 PM [facility] MCHC 32.6 31.5 - 35.7 g/dL 12/24/2024 12:25 PM [facility] RDW 12.1(L) 12.3 - 15.4 % 12/24/2024 12:25 PM [facility] RDW-SD 39.3 37.0 - 54.0 fl 12/24/2024 12:25 PM [facility] MPV 9.9 6.0 - 12.0 fL 12/24/2024 12:25 PM [facility] Platelets 259 140 - 450 10*3/mm3 12/24/2024 12:25 PM [facility] Neutrophil % 73.8 42.7 - 76.0 % 12/24/2024 12:25 PM [facility] Lymphocyte % 19.0(L) 19.6 - 45.3 % 12/24/2024 12:25 PM [facility] Monocyte % 6.3 5.0 - 12.0 % 12/24/2024 12:25 PM [facility] Eosinophil % 0.2(L) 0.3 - 6.2 % 12/24/2024 12:25 PM [facility] Basophil % 0.4 0.0 - 1.5 % 12/24/2024 12:[facility] Immature Grans % 0.3 0.0 - 0.5 % 12/24/2024 12:25 PM EDT [facility] Neutrophils, Absolute 7.00 1.70 - 7.00 10*3/mm3 12/24/2024 12:25 PM EDT [facility] Lymphocytes, Absolute 1.80 0.70 - 3.10 10*3/mm3 12/24/2024 12:25 PM EDT [facility] Monocytes, Absolute 0.60 0.10 - 0.90 10*3/mm3 12/24/2024 12:25 PM EDT [facility] Eosinophils, Absolute 0.02 0.00 - 0.40 10*3/mm3 12/24/2024 12:25 PM EDT [facility] Basophils, Absolute 0.04 0.00 - 0.20 10*3/mm3 12/24/2024 12:25 PM EDT [facility] Immature Grans, Absolute 0.03 0.00 - 0.05 10*3/mm3 12/24/2024 12:25 PM EDT [facility] nRBC 0.0 0.0 - 0.2 /100 WBC 12/24/2024 12:25 PM EDT [facility] Blood Venipuncture / Unknown 12/24/2024 8:53 AM EDT 12/24/2024 8:53 AM EDT Rick Templeton MD LAB BLOOD ORDERABLES Final Result [facility]
[address] [place] [address], * POC Protein, Urine, Qualitative, Dipstick (12/10/2024 3:09 PM EDT) Protein, POC Negative Negative mg/dL [facility] Lot Number [id number] [facility] Expiration Date 09/05/2026 [facility] Urine 12/10/2024 3:09 PM EDT Saritha Leon MD POINT OF CARE TEST ORDER SAADIA Final Result [facility]
[address] [place] [id number], from Last 3 Months Insurance [employer] Advance Directives * CPR (Attempt to Resuscitate) (Latest Code Status on File) Date Activated Date Inactivated Comments 12/26/2024 1:34 AM 01/04/2025 11:53 AM Question Answer Comments Code Status (Patient has no pulse and is not breathing): CPR (Attempt to Resuscitate) Medical Interventions (Patie nt has pulse or is breathing): Full Support Level Of Support Discussed With: Patient Care Teams Operator And Truck Driver Relationship Specialty Start Date End Date Jasmeet Kelly MD [address] [place] [id number] PCP - General Family Medicine 12/03/24
[2025-02-25 17:19] LABS: Hematocrit 40.5 % (37.0-47.0); Hemoglobin 13.5 g/dL (12.2-16.2); Immature Granulocytes % 0.2 %; Mean Corpuscular HGB Conc 33.3 g/dL (31.8-35.4); Mean Corpuscular Hemoglobin 27.2 pg (27.0-31.2); Mean Corpuscular Volume 81.7 fl (81-99); Nucleated Red Blood Cells % 0 %; Platelet Count 236 K/mm3 (142-424); Red Blood Count 4.96 M/mm3 (4.20-5.40); Red Cell Distribution Width-SD 37.2 fL; White Blood Count 4.7 K/mm3 (4.5-13.0)
[2025-02-25] MEDS: ASPIRIN 325MG TABLET 325 MG PO (17:30)
[2025-02-25 17:32] LABS: HCG Qualitative, Serum Negative (Negative)
[2025-02-25 17:37] LABS: INR 1.03 (0.9-1.1); Prothrombin Time 11.4 seconds (10.1-12.5)
[2025-02-25 17:38] LABS: Alanine Aminotransferase 25 U/L (12-78); Albumin Level 4.7 g/dl (3.5-5.0); Albumin/Globulin Ratio 1.6 (1.1-1.8); Alkaline Phosphatase 77 U/L (38-126); Anion Gap 13.6 mEq/L (5-15); Aspartate Amino Transferase 31 U/L (14-36); Bilirubin,Total 0.6 mg/dl (0.2-1.3); Blood Urea Nitrogen 6 mg/dl (7-17); Calcium 9.3 mg/dl (8.4-10.2); Carbon Dioxide 25 mmol/L (22.0-30.0); Chloride 105 mmol/L (98-107); Creatinine Clearance Estimated 88 mL/min (50-200); Creatinine,Serum 0.80 mg/dl (0.52-1.04); Estimated Glomerular Filt Rate 91 ml/min (>60); GFR (African American) 111 ML/MIN (>60); Globulin 2.9 g/dL (1.3-3.2); Glucose 105 mg/dl (74-100); Lipase 78 U/L (23-300); Potassium 3.6 mmoL/L (3.5-5.1); Sodium 140 mmol/L (136-145); Total Protein,Serum 7.6 g/dl (6.3-8.2)
[2025-02-25] MEDS: ONDANSETRON 4MG/2ML VIAL 4 MG IV (17:48)
[2025-02-25 17:50] LABS: NT Pro Brain Natriuretic Pep. < 20.0 pg/mL (0-125)
[2025-02-25 17:56] LABS: Troponin I < 0.01 ng/ml (0.00-0.034)
[2025-02-25 17:59] LABS: D-Dimer 0.78 ug/mL (0.0-0.5)
--- NOTE | 2025-02-25 18:20 | CT_ITS ---
PROCEDURE INFORMATION: Exam: CTA Chest Without And With Contrast Exam date and time: 02/25/2025 6:31 PM Age: 19 years old Clinical indication: Pain; Shortness of breath; Chest pressure; Additional info: Pleuritic chest pain, shortness of air TECHNIQUE: Imaging protocol: Computed tomographic angiography of the chest without and with contrast. Exam focused on the arteries. 3D rendering (Not supervised by radiologist): MIP and/or 3D reconstructed images were created by the technologist. Radiation optimization: All CT scans at this facility use at least one of these dose optimization techniques: automated exposure control; mA and/or kV adjustment per patient size (includes targeted exams where dose is matched to clinical indication); or iterative reconstruction. Contrast material: ISOVUE; Contrast volume: 75 ml; Contrast route: INTRAVENOUS (IV); COMPARISON: CR XR CHEST PORTABLE 02/25/2025 5:48 PM FINDINGS: Pulmonary arteries: No pulmonary emboli. Aorta: Unremarkable. No aortic aneurysm. No aortic dissection. Lungs: Unremarkable. No consolidation. No masses. Pleural spaces: Trace right pleural effusion. Heart: Unremarkable. No cardiomegaly. No pericardial effusion. Lymph nodes: Unremarkable. No enlarged lymph nodes. Gallbladder and biliary ducts: Gallbladder is absent. Bones/joints: Unremarkable. No acute fracture. Soft tissues: Unremarkable. Other findings: Stigmata of old granulomatous disease. IMPRESSION: 1. No pulmonary emboli. 2. Trace right pleural effusion.
[2025-02-25] MEDS: 0.9 % SODIUM CHLORIDE 50 ML VIAL IV (18:32)
[2025-02-25] MEDS: IOPAMIDOL-370 (76%);100ML BOTTLE 75 ML IV (18:32)
[2025-02-25] MEDS: SODIUM CHLORIDE 0.9% 10ML SYR (RAD ONLY) 10 ML IV (18:33)
--- NOTE | 2025-02-25 19:48 | PC.NURSE ---
repeat trop collected and sent to the lab at this time.
[2025-02-25 20:54] LABS: Troponin I < 0.01 ng/ml (0.00-0.034)
--- NOTE | 2025-02-25 20:58 | PC.NURSE ---
ed provider at the bedside updating on POC
== END 2025-02-25 21:05 | disposition home or self-care (01) ==
PROVIDERS: Physician Assistant; Emergency Provider Student in an Organized Health Care Education/Training Program; PCP Family Medicine
DX: R07.89 Other chest pain (principal); M94.0 Chondrocostal junction syndrome [Tietze]
CPT/HCPCS: 71045; 71275; 80053; 83690; 83880; 84484; 84703; 85025; 85378; 85610; 93005; 96374; 99285; J2405; Q9967

== ENCOUNTER 2025-03-30 11:52 | Outpatient (CLI) | payer OTHER, SELFPAY ==
--- OUTSIDE RECORDS SUMMARY | 2025-03-30 11:57 | XMS_ITS | Clinical Summary ---
Author Organization [facility] Address [address] [place] [address] Phone Care Team Providers Care Field Auto Appraiser Name Role Phone Carleen Xiong MD Primary Care Provider [phone] Chey Landry ENGLISH AND READING INSTRUCTOR Unavailable [phone] Allergies Active Allergy Reactions Criticality Noted Date [...] disorder) 09/19/2016 Overview (09/19/2016): Dx at [facility] 09/18/16, treated Zoloft. Generalized anxiety disorder 09/19/2016 Overview (09/19/2016): Dx at [facility] 09/18/16, treated Zoloft. Mild single current episode of major depressive disorder 09/19/2016 Overview (09/19/2016): Dx at [facility] 09/18/16, treated Zoloft. Immunizations Immunization Administration Dates [...] Generalized anxiety disorder 09/19/2016 Dx at [facility] 09/18/16, treated Zoloft. Mild single current episode of major depressive disorder 09/19/2016 Dx at [facility] 09/18/16, crystal ated Zoloft. PTSD (post-traumatic stress disorder) 09/19/2016 Dx at [facility] 09/18/16, treated Zoloft. Family History Medical History [...] and heating? Not hard at all 06/30/2021 [facility] [place] [facility] - Occupational Stress [...] Vaccine (1 of 2 - Standard) 2020 Annual Wellness Exam 04/13/2024 04/13/2023 COVID-19 Vaccine (2 - season) 2025 02/19/2023 Influenza Vaccine (#1) 2025 0, 08/06/2017 (Declined), 03/30/2016 (Declined), Additional history exists [...] Detected 01/19/2023 5:31 AM EDT PREFERRED LAB [email or web address], [facility] Neisseria gonorrhoeae Not Detected Not Detected 01/19/2023 5:31 AM EDT [facility] ENDOCERVICAL STRUCTURE / Unknown 01/18/2023 1:37 PM EDT 01/18/2023 1:37 PM EDT Narrative [facility] - 01/19/2023 5:31 AM EDT Testing methodology is farm butcher mediated amplification (TMA) using the Aptima Combo 2 assay from [employer]. A negative result does not completely rule [...] MICROBIOLOGY - GENERAL OR DERABLES Final Result [facility] [address] [facility] , [address] [place] [id number] from Last 3 Months or Most Recently Relevant to Health Maintenance Insurance [facility] CHOICE PLUS [id number] [place] [id number] [place] [address] [place] [id number] [facility] CHOICE PLUS [id number] * Guarantor: [employer] Account Type Relation to Patient Date of Phone Billing Address [employer] [place] [facility] [address] Care Teams Field Auto Appraiser Relationship Specialty Start Date End Date Carleen Xiong MD [address] [place] [address] PCP - General Family Medicine 09/10/15 Chey Landry APRN [address] [place] [id number] Nurse Practitioner 02/01/16
--- OUTSIDE RECORDS SUMMARY | 2025-03-30 11:57 | XMS_ITS | Clinical Summary ---
Author Organization [facility] Address [address] [place] [address] Care Team Providers Care Director Of Exhibit Development Name Role Phone Jasmeet Kelly MD Primary Care Provider Allergies No known active allergies Medications acetaminophen [...] does note that she was examined in [place] and was noted to be 2 cm [...] - 01/04/2025 9:50 AM EDT Hospital Encounter [facility] [address] [place] [address] Bishop Bravo III, MD O'Broin, Seamus, MD Discharge Disposition: Home or Self Care from Last 3 Months Social History Tobacco Use Types Packs/Day Years Used Date Smoking Tobacco: Never Passive Smoke Exposure: Never Smokeless Tobacco: Never Tobacco Cessation:Counseling Given: No Alcohol Use Standard Drinks/Week Comments Not Currently 0 (1 standard drink = 0.6 oz pur e alcohol) [facility] Utilities Answer Date Recorded In the past 12 months has [employer], gas, oil, or water [employer] threatened to shut off services in your [...] and heating? Not hard at all 12/26/2024 [facility] [place] of Occupat ional Health - Occupational Stress [...] GED or equivalent No 12/26/2024 Preferred Language Yakut 12/26/2024 PHQ-2 Answer Date Recorded Patient Health [...] ANNUAL PHYSICAL 09/12/2023 HEPATITIS C SCREENING 09/12/2023 INFLUENZA VACCINE 02/06/2025 05/26/2020 TDAP/TD VACCINES (3 - Td or [...] CULTURE STAT 01/03/2025 2:40 PM EDT [facility] Routine 12/31/2024 7:35 AM EDT ANTIBODY IDENTIFICATION STAT 12/31/19 2:17 PM EDT TYPE AND SCREEN STAT 12/30/2024 2:17 PM EDT PRE-ECLAMPSIA PANEL STAT 12/30/2024 2 :17 PM EDT CBC (NO DIFF) STAT 12/30/2024 2:17 PM EDT [facility] Routine 12/29/2024 7:47 AM EDT POCT AMNISURE ROM TEST Routine 9:45 AM EDT PROTEIN / CREATININE RATIO, URINE Routine 12/28/2024 6:40 AM EDT CBC (NO DIFF) Routine 12/28/2024 5:30 AM EDT COMPREHENSIVE METABOLIC PANEL Routine 12/28/2024 5:30 AM EDT from Last 3 Months Results * Urinalysis With Microscopic If Indicated (No Culture) - Straight Cath (01/04/2025 12:01 AM EDT) Only the most recent of2 resultswithin the time period is included. Color, UA Yellow Yellow, Straw 01/04/2025 12:16 AM EDT [facility] Appearance, UA Clear Clear 01/04/2025 12:16 AM EDT [facility] pH, UA 6.5 5.0 - 8.0 01/04/2025 12:16 AM EDT [facility] Specific [place], UA 1.008 1.001 - 1.030 01/04/2025 12:16 AM EDT [facility] Glucose, UA Negative Negative 01/04/2025 12:16 AM EDT [facility] Ketones, UA Negative Negative 01/04/2025 12:16 AM EDT [facility] Bilirubin, UA Negative Negative 01/04/2025 12:16 AM EDT [facility] Blood, UA Negative Negative 01/04/2025 12:16 AM EDT [facility] Protein, UA Negative Negative 01/04/2025 12:16 AM EDT [facility] Leuk Esterase, UA Negative Negative 01/04/2025 12:16 AM EDT [facility] Nitrite, UA Negative Negative 01/04/2025 12:16 AM EDT [facility] Urobilinogen, UA 1.0 E.U./dL 0.2 - 1.0 E.U./dL 01/04/2025 12:16 AM EDT [facility] Urine (Straight Cath) Collection / Unknown 01/04/2025 12:01 AM EDT 01/04/2025 12:12 AM EDT Narrative [facility] - 01/04/2025 12:16 AM EDT Urine microscopic not indicated. Peterson Medina MD URINE ORDERABLES Final Result [facility]
[address] [place] [address], * (ABNORMAL) Urinalysis, Microscopic Only - Urine, Clean Catch (01/03/2025 9:05 PM EDT) Only the most recent of2 resultswithin the time period is included. RBC, UA 3-5(A) None Seen, 0-2 /HPF 01/03/2025 9:29 PM EDT [facility] WBC, UA 21-50(A) None Seen, 0-2 /HPF 01/03/2025 9:29 PM EDT [facility] Bacteria, UA 3+(A) None Seen, Trace /HPF 01/03/2025 9:29 PM EDT [facility] Squamous Epithelial Cells, UA 21-30(A) None Seen, 0-2 /HPF 01/03/2025 9:29 PM EDT [facility] Hyaline Casts, UA 0-6 0 - 6 /LPF 01/03/2025 9:29 PM EDT [facility] Methodology Manual Light Microscopy 01/03/2025 9:29 PM EDT [facility] Urine Urine specimen obtained by clean catch procedure / Unknown Collection / Unknown 01/03/2025 9:05 PM EDT 01/03/2025 9:18 PM EDT Peterson Medina MD URINE ORDERABLES Final Result [facility]
[address] [place] [address], * (ABNORMAL) Urinalysis With Culture If Indicated - Urine, Clean Catch (01/03/2025 2:40 PM EDT) Color, UA Yellow Yellow, Straw 01/03/2025 3:38 PM EDT [facility] Appearance, UA Cloudy(A) Clear 01/03/2025 3:38 PM EDT [facility] pH, UA 5.5 5.0 - 8.0 01/03/2025 3:38 PM EDT [facility] Specific [place], UA 1.023 1.001 - 1.030 01/03/2025 3:38 PM EDT [facility] Glucose, UA Negative Negative 01/03/2025 3:38 PM EDT [facility] Ketones, UA Trace(A) Negative 01/03/2025 3:38 PM EDT [facility] Bilirubin, UA Negative Negative 01/03/2025 3:38 PM EDT [facility] Blood, UA Trace(A) Negative 01/03/2025 3:38 PM EDT [facility] Protein, UA Trace(A) Negative 01/03/2025 3:38 PM EDT [facility] Leuk Esterase, UA Moderate (2+)(A) Negative 01/03/2025 3:38 PM EDT [facility] Nitrite, UA Negative Negative 01/03/2025 3:38 PM EDT [facility] Urobilinogen, UA 1.0 E.U./dL 0.2 - 1.0 E.U./dL 01/03/2025 3:38 PM EDT [facility] Urine Urine specimen obtained by clean catch procedure / Unknown Collection / Unknown 01/03/2025 2:40 PM EDT 01/03/2025 3:08 PM EDT Narrative [facility] - 01/03/2025 3:38 PM EDT In absence of clinical symptoms, the presence of pyuria, bacteria, and/or nitrites on the urinalysis result does not correlate with infection. us Hernandez Carolina MD URINE ORDERABLES Final Result Performing Organization Address [facility]/ZIP Co de Phone Number [facility]
[address] [place] [address], * Urine Culture - Urine, Urine, Clean Catch (01/03/2025 2:40 PM EDT) Urine Culture No growth ELAINE 01/04/2025 10:57 AM EDT [facility] Urine Urine specimen obtained by clean catch procedure / Unknown Collection / Unknown 01/03/2025 2:40 PM EDT 01/03/2025 3:08 PM EDT us Hernandez Carolina MD MICROBIOLOGY - GENERAL ORDERAB LES Final Result Performing Organization Address City/[facility]/ZIP Co de Phone Number [facility]
[address] [place] [address], * [facility] (12/31/2024 7:35 AM EDT) Only the most recent of2 resultswithin the time period is included. Anatomical Region Laterality Modality Ultrasound 12/31/2024 7:20 AM EDT Narrative 12/31/2024 7:49 AM EDT PAT NAME: JERRI HAM MED REC#: [id number] DA: 2005 PAT GEND: F PAT TYPE: I EXAM PAN: [id number] REF PHYS PEACE FISH Comparison Studies The findings of this study [...] EFW (oz) 6 oz EFW by: Hadlock ([id number]) Extended CM 4.6 mm 1% Nicolaides Head [...] Normal Heart / Thorax 3-vessel view: Normal 7-jvfwpu-ospuypr view: normal Cord insertion: Normal Stomach: Appears [...] Continue in hospital management. Coding ====== Description: 26556-62 Follow Up Ultrasound Description: BPP without NST Description: 09417-80 Doppler Umbilical Artery Cashier Courtesy Booth: Shagufta Bravo RDMS Physician: Cyrus Templeton MD, FACOG Electronically signed by: Cyrus Templeton MD, FACOG at: 07:49 Procedure Note Rick Templeton MD - 12/31/2024 PAT NAME: JERRI HAM MED REC#: [id number] DA: 2005 PAT GEND: F PAT TYPE: I EXAM PAN: [id number] REF PHYS PEACE FISH Comparison Studies The findings of this study are compared to the prior ultrasound studydated 12/29/24 Patient Status Inpatient Indication ======== PPROM, Hyperthyroid IUGR. Maternal Assessment [id number] cm Height (ft)5 ft Height (in)6 in Mlhzij39 kg Weight (lb)121 lb BMI19.72 kg/m Method ======= Transabdominal ultrasound examination. View: Adequate view ========= Barba . Number of fetuses: 1 Dating ====== GA by prior [id number] w + 3 d ETHEL by prior [...] GA34 w + 3 d Assigned ETHEL:02/08/2025 [id number] d Biometry Standard BPD78.7 mm 31w 4d 1% Hadlock NZO455.6 mm 34w 2d 48% Margarita HC293.0 mm 32w 2d <1% Hadlock Cerebellum tr38.7 mm 31w 3d 3% Hill AC283.1 mm 32w 2d 7% Hadlock Femur63.8 mm 33w 0d 10% Hadlock HC / AC1.03 EFW1,978 g 32w 1d 7% Hadlock EFW (lb)4 lb EFW (oz)6 oz EFW by:Hadlock ([id number]) Extended CM4.6 mm 1% Nicolaides Head / Face / Neck Cephalic index0.75 6% Nicolaides Extremities / Bony Struc FL / BPD0.81 FL / HC0.22 FL / AC0.23 Other Structures BVD534 bpm General Evaluation Cardiac activity present. FHR [...] LVOT view:Normal Heart / Thorax 3-vessel view:Normal 4-shtdjm-yjhgvuv view:normal Cord insertion:Normal Stomach:Appears normal Kidneys:Appears normal [...] Recommendation Continue in hospital management. Coding ====== Description:13515-32 Follow Up Ultrasound Description:29756-31 BPP without NST Description:37970-08 Doppler Umbilical Artery Cashier Courtesy Booth: Shagufta Bravo RDMS Physician: Cyrus Templeton MD, FACOG Electronically signed by: Cyrus Templeton MD, FACOG at: 07:49 us Pepe Gomez DO [facility] US ORDERABLES Final Res ult * (ABNORMAL) Preeclampsia Panel (12/30/2024 2:17 PM EDT) Alkaline Phosphatase 129(H) 39 - 117 U/L 12/30/2024 3:28 PM EDT [facility] ALT (SGPT) 15 1 - 33 U/L 12/30/2024 3:28 PM EDT [facility] AST (SGOT) 19 1 - 32 U/L 12/30/2024 3:28 PM EDT [facility] Creatinine 0.54(L) 0.57 - 1.00 mg/dL 12/30/2024 3:28 PM EDT [facility] Total Bilirubin 0.2 0.0 - 1.2 mg/dL 12/30/2024 3:28 PM EDT [facility] LDH 165 135 - 214 U/L 12/30/2024 3:28 PM EDT [facility] Uric Acid 3.8 2.4 - 5.7 mg/dL 12/30/2024 3:28 PM EDT [facility] Blood Venipuncture / Unknown 12/30/2024 2:17 PM EDT 12/30/2024 2:53 PM EDT Pepe Gomez LAB BLOOD ORDERABLES Final Result [facility]
[address] [place] [address], [place] [phone] * Antibody Identification (12/30/2024 2:17 PM EDT) Pathologist [facility] Residual RhIG Detected RESIDUAL RHIG DETECTED 12/30/2024 5:11 PM EDT [facility] Blood Venipuncture / Unknown 12/30/2024 2:17 PM EDT 12/30/2024 2:58 PM EDT Pepe Gomez BLOOD BANK TEST ORDERABLES Final Result Performing Organization Address [facility] de Phone Number [facility]
[address] [place] [address], [place] [phone] * (ABNORMAL) CBC (No Diff) (12/30/2024 2:17 PM EDT) Only the most recent of2 resultswithin the time period is included. Pathologist [facility] WBC 9.09 3.40 - 10.80 10*3/mm3 12/30/2024 3:07 PM EDT [facility] RBC 3.93 3.77 - 5.28 10*6/mm3 12/30/2024 3:07 PM EDT [facility] Hemoglobin 11.5(L) 12.0 - 15.9 g/dL 12/30/2024 3:07 PM EDT [facility] Hematocrit 34.6 34.0 - 46.6 % 12/30/2024 3:07 PM EDT [facility] MCV 88.0 79.0 - 97.0 fL 12/30/2024 3:07 PM EDT [facility] MCH 29.3 26.6 - 33.0 pg 12/30/2024 3:07 PM EDT [facility] MCHC 33.2 31.5 - 35.7 g/dL 12/30/2024 3:07 PM EDT [facility] RDW 13.0 12.3 - 15.4 % 12/30/2024 3:07 PM EDT [facility] RDW-SD 42.0 37.0 - 54.0 fl 12/30/2024 3:07 PM EDT [facility] MPV 9.9 6.0 - 12.0 fL 12/30/2024 3:07 PM EDT [facility] Platelets 189 140 - 450 10*3/mm3 12/30/2024 3:07 PM EDT [facility] Blood Venipuncture / Unknown 12/30/2024 2:17 PM EDT 12/30/2024 2:53 PM EDT Pepe Gomez DO LAB BLOOD ORDERABLES Final Result [facility]
[address] [place] [address], * Type & Screen (12/30/2024 2:17 PM EDT) ABO Type A 12/30/2024 3:39 PM EDT [facility] RH type Negative 12/30/2024 3:39 PM EDT [facility] Antibody Screen Positive 12/30/2024 3:39 PM EDT [facility] T&S Expiration Date 01/02/2025 11:59:59 PM 12/30/2024 3:39 PM EDT [facility] Blood Venipuncture / Unknown 12/30/2024 2:17 PM EDT 12/30/2024 2:58 PM EDT us Pepe Gomez DO BLOOD BANK TEST ORDERABLES Edited Result - Final [facility]
[address] [place] [address], [place] [phone] * POC Amnisure (12/28/2024 9:45 AM EDT) Amnisure Negative Negative [facility] Amniotic Fluid 12/28/2024 9: 45 AM EDT us Pepe Gomez DO POINT OF CARE TEST ORDERABL ES Final Result Performing Organization Address [facility] Co de Phone Number [facility]
[address] [place] [address], [place] [phone] * Protein / Creatinine Ratio, Urine - Urine, Clean Catch (12/28/2024 6:40 AM EDT) [facility] Protein/Creati nine Ratio, Urine 126.4 0.0 - 200.0 mg/G Crea 12/28/2024 1:06 PM EDT [facility] Creatinine, Urine 45.9 mg/dL 12/28/2024 1:06 PM EDT [facility] Total Protein, Urine 5.8 mg/dL 12/28/2024 1:06 PM EDT [facility] Urine Urine specimen obtained by clean catch procedure / Unknown Collection / Unknown 12/28/2024 6:40 AM EDT 12/28/2024 6:49 AM EDT us Pepe Gomez DO URINE ORDERABLES Final Resu lt Performing Organization Address City/[facility]/ZIP Co de Phone Number [facility]
[address] [place] [address], [place] [phone] * (ABNORMAL) Comprehensive Metabolic Panel (12/28/2024 5:30 AM EDT) Glucose 96 65 - 99 mg/dL 12/28/2024 6:30 AM EDT [facility] BUN 3.9(L) 6.0 - 20.0 mg/dL 12/28/2024 6:30 AM EDT [facility] Creatinine 0.57 0.57 - 1.00 mg/dL 12/28/2024 6:30 AM EDT [facility] Sodium 137 136 - 145 mmol/L 12/28/2024 6:30 AM EDT [facility] Potassium 4.2 3.5 - 5.2 mmol/L 12/28/2024 6:30 AM EDT [facility] Chloride 108(H) 98 - 107 mmol/L 12/28/2024 6:30 AM EDT [facility] CO2 21.0(L) 22.0 - 29.0 mmol/L 12/28/2024 6:30 AM EDT [facility] Calcium 7.9(L) 8.6 - 10.5 mg/dL 12/28/2024 6:30 AM EDT [facility] Total Protein 5.3(L) 6.0 - 8.5 g/dL 12/28/2024 6:30 AM T [facility] Albumin 2.9(L) 3.5 - 5.2 g/dL 12/28/2024 6:30 AM EDT [facility] ALT (SGPT) 6 1 - 33 U/L 12/28/2024 6:30 AM EDT [facility] AST (SGOT) 11 1 - 32 U/L 12/28/2024 6:30 AM EDT [facility] Alkaline Phosphatase 108 39 - 117 U/L 12/28/2024 6:30 AM T [facility] Total Bilirubin 0.2 0.0 - 1.2 mg/dL 12/28/2024 6:30 AM EDT [facility] Globulin 2.4 gm/dL 12/28/2024 6:30 AM T [facility] Comment:Calculated Result A/G Ratio 1.2 g/dL 12/28/2024 6:30 AM EDT [facility] BUN/Creatinine Ratio 6.8(L) 7.0 - 25.0 12/28/2024 6:30 AM EDT [facility] Anion Gap 8.0 5.0 - 15.0 mmol/L 12/28/2024 6:30 AM EDT [facility] eGFR 133.6 >60.0 mL/min/1.7 3 12/28/2024 6:30 AM EDT [facility] Blood Venipuncture / Unknown 12/28/2024 5:30 AM EDT 12/28/2024 6:03 AM EDT [facility] - 12/28/2024 6:30 AM EDT GFR [...] Gomez DO LAB BLOOD ORDERABLES Final Result [facility]
[address] [place] [address], from Last 3 Months Insurance UMR Advance [...] Of Support Discussed With: Patient Care Teams Director Of Exhibit Development Relationship Specialty Start Date End Date Jasmeet Kelly MD [address] [place] [address] PCP - General Family Medicine 12/03/24
--- OUTSIDE RECORDS SUMMARY | 2025-03-30 11:57 | XMS_ITS | Clinical Summary ---
Author Organization [facility] Address [address] [place] [address] Care Team Providers Care Laborer Operator Name Role Phone Jasmeet Kelly MD Primary Care Provider [phone] Allergies No known active allergies Medications Doxylamine-Pyr [...] as needed for pain or fever. Under [place] law, monthly prescriptions (30 days) can be [...] drink first t renu in the morning ([employer]) to steady your nerves or to get [...] SDOH Screenings 2022 [facility]-Adult SDOH Screenings 2022 [id number] Vaccine (2 - season) 2025 02/19/2023 [facility]-Influenza Vaccine (#1) 2025 05/26/2020 [facility]-DTaP,Tdap,and [...] patient's age to complete this topic Insurance [employer] [facility] MEDICAID Advance Directives * Full Code (Latest Code Status on File) Date Activated Date Inactivated Comments 08/28/2024 12:47 AM 08/29/2024 1:39 PM Question Answer Comments Patient has decision-making capacity? Yes Care Teams Laborer Operator Relationship Specialty Start Date End Date Jasmeet Kelly MD [address] [place] [address] #1 #1 E[place]ame [id number] PCP - General 08/27/24
== END 2025-03-30 23:59 | disposition home or self-care (01) ==
LOC: LAB 11:53
PROVIDERS: PCP Family Medicine; Visit Provider Obstetrics & Gynecology
DX: Z34.90 Encounter for supervision of normal pregnancy, unspecified, unspecified trimester (principal); Z3A.00 Weeks of gestation of pregnancy not specified
CPT/HCPCS: 36415; 84144; 84702

== ENCOUNTER 2025-04-02 09:00 | Outpatient (CLI) | payer OTHER, SELFPAY ==
--- OUTSIDE RECORDS SUMMARY | 2025-04-03 12:06 | XMS_ITS | Clinical Summary ---
Author Organization [facility] Address [address] [place] [address] Care Team Providers Care Lavatory Attendant Name Role Phone Jasmeet Kelly MD Primary Care Provider [phone] Allergies No known active allergies Medications acetaminophen [...] does note that she was examined in [place] and was noted to be 2 cm [...] - 01/04/2025 9:50 AM EDT Hospital Encounter [facility] [address] [place] [address] Bishop Bravo III, MD O'Broin, Seamus, MD Discharge Disposition: Home or Self Care from Last 3 Months Social History Tobacco Use Types Packs/Day Years Used Date Smoking Tobacco: Never Passive Smoke Exposure: Never Smokeless Tobacco: Never Tobacco Cessation:Counseling Given: No Alcohol Use Standard Drinks/Week Comments Not Currently 0 (1 standard drink = 0.6 oz pur e alcohol) [facility] Utilities Answer Date Recorded In the past 12 months has [employer], gas, oil, or water [employer] threatened to shut off services in your [...] and heating? Not hard at all 12/26/2024 [facility] [place] of Occupat ional Health - Occupational Stress [...] GED or equivalent No 12/26/2024 Preferred Language Mongolian 12/26/2024 PHQ-2 Answer Date Recorded Patient Health [...] URINE CULTURE STAT 01/03/2025 2:40 PM EDT from Last 3 Months Results * Urinalysis With Microscopic If Indicated (No Culture) - Straight Cath (01/04/2025 12:01 AM EDT) Only the most recent of2 resultswithin the time period is included. Color, UA Yellow Yellow, Straw 01/04/2025 12:16 AM EDT [facility] Appearance, UA Clear Clear 01/04/2025 12:16 AM EDT [facility] pH, UA 6.5 5.0 - 8.0 01/04/2025 12:16 AM EDT [facility] Specific [place], UA 1.008 1.001 - 1.030 01/04/2025 12:16 AM EDT [facility] Glucose, UA Negative Negative 01/04/2025 12:16 AM EDT [facility] Ketones, UA Negative Negative 01/04/2025 12:16 AM EDT [facility] Bilirubin, UA Negative Negative 01/04/2025 12:16 AM EDT [facility] Blood, UA Negative Negative 01/04/2025 12:16 AM EDT [facility] Protein, UA Negative Negative 01/04/2025 12:16 AM EDT [facility] Leuk Esterase, UA Negative Negative 01/04/2025 12:16 AM EDT [facility] Nitrite, UA Negative Negative 01/04/2025 12:16 AM EDT [facility] Urobilinogen, UA 1.0 E.U./dL 0.2 - 1.0 E.U./dL 01/04/2025 12:16 AM EDT [facility] Urine (Straight Cath) Collection / Unknown 01/04/2025 12:01 AM EDT 01/04/2025 12:12 AM EDT Narrative [facility] - 01/04/2025 12:16 AM EDT Urine microscopic not indicated. us Peterson Medina MD URINE ORDERABLES Final Result Performing Organization Address [facility] Co de Phone Number [facility]
[address] [place] [address], * (ABNORMAL) Urinalysis, Microscopic Only - Urine, Clean Catch (01/03/2025 9:05 PM EDT) Only the most recent of2 resultswithin the time period is included. RBC, UA 3-5(A) None Seen, 0-2 /HPF 01/03/2025 9:29 PM EDT [facility] WBC, UA 21-50(A) None Seen, 0-2 /HPF 01/03/2025 9:29 PM EDT [facility] Bacteria, UA 3+(A) None Seen, Trace /HPF 01/03/2025 9:29 PM EDT [facility] Squamous Epithelial Cells, UA 21-30(A) None Seen, 0-2 /HPF 01/03/2025 9:29 PM EDT [facility] Hyaline Casts, UA 0-6 0 - 6 /LPF 01/03/2025 9:29 PM EDT [facility] Methodology Manual Light Microscopy 01/03/2025 9:29 PM EDT [facility] Urine Urine specimen obtained by clean catch procedure / Unknown Collection / Unknown 01/03/2025 9:05 PM EDT 01/03/2025 9:18 PM EDT us Peterson Medina MD URINE ORDERABLES Final Result Performing Organization Address [facility]/ZIP Co de Phone Number [facility]
[address] [place] [address], * (ABNORMAL) Urinalysis With Culture If Indicated - Urine, Clean Catch (01/03/2025 2:40 PM EDT) Color, UA Yellow Yellow, Straw 01/03/2025 3:38 PM EDT [facility] Appearance, UA Cloudy(A) Clear 01/03/2025 3:38 PM EDT [facility] pH, UA 5.5 5.0 - 8.0 01/03/2025 3:38 PM EDT [facility] Specific [place], UA 1.023 1.001 - 1.030 01/03/2025 3:38 PM EDT [facility] Glucose, UA Negative Negative 01/03/2025 3:38 PM EDT [facility] Ketones, UA Trace(A) Negative 01/03/2025 3:38 PM EDT [facility] Bilirubin, UA Negative Negative 01/03/2025 3:38 PM EDT [facility] Blood, UA Trace(A) Negative 01/03/2025 3:38 PM EDT [facility] Protein, UA Trace(A) Negative 01/03/2025 3:38 PM EDT [facility] Leuk Esterase, UA Moderate (2+)(A) Negative 01/03/2025 3:38 PM EDT [facility] Nitrite, UA Negative Negative 01/03/2025 3:38 PM EDT [facility] Urobilinogen, UA 1.0 E.U./dL 0.2 - 1.0 E.U./dL 01/03/2025 3:38 PM T [facility] Urine Urine specimen obtained by clean catch procedure / Unknown Collection / Unknown 01/03/2025 2:40 PM EDT 01/03/2025 3:08 PM EDT [facility] - 01/03/2025 3:38 PM EDT In absence of clinical symptoms, the presence of pyuria, bacteria, and/or nitrites on the urinalysis result does not correlate with infection. Hernandez Carolina MD URINE ORDERABLES Final Result [facility]
[address] [place] [address], * Urine Culture - Urine, Urine, Clean Catch (01/03/2025 2:40 PM EDT) Urine Culture No growth ELAINE 01/04/2025 10:57 AM EDT [facility] Urine Urine specimen obtained by clean catch procedure / Unknown Collection / Unknown 01/03/2025 2:40 PM EDT 01/03/2025 3:08 PM EDT Hernandez Carolina MD MICROBIOLOGY - GENERAL ORDERAB LES Final Result [facility]
[address] [place] [address], from Last 3 Months Insurance Advance Directives * CPR (Attempt to Resuscitate) (Latest Code Status on File) Date Activated Date Inactivated Comments 12/26/2024 1:34 AM 01/04/2025 11:53 AM Question Answer Comments Code Status (Patient has no pulse and is not breathing): CPR (Attempt to Resuscitate) Medical Interventions (Patie nt has pulse or is breathing): Full Support Level Of Support Discussed With: Patient Care Teams Lavatory Attendant Relationship Specialty Start Date End Date Jasmeet Kelly MD [address] [place] [id number] PCP - General Family Medicine 12/03/24
--- OUTSIDE RECORDS SUMMARY | 2025-04-03 12:06 | XMS_ITS | Clinical Summary ---
Author Organization [facility] Address [address] [place] [address] Care Team Providers Care Rn Referral Name Role Phone Jasmeet Kelly MD Primary Care Provider [phone] Allergies No known active allergies Medications Doxylamine-Pyr [...] as needed for pain or fever. Under [place] law, monthly prescriptions (30 days) can be [...] drink first t renu in the morning (EYE-TECHNICAL SUPPORT INTERN) to steady your nerves or to get [...] SDOH Screenings 2022 [facility]-Adult SDOH Screenings 2022 [id number] Vaccine (2 - season) 2025 02/19/2023 [facility]-Influenza [...] age to complete this topic Insurance AETNA [facility] MEDICAID Advance Directives * Full Code (Latest Code Status on File) Date Activated Date Inactivated Comments 08/28/2024 12:47 AM 08/29/2024 1:39 PM Question Answer Comments Patient has decision-making capacity? Yes Care Teams Rn Referral Relationship Specialty Start Date End Date Jasmeet Kelly MD [address] [place] [address] #1 #1 [place] [id number] PCP - General 08/27/24
--- OUTSIDE RECORDS SUMMARY | 2025-04-03 12:07 | XMS_ITS | Clinical Summary ---
Author Organization [facility] [place] [facility] Address [address] [place] [address] Phone Care Team Providers Care Aeronautical Engineering Officer Name Role Phone Carleen Xiong MD Primary Care Provider [phone] Chey Landry MOBILE SECURITY ARCHITECT Unavailable [phone] Allergies Active Allergy Reactions Criticality Noted Date [...] disorder) 09/19/2016 Overview (09/19/2016): Dx at [facility] 09/18/16, treated Zoloft. Generalized anxiety disorder 09/19/2016 Overview (09/19/2016): Dx at [facility] 09/18/16, treated Zoloft. Mild single current episode of major depressive disorder 09/19/2016 Overview (09/19/2016): Dx at [facility] 09/18/16, treated Zoloft. Immunizations Immunization Administration Dates [...] Generalized anxiety disorder 09/19/2016 Dx at [facility] 09/18/16, treated Zoloft. Mild single current episode of major depressive disorder 09/19/2016 Dx at [facility] 09/18/16, crystal ated Zoloft. PTSD (post-traumatic stress disorder) 09/19/2016 Dx at [facility] 09/18/16, treated Zoloft. Family History Medical History [...] and heating? Not hard at all 06/30/2021 [facility] [place] of Occupat ional Health - Occupational Stress [...] Detected 01/19/2023 5:31 AM EDT PREFERRED LAB [facility] [place], [facility] Neisseria gonorrhoeae Not Detected Not Detected 01/19/2023 5:31 AM EDT [facility] Swab ENDOCERVICAL STRUCTURE / Unknown 01/18/2023 1:37 PM EDT 01/18/2023 1:37 PM EDT Narrative [facility] - 01/19/2023 5:31 AM EDT Testing methodology is manager sustainability mediated amplification (TMA) using the Aptima Combo 2 assay from [employer]. A negative result does not completely rule [...] MICROBIOLOGY - GENERAL OR DERABLES Final Result [facility] [address] [facility] , [address] [place] [id number] from Last 3 Months or Most Recently Relevant to Health Maintenance Insurance [facility] CHOICE PLUS [id number] [place] [address] [id number] [place] [id number] [place] [id number] [facility] CHOICE PLUS [id number] * Guarantor: CORPORATE,[employer] FAMILY[employer]CHILDR[employer] Account Type Relation to Patient Date of Phone Billing Address [employer] [place] [facility] [address] Care Teams Aeronautical Engineering Officer Relationship Specialty Start Date End Date Carleen Xiong MD [address] [place] [address] PCP - General Family Medicine 09/10/15 Chey Landry APRN [address] [place] [place] [id number] Nurse Practitioner 02/01/16
== END 2025-04-02 23:59 | disposition home or self-care (01) ==
LOC: LAB.DROPOF 04-03 12:04
PROVIDERS: PCP Obstetrics & Gynecology; Visit Provider Obstetrics & Gynecology
DX: Z32.01 Encounter for pregnancy test, result positive (principal)
CPT/HCPCS: 87086; 87491; 87591

== ENCOUNTER 2025-04-14 13:09 | Outpatient (CLI) | payer OTHER, SELFPAY ==
--- OUTSIDE RECORDS SUMMARY | 2025-04-14 13:11 | XMS_ITS | Clinical Summary ---
Author Organization [facility] Address [address] [place] [address] Care Team Providers Care Proof Reader Name Role Phone Jasmeet Kelly MD Primary Care Provider [phone] Allergies No known active allergies Medications Doxylamine-Pyr [...] as needed for pain or fever. Under [place] law, monthly prescriptions (30 days) can be [...] drink first t renu in the morning (EYE-BEAM WARPER) to steady your nerves or to get [...] SDOH Screenings 2022 [facility]-Adult SDOH Screenings 2022 [id number] Vaccine (2 - season) 2025 02/19/2023 [facility]-Influenza [...] age to complete this topic Insurance AETNA [facility] MEDICAID Advance Directives * Full Code (Latest Code Status on File) Date Activated Date Inactivated Comments 08/28/2024 12:47 AM 08/29/2024 1:39 PM Question Answer Comments Patient has decision-making capacity? Yes Care Teams Proof Reader Relationship Specialty Start Date End Date Jasmeet Kelly MD [address] [place] [address] #1 #1 [place] Adame [id number] PCP - General 08/27/24
--- OUTSIDE RECORDS SUMMARY | 2025-04-14 13:12 | XMS_ITS | Clinical Summary ---
Author Organization [facility] [place] [facility] Address [address] [place] [address] Phone Care Team Providers Care Farmer And Grazier Name Role Phone Carleen Xiong MD Primary Care Provider [phone] Chey Landry MEDICAL APPOINTMENT CLERK Unavailable [phone] Allergies Active Allergy Reactions Criticality Noted Date [...] disorder) 09/19/2016 Overview (09/19/2016): Dx at [facility] 09/18/16, treated Zoloft. Generalized anxiety disorder 09/19/2016 Overview (09/19/2016): Dx at [facility] 09/18/16, treated Zoloft. Mild single current episode of major depressive disorder 09/19/2016 Overview (09/19/2016): Dx at [facility] 09/18/16, treated Zoloft. Immunizations Immunization Administration Dates [...] Generalized anxiety disorder 09/19/2016 Dx at [facility] 09/18/16, treated Zoloft. Mild single current episode of major depressive disorder 09/19/2016 Dx at [facility] 09/18/16, crystal ated Zoloft. PTSD (post-traumatic stress disorder) 09/19/2016 Dx at [facility] 09/18/16, treated Zoloft. Family History Medical History [...] 06/30/2021 [facility] [place] of Occupat ional Health - Occupational Stress [...] Detected 01/19/2023 5:31 AM EDT PREFERRED LAB [facility], [facility] Neisseria gonorrhoeae Not Detected Not Detected 01/19/2023 5:31 AM EDT [facility] Swab ENDOCERVICAL STRUCTURE / Unknown 01/18/2023 1:37 PM EDT 01/18/2023 1:37 PM EDT Narrative [facility] - 01/19/2023 5:31 AM EDT Testing methodology is carpentry foreman mediated amplification (TMA) using the Aptima Combo 2 assay from [employer] A negative result does not completely rule [...] MICROBIOLOGY - GENERAL OR DERABLES Final Result [facility] [address] [facility] , [address] [place] [id number] from Last 3 Months or Most Recently Relevant to Health Maintenance Insurance [facility] CHOICE PLUS [id number] [place] [id number] [place] [address] [place] [id number] [facility] CHOICE PLUS [id number] * Guarantor: CORPORATE,[employer] FAMILY[employer]CHILDREN Account Type Relation to Patient Date of Phone Billing Address [employer] [place] [facility] [address] Care Teams Farmer And Grazier Relationship Specialty Start Date End Date Carleen Xiong MD [address] [place] [address] PCP - General Family Medicine 09/10/15 Chey Landry APRN [address] [place] [address] Nurse Practitioner 02/01/16
--- OUTSIDE RECORDS SUMMARY | 2025-04-14 13:12 | XMS_ITS | Clinical Summary ---
Author Organization [facility] Address [address] [place] [address] Care Team Providers Care Crystal Grower Name Role Phone Jasmeet Kelly MD Primary Care Provider [phone] Allergies No known active allergies Medications acetaminophen [...] does note that she was examined in [place] and was noted to be 2 cm [...] she notices decreased movement. Irregular menses 11/16/2023 Social History Tobacco Use Types Packs/Day Years Used Date Smoking Tobacco: Never Passive Smoke Exposure: Never Smokeless Tobacco: Never Tobacco Cessation:Counseling Given: No Alcohol Use Standard Drinks/Week Comments Not Currently 0 (1 standard drink = 0.6 oz pur e alcohol) [facility] Utilities Answer Date Recorded In the past 12 months has th e electric, gas, oil, or water [employer] threatened to shut off services in your [...] and heating? Not hard at all 12/26/2024 [facility] of Occupat ional Health - Occupational Stress [...] money to buy more. Never true 12/27/19 25 Within the past 12 months, t he [...] GED or equivalent No 12/26/2024 Preferred Language [place] Citizen 12/26/2024 PHQ-2 Answer Date Recorded Patient Health Questionnaire-2 Score 0 12/26/2024 Comments No Sex and Gender Information Value [...] patient's age to complete this topic Insurance [facility] Advance Directives * CPR (Attempt to Resuscitate) (Latest Code Status on File) Date Activated Date Inactivated Comments 12/26/2024 1:34 AM 01/04/2025 11:53 AM Question Answer Comments Code Status (Patient has no pulse and is not breathing): CPR (Attempt to Resuscitate) Medical Interventions (Patie nt has pulse or is breathing): Full Support Level Of Support Discussed With: Patient Care Teams Crystal Grower Relationship Specialty Start Date End Date Jasmeet Kelly MD [facility] [address] [place], [place] [id number] PCP - General Family Medicine 12/03/24
[2025-04-14 13:40] LABS: Hematocrit 37.4 % (37.0-47.0); Hemoglobin 12.5 g/dL (12.2-16.2); Immature Granulocytes % 0.2 %; Mean Corpuscular HGB Conc 33.4 g/dL (31.8-35.4); Mean Corpuscular Hemoglobin 27.1 pg (27.0-31.2); Mean Corpuscular Volume 81.1 fl (81-99); Nucleated Red Blood Cells % 0 %; Platelet Count 273 K/mm3 (142-424); Red Blood Count 4.61 M/mm3 (4.20-5.40); Red Cell Distribution Width-SD 38.9 fL; White Blood Count 5.0 K/mm3 (4.5-13.0)
[2025-04-15 01:28] LABS: RPR W/RFX Titers Nonreactive (Nonreactive)
[2025-04-15 06:38] LABS: Rubella Antibodies, IgG 1.20 index (Immune >0.99)
== END 2025-04-14 23:59 | disposition home or self-care (01) ==
LOC: LAB 13:09
PROVIDERS: PCP Family Medicine; Visit Provider Obstetrics & Gynecology
DX: Z32.01 Encounter for pregnancy test, result positive (principal)
CPT/HCPCS: 85025; 86592; 86762; 86850; 86870; 87389

== ENCOUNTER 2025-04-27 14:24 | Outpatient (CLI) | payer OTHER, SELFPAY ==
--- NOTE | 2025-04-27 14:30 | US_ITS ---
PROCEDURE: US OB TRANSVAGINAL CLINICAL INDICATION: bleeding in early COMPARISON: No exams were available for comparison FINDINGS: Transvaginal sonographic images of the pelvis were obtained. From her last menstrual period she is 9weeks 3days. An intrauterine gestational sac is present with a pole with a crown-rump length of 2.6cm This correlates to a gestational age of 9weeks 3days. ETHEL 11/27/2025 heart tones are present with an FHR of 181bpm. Yolk sac is noted. The yolk sac measures 5.6mm. There is a small amount of fluid in the lower uterine segment, likely a small subchorionic hemorrhage. The right ovary is seen and appears normal. There are several small follicles. The left ovary is seen and appears normal. The left ovary is difficult to visualize. There is no fluid in the cul-de-sac. IMPRESSION: 1. Viable embryo within the uterine cavity. Heart rate activity is seen. 2. The embryo measures 9 weeks 3 days and her ETHEL will remain 11/27/2025. 3. Both ovaries are seen and appear normal. The left ovary is more difficult to visualize likely due to position. 4. There may be a small subchorionic hemorrhage and small amount of fluid in the lower uterine segment. 5. No fluid in the cul-de-sac. Dictated by: Colt Diggs MD 04/27/2025 15:00 Colt Diggs MD in [place] 04/27/2025 15:00
== END 2025-04-27 23:59 | disposition home or self-care (01) ==
LOC: RAD 14:25
PROVIDERS: PCP Family Medicine; Visit Provider Obstetrics & Gynecology
DX: O28.3 Abnormal ultrasonic finding on antenatal screening of mother (principal); O26.841 Uterine size-date discrepancy, first trimester; O09.291 Supervision of pregnancy with other poor reproductive or obstetric history, first trimester; O36.80X0 Pregnancy with inconclusive fetal viability, not applicable or unspecified; O20.9 Hemorrhage in early pregnancy, unspecified; Z3A.09 9 weeks gestation of pregnancy
CPT/HCPCS: 76817

== ENCOUNTER 2025-06-10 21:48 | Emergency (ER) | payer OTHER, SELFPAY ==
--- OUTSIDE RECORDS SUMMARY | 2025-06-10 21:55 | XMS_ITS | Clinical Summary ---
Author Organization [facility] Address [address] [place] [address] Phone Care Team Providers Care Seed Laboratory Technician Name Role Phone Carleen Xiong MD Primary Care Provider [phone] Peace Landry MEDICAL INSURANCE CODING SPECIALIST Unavailable [phone] Allergies Active Allergy Reactions Criticality Noted Date [...] disorder) 09/19/2016 Overview (09/19/2016): Dx at [facility] 09/18/16, treated Zoloft. Generalized anxiety disorder 09/19/2016 Overview (09/19/2016): Dx at [facility] 09/18/16, treated Zoloft. Mild single current episode of major depressive disorder 09/19/2016 Overview (09/19/2016): Dx at [facility] 09/18/16, treated Zoloft. Immunizations Immunization Administration Dates [...] Generalized anxiety disorder 09/19/2016 Dx at [facility] 09/18/16, treated Zoloft. Mild single current episode of major depressive disorder 09/19/2016 Dx at [facility] 09/18/16, crystal ated Zoloft. PTSD (post-traumatic stress disorder) 09/19/2016 Dx at [facility] 09/18/16, treated Zoloft. Family History Medical History [...] and heating? Not hard at all 06/30/2021 [facility] [place] of Occupat ional Health - Occupational Stress [...] Annual Wellness Exam 04/13/2024 04/13/2023 COVID-19 Vaccine ( - season) 2025 02/19/2023 Influenza Vaccine (#1) 2025 0, 08/06/2017 (Declined), 03/30/2016 (Declined), Additional history exists Cervical Cancer Screening 2025 Pap Smear 2025 DTaP/TDaP/Td (8 - Td or Tdap) 03/12/2034 [...] Detected Not Detected 01/19/2023 5:31 AM EDT [facility] Neisseria gonorrhoeae Not Detected Not Detected 01/19/2023 5:31 AM EDT [facility] Swab ENDOCERVICAL STRUCTURE / Unknown 01/18/2023 1:37 PM EDT 01/18/2023 1:37 PM EDT Narrative PREFERRED [facility] - 01/19/2023 5:31 AM EDT Testing methodology is rack loader mediated amplification (TMA) using the Aptima Combo 2 assay from [employer]. A negative result does not completely rule [...] specimens. Detailed methodology is available upon request. Digna Camarena MD MICROBIOLOGY - GENERAL OR DERABLES Final Result PREFERRED [facility], [facility] [address] [facility] , [address] [place] [phone] from Last 3 Months or Most Recently Relevant to Health Maintenance Insurance [facility] CHOICE PLUS [id number] [facility] CHOICE PLUS [id number] * Guarantor: CORPORATE,C[employer] OF FAMILYANDCHILDREN Account Type Relation to Patient Date of Phone Billing Address [employer] [facility] [facility] [address] Care Teams Seed Laboratory Technician Relationship Specialty Start Date End Date Carleen Xiong MD [address] [place] [address] PCP - General Family Medicine 09/10/15 Peace Landry APRN [address] [place] [address] Nurse Practitioner 02/01/16
--- OUTSIDE RECORDS SUMMARY | 2025-06-10 21:55 | XMS_ITS | Clinical Summary ---
Author Organization [facility] Address [address] [place] [address] Care Team Providers Care Decorator Store Name Role Phone Jasmeet Kelly MD Primary Care Provider [phone] Allergies No known active allergies Medications acetaminophen [...] does note that she was examined in [place] and was noted to be 2 cm [...] drink = 0.6 oz pur e alcohol) [facility] Utilities Answer Date Recorded In the past 12 months has th e electric, gas, oil, or water [employer] threatened to shut off services in your [...] and heating? Not hard at all 12/26/2024 [facility] of Occupat ional Health - Occupational Stress [...] GED or equivalent No 12/26/2024 Preferred Language Brazilian 12/26/2024 PHQ-2 Answer Date Recorded Patient Health [...] Health Maintenance Due Date Last Done Comments Annual Gynecologic Pelvic an d Breast Exam 2004 MENINGOCOCCAL B VACCINE (1 o f 2 - Standard) 2020 ANNUAL PHYSICAL 09/12/2023 HEPATITIS C SCREENING 09/12/2023 INFLUENZA VACCINE 02/06/2025 05/26/2020 PAP SMEAR 2025 TDAP/TD VACCINES (3 - Td or Tdap) 03/12/2034 03/12/2024, 09/10/2015 HPV VACCINES Completed 01/06/2019, 10/12/2017 MENINGOCOCCAL VACCINE Completed 08/03/2020 , 09/10/2015 Pneumococcal Vaccine 0-49 Aged Out No longer eligible based on patient's age to complete this topic Insurance Barb MARTINEZ [place] GROSS [id number] [facility] Advance Directives * CPR (Attempt to Resuscitate) (Latest Code Status on File) Date Activated Date Inactivated Comments 12/26/2024 1:34 AM 01/04/2025 11:53 AM Question Answer Comments Code Status (Patient has no pulse and is not breathing): CPR (Attempt to Resuscitate) Medical Interventions (Patie nt has pulse or is breathing): Full Support Level Of Support Discussed With: Patient Care Teams Decorator Store Relationship Specialty Start Date End Date Jasmeet Kelly MD [address] [place] [address] PCP - General Family Medicine 12/03/24
--- OUTSIDE RECORDS SUMMARY | 2025-06-10 21:55 | XMS_ITS | Clinical Summary ---
Author Organization [facility] Address [address] [place] [address] Care Team Providers Care Carpet Finishing Supervisor Name Role Phone Jasmeet Kelly MD Primary Care Provider [phone] Allergies No known active allergies Medications Doxylamine-Pyr [...] as needed for pain or fever. Under [place] law, monthly prescriptions (30 days) can be [...] severe pain. 9 tablet Active Active Problems No known active problems Resolved Problems Problem [...] drink first t renu in the morning (EYE-CATHODE RAY TUBE ASSEMBLER) to steady your nerves or to get rid of a hangover? 0 08/28/2024 CAGE Questionnaire Score 0 025 Comments No Sex and Gender Information Value [...] SDOH Screenings 2022 UKY-Adult SDOH Screenings 2022 [id number] Vaccine ( season) 2025 02/19/2023 UKY-Influenza Vaccine (#1) 2025 05/26/2020 UKY-Pap Smear 2025 UKY-DTaP,Tdap,and Td Vaccines (8 - Td or [...] on patient's age to complete this topic UKY-Rotavirus Vaccines Aged Out No lo nger eligible based on patient's age to complete this topic Insurance [employer]ICA[employer] Advance Directives * Full Code (Latest Code Status on File) Date Activated Date Inactivated Comments 08/28/2024 12:47 AM 08/29/2024 1:39 PM Question Answer Comments Patient has decision-making capacity? Yes Care Teams Carpet Finishing Supervisor Relationship Specialty Start Date End Date Jasmeet Kelly MD [address] [place] [address] [address] [place] [address] PCP - General 08/27/24
[2025-06-10 21:57] VITALS: BP 126/87; PULSE 94; RESP 18; TEMP 36.6; O2SAT 100; BMI 17.6
--- NOTE | 2025-06-10 22:19 | ED_ITS ---
<Statement entered by Estevan Watson MD - 06/10/25 22:41> I was consulted by the DEBORAH, and we discussed the complexity of the problems being addressed. I approved the treatment and management plan for this patient's care in the emergency department, thus performing a substantive portion of the medical decision making. Estevan Watson MD, RAH, FACEP Discharge Plan Disposition Chief Complaint: Dental/Oral Prescriptions Prescriptions: No Action Classic 28 mg iron- 800 mcg tablet PO DAILY escitalopram oxalate [Lexapro] 10 mg tablet 10 mg PO DAILY Referrals Follow up/Referrals: Maddie Kelly MD [Primary Care Provider, Medical] - See instructions Print Language Print Language: Estonian Discharge ED Provider: Estevan Watson General Adult HPI General Chief complaint: Dental/Oral Stated complaint: Mouth pain L side of face going down neck Time Seen by Provider: 06/10/25 22:18 Mode of Arrival: Ambulatory Source of Information: Patient Description of Symptoms (Recalled from ER Triage Doc. by RN): pt c/o left side tooth pain that started a couple days ago. took ibuprofen last at 1600 today. History of Present Illness HPI narrative: 20-year-old female presents to the ED today with complaint of left side mouth and tooth pain. She says this began a couple days ago. She is 15 weeks and had an appointment today and they canceled it because they wanted OB clearance. She has no drainage coming from the area. She does have pain that moves down her neck but no swelling at all. She has no fevers or chills. No nausea, vomiting or diarrhea. No systemic infectious symptoms. Vitals are stable. She has been using Orajel, Tylenol and ibuprofen. She does have a broken tooth on the bottom and the top. She also has a wisdom tooth coming in on the bottom left. She is not sure where the pain is coming from. Related Data Home Medications ?Medication ?Instructions ?Recorded ?Confirmed escitalopram oxalate 10 mg tablet 10 mg PO DAILY 04/0205/26/25 (Lexapro) vits no.126-ferrous fum tab PO DAILY 04/09/25 05/26/25 28 mg iron-folic acid 800 mcg tablet (Classic ) Allergies Allergy/AdvReac Type Severity Reaction Status Date / Time No Known Allergies Allergy Verified 05/26/25 11:30 [facility] Disclaimer: The information contained in this section may have been updated after the patient was seen, as this information can be updated by other users. Medical History History of prior with short cervix, currently Depression affecting , antepartum History of delivery, currently Short interval between pregnancies affecting , antepartum Positive test URI (upper respiratory infection) depression Acute blood loss anemia spontaneous labor with delivery delivery at 35w4d contractions Paresthesia premature rupture of membranes (PPROM) with onset of labor within 24 hours of rupture in third trimester, antepartum Asymmetric IUGR affecting , antepartum Cervical abnormality in Underweight (BMI < 18.5) Vaginal bleeding during Rh negative state in antepartum period Screening for genetic disease carrier status Horizon carrier screen 07/24/24 negative for 4 conditions tested - CF, Fragile X, SMA and DMD Abnormal uterine bleeding PCOS (polycystic ovarian syndrome) Depression Anxiety History of gastroesophageal reflux (GERD) Migraine Surgical History S/P laparoscopic cholecystectomy 08/28/24 at Family History Other No significant family history Social History Smoking Status: Never smoker alcohol intake: never substance use type: denies use current occupational status: unemployed Travel in the last 8 weeks?: None do you feel safe at home: Yes victim of physical abuse: No victim of emotional abuse: No victim of sexual abuse: No Have you lived/traveled outside US in past 30 days?: No Contact w/someone who lives/traveled outside US past 30 days?: No Exposure to someone with infectious disease in past 14 days?: No Do you have a fever (greater than 100.4 F or 38 C)?: No Have you tested positive for COVID-19?: No Exposed to someone with COVID-19 in past 14 days?: No Do you have a sore throat?: No Do you have a cough?: No Do you have any weakness?: No Do you have any diarrhea?: No Are you experiencing any unusual bleeding?: No Do you have any muscle aches/pain?: No Do you have any abdominal pain?: No Are you experiencing loss of taste or smell?: No Other Medical History Have you received the Flu Vaccine for this season: No Have you received the Pneumonia Vaccine: No ROS Obtained: Yes Systems reviewed as appropriate & no additional complaints except as documented Constitutional Constitutional: Reports as per HPI Physical Exam General General appearance: alert and in no apparent distress Head Head exam: atraumatic Eye Eye exam: Present PERRL and EOMI ENT ENT exam: Present other (Dentition on the left side of her teeth shows a crown that has broken a broken top tooth on the left side and some redness to the gums but no drainage and no swelling to her face or neck) Neck Neck exam: Present normal inspection, full ROM and trachea midline Respiratory Respiratory exam: Present normal lung sounds bilaterally Cardiovascular Cardiovascular exam: Present regular rate Extremities Exam Extremities exam: Present full ROM and tenderness Neurological Exam Neurological exam: Present alert and oriented X3 Psychiatric Psychiatric exam: Present normal mood Skin Skin exam: Present warm and dry Medical Decision Making Medical Records Screening: Per USPSTF and CDC recommendations, given the prevalence of disease in our region, it is our hospital?s policy to screen for HIV and viral Hepatitis for all patients aged 18 and over and those with ongoing risk factors. Danny Inquiry Pt receiving controlled substance: No Danny was queried for this patient: No Vital Signs: 06/10/25 21:57 Temperature 97.8 F Temperature Source Oral Pulse Rate [Left] 94 H Respiratory Rate 18 Blood Pressure [Right Arm] 126/87 Blood Pressure Mean [Right Arm] 100 Blood Pressure Source [Right Arm] Automatic Cuff Blood Pressure Position [Right Arm] Sitting 02 Sat by Pulse Oximetry 100 Oxygen Delivery Method Room Air Medical Decision Narrative: patient is a 20-year-old presenting to the emergency department for evaluation of left-sided dental pain with broken teeth. Patient is hemodynamically stable and nontoxic-appearing upon arrival, afebrile. Differential diagnosis includes dental pain possible abscess. Patient will be given dental balls and told to take Tylenol at home. She will be given Keflex as well. She is going to call her OB for OB clearance and the dentist tomorrow. Patient will be safe for discharge after getting the medications. Critical Care Critical Care Time Critical Care Time: No
[2025-06-10] MEDS: TETRACAINE/BENZOCAINE/BUTAMBEN 56 GM SPRAY TP (22:45)
[2025-06-10] MEDS: LIDOCAINE 2% VISCOUS SOL 15ML UDC 15 ML PO (22:45)
[2025-06-10 22:50] VITALS: BP 126/87; PULSE 105; RESP 17; TEMP 37; O2SAT 100
== END 2025-06-10 22:51 | disposition home or self-care (01) ==
PROVIDERS: Emergency Provider Student in an Organized Health Care Education/Training Program; PCP Family Medicine
DX: O26.892 Other specified pregnancy related conditions, second trimester (principal); K08.89 Other specified disorders of teeth and supporting structures; Z3A.15 15 weeks gestation of pregnancy
CPT/HCPCS: 99283

== ENCOUNTER 2025-06-12 13:29 | Outpatient (CLI) | payer OTHER, SELFPAY ==
--- OUTSIDE RECORDS SUMMARY | 2025-06-12 13:31 | XMS_ITS | Clinical Summary ---
Author Organization [facility] [place] [facility] Address [address] [place] [address] Phone Care Team Providers Care Field Checker Name Role Phone Carleen Xiong MD Primary Care Provider [phone] Peace Landry WELDING MACHINE OPERATOR ARC Unavailable [phone] Allergies Active Allergy Reactions Criticality Noted Date [...] disorder) 09/19/2016 Overview (09/19/2016): Dx at [facility] 09/18/16, treated Zoloft. Generalized anxiety disorder 09/19/2016 Overview (09/19/2016): Dx at [facility] 09/18/16, treated Zoloft. Mild single current episode of major depressive disorder 09/19/2016 Overview (09/19/2016): Dx at [facility] 09/18/16, treated Zoloft. Immunizations Immunization Administration Dates [...] Generalized anxiety disorder 09/19/2016 Dx at [facility] 09/18/16, treated Zoloft. Mild single current episode of major depressive disorder 09/19/2016 Dx at [facility] 09/18/16, crytsal ated Zoloft. PTSD (post-traumatic stress disorder) 09/19/2016 Dx at [facility] 09/18/16, treated Zoloft. Family History Medical History [...] and heating? Not hard at all 06/30/2021 [employer] [place] [facility] Occupat ional Health - Occupational Stress [...] Detected Not Detected 01/19/2023 5:31 AM EDT [facility] Neisseria gonorrhoeae Not Detected Not Detected 01/19/2023 5:31 AM EDT [facility] Swab ENDOCERVICAL STRUCTURE / Unknown 01/18/2023 1:37 PM EDT 01/18/2023 1:37 PM EDT Narrative PREFERRED [facility] - 01/19/2023 5:31 AM EDT Testing methodology is honey grader and blender mediated amplification (TMA) using the Aptima Combo 2 assay from [employer]. A negative result does not completely rule [...] - GENERAL OR DERABLES Final Result PREFERRED [employer], [facility] [address] [facility] , [address] [place] [id number] from Last 3 Months or Most Recently Relevant to Health Maintenance Insurance [facility] CHOICE PLUS [id number] [facility] CHOICE PLUS [id number] * Guarantor: [employer] Account Type Relation to Patient Date of Phone Billing Address Corporate [facility] [address] Care Teams Field Checker Relationship Specialty Start Date End Date Carleen Xiong MD [address] [place] [address] PCP - General Family Medicine 09/10/15 Peace Landry APRN [address] [place] [address] Nurse Practitioner 02/01/16
--- OUTSIDE RECORDS SUMMARY | 2025-06-12 13:31 | XMS_ITS | Clinical Summary ---
Author Organization [facility] Address [address] [place] [address] Care Team Providers Care Wet Trimmer Name Role Phone Jasmeet Kelly MD Primary Care Provider [phone] Allergies No known active allergies Medications Doxylamine-Pyr [...] as needed for pain or fever. Under [place] law, monthly prescriptions (30 days) can be [...] drink first t renu in the morning (EYE-STEAM FRAME OPERATOR) to steady your nerves or to get [...] SDOH Screenings 2022 [facility]Y-Adult SDOH Screenings 2022 [id number] Vaccine ( season) 2025 02/19/2023 UKY-Influenza Vaccine [...] Patient has decision-making capacity? Yes Care Teams Wet Trimmer Relationship Specialty Start Date End Date Jasmeet Kelly MD [address] [place] [address] #1 [address] [place] [id number] PCP - General 08/27/24
--- OUTSIDE RECORDS SUMMARY | 2025-06-12 13:31 | XMS_ITS | Clinical Summary ---
Author Organization [facility] Address [address] [place] [address] Care Team Providers Care Buckle Attacher Name Role Phone Jasmeet Kelly MD Primary [...] does note that she was examined in [place] and was noted to be 2 cm [...] drink = 0.6 oz pur e alcohol) [facility] Utilities Answer Date Recorded In the past 12 months has th e electric, gas, oil, or water [employer] threatened to shut off services in your [...] and heating? Not hard at all 12/26/2024 [facility] - Occupational Stress [...] GED or equivalent No 12/26/2024 Preferred Language Austrian 12/26/2024 PHQ-2 Answer Date Recorded Patient Health [...] this topic Insurance Barb MARTINEZ [place] [id number] [facility] Advance Directives * CPR (Attempt to Resuscitate) (Latest Code Status on File) Date Activated Date Inactivated Comments 12/26/2024 1:34 AM 01/04/2025 11:53 AM Question Answer Comments Code Status (Patient has no pulse and is not breathing): CPR (Attempt to Resuscitate) Medical Interventions (Patie nt has pulse or is breathing): Full Support Level Of Support Discussed With: Patient Care Teams Buckle Attacher Relationship Specialty Start Date End Date Jasmeet Kelly MD [address] [place] [address] PCP - General Family Medicine 12/03/24
--- NOTE | 2025-06-12 13:45 | US_ITS ---
PROCEDURE: US OB FOLLOW UP CLINICAL INDICATION: cervical length at 16 weeks COMPARISON: U/S transvaginal 04/27/2025 FINDINGS: Transabdominal sonographic images of the pelvis were obtained. The following parameters are obtained: From her established due date she is 16weeks 0 days Viable fetus in the breech presentation with a posterior placenta grade 1. The cervix measures 3.17-3.53 cm in length transvaginally There is no funneling or cervical shortening with Valsalva. heart rate: 156bpm bpm. BPD: 17weeks 2days HC: 16weeks 4days AC: 16weeks 4days FL: 15weeks 6days HC/AC: 1.2 FL/BPD: 0.53 FL/AC: 0.18 Growth percentile: 56 Amniotic fluid: MVP 3.81 cm No obvious anomalies evident. profile seen, stomach, bladder, kidneys, three-vessel cord, four chamber heart appear normal. IMPRESSION: 1. Viable fetus in the breech presentation with a posterior placenta grade 1. 2. The fluid is within normal limits with an MVP 3.81 cm. 3. The cervix is measured transvaginally 3.17-3.53 cm in length. 4. There has been good interval growth. 5. Limited anatomical scan appears normal. Dictated by: Colt Diggs MD 06/13/2025 06:48 Colt Diggs MD in [place] 06/13/2025 06:48
== END 2025-06-12 23:59 | disposition home or self-care (01) ==
LOC: RAD 13:29
PROVIDERS: PCP Family Medicine; Visit Provider Obstetrics & Gynecology
DX: O32.1XX0 Maternal care for breech presentation, not applicable or unspecified (principal); O09.292 Supervision of pregnancy with other poor reproductive or obstetric history, second trimester; Z3A.16 16 weeks gestation of pregnancy
CPT/HCPCS: 76816; 76817

== ENCOUNTER 2025-06-14 20:42 | Emergency (ER) | payer OTHER, SELFPAY ==
[2025-06-14 20:46] VITALS: BP 121/88; PULSE 83; RESP 18; TEMP 37.1; O2SAT 100; BMI 17.7
--- NOTE | 2025-06-14 21:06 | ED_ITS ---
<Statement entered by Laurie Moseley DO - 06/15/25 00:11> I was consulted by the DEBORAH, and we discussed the complexity of problems being addressed. I approved the treatment plan and management plan of this patient's care in the emergency department, thus performing a substantive portion of medical decision making. Laurie Moseley DO Discharge Plan Disposition Patient Disposition: Home, Self-Care Prescriptions Prescriptions: No Action Classic 28 mg iron- 800 mcg tablet PO DAILY escitalopram oxalate [Lexapro] 10 mg tablet 10 mg PO DAILY cephalexin 500 mg capsule 500 mg PO BID 10 Days Qty: 20 0RF Referrals Follow up/Referrals: Maddie Kelly MD [Primary Care Provider, Medical] - See instructions Activity Restrictions/Add. Instructions Additional Instructions/Restrictions: please use dental balls as directed. follow up with dentistry as scheduled. return to ED for worsening of condition Clinical Impressions Clinical Impression: Pain, dental Instructions Patient Instructions: DI for Dental Pain Print Language Print Language: Thai Discharge ED Provider: Laurie Moseley General Adult HPI General Chief complaint: Dental/Oral Stated complaint: 16 weeks AP - Left side jaw pain Time Seen by Provider: 06/14/25 21:00 Mode of Arrival: Ambulatory Source of Information: Patient Description of Symptoms (Recalled from ER Triage Doc. by RN): PT was seen last week for tooth pain and was sent home with dental balls. She states other than the dental balls she has had zero relief. Pt is awaiting OB clearance to see a dentist. Pt is still taking antibiotic from last visit as well History of Present Illness HPI narrative: Patient is a 20-year-old female PMHx dental pain who presents to the ED requesting dental balls. She states she has already been evaluated for dental pain, was given dental balls on her last evaluation but only had 3. She states that she is currently 16 weeks , sees dentistry this coming Sunday. She reports she has left lower molar dental pain, possibly from a wisdom tooth that is growing right now. She denies any trauma or new issues with her dental pain. Related Data Home Medications ?Medication ?Instructions ?Recorded ?Confirmed escitalopram oxalate 10 mg tablet 10 mg PO DAILY 04/0205/26/25 (Lexapro) vits no.126-ferrous fum tab PO DAILY 04/09/25 05/26/25 28 mg iron-folic acid 800 mcg tablet (Classic ) Previous Rx's ?Medication ?Instructions ?Recorded cephalexin 500 mg capsule 500 mg PO BID 10 days #20 ca ps 06/10/25 Allergies Allergy/AdvReac Type Severity Reaction Status Date / Time No Known Allergies Allergy Verified 05/26/25 11:30 [facility] Disclaimer: The information contained in this section may have been updated after the patient was seen, as this information can be updated by other users. Medical History History of prior with short cervix, currently Depression affecting , antepartum History of delivery, currently Short interval between pregnancies affecting , antepartum Positive test URI (upper respiratory infection) depression Acute blood loss anemia spontaneous labor with delivery delivery at 35w4d contractions Paresthesia premature rupture of membranes (PPROM) with onset of labor within 24 hours of rupture in third trimester, antepartum Asymmetric IUGR affecting , antepartum Cervical abnormality in Underweight (BMI < 18.5) Vaginal bleeding during Rh negative state in antepartum period Screening for genetic disease carrier status Horizon carrier screen 07/24/24 negative for 4 conditions tested - CF, Fragile X, SMA and DMD Abnormal uterine bleeding PCOS (polycystic ovarian syndrome) Depression Anxiety History of gastroesophageal reflux (GERD) Migraine Surgical History S/P laparoscopic cholecystectomy 08/28/24 at Family History Other No significant family history Social History Smoking Status: Never smoker alcohol intake: never substance use type: denies use current occupational status: unemployed Travel in the last 8 weeks?: None do you feel safe at home: Yes victim of physical abuse: No victim of emotional abuse: No victim of sexual abuse: No Have you lived/traveled outside US in past 30 days?: No Contact w/someone who lives/traveled outside US past 30 days?: No Exposure to someone with infectious disease in past 14 days?: No Do you have a fever (greater than 100.4 F or 38 C)?: No Have you tested positive for COVID-19?: No Exposed to someone with COVID-19 in past 14 days?: No Do you have a sore throat?: No Do you have a cough?: No Do you have any weakness?: No Do you have any diarrhea?: No Are you experiencing any unusual bleeding?: No Do you have any muscle aches/pain?: No Do you have any abdominal pain?: No Are you experiencing loss of taste or smell?: No Other Medical History Have you received the Flu Vaccine for this season: No Have you received the Pneumonia Vaccine: No ROS Obtained: Yes Systems reviewed as appropriate & no additional complaints except as documented Physical Exam General General appearance: alert Head Head exam: atraumatic Eye Eye exam: Present PERRL ENT ENT exam: Present other (poor dental health on left lower molar ) Respiratory Respiratory exam: Present normal lung sounds bilaterally Cardiovascular Cardiovascular exam: Present regular rate Neurological Exam Neurological exam: Present alert and oriented X3 Psychiatric Psychiatric exam: Present normal affect Skin Skin exam: Present dry Medical Decision Making Medical Records Screening: Per USPSTF and CDC recommendations, given the prevalence of disease in our region, it is our hospital?s policy to screen for HIV and viral Hepatitis for all patients aged 18 and over and those with ongoing risk factors. Danny Inquiry Pt receiving controlled substance: No Vital Signs: 06/14/25 20:46 Temperature 98.7 F Temperature Source Oral Pulse Rate [Right] 83 Respiratory Rate 18 Blood Pressure [Right Arm] 121/88 Blood Pressure Mean [Right Arm] 99 Blood Pressure Source [Right Arm] Automatic Cuff Blood Pressure Position [Right Arm] Sitting 02 Sat by Pulse Oximetry 100 Oxygen Delivery Method Room Air Orders (Tests/Meds): ED MEDICATIONS Generic Name Dose Route Start Last Admin Trade Name Joselyn PRN Reason Stop Dose Admin Lidocaine HCl 15 ml 06/14/25 21:06 Lidocaine 2% Viscous Radha 15ml Udc PO 06/14/25 21:07 ONCE ONE Medical Decision Narrative: In summary, patient is a 20-year-old female PMHx dental pain who presents to the ED requesting dental balls. She states she has already been evaluated for dental pain, was given dental balls on her last evaluation but only had 3. She states that she is currently 16 weeks , sees dentistry this coming Sunday. She reports she has left lower molar dental pain, possibly from a wisdom tooth that is growing right now. She denies any trauma or new issues with her dental pain. Upon initial evaluation she is alert, oriented and cooperative. She is very pleasant. She has poor dental growth on the left molar area, no obvious abscess. Denies fever, chills, body aches, neck pain. Discussed with patient that we can administer more dental balls and for her to keep her follow-up with dentistry. We discussed return precautions. Critical Care Critical Care Time Critical Care Time: No
[2025-06-14] MEDS: LIDOCAINE 2% VISCOUS SOL 15ML UDC 15 ML PO ×2 (21:18)
[2025-06-14 21:20] VITALS: BP 120/80; PULSE 80; RESP 18; TEMP 36.8; O2SAT 99
== END 2025-06-14 21:21 | disposition home or self-care (01) ==
PROVIDERS: Emergency Provider Student in an Organized Health Care Education/Training Program; PCP Family Medicine
DX: O26.892 Other specified pregnancy related conditions, second trimester (principal); K08.89 Other specified disorders of teeth and supporting structures; Z3A.16 16 weeks gestation of pregnancy
CPT/HCPCS: 99283

== ENCOUNTER 2025-06-22 00:36 | Emergency (ER) | payer OTHER, SELFPAY ==
--- OUTSIDE RECORDS SUMMARY | 2025-06-22 00:44 | XMS_ITS | Clinical Summary ---
Author Organization [facility] Address [address] [place] [address] Care Team Providers Care Social Secretary Name Role Phone Jasmeet Kelly MD Primary Care Provider [phone] Allergies No known active allergies Medications Doxylamine-Pyr [...] drink first t renu in the morning (EYE-EMBEDDED FIRMWARE DEVELOPER) to steady your nerves or to get [...] SDOH Screenings 2022 UKY-Adult SDOH Screenings 2022 [id number] Vaccine ( season) 2025 02/19/2023 UKY-Influenza Vaccine [...] Patient has decision-making capacity? Yes Care Teams Social Secretary Relationship Specialty Start Date End Date Jasmeet Kelly MD [address] [place] [address] [address]1 [address]1 [address] [place] [address] PCP - General 08/27/24
--- OUTSIDE RECORDS SUMMARY | 2025-06-22 00:44 | XMS_ITS | Clinical Summary ---
Author Organization [facility] Address [address] [place] [address] Phone Care Team Providers Care Agile Qa Tester Name Role Phone Carleen Xiong MD Primary Care Provider [phone] Peace Landry LUDLOW MACHINE OPERATOR Unavailable [phone] Allergies Active Allergy Reactions Criticality Noted Date [...] disorder) 09/19/2016 Overview (09/19/2016): Dx at [facility] 09/18/16, treated Zoloft. Generalized anxiety disorder 09/19/2016 Overview (09/19/2016): Dx at [facility] 09/18/16, treated Zoloft. Mild single current episode of major depressive disorder 09/19/2016 Overview (09/19/2016): Dx at [facility] 09/18/16, treated Zoloft. Immunizations Immunization Administration Dates [...] Generalized anxiety disorder 09/19/2016 Dx at [facility] 09/18/16, treated Zoloft. Mild single current episode of major depressive disorder 09/19/2016 Dx at [facility] 09/18/16, crystal ated Zoloft. PTSD (post-traumatic stress disorder) 09/19/2016 Dx at [facility] 09/18/16, treated Zoloft. Family History Medical History [...] and heating? Not hard at all 06/30/2021 [facility] of Occupat ional Health - Occupational Stress [...] Detected Not Detected 01/19/2023 5:31 AM EDT [place] Neisseria gonorrhoeae Not Detected Not Detected 01/19/2023 5:31 AM EDT [facility] [employer] [facility] Swab ENDOCERVICAL STRUCTURE / Unknown 01/18/2023 1:37 PM EDT 01/18/2023 1:37 PM EDT Narrative PREFERRED [employer] [facility] - 01/19/2023 5:31 AM EDT Testing methodology is refrigeration tech mediated amplification (TMA) using the Aptima Combo 2 assay from [employer]. A negative result does not completely rule [...] - GENERAL OR DERABLES Final Result PREFERRED [employer], [facility] [address] [facility] , [address] [place] [id number] from Last 3 Months or Most Recently Relevant to Health Maintenance Insurance [facility] CHOICE PLUS [id number] [facility] CHOICE PLUS [id number] * Guarantor: CORPORATE,[employer]IN[employer] OF FAMILY[employer]CHILDR[employer] Account Type Relation to Patient Date of Phone Billing Address Corporate [facility] [address] Care Teams Agile Qa Tester Relationship Specialty Start Date End Date Carleen Xiong MD [address] [place] [address] PCP - General Family Medicine 09/10/15 Peace Landry APRN [address] [place] [address] Nurse Practitioner 02/01/16
--- OUTSIDE RECORDS SUMMARY | 2025-06-22 00:44 | XMS_ITS | Clinical Summary ---
Author Organization [facility] Address [address] [place] [address] Care Team Providers Care Storage Management Architect Name Role Phone Jasmeet Kelly MD Primary Care Provider [phone] Allergies No known active allergies Medications acetaminophen [...] does note that she was examined in [place] and was noted to be 2 cm [...] drink = 0.6 oz pur e alcohol) [facility] Utilities Answer Date Recorded In the past 12 months has th e electric, gas, oil, or water [employer] threatened to shut off services in your [...] GED or equivalent No 12/26/2024 Preferred Language Ghanaian 12/26/2024 PHQ-2 Answer Date Recorded Patient Health [...] this topic Insurance Barb MARTINEZ ERIKA GROSS [id number] [place] [address] Advance Directives * CPR (Attempt to Resuscitate) (Latest Code Status on File) Date Activated Date Inactivated Comments 12/26/2024 1:34 AM 01/04/2025 11:53 AM Question Answer Comments Code Status (Patient has no pulse and is not breathing): CPR (Attempt to Resuscitate) Medical Interventions (Patie nt has pulse or is breathing): Full Support Level Of Support Discussed With: Patient Care Teams Storage Management Architect Relationship Specialty Start Date End Date Jasmeet Kelly MD [address] [place] [address] PCP - General Family Medicine 12/03/24
[2025-06-22 00:46] VITALS: BP 133/97; PULSE 83; RESP 20; TEMP 36.6; O2SAT 97; BMI 18.1
--- NOTE | 2025-06-22 00:53 | HMH.EDGENADL ---
Discharge Plan Disposition Patient Disposition: Home, Self-Care Prescriptions Prescriptions: No Action Classic 28 mg iron- 800 mcg tablet PO DAILY escitalopram oxalate [Lexapro] 10 mg tablet 10 mg PO DAILY ondansetron 4 mg tablet,disintegrating 4 mg PO Q6H PRN (Reason: nausea and vomiting) Qty: 30 2RF cephalexin 500 mg capsule 500 mg PO BID 10 Days Qty: 20 0RF Referrals Follow up/Referrals: Maddie Kelly MD [Primary Care Provider, Medical] - See instructions Activity Restrictions/Add. Instructions Additional Instructions/Restrictions: Please follow-up with your primary care provider. Please return to the emergency department if you develop any new or worsening symptoms or become concerned for your health. Clinical Impressions Clinical Impression: Pain, dental Print Language Print Language: East Timorese Discharge ED Provider: Cyrus Millard General Adult HPI General Chief complaint: Dental/Oral Stated complaint: tooth, ear, neck pain, 17 wks ante Time Seen by Provider: 06/22/25 00:40 Mode of Arrival: Ambulatory Source of Information: Patient Description of Symptoms (Recalled from ER Triage Doc. by RN): pt reports left sided tooth pain on her bottom jaw that radiates down her neck and into her ear. pt reports she was seen her previously for similar symptoms and given antibiotics History of Present Illness HPI narrative: 20-year-old female, 18 weeks presents for left-sided tooth/jaw pain. She reports is radiating to her ear and her neck. She has been having this issue for a couple of weeks and is currently on antibiotics. She has been trying to see a dentist but it was canceled because of the snow we had recently. She has been taking Tylenol at home but the pain has been getting worse. Related Data Home Medications ?Medication ?Instructions ?Recorded ?Confirmed escitalopram oxalate 10 mg tablet 10 mg PO DAILY 04/02/25 06/16/25 (Lexapro) vits no.126-ferrous fum tab PO DAILY 04/09/25 06/16/25 28 mg iron-folic acid 800 mcg tablet (Classic ) Previous Rx's ?Medication ?Instructions ?Recorded cephalexin 500 mg capsule 500 mg PO BID 10 days #20 caps 06/10/25 ondansetron 4 mg disintegrating 4 mg PO Q6H PRN nausea and 06/15/25 tablet vomiting #30 tabs Allergies Allergy/AdvReac Type Severity Reaction Status Date / Time No Known Allergies Allergy Verified 06/16/25 14:09 [facility] Disclaimer: The information contained in this section may have been updated after the patient was seen, as this information can be updated by other users. Medical History History of prior with short cervix, currently Depression affecting , antepartum History of delivery, currently Short interval between pregnancies affecting , antepartum Positive test URI (upper respiratory infection) depression Acute blood loss anemia spontaneous labor with delivery delivery at 35w4d contractions Paresthesia premature rupture of membranes (PPROM) with onset of labor within 24 hours of rupture in third trimester, antepartum Asymmetric IUGR affecting , antepartum Cervical abnormality in Underweight (BMI < 18.5) Vaginal bleeding during Rh negative state in antepartum period Screening for genetic disease carrier status Horizon carrier screen 07/24/24 negative for 4 conditions tested - CF, Fragile X, SMA and DMD Abnormal uterine bleeding PCOS (polycystic ovarian syndrome) Depression Anxiety History of gastroesophageal reflux (GERD) Migraine Surgical History S/P laparoscopic cholecystectomy 08/28/24 at Family History Other No significant family history Social History Smoking Status: Never smoker alcohol intake: never substance use type: denies use current occupational status: unemployed Travel in the last 8 weeks?: None do you feel safe at home: Yes victim of physical abuse: No victim of emotional abuse: No victim of sexual abuse: No Have you lived/traveled outside US in past 30 days?: No Contact w/someone who lives/traveled outside US past 30 days?: No Exposure to someone with infectious disease in past 14 days?: No Do you have a fever (greater than 100.4 F or 38 C)?: No Have you tested positive for COVID-19?: No Exposed to someone with COVID-19 in past 14 days?: No Do you have a sore throat?: No Do you have a cough?: No Do you have any weakness?: No Do you have any diarrhea?: No Are you experiencing any unusual bleeding?: No Do you have any muscle aches/pain?: No Do you have any abdominal pain?: No Are you experiencing loss of taste or smell?: No Other Medical History Have you received the Flu Vaccine for this season: No Have you received the Pneumonia Vaccine: No ROS Obtained: Yes All systems reviewed & no additional complaints except as documented Physical Exam General General appearance: alert and in no apparent distress Head Head exam: atraumatic and normocephalic Eye Eye exam: Present normal appearance, PERRL and EOMI ENT ENT exam: Present TM's normal bilaterally, normal external ear exam and other (Tenderness to the posterior most molar) Neck Neck exam: Present normal inspection and full ROM; Absent lymphadenopathy Chest Chest inspection: Present normal inspection and symmetric chest wall rise; Absent tenderness Respiratory Respiratory exam: Present normal lung sounds bilaterally; Absent respiratory distress Cardiovascular Cardiovascular exam: Present regular rate and normal rhythm Abdominal Exam Abdominal exam: Present soft; Absent distention, tenderness or guarding Extremities Exam Extremities exam: Present normal inspection; Absent edema or joint swelling Back Exam Back exam: Present normal inspection; Absent tenderness Neurological Exam Neurological exam: Present alert and oriented X3; Absent motor sensory deficit Psychiatric Psychiatric exam: Present normal affect and normal mood Skin Skin exam: Present warm, dry and normal color Lymphatic Lymphatic Findings: no adenopathy Medical Decision Making Medical Records Medical records reviewed: Yes I reviewed the patient's medical records. Screening: Per USPSTF and CDC recommendations, given the prevalence of disease in our region, it is our hospital?s policy to screen for HIV and viral Hepatitis for all patients aged 18 and over and those with ongoing risk factors. Danny Inquiry Pt receiving controlled substance: No Danny was queried for this patient: No Vital Signs: 06/22/25 00:46 06/22/25 00:56 Temperature 97.9 F 98.2 F Temperature Source Oral Pulse Rate 83 Pulse Rate [Right] 83 Respiratory Rate 20 22 Blood Pressure 133/97 H Blood Pressure [Right Arm] 133/97 H Blood Pressure Mean [Right Arm] 109 02 Sat by Pulse Oximetry 97 Oxygen Delivery Method Room Air Room Air Lab Data Lab results reviewed: Yes I reviewed the patient's lab results. Orders (Tests/Meds): ED MEDICATIONS Discontinued Medications Generic Name Dose Route Start Last Admin Trade Name Freq PRN Reason Stop Dose Admin Bupivacaine HCl 10 mg 06/22/25 00:53 06/22/25 00:57 Bupivacaine 0.5% 30ml Vial IJ 06/22/25 00:54 10 mg ONCE ONE Administration Lidocaine HCl 15 ml 06/22/25 00:47 06/22/25 00:54 Lidocaine 2% Viscous Radha 15ml Udc PO 06/22/25 00:48 15 ml ONCE ONE Administration Medical Decision Narrative: 20-year-old female, 18 weeks presents for persistent dental pain.. History was obtained via interactive discussion with patient. On arrival, patient is [afebrile, hemodynamically stable, satting appropriately, alert, oriented x4, GCS 15], moving all extremities spontaneously. Full physical exam performed and significant for tenderness palpation of the posterior most left maxillary molar, hole in the second most posterior molar Differential includes but is not limited to dental fracture, dental infection, crowding, abscess. Dental block was performed and patient was encouraged to follow-up with the walk-in dentistry clinic if she is not able to follow-up with her dentist [facility]. Procedures Risk/Benefits of Procedure(s) Were Explained: Yes Nerve Block Nerve Block 1: Time out performed: No Local Anesthetic: bupivacaine 0.5% Amount of anesthesia used (mL): 5 Side: Left Intraoral Nerve Block: inferior alveolar Procedure Successful: Yes Patient Tolerated Procedure: well and no complications Critical Care Critical Care Time Critical Care Time: No
[2025-06-22] MEDS: LIDOCAINE 2% VISCOUS SOL 15ML UDC 15 ML PO (00:54)
[2025-06-22 00:56] VITALS: BP 133/97; PULSE 83; RESP 22; TEMP 36.8; O2SAT 97
[2025-06-22] MEDS: BUPIVACAINE 0.5% 30ML VIAL 10 MG IJ (00:57)
== END 2025-06-22 01:01 | disposition home or self-care (01) ==
PROVIDERS: Emergency Provider Emergency Medicine; PCP Family Medicine
DX: O26.892 Other specified pregnancy related conditions, second trimester (principal); K08.89 Other specified disorders of teeth and supporting structures; Z3A.18 18 weeks gestation of pregnancy
CPT/HCPCS: 99283; J0665

== ENCOUNTER 2025-06-22 14:31 | Outpatient (CLI) | payer OTHER, SELFPAY ==
--- OUTSIDE RECORDS SUMMARY | 2025-06-22 14:53 | XMS_ITS | Clinical Summary ---
Author Organization [facility] Address [address] [place] [address] Care Team Providers Care Numerical Analysis Group Manager Name Role Phone Jasmeet Kelly MD Primary Care Provider [phone] Allergies No known active allergies Medications acetaminophen [...] does note that she was examined in [place] and was noted to be 2 cm [...] drink = 0.6 oz pur e alcohol) [facility] Utilities Answer Date Recorded In the past 12 months has th e electric, gas, oil, or water [employer] threatened to shut off services in your [...] and heating? Not hard at all 12/26/2024 [facility] of Occupat ional Health - Occupational Stress [...] GED or equivalent No 12/26/2024 Preferred Language Ukrainian 12/26/2024 PHQ-2 Answer Date Recorded Patient Health [...] this topic Insurance Barb MARTINEZ ERIKA GROSS [id number] [facility] Advance Directives * CPR (Attempt to Resuscitate) (Latest Code Status on File) Date Activated Date Inactivated Comments 12/26/2024 1:34 AM 01/04/2025 11:53 AM Question Answer Comments Code Status (Patient has no pulse and is not breathing): CPR (Attempt to Resuscitate) Medical Interventions (Patie nt has pulse or is breathing): Full Support Level Of Support Discussed With: Patient Care Teams Numerical Analysis Group Manager Relationship Specialty Start Date End Date Jasmeet Kelly MD [address] [place] [address] PCP - General Family Medicine 12/03/24
== END 2025-06-22 23:59 | disposition home or self-care (01) ==
LOC: RAD 14:32
PROVIDERS: PCP Family Medicine; Visit Provider Obstetrics & Gynecology
DX: O09.292 Supervision of pregnancy with other poor reproductive or obstetric history, second trimester (principal); O09.892 Supervision of other high risk pregnancies, second trimester; Z3A.18 18 weeks gestation of pregnancy

== ENCOUNTER 2025-06-25 12:24 | Outpatient (CLI) | payer OTHER, SELFPAY ==
[2025-07-05 20:31] LABS: Coronavirus 19, PCR Not Detected (NotDetected); Influenza A, PCR Not Detected (NotDetected); Influenza B, PCR Not Detected (NotDetected)
--- OUTSIDE RECORDS SUMMARY | 2025-07-06 11:20 | XMS_ITS | Clinical Summary ---
Author Organization [facility] Address [address] [place] [address] Care Team Providers Care Schedule Maker Name Role Phone Jasmeet Kelly MD Primary Care Provider [phone] Allergies No known active allergies Medications acetaminophen [...] does note that she was examined in [place] and was noted to be 2 cm [...] drink = 0.6 oz pur e alcohol) [facility] Utilities Answer Date Recorded In the past 12 months has th e electric, gas, oil, or water [employer] threatened to shut off services in your [...] and heating? Not hard at all 12/26/2024 [facility] of Occupat ional Health - Occupational [...] GED or equivalent No 12/26/2024 Preferred Language Peruvian 12/26/2024 PHQ-2 Answer Date Recorded Patient Health [...] this topic Insurance Barb MARTINEZ ERIKA GROSS [id number] [facility] Advance Directives * CPR (Attempt to Resuscitate) (Latest Code Status on File) Date Activated Date Inactivated Comments 12/26/2024 1:34 AM 01/04/2025 11:53 AM Question Answer Comments Code Status (Patient has no pulse and is not breathing): CPR (Attempt to Resuscitate) Medical Interventions (Patie nt has pulse or is breathing): Full Support Level Of Support Discussed With: Patient Care Teams Schedule Maker Relationship Specialty Start Date End Date Jasmeet Kelly MD [address] [place] [address] PCP - General Family Medicine 12/03/24
--- OUTSIDE RECORDS SUMMARY | 2025-07-06 11:20 | XMS_ITS | Clinical Summary ---
Author Organization [facility] Address [address] [place] [address] Care Team Providers Care Monument Stonecutter Name Role Phone Jasmeet Kelly MD Primary Care Provider [phone] Allergies No known active allergies Medications Doxylamine-Pyr [...] as needed for pain or fever. Under [place] law, monthly prescriptions (30 days) can be [...] drink first t renu in the morning (EYE-ASSURANCE ENGINEER) to steady your nerves or to get [...] SDOH Screenings 2022 [facility]-Adult SDOH Screenings 2022 [id number] Vaccine ( season) 2025 02/19/2023 [facility]-Influenza Vaccine [...] Patient has decision-making capacity? Yes Care Teams Monument Stonecutter Relationship Specialty Start Date End Date Jasmeet Kelly MD [address] [place] [address] [address]1 [address] [place] [id number] PCP - General 08/27/24
--- OUTSIDE RECORDS SUMMARY | 2025-07-06 11:20 | XMS_ITS | Clinical Summary ---
Author Organization [facility] Address [address] [place] [address] Phone Care Team Providers Care Customer Service Technician Name Role Phone Carleen Xiong MD Primary Care Provider [phone] Peace Landry TOWN CLERK Unavailable [phone] Allergies Active Allergy Reactions Criticality Noted Date [...] disorder) 09/19/2016 Overview (09/19/2016): Dx at [facility] 09/18/16, treated Zoloft. Generalized anxiety disorder 09/19/2016 Overview (09/19/2016): Dx at [facility] 09/18/16, treated Zoloft. Mild single current episode of major depressive disorder 09/19/2016 Overview (09/19/2016): Dx at [facility] 09/18/16, treated Zoloft. Immunizations Immunization Administration Dates [...] Generalized anxiety disorder 09/19/2016 Dx at [facility] 09/18/16, treated Zoloft. Mild single current episode of major depressive disorder 09/19/2016 Dx at [facility] 09/18/16, crystal ated Zoloft. PTSD (post-traumatic stress disorder) 09/19/2016 Dx at [facility] 09/18/16, treated Zoloft. Family History Medical History [...] and heating? Not hard at all 06/30/2021 [facility] [place] of Occupat ional Health - Occupational Stress [...] Detected Not Detected 01/19/2023 5:31 AM EDT [facility] Neisseria gonorrhoeae Not Detected Not Detected 01/19/2023 5:[address] [facility] [employer] [facility] Swab ENDOCERVICAL STRUCTURE / Unknown 01/18/2023 1:37 PM EDT 01/18/2023 1:37 PM EDT Narrative PREFERRED [employer] [facility] - 01/19/2023 5:31 AM EDT Testing methodology is grill associate mediated amplification (TMA) using the Aptima Combo 2 assay from [employer]. A negative result does not completely rule [...] - GENERAL OR DERABLES Final Result PREFERRED [employer], [facility] 1 [facility] , [address] [place] [id number] from Last 3 Months or Most Recently Relevant to Health Maintenance Insurance [facility] CHOICE PLUS [id number] [facility] CHOICE PLUS [id number] [place] [address] * Guarantor: CORPORATE,C[employer]IN[employer] OF FAMILYANDCHILDREN Account Type Relation to Patient Date of Phone Billing Address Corporate [facility] [address] Care Teams Customer Service Technician Relationship Specialty Start Date End Date Carleen Xiong MD [address] [place] [address] PCP - General Family Medicine 09/10/15 Peace Landry APRN [address] [place] [address] Nurse Practitioner 02/01/16
== END 2025-06-25 23:59 | disposition home or self-care (01) ==
LOC: LAB.DROPOF 07-06 11:15
PROVIDERS: PCP Family Medicine; Visit Provider Nurse Practitioner
DX: R52 Pain, unspecified (principal)
CPT/HCPCS: 87631

== ENCOUNTER 2025-07-05 13:00 | Outpatient (CLI) | payer OTHER, SELFPAY ==
[2025-07-05 20:31] LABS: Coronavirus 19, PCR Not Detected (NotDetected); Influenza A, PCR Not Detected (NotDetected); Influenza B, PCR Not Detected (NotDetected)
--- OUTSIDE RECORDS SUMMARY | 2025-07-23 12:49 | XMS_ITS | Clinical Summary ---
Author Organization [facility] Address [address] [place] [address] Care Team Providers Care Gas Plumbing Inspector Name Role Phone Jasmeet Kelly MD Primary Care Provider [phone] Allergies No known active allergies Medications Doxylamine-Pyr [...] as needed for pain or fever. Under [place] law, monthly prescriptions (30 days) can be [...] drink first t renu in the morning (EYE-MANAGER EVENT) to steady your nerves or to get [...] SDOH Screenings 2022 [facility]-Adult SDOH Screenings 2022 [id number] Vaccine ( season) 2025 02/19/2023 [facility]-Influenza Vaccine [...] patient's age to complete [place] [address] [employer] Advance Directives * Full Code (Latest Code Status on File) Date Activated Date Inactivated Comments 08/28/2024 12:47 AM 08/29/2024 1:39 PM Question Answer Comments Patient has decision-making capacity? Yes Care Teams Gas Plumbing Inspector Relationship Specialty Start Date End Date Jasmeet Kelly MD [address] [place] [address] [address] E[place]KA [place]ame [address] PCP - General 08/27/24
--- OUTSIDE RECORDS SUMMARY | 2025-07-23 12:50 | XMS_ITS | Clinical Summary ---
Author Organization [facility] [facility] Address [address] [place] [address] Phone Care Team Providers Care Billing Customer Service Representative Name Role Phone Carleen Xiong MD Primary Care Provider [phone] Peace Landry PILOT MANAGER Unavailable [phone] Allergies Active Allergy Reactions Criticality Noted Date [...] disorder) 09/19/2016 Overview (09/19/2016): Dx at [facility] [place] 09/18/16, treated Zoloft. Generalized anxiety disorder 09/19/2016 Overview (09/19/2016): Dx at [facility] 09/18/16, treated Zoloft. Mild single current episode of major depressive disorder 09/19/2016 Overview (09/19/2016): Dx at [facility] 09/18/16, treated Zoloft. Immunizations Immunization Administration Dates [...] Generalized anxiety disorder 09/19/2016 Dx at [facility] 09/18/16, treated Zoloft. Mild single current episode of major depressive disorder 09/19/2016 Dx at [facility] 09/18/16, crystal ated Zoloft. PTSD (post-traumatic stress disorder) 09/19/2016 Dx at [facility] 09/18/16, treated Zoloft. Family History Medical History [...] and heating? Not hard at all 06/30/2021 [facility] [place] of Occupat ional Health - Occupational Stress [...] Detected Not Detected 01/19/2023 5:31 AM EDT [employer] Neisseria gonorrhoeae Not Detected Not Detected 01/19/2023 5:31 AM EDT [facility] [employer] [facility] Swab ENDOCERVICAL STRUCTURE / Unknown 01/18/2023 1:37 PM EDT 01/18/2023 1:37 PM EDT Narrative PREFERRED [employer] [facility] - 01/19/2023 5:31 AM EDT Testing methodology is ammonia print operator mediated amplification (TMA) using the Aptima Combo 2 assay from [employer]. A negative result does not completely rule [...] - GENERAL OR DERABLES Final Result PREFERRED [employer], [facility] 1 [facility] , [address] [place] [phone] from Last 3 Months or Most Recently Relevant to Health Maintenance Insurance [facility] CHOICE PLUS [id number] [facility] CHOICE PLUS [id number] * Guarantor: CORPORATE,CABINET OF FAMILYANDCHILDREN Account Type Relation to Patient Date of Phone Billing Address Corporate [facility] [address] Care Teams Billing Customer Service Representative Relationship Specialty Start Date End Date Carleen Xiong MD [address] [place] [address] PCP - General Family Medicine 09/10/15 Peace Landry APRN [address] [place] [address] Nurse Practitioner 02/01/16
--- OUTSIDE RECORDS SUMMARY | 2025-07-23 12:50 | XMS_ITS | Clinical Summary ---
Author Organization [facility] Address [address] [place] [address] Care Team Providers Care Bacteriologist Food Name Role Phone Jasmeet Kelly MD Primary Care Provider [phone] Allergies No known active allergies Medications acetaminophen [...] does note that she was examined in [place] and was noted to be 2 cm [...] drink = 0.6 oz pur e alcohol) [facility] Utilities Answer Date Recorded In the past 12 months has th e electric, gas, oil, or water [employer] threatened to shut off services in your [...] and heating? Not hard at all 12/26/2024 [facility] of Occupat ional Health - [...] GED or equivalent No 12/26/2024 Preferred Language Faroese 12/26/2024 PHQ-2 Answer Date Recorded Patient Health [...] this topic Insurance Barb MARTINEZ ERIKA GROSS [id number] [facility] Advance Directives * CPR (Attempt to Resuscitate) (Latest Code Status on File) Date Activated Date Inactivated Comments 12/26/2024 1:34 AM 01/04/2025 11:53 AM Question Answer Comments Code Status (Patient has no pulse and is not breathing): CPR (Attempt to Resuscitate) Medical Interventions (Patie nt has pulse or is breathing): Full Support Level Of Support Discussed With: Patient Care Teams Bacteriologist Food Relationship Specialty Start Date End Date Jasmeet Kelly MD [address] [place] [address] PCP - General Family Medicine 12/03/24
== END 2025-07-05 23:59 | disposition home or self-care (01) ==
LOC: LAB.DROPOF 07-23 12:47
PROVIDERS: PCP Family Medicine; Visit Provider Nurse Practitioner
DX: R52 Pain, unspecified (principal)
CPT/HCPCS: 87631